=== PATIENT | male | born 1970 | race Caucasian/White ===

== ENCOUNTER 2022-02-16 13:35 | Outpatient (CLI) | payer OTHER, SELFPAY ==
[2022-02-16 13:51] LABS: Hemoglobin A1C* 9.5 % (0-5.6)
[2022-02-16 22:01] LABS: Vitamin D 25 Hydroxy* 30 ng/mL (30-80)
[2022-02-16 22:34] LABS: Vitamin B12* 808 pg/mL (243-894)
--- OUTSIDE RECORDS SUMMARY | 2022-03-16 09:21 | XMS_ITS | Encounter Summary ---
:1970 Author Organization [facility] Address [address] [place] [address] Care Team Providers Name Role Phone Unavailable Primary Care Provider Unavailable Reason for Visit Reason Comments Callouses Appointment Request (Routine) - Closed Specialty Diagnoses / Procedures Referred By Contact Refer red To Contact Podiatry Referral ID Status Reason Start Date Expiration Date Visits Requ ested Visits Authorized [id number] Closed 02/01/2020 01/31/2021 1 1 Encounter Details Date Type Department Care Team Description 02/04/2020 Comprehensive Visit Department of Cory Hewitt etwilliams Mellitus Type 2 Peripheral Neuropathy (HCC) (Primary Dx); Orthopedic Surgery Meron guaman, Diabetes Mellitus Type 2 Ulcer (HCC); in [place] KayPDick Granuloma Pyogenic; [address] Foreign Body Foot Superficial Initial Le ft [address] [place] [id number] [phone] Social History Tobacco Use Types Packs/Day Years Used Date Smoking Tobacco: Never Smokeless Tobacco: Never Sex Assigned at Date Recorded Not on file documented as of this encounter Last Filed Vital Signs Vital Sign Reading Time Taken Comments Blood Pressure 119/58 02/04/2020 2:44 PM CDT Pulse 93 02/04/2020 2:44 PM CDT Temperature 36.7 ??C (98.1 ??F) 02/04/2020 2:44 PM CDT Respiratory Rate - - Oxygen Saturation - - Inhaled Oxygen Concentration - - Weight - - Height - - Body Mass Index - - documented in this encounter Progress Notes Meron Reddy D.P.M. - 02/04/2020 2:30 PM CDT SUBJECTIVE CHIEF COMPLAINT/REASON FOR VISIT Chief Complaint Patient presents with ??? Left Foot - Callouses HISTORY OF PRESENT ILLNESS Herb presents today for : Evaluation of ulceration left hallux. REVIEW OF SYSTEMS The following portions of the patient's history were reviewed and updated as appropriate: allergies,current medications, family history, medical history, social history, surgical history and problem list. OBJECTIVE VITAL SIGNS BP 119/58 Pulse 93 Temp 36.7 ??C (Temporal) PHYSICAL EXAMINATION General Appearance: Herb is well nourished, well groomed, cooperative, alert and is in no acute distress. Lower Extremity Physical Exam: Musculoskeletal: Motor strength normal and symmetric. No gross deformities or dislocations. Rectus foot structure. Gait: normal gait for age. Neurological: Loss of light touch and sharp sensation to the right and left foot. Coordination within normal limits. Patient is able to follow tasks as directed. Dermatological: Lower extremity: Skin evaluation: There is a spot bleeding to the plantar aspect of the 1st web space left foot, ulceration with central hyper granular growth to the plantar aspect of the interphalangeal joint left hallux. Ulceration to the left hallux is partial thickness. There is surrounding callusing. There is no tunneling, undermining is present 4 to 7 o'clock position. Toenails:Dystrophic growth. Vascular: intact, pitting edema with visible varicosities bilateral extremity. ASSESSMENT / PLAN 1. Diabetes Mellitus Type 2 Peripheral Neuropathy (HCC) 2. Diabetes Mellitus Type 2 Ulcer (HCC) 3. Granuloma Pyogenic PLAN: Discussed with the patient clinical neuropathic ulceration to his left hallux. When paring thepoint where there was noted to be a blood spot to the plantar aspect of the left 1st interspace there is noted to be a small fragment of glass approximately 1 mm. This was superficial. Patient's ulceration to the left hallux appears to be related to friction. There is some callus and some undermining.Debridement is performed with cautery and a sterile surgical # 15 blade <20sqcm. The site is thendressed with a topical antibiotic gauze and Coban. Patient will continue daily wound care. Recommended nonweightbearing. He is unsteady using crutches and he will obtain a knee scooter to stay off of his right foot. He states he is on work restrictions per his primary care. He also had questions abouthis toenails and recommend he discuss with his prostate primary care the option of terbinafine 90 day. Assessment for Herb will be ongoing with changes in treatment as indicated. Herb will followwith Podiatry if there are any questions or complications. All questions answered. documented in this encounter Plan of Treatment Not on filedocumented as of this encounter Visit Diagnoses Diagnosis Diabetes Mellitus Type 2 Peripheral Neur opathy (HCC) - Primary Diabetes Mellitus Type 2 Ulcer (HCC) Granuloma Pyogenic Foreign Body Foot Superficial Initial Le ft documented in this encounter
--- OUTSIDE RECORDS SUMMARY | 2022-03-16 09:21 | XMS_ITS | Encounter Summary ---
:1970 Author Organization [facility] Address [address] [place] [address] Care Team Providers Name Role Phone Unavailable Primary Care Provider Unavailable Reason for Visit Reason Comments Med Refill Encounter Details Date Type Department Care Team Description 09/25/2020 Refill Department of Urology in [facility] Caity troy P.A.-C. Med Refill [place], [place] [address] [place] [address] [place] [address] [phone] Social History Tobacco Use Types Packs/Day Years Used Date Smoking Tobacco: Never Smokeless Tobacco: Never Sex Assigned at Date Recorded Not on file documented as of this encounter Plan of Treatment Not on filedocumented as of this encounter Visit Diagnoses Not on filedocumented in this encounter
--- OUTSIDE RECORDS SUMMARY | 2022-03-16 09:21 | XMS_ITS | Encounter Summary ---
:1970 Author Organization [facility] Address [address] [place] [address] Care Team Providers Name Role Phone Unavailable Primary Care Provider Unavailable Reason for Visit Reason Comments Nail Problem Nail Problem Appointment Request (Routine) - Closed Specialty Diagnoses / Procedures Referred By Contact Refer red To Contact Orthopedic Surgery Referral ID Status Reason Start Date Expiration Date Visits Requ ested Visits Authorized [id number] Closed 05/21/2020 05/21/2021 1 1 Encounter Details Date Type Department Care Team Description 06/16/2020 Office Visit Department of Maureen Diabetes Mellitus Type 2 (HCC) (Primary Dx); Orthopedic Surgery in [place] Callus Corn; [place], [place] D.P.MKwesi Diabetes Mellitus Type 2 Peripheral Neur opathy (HCC) [address] [phone] [phone] Social History Tobacco Use Types Packs/Day Years Used Date Smoking Tobacco: Never Smokeless Tobacco: Never Sex Assigned at Date Recorded Not on file documented as of this encounter Progress Notes Meron Reddy D.P.MKwesi - 06/16/2020 2:30 PM CST SUBJECTIVE CHIEF COMPLAINT/REASON FOR VISIT Chief Complaint Patient presents with ??? Right Foot - Nail Problem ??? Left Foot - Nail Problem HISTORY OF PRESENT ILLNESS Herb presents today for : Return of callus left big toe. OBJECTIVE VITAL SIGNS There were no vitals taken for this visit. PHYSICAL EXAMINATION General Appearance: Herb is well nourished, well groomed, cooperative, alert and is in no acute distress. Lower Extremity Physical Exam: Musculoskeletal: Hallux valgus. Motor strength normal and symmetric. No gross deformities or dislocations. Rectus foot structure. Gait: normal gait for age. Neurological: Loss of light touch and sharp sensation to the right and left foot. Coordination within normal limits. Patient is able to follow tasks as directed. Dermatological: Lower extremity: Skin evaluation: Hyperkeratosis with dried hemorrhaging within the callusing. Toenails: Dystrophic growth. Vascular: intact, pitting edema with visible varicosities bilateral extremity. ASSESSMENT / PLAN 1. Diabetes Mellitus Type 2 (HCC) 2. Callus Lewis 3. Diabetes Mellitus Type 2 Peripheral Neuropathy (HCC) PLAN: Discussed with the patient clinical neuropathic callus to his left hallux. Callus is pared. This area is high risk for ulceration and reviewed offloading and shoe gear. Assessment for Herb will be ongoing with changes in treatment as indicated. Herb will follow with Podiatry if there are any questions or complications. All questions answered. EOLOGIST documented in this encounter Plan of Treatment Not on filedocumented as of this encounter Visit Diagnoses Diagnosis Diabetes Mellitus Type 2 (HCC) - Primary Callus Lewis Diabetes Mellitus Type 2 Peripheral Neur opathy (HCC) documented in this encounter
--- OUTSIDE RECORDS SUMMARY | 2022-03-16 09:21 | XMS_ITS | Encounter Summary ---
:1970 Author Organization [facility] Address [address] [place] [address] Care Team Providers Name Role Phone Unavailable Primary Care Provider Unavailable Encounter Details Date Type Department Care Team Description 07/28/2020 Clinical Communication Department of Urology Caity Swain in [facility] Melia jonh [place] [address] [facility] [address] [place], [place] [phone] Social History Tobacco Use Types Packs/Day Years Used Date Smoking Tobacco: Never Smokeless Tobacco: Never Sex Assigned at Date Recorded Not on file documented as of this encounter Miscellaneous Notes Telephone Encounter - Tara Sands, L.P.N. - 07/29/2020 9:32 AM LOGGING SUPERINTENDENT Prescription called to [place] [facility], attempted to reach patient to update no answer and mail box is full. ING SUPERINTENDENT Telephone Encounter - Annie Louie - 07/28/2020 2:40 PM CST Patient called asking if he could get his prescription sent to [facility] in [place] instead of [facility]. Please give him a call back at [phone]. Thank you. ING SUPERINTENDENT documented in this encounter Plan of Treatment Not on filedocumented as of this encounter Visit Diagnoses Not on filedocumented in this encounter
--- OUTSIDE RECORDS SUMMARY | 2022-03-16 09:21 | XMS_ITS | Clinical Summary ---
:1970 Author Organization [facility] Address [address] [place] [address] Care Team Providers Name Role Phone Unavailable Primary Care Provider Unavailable Source Comments Patient records contain information from all sites at [facility]. For routine questions regarding patient records, call [phone] during business hours, M-F 8:00 AM - 5:00 PM Central Time. Record requests for emergency care only can be directed to [phone] at any time.[facility] Allergies No known active allergies Medications Medication Sig Dispensed Refills Start Date End Date Status aspirin [address] tablet Take 81 mg by 0 03/02/2012 Active mouth. atorvastatin (Lipitor) Lipitor 10 mg 0 11/03/2013 Active 10 mg tablet oral tablet See Instructions, 1 TABLET DAILY Invokana 100 mg tablet 0 10/29/2019 Active insulin asp prt-insulin Inject under the 0 7 Active aspart (NovoLOG Mix skin. 70-30 U-100 Insuln) 100 unit/mL (70-30) injection latanoprost (XALATAN) INT 1 GTT IN OU 0 01/15/2020 Active 0.005 % ophthalmic QHS solution levothyroxine Two tablets daily 0 08/20/2014 Active (SYNTHROID, LEVOTHROID) 100 mcg tablet liraglutide (Victoza Inject under the 0 07/28/2017 Active 3-Lionel) 0.6 mg/0.1 mL skin. (18 mg/3 mL) injection lisinopriL One and a half 0 08/20/2014 Act ramses (PRINIVIL,ZESTRIL) 20 tabs daily mg tablet LORazepam (ATIVAN) 0.5 TK 1 TO 2 TS PO Q 0 0 Active mg tablet 8 H FOR 5 DAYS PRF VERTIGO meclizine (ANTIVERT) 25 TK 1 T PO TID PRF 0 01/10/20 20 Active mg tablet VERTIGO metFORMIN (GLUCOPHAGE) Take by mouth. 0 05/23/2013 Active 1,000 mg tablet rOPINIRole (REQUIP) 4 0 01/28/2020 Active mg tablet sertraline (ZOLOFT) 100 Take 100 mg by 0 06/21/2016 Active mg tablet mouth. simvastatin (ZOCOR) 40 Take 40 mg by 0 04/09/2014 Active mg tablet mouth. BD Insulin Syringe 0 05/09/2020 Active Ultra-Fine 1 mL 31 gauge x 12/21 syringe FreeStyle Jaye 14 Day APPLY UTD Q 14 0 06/30/2020 Active Sensor kit DAYS oxybutynin TAKE 1 TABLET BY 90 tablet 3 09/26/2020 A ctive (DITROPAN-XL) 10 mg 24 MOUTH DAILY hr tablet Active Problems Problem Noted Date Obesity Unspecified 03/05/2010 Diabetes Mellitus Type 2 02/20/2010 Overview: Overview: a system change updated this record. Thi s will not affect patient care or billing. This comment can be deleted. Hyperlipidemia 02/20/2010 Hypertension 02/20/2010 Hypothyroidism 02/20/2010 Social History Tobacco Use Types Packs/Day Years Used Date Smoking Tobacco: Never Smokeless Tobacco: Never Sex Assigned at Date Recorded Not on file Last Filed Vital Signs Vital Sign Reading Time Taken Comments Blood Pressure 126/67 07/28/2020 1:03 PM SHIPPING AND RECEIVING WEIGHER Pulse 111 07/28/2020 1:03 PM SHIPPING AND RECEIVING WEIGHER Temperature 35.9 ??C (96.6 ??F) 07/28/2020 1:03 PM SHIPPING AND RECEIVING WEIGHER Respiratory Rate 18 10/07/2014 10:39 PM SHIPPING AND RECEIVING WEIGHER Oxygen Saturation - - Inhaled Oxygen Concentration - - Weight - - Height 170 cm (5' 6.93) 05/06/2016 8:53 AM CDT Body Mass Index - - Plan of Treatment Health Maintenance Due Date Last Done Comments CT Colonography 1968 Cologuard 1968 Colonoscopy 1968 Colorectal Cancer Screening 1968 Diabetic Office Visit with Foot 1968 Exam Dilated Eye Exam 1968 FIT 1968 Fasting Lipid Panel 1968 HIV Screening 1968 Hemoglobin A1C 1968 Hepatitis B Vaccines (1 of 3 - 1970 3-dose series) Hepatitis C Screening 1968 Urine Microalbumin 1968 COVID-19 Vaccine (#1) 01/07/1969 Pneumococcal vaccine (0-64 years) 05/20/2007 05/20/2006 (2 - PCV) Creatinine Level 10/08/2015 10/07/2014 Potassium Level 10/08/2015 10/07/2014 Sodium Level 10/08/2015 10/07/2014 Thyroid Stimulating Hormone (TSH) 10/08/2015 10/07/2014 test for thyroid function Zoster Vaccines (1 of 2) 2018 Office Visit for Blood Pressure 07/28/2021 07/28/2020 Check / Re-check Depression Screening (Annual 08/08/2021 PHQ-2) Influenza Vaccine (#1) 2022 05/14/2019, 05/18/2012, 05/17/2011, Additional history exists DTaP,Tdap,and Td Vaccines (2 - Td 05/14/2029 05/14/2019 or Tdap)
--- OUTSIDE RECORDS SUMMARY | 2022-03-16 09:21 | XMS_ITS | Encounter Summary ---
:1970 Author Organization [facility] Address [address] [place] [address] Care Team Providers Name Role Phone Unavailable Primary Care Provider Unavailable Encounter Details Date Type Department Care Team Description 06/16/2020 Ancillary Procedure Department of Orthopedic Surgery Social History Tobacco Use Types Packs/Day Years Used Date Smoking Tobacco: Never Smokeless Tobacco: Never Sex Assigned at Date Recorded Not on file documented as of this encounter Plan of Treatment Not on filedocumented as of this encounter Procedures Procedure Name Priority Date/Time Associated Comments Diagnosis ORTHOPEDIC SURGERY Routine 06/16/2020 2:50 PM Res ults for this IMAGE EXAM DESIGN CONSULTANT procedure are i n the results section. documented in this encounter Results Foot-Orthopedic Surgery Image Exam (06/16/2020 2:50 PM DESIGN CONSULTANT) Specimen (Source) Anatomical Collection Method Collection Time Re ceived Time Location / / Volume Laterality 06/16/2020 2:50 PM DESIGN CONSULTANT Narrative [facility] - 06/16/2020 2:53 PM DESIGN CONSULTANT This order has been created and auto-finalized to support the import of images acquired without order. The clini ree documentation to support these images can be found on the encounter miguel angel t produced images. Provider Not In System IMG NON RAD IMAGING PROCEDUR ES Performing Organization Address City/State/ZIP Code Phon e Number [facility] NA documented in this encounter Visit Diagnoses Not on filedocumented in this encounter
--- OUTSIDE RECORDS SUMMARY | 2022-03-16 09:21 | XMS_ITS | Encounter Summary ---
:1970 Author Organization [facility] Address [address] [place] [address] Care Team Providers Name Role Phone Unavailable Primary Care Provider Unavailable Reason for Referral Outpatient (Routine) - Closed Specialty Diagnoses / Procedures Referred By Contact Refer red To Contact Diagnoses Urgency Urinary Anjel Lopez M.D. [facility] Procedures US Kidneys Bilateral with Bladder [address] [place] [address] Referral ID Status Reason Start Date Expiration Date Visits Requ ested Visits Authorized [id number] Closed 05/27/2020 05/27/2021 1 1 Reason for Visit Outpatient (Routine) - Closed Specialty Diagnoses / Procedures Referred By Contact Refer red To Contact Diagnoses Urgency Urinary Anjel Lopez M.D. [facility] Procedures US Kidneys Bilateral with Bladder [address] [place] [address] Referral ID Status Reason Start Date Expiration Date Visits Requ ested Visits Authorized [id number] Closed 05/27/2020 05/27/2021 1 1 Encounter Details Date Type Department Care Team Description 06/02/2020 Hospital Encounter Department of Anjel Lopez Urg ency Urinary Radiology in [facility] [address] [place] [address] [place] [phone] (Work) [phone] Social History Tobacco Use Types Packs/Day Years Used Date Smoking Tobacco: Never Smokeless Tobacco: Never Sex Assigned at Date Recorded Not on file documented as of this encounter Medications at Time of Discharge Medication Sig Dispensed Refills Start Date End Date aspirin [address] tablet Take 81 mg by mouth. 0 atorvastatin (Lipitor) 10 Lipitor 10 mg oral 0 mg tablet tablet See Instructions, 1 TABLET DAILY BD Insulin Syringe 0 05/09/2020 Ultra-Fine 1 mL 31 gauge x 5/16 syringe insulin asp prt-insulin Inject under the 0 2016 aspart (NovoLOG Mix 70-30 skin. U-100 Insuln) 100 unit/mL (70-30) injection Invokana 100 mg tablet 0 10/29/2019 latanoprost (XALATAN) 0.005 INT 1 GTT IN OU QHS 0 01/15/2020 % ophthalmic solution levothyroxine (SYNTHROID, Two tablets daily 0 LEVOTHROID) 100 mcg tablet liraglutide (Victoza 3-Lionel) Inject under the 0 0.6 mg/0.1 mL (18 mg/3 mL) skin. injection lisinopriL One and a half tabs 0 08/20/2014 (PRINIVIL,ZESTRIL) 20 mg daily tablet LORazepam (ATIVAN) 0.5 mg TK 1 TO 2 TS PO Q 8 0 0 01/17/2020 tablet H FOR 5 DAYS PRF VERTIGO meclizine (ANTIVERT) 25 mg TK 1 T PO TID PRF 0 tablet VERTIGO metFORMIN (GLUCOPHAGE) Take by mouth. 0 3 1,000 mg tablet rOPINIRole (REQUIP) 4 mg 0 01/28/2020 tablet sertraline (ZOLOFT) 100 mg Take 100 mg by 0 06/21 tablet mouth. simvastatin (ZOCOR) 40 mg Take 40 mg by mouth. 0 04/09/2014 tablet documented as of this encounter Plan of Treatment Not on filedocumented as of this encounter Procedures Procedure Name Priority Date/Time Associated Comments Diagnosis US KIDNEYS RAD - Routine 06/02/2020 11:25 Urgency Urinary Results for this BILATERAL WITH (most inpatients AM CDT procedure are in BLADDER and all the results outpatients) section. documented in this encounter Results US Kidneys Bilateral with Bladder (06/02/2020 11:25 AM CDT) Anatomical Region Laterality Modality Abdomen, Renal, Ultrasound RST LOS, Ultrasound ARZ LOS, Bila teral Ultrasound Ultrasound FLA LOS Specimen (Source) Anatomical Collection Method Collection Time Re ceived Time Location / / Volume Laterality 06/02/2020 11:26 AM CDT Impressions 06/02/2020 11:28 AM CDT Unremarkable plain film evaluation of the right and left kidneys and urinary bladder. Narrative 06/02/2020 11:28 AM CDT EXAM: US KIDNEYS BILATERAL WITH BLADDER COMPARISON: None. FINDINGS: Right kidney: 14.4 cm Cortical thickness: Normal. ?? Parenchymal echogenicity: Normal. Collecting system: No hydronephrosis. Masses: None detected. Left kidney: 14.9 cm Cortical thickness: Normal. ?? Parenchymal echogenicity: Normal. Collecting system: No hydronephrosis. Masses: None detected. Bladder: Normal in appearance. Prevoid v olume 190 and L. Post void volume 37 mL. Incidentally noted when evaluating the u pper abdomen was that the echogenicity and echotexture of the liver suggests a degree of hepatic steatosis. Procedure Note Lakshmi Santamaria M.D. - 06/02/2020Forma tting of this note might be different from the original. EXAM: US KIDNEYS BILATERAL WITH BLADDER COMPARISON: None. FINDINGS: Right kidney: 14.4 cm Cortical thickness: Normal. Parenchymal echogenicity: Normal. Collecting system: No hydronephrosis. Masses: None detected. Left kidney: 14.9 cm Cortical thickness: Normal. Parenchymal echogenicity: Normal. Collecting system: No hydronephrosis. Masses: None detected. Bladder: Normal in appearance. Prevoid v olume 190 and L. Post void volume 37 mL. Incidentally noted when evaluating the u pper abdomen was that the echogenicity and echotexture of the liver suggests a degree of hepatic steatosis. IMPRESSION: Unremarkable plain film evaluation of th e right and left kidneys and urinary bladder. Anjel MARIEEG US PROCEDURES documented in this encounter Visit Diagnoses Diagnosis Urgency Urinary documented in this encounter
--- OUTSIDE RECORDS SUMMARY | 2022-03-16 09:21 | XMS_ITS | Encounter Summary ---
:1970 Author Organization [facility] Address [address] [place] [address] Care Team Providers Name Role Phone Unavailable Primary Care Provider Unavailable Reason for Visit Reason Comments cytology question Encounter Details Date Type Department Care Team Description 07/29/2020 Clinical Communication Department of Caity Swain [facility] [place] [address] [place] [phone] Social History Tobacco Use Types Packs/Day Years Used Date Smoking Tobacco: Never Smokeless Tobacco: Never Sex Assigned at Date Recorded Not on file documented as of this encounter Miscellaneous Notes Telephone Encounter - Maribell Hartman L.P.NKwesi - 07/29/2020 12:46 PM SURVEY RODMAN Patient called and wanted to know more about the urine cytology test that Caity ordered. Let him know it is a test that looks for high grade cancer cells. He states verbal understanding. Also let him know when he goes to the lab, to go with a full bladder as we need a half a cup to run the test he states verbal understanding. EY RODMAN documented in this encounter Plan of Treatment Not on filedocumented as of this encounter Visit Diagnoses Not on filedocumented in this encounter
--- OUTSIDE RECORDS SUMMARY | 2022-03-16 09:21 | XMS_ITS | Encounter Summary ---
:1970 Author Organization [facility] Address [address] [place] [address] Care Team Providers Name Role Phone Unavailable Primary Care Provider Unavailable Encounter Details Date Type Department Care Team Description 10/31/2020 Orders Only [facility] Sa nahomi Segal M.D. [address] [place], [place] [phone] (Wo rk) Social History Tobacco Use Types Packs/Day Years Used Date Smoking Tobacco: Never Smokeless Tobacco: Never Sex Assigned at Date Recorded Not on file documented as of this encounter Plan of Treatment Not on filedocumented as of this encounter Visit Diagnoses Not on filedocumented in this encounter
--- OUTSIDE RECORDS SUMMARY | 2022-03-16 09:21 | XMS_ITS | Encounter Summary ---
:1970 Author Organization [facility] Address [address] [place] [address] Care Team Providers Name Role Phone Unavailable Primary Care Provider Unavailable Reason for Referral Outpatient (Routine) - Closed Specialty Diagnoses / Procedures Referred By Contact Refer red To Contact Diagnoses Dyspnea On Exertion Anjel Lopez M.D. [facility] Procedures Echo Stress [place] ECHO TTE STRESS W CONT ECG [address] [place] [id number] Referral ID Status Reason Start Date Expiration Date Visits Requ ested Visits Authorized [id number] Closed 02/25/2020 02/24/2021 1 1 Reason for Visit Outpatient (Routine) - Closed Specialty Diagnoses / Procedures Referred By Contact Refer red To Contact Diagnoses Dyspnea On Exertion Anjel Lopez M.D. [facility] Procedures Echo Stress WI ECHO TTE STRESS W CONT ECG [address] [place] [id number] Referral ID Status Reason Start Date Expiration Date Visits Requ ested Visits Authorized [id number] Closed 02/25/2020 02/24/2021 1 1 Encounter Details Date Type Department Care Team Description 03/17/2020 Hospital Encounter Department of Anjel Lopez a On Exertion Joyce Christianson M.D. Diseases in [address] [place] [address] [place], [place] [phone] (Work) [phone] Social History Tobacco Use Types Packs/Day Years [...] tablet tablet See Instructions, 1 TABLET DAILY insulin asp prt-insulin Inject under the 0 [...] encounter Procedures Procedure Name Priority Date/Time Associated Diagnosis Comme nts ECHO STRESS 2D WITH Routine 03/17/2020 3:55 PM Dyspnea On Exer tion Results for this COLOR, LIMITED CDT procedure are in DOPPLER AND the results CONTRAST section. documented in this encounter Results ECHO STRESS 2D WITH COLOR, LIMITED DOPPLER AND CONTRAST (03/17/2020 3:55 PM CDT) [facility] gist Method Time Signature Ejection Fraction 60 MC CV EIMS Sinus of Valsalva 36 MC CV EIMS Mid-Ascending Aorta 33 MC CV EIMS Wall Motion Score 1.00 MC CV EIMS Index LV Mass Index 98 MC CV EIMS LV End-Diastolic 47 MC CV EIMS Diameter LV End-Systolic 28 MC CV EIMS Diameter MV E Velocity 1.1 MC CV EIMS MV A Velocity 0.7 MC CV EIMS MV E/A 1.57 MC CV EIMS MV e' Velocity 0.09 MC CV EIMS Medial MV E/e' Medial 12.2 MC CV EIMS LV Interventricular 13 MC CV EIMS Septal Wall Thickness LV Posterior Wall 12 MC CV EIMS Thickness LV Relative Wall 51 MC CV EIMS Thickness LA Volume Index 21 MC CV EIMS WMSI At Rest 1.00 MC CV EIMS WMSI At Peak Stress 1.00 MC CV EIMS Anatomical Region Laterality Modality Echocardiography Specimen (Source) Anatomical Collection Method Collection Time Re ceived Time Location / / Volume Laterality 03/17/2020 12:52 PM CDT Impressions 03/18/2020 2:57 PM CDT Stress outreach echo interpretation. ??STRESS TEST: ??Dobutamine was infused from 5 mcg/kg/min to 40.0 mcg/kg/min. ??A dose of 1.00 mg of atropine was administered. ??A peak heart rate of 134 BPM was achieved (79 % age-predicted maximal HR). ??The patient developed headache. ??With stress, there were no S-T changes. ??The stress ECG was negative for ischemia. ??Test was terminated due to IV infiltration. ??Please see Nursing Notes for additional information. ??REST IMAGES: Intravenous Definity ultrasound enhancem ent agent(s) administered to enhance endocardial border definition. ??Contrast administered per local protocol by Viktoriya Madden RN, see on-site medical record for further documentation . ??LEFT VENTRICLE: ??Normal left ventricular chamber size. ??Normal left ventricular wall thi ckness. ??No regional wall motion abnormalities. Indeterminate left ventricular diastolic function grade. ??RIGHT VENTRICLE: ??Normal right ventricular chamber size (limited views) . ??Normal right ventricular systolic function (limited views). ??Unable to detect peak tricuspi d regurgitation velocity for pulmonary artery systolic pressure calculation. ??ATRIA: ??Normal left atrial size. ??Normal right atrial size. ??CARDIAC VALVES: ??Trileaflet aortic valve. ??Nor mal aortic valve. ??No aortic valve regurgitation. ??Normal mitral valve. ??No mitral valve regurgit ation. ??Normal pulmonary valve. ??Trivial pulmonary valve regurgitation. ??Normal tricuspid valve. ??No tricuspid valve regurgitation. ??OTHER ECHO FINDINGS: ??Inferior vena cava not well visualized. ??Normal ascending aorta diameter. ??No intracardiac mass or thrombus, but the l eft atrial appendage cannot be visualized adequately with transthoracic echo to exclude throm bus in this location. ??Prominent anterior and apical epicardial fat layer. ??No pericardial e ffusion. ??Dobutamine stress echocardiogram negative for myocardial ischemia. ??Ejection fraction response from 60 % at rest to 75 % at peak stress. Left ventricular end-systolic volume dec reased with stress. ??No regional wall motion abnormalities with stress. For the complete report, see the [facility] Documents. Narrative 03/18/2020 2:57 PM CDT For the complete report, see the [facility] Documents. Final Impressions 1. Dobutamine stress echocardiogram nega tive for myocardial ischemia. 2. Ejection fraction response from 60 % at rest to 75 % at peak stress. 3. Left ventricular end-systolic volume decreased with stress. 4. No regional wall motion abnormalities with stress. 5. The stress ECG was negative for ische josias. Procedure Note Damien Huang M.D. - 03/18/2020Form atting of this note might be different from the original. For the complete report, see the [facility] Documents. Final Impressions 1. Dobutamine stress echocardiogram nega tive for myocardial ischemia. 2. Ejection fraction response from 60 % at rest to 75 % at peak stress. 3. Left ventricular end-systolic volume decreased with stress. 4. No regional wall motion abnormalities with stress. 5. The stress ECG was negative for ische josias. Findings Stress outreach echo interpretation. STR ESS TEST: Dobutamine was infused from 5 mcg/kg/min to 40.0 mcg/kg/min. A dose of 1.00 mg of at ropine was administered. A peak heart rate of 134 BPM was achieved (79 % age-predicted maximal HR). The patient developed headache. With stress, there were no S-T changes. The stress EC G was negative for ischemia. Test was terminated due to IV infiltration. Please see Nursing N otes for additional information. REST IMAGES: Intravenous Definity ultrasound enhancem ent agent(s) administered to enhance endocardial border definition. Contrast administered per [facility] protocol by Viktoriya Madden RN, see on-site medical record for further documentation . LEFT VENTRICLE: Normal left ventricular chamber size. Normal left ventricular wall thick ness. No regional wall motion abnormalities. Indeterminate left ventricular diastolic function grade. RIGHT VENTRICLE: Normal right ventricular chamber size (limited views) . Normal right ventricular systolic function (limited views). Unable to detect peak tricuspid regurgitation velocity for pulmonary artery systolic pressure calculation. ATRIA: Normal left atrial size. Normal right atrial size. CARDIAC VALVES: Trileaflet aortic valve. Normal aortic valve. No aortic valve regurgitation. Normal mitral valve. No mitral valve regurgitat ion. Normal pulmonary valve. Trivial pulmonary valve regurgitation. Normal tricuspid valve. N o tricuspid valve regurgitation. OTHER ECHO FINDINGS: Inferior vena cava not well vi sualized. Normal ascending aorta diameter. No intracardiac mass or thrombus, but the l eft atrial appendage cannot be visualized adequately with transthoracic echo to exclude throm bus in this location. Prominent anterior and apical epicardial fat layer. No pericardial eff usion. Dobutamine stress echocardiogram negative for myocardial ischemia. Ejection fraction r esponse from 60 % at rest to 75 % at peak stress. Left ventricular end-systolic volume dec reased with stress. No regional wall motion abnormalities with stress. For the complete report, see the [facility] Documents. Anjel Lopez M.D. CV ECHO PROCEDURES documented in this encounter Visit Diagnoses Diagnosis Dyspnea On Exertion documented in this encounter Administered Medications Inactive Administered Medications - up to 3 most recent administrations Medication Order MAR Action Action Date Dose Rate Site atropine injection 0.25 mg Given 03/17/2020 1:59 PM CDT 1 mg 0.25 mg, intravenous, As needed, per Dobutamine stress echo protocol, Starting on Tue03/17/20 at 1335, Give per Dobuatmine stress echo protocol. DOBUTamine 1,000 mcg/mL in D5W 250 mL New Bag 03/17/2020 1:43 PM C DT 58.5 mg infusion 1-100 mg (DOBUTREX) 1-100 mg, intravenous, Once, On Tue03/17/20 at 1430, For 1 dose, Infusion rate: 5-40 mcg/kg/min - see protocol. Premix ba mg in 250 mL perflutren lipid microspheres injection Given 03/17/2020 1:33 PM CDT 4.5 mL (DEFINITY) intravenous, Once in imaging, contrast, Starting on 03/17/20 at 1303, For 1 dose, Standard concentration - perflutren lipid microsphere (DEFINITY) injection: To be administered for inclusion criteria that does not include an indication of myocardial perfusion. 1. Activate perflutren lipid microsphere by shaking the vial for 45 seconds using a Vialmix. 2. Draw up contents of vial into 10 mL syringe with 8.5 mL of 0.9% sodium chloride for a total of 10 mL. 3. Administer 0.5 mL IV push of the diluted solution. 4. Immediately flush with 0.9% sodium chloride over 10 seconds. 5. May repeat steps 3 and 4 until images are optimal or for a total of 10 mL of diluted solution being administered. See protocol. sodium chloride 0.9 % injection 10 mL Given 03/17/2020 1:35 PM CDT 40 mL 10 mL, intravenous, As needed, line care, Starting on Tue03/17/20 at 1423, Prior to and following infusion and between multiple consecutive infusions: sodium chloride 0.9 % injection documented in this encounter
--- OUTSIDE RECORDS SUMMARY | 2022-03-16 09:22 | XMS_ITS | Encounter Summary ---
:1970 Author Organization [facility] Address [address] [place] [address] Care Team Providers Name Role Phone Unavailable Primary Care Provider Unavailable Encounter Details Date Type Department Care Team Description 05/03/2016 Hospital Encounter HX [facility] NEUROLOGY Madiha Walker D.O. [address] [place] [address] (Wo rk) Social History Tobacco Use Types Packs/Day Years Used Date Smoking Tobacco: Never Assessed Sex Assigned at Date Recorded Not on file documented as of this encounter Last Filed Vital Signs Vital Sign Reading Time Taken Comments Blood Pressure - - Pulse - - Temperature - - Respiratory Rate - - Oxygen Saturation - - Inhaled Oxygen Concentration - - Weight - - Height 170 cm (5' 6.93) 05/03/2016 11:51 AM CDT Body Mass Index - - documented in this encounter Medications at Time of Discharge Medication Sig Dispensed Refills Start Date End Date aspirin [address] tablet Take 81 mg by mouth. 0 atorvastatin (Lipitor) 10 Lipitor 10 mg oral 0 mg tablet tablet See Instructions, 1 TABLET DAILY levothyroxine (SYNTHROID, Two tablets daily 0 LEVOTHROID) 100 mcg tablet lisinopriL One and a half tabs 0 08/20/2014 (PRINIVIL,ZESTRIL) 20 mg daily tablet metFORMIN (GLUCOPHAGE) Take by mouth. 0 3 1,000 mg tablet simvastatin (ZOCOR) 40 mg Take 40 mg by mouth. 0 04/09/2014 tablet documented as of this encounter Plan of Treatment Not on filedocumented as of this encounter Visit Diagnoses Not on filedocumented in this encounter
--- OUTSIDE RECORDS SUMMARY | 2022-03-16 09:22 | XMS_ITS | Encounter Summary ---
:1970 Author Organization [facility] Address [address] [place] [address] Care Team Providers Name Role Phone Unavailable Primary Care Provider Unavailable Encounter Details Date Type Department Care Team Description 04/28/2009 Hospital Encounter [facility]X [facility] INPT/OBSRV Angella Ambriz M.D. [address] [place], [place] [address] (Wo rk) Social History Tobacco Use Types Packs/Day Years Used Date Smoking Tobacco: Never Assessed Sex Assigned at Date Recorded Not on file documented as of this encounter Plan of Treatment Not on filedocumented as of this encounter Visit Diagnoses Not on filedocumented in this encounter
--- OUTSIDE RECORDS SUMMARY | 2022-03-16 09:22 | XMS_ITS | Encounter Summary ---
:1970 Author Organization [facility] Address [address] [place] [address] Care Team Providers Name Role Phone Unavailable Primary Care Provider Unavailable Encounter Details Date Type Department Care Team Description 10/02/[address] [facility] INPT/OBSRV Angella Ambriz M.D. [address] [place], [place] [address] (Wo rk) Social History Tobacco Use Types Packs/Day Years Used Date Smoking Tobacco: Never Assessed Sex Assigned at Date Recorded Not on file documented as of this encounter Plan of Treatment Not on filedocumented as of this encounter Visit Diagnoses Not on filedocumented in this encounter
--- OUTSIDE RECORDS SUMMARY | 2022-03-16 09:22 | XMS_ITS | Encounter Summary ---
:1970 Author Organization [facility] Address [address] [place] [address] Care Team Providers Name Role Phone Unavailable Primary Care Provider Unavailable Encounter Details Date Type Department Care Team Description 10/16/2009 Hospital Encounter H[facility] INPT/OBSRV Angella Ambriz M.D. [address] [place], [place] [address] (Wo rk) Social History Tobacco Use Types Packs/Day Years Used Date Smoking Tobacco: Never Assessed Sex Assigned at Date Recorded Not on file documented as of this encounter Plan of Treatment Not on filedocumented as of this encounter Visit Diagnoses Not on filedocumented in this encounter
--- OUTSIDE RECORDS SUMMARY | 2022-03-16 09:22 | XMS_ITS | Encounter Summary ---
:1970 Author Organization [facility] Address [address] [place] [address] Care Team Providers Name Role Phone Unavailable Primary Care Provider Unavailable Encounter Details Date Type Department Care Team Description 12/17/2019 Hospital Encounter Department of Anjel Lopez re Injury Radiology in Enrique Christianson M.D. (Ulcer) Of [address] Site Unspecified [address] [place] [address] [address] [place], [place] [phone] (Work) [phone] Social History Tobacco Use Types Packs/Day Years Used Date Smoking Tobacco: Never Sex Assigned at Date Recorded [...] injection Invokana 100 mg tablet 0 10/29/2019 levothyroxine (SYNTHROID, Two tablets daily 0 LEVOTHROID) 100 mcg tablet liraglutide (Victoza 3-Lionel) Inject under the 0 0.6 mg/0.1 mL (18 mg/3 mL) skin. injection lisinopriL One and a half tabs 0 08/20/2014 (PRINIVIL,ZESTRIL) 20 mg daily tablet metFORMIN (GLUCOPHAGE) Take by mouth. 0 3 1,000 mg tablet sertraline (ZOLOFT) 100 mg Take 100 mg by 0 06/21 tablet mouth. simvastatin (ZOCOR) 40 mg Take 40 mg by mouth. 0 04/09/2014 tablet documented as of this encounter Plan of Treatment Not on filedocumented as of this encounter Procedures Procedure Name Priority Date/Time Associated Comments Diagnosis DX TOES LEFT 3 RAD - Routine 12/17/2019 3:50 Pressure Injury Result s for this VIEWS (most inpatients PM CDT (Ulcer) Of Other procedu re are in and all Site Unspecified the results outpatients) Stage section. documented in this encounter Results DX Toes Left 3 Views (12/17/2019 3:50 PM CDT) Anatomical Region Laterality Modality Lower Extremity, Toes, Musculoskeletal RST LOS, Left X-Ray Angiography Musculoskeletal ARZ LOS, Muskuloskeletal FLA LOS Specimen (Source) Anatomical Collection Method Collection Time Re ceived Time Location / / Volume Laterality 12/17/2019 3:55 PM CDT Impressions 12/17/2019 4:02 PM CDT Impression: Soft tissue swelling/ulceration located along the medial portion of the left great toe adjacent to the left IP joint space. No radiographic findings for osteomyelitis. No radiopaque foreign bodies. No evidence of acute osseous injury of the left great toe. Mild/moderately prominent scattered dege nerative changes of the left great toe. Scattered vascular calcifications. Narrative 12/17/2019 4:02 PM CDT EXAM: DX TOES LEFT 3 VIEWS COMPARISON: None Procedure Note Andrew Pearson M.D. - 12/17/2019Forma tting of this note might be different from the original. EXAM: DX TOES LEFT 3 VIEWS COMPARISON: None IMPRESSION: Impression: Soft tissue swelling/ulcerat ion located along the medial portion of the left great toe adjacent to the left IP joint space. No radiographic findings for osteomyelitis. No radiopaque foreign bodies. No evidence of acute osseous injury of the left great toe. Mild/moderately prominent scattered dege nerative changes of the left great toe. Scattered vascular calcifications. Anjel VU DIAGNOSTIC IMAGING PROCE ALYCIA documented in this encounter Visit Diagnoses Diagnosis Pressure Injury (Ulcer) Of Other Site Un specified Stage documented in this encounter
--- OUTSIDE RECORDS SUMMARY | 2022-03-16 09:22 | XMS_ITS | Encounter Summary ---
:1970 Author Organization [facility] Address [address] [place] [address] Care Team Providers Name Role Phone Unavailable Primary Care Provider Unavailable Encounter Details Date Type Department Care Team Description 10/07/2014 - Hospital Encounter HX [facility] ED Frank Quiroga, 10/08/[address] [facility] [address] [place] [phone] (Wo rk) Social History Tobacco Use Types Packs/Day Years Used Date Smoking Tobacco: Never Assessed Sex Assigned at Date Recorded Not on file documented as of this encounter Last Filed Vital Signs Vital Sign Reading Time Taken Comments Blood Pressure 137/74 10/07/2014 10:39 PM TANK PUMPER Pulse 100 10/07/2014 10:39 PM TANK PUMPER Temperature - - Respiratory Rate 18 10/07/2014 10:39 PM TANK PUMPER Oxygen Saturation - - Inhaled Oxygen Concentration - - Weight - - Height 170 cm (5' 6.93) 10/07/2014 10:39 PM TANK PUMPER Body Mass Index - - documented in this encounter Discharge Summaries Sagar Archibald, RKwesiN. - 10/08/2014 12:50 AM CST ED Discharge Instructions [address] [address] Name: ALEXANDRIA BOWENS Date of : 1970 12:00 AM Visit Date: 10/07/2014 10:38 PM [facility] Number: [id number] Address: [address] [place] [phone] Primary Care Provider: PCP, ELSEWHERE IMPORTANT: [facility] in [place] would like to thank you for allowing us to assist you with your healthcare needs. The following includes patient education materials and informationregarding your injury/illness. Diagnosis: Syncope/Near syncope Follow-Up Instructions: With: Address: When: Follow up with Pc provider in 2-3 days , disucss the insulin use with PC provider and adjust the dose and meal times. Advised not to miss any meals and keep the strict meal schedule. Check blood sugarsfour times per day and as needed. . In 2 days 10/10/2014 Comments: Your Upcoming Appointments: Date Time Location Provider No Appointments found Patient Education Materials: [id number] Causes of Syncope Syncope (fainting) has many causes. Sometimes it is not serious. In other cases, syncope is a sign of a heart problem. But treatment can help. When Syncope Is Not Serious Your doctor may call your problem vasovagal syncope or orthostatic hypotension. These two types of syncope are not serious. They can be caused by: ?? Strong feelings, such as anxiety or fear. A nerve signal may briefly change your heart rate and lower your blood pressure too much. ?? Standing for too long. Standing may cause blood to pool in your legs. When this happens, your brain may not receive all the blood it needs. ?? Standing up too quickly. Your blood pressure may not adjust fast enough to changes in posture andmay drop too low. Certain medications can also cause this problem. When Heart Trouble Causes Syncope A heart problem can decrease the amount of oxygen-rich blood that reaches the brain. Heart trouble can be serious and may even be fatal if left untreated. ?? A Slow Heart Rate: Electrical signals tell the chambers of the heart when to pump. But the signals may be slowed or blocked (heart block) as they travel on the hearts pathways. This can be caused byaging, scarred heart tissue, or damage from heart disease. When the heart rate slows, not enough blood is pumped. ?? A Fast Heart Rate: Certain problems can make the heart race. For instance, after a heart attack, also known as acute myocardial infarction, or AMI, abnormal electrical signals may be created. These signals can make the heart suddenly beat very fast. The heart pumps before the chambers can fill withblood. So less blood reaches the brain and other parts of the body. Illegal drugs, certain medications, heart disease, or an inherited condition can also cause this. A Heart Valve Problem: Blood travels through the chambers of the heart as it is pumped. Heart valvesopen and close to help move blood in the right direction. But a valve may not open or close fully, if its hardened or scarred. As a result, less blood is pumped through the heart to the brain and body. ?? [id number] [facility], [address] [place] [address], [place] [address]. All rights reserved. This information is not intended as a substitute for professional medical care. Always follow your healthcare professional's instructions. ED Tests and Procedures: Order Status XR Chest 1 view portable Completed Troponin T Completed CBC (includes Auto Differential) Completed Comprehensive Metabolic Panel Completed C-Reactive Protein Completed Thyroid Stimulating Hormone Completed Automated Diff-5 Part Completed Glucose POC. Completed Discharge Prescriptions & Home Medications: Medication/Strength Dose Route Frequency Indications/Special Instructions/Comments/Notes insulin aspart protamine-insulin aspart (NovoLOG Mix 70/30) See Instructions Subcut. 180units twice a day rotate injection sites naproxen (Naprosyn 375 mg oral tablet) 375 mg Oral two times a day as needed for pain levothyroxine (Levothroid 100 mcg (0.1 mg) oral tablet) 100 mcg Oral once a day lisinopril (lisinopril 20 mg oral tablet) 30 mg Oral once a day aspirin (Aspir 81 oral delayed release tablet) 81 mg Oral once a day metFORMIN (metFORMIN 1000 mg oral tablet) 1,000 mg Oral two times a day with meals latanoprost ophthalmic (latanoprost ophthalmic) 1 drop(s) Eyes(Both) once a day (at bedtime) [id number] (simvastatin 40 mg oral tablet) 40 mg Oral once a day (at bedtime) Comment: Attention: If you have any medications at home not on this list, DO NOT take them until you contact your provider for clarification. Give a copy of your medication list to your primary care provider. Update your medication list any time medications or doses are changed and carry your medication list at all times in case of emergency. Medication Reconciliation: Reconciliation is a process of identifying the most accurate list of all medications a patient is taking - including name, dosage, frequency, and route - and using this list to provide to the patient information about how to take those medications. ALEXANDRIA BOWENS or asher has reviewed the home medications you have listed with us. Review the following instructions: You have NOT received any prescriptions and you have told us you are not currently taking any home medications You have NOT received any prescriptions. You have been provided a discharge medications list and you may CONTINUE taking your medications as previously prescribed by your regular providers. You have received the listed prescriptions and BEGIN all listed prescriptions as directed. Since you have listed no home medications, please check with your family doctor if you are taking any other medications. You have received the listed prescriptions and BEGIN all listed prescriptions as directed. Youhave been provided a discharge medications list and you may CONTINUE all home medications as previously prescribed by your regular providers. You have received the listed prescriptions and BEGIN all listed prescriptions as directed. Youhave been provided a discharge medications list. The following CHANGES have been made to your medication list; Otherwise, CONTINUE all home medications as previously prescribed by your regular provider. IMPORTANT: We examined and treated you today on an emergency basis only. This was not a substitute for, or an effort to provide, complete medical care. In most cases, you must let your doctor check youagain. Tell your doctor about any new or lasting problems. We cannot recognize and treat all injuries or illnesses in one Emergency Department visit. If you had special tests, such as EKG's or X- rays, we will review them again within 24 hours. We will call you if there are any new suggestions. Please follow the instructions above carefully. If you are being transferred to another facility your followup plan of care will be determined by the receiving facility. If you are a patient that is being discharged from the Emergency Department after receiving narcotics or other medications that may impair your judgment you may be a risk to yourself or others if you operate a motor vehicle. We recommend that you arrange a ride home with a responsible democrat. IKWAN PHILLIP , or responsible democrat have received this information and my questions have been answered. I have discussed any challenges I see with this plan with the nurse or physician. Patient Signature or Responsible Alliance Party/Relationship Date Time Provider Signature Date Time Medication Reconciliation: Reconciliation is a process of identifying the most accurate list of all medications a patient is taking - including name, dosage, frequency, and route - and using this list to provide to the patient information about how to take those medications. ALEXANDRIA BOWENS or asher has reviewed the home medications you have listed with us. Review the following instructions: You have NOT received any prescriptions and you have told us you are not currently taking any home medications You have NOT received any prescriptions. You have been provided a discharge medications list and you may CONTINUE taking your medications as previously prescribed by your regular providers. You have received the listed prescriptions and BEGIN all listed prescriptions as directed. Since you have listed no home medications, please check with your family doctor if you are taking any other medications. You have received the listed prescriptions and BEGIN all listed prescriptions as directed. Youhave been provided a discharge medications list and you may CONTINUE all home medications as previously prescribed by your regular providers. You have received the listed prescriptions and BEGIN all listed prescriptions as directed. Youhave been provided a discharge medications list. The following CHANGES have been made to your medication list; Otherwise, CONTINUE all home medications as previously prescribed by your regular provider. IMPORTANT: We examined and treated you today on an emergency basis only. This was not a substitute for, or an effort to provide, complete medical care. In most cases, you must let your doctor check youagain. Tell your doctor about any new or lasting problems. We cannot recognize and treat all injuries or illnesses in one Emergency Department visit. If you had special tests, such as EKG's or X- rays, we will review them again within 24 hours. We will call you if there are any new suggestions. Please follow the instructions above carefully. If you are being transferred to another facility your followup plan of care will be determined by the receiving facility. If you are a patient that is being discharged from the Emergency Department after receiving narcotics or other medications that may impair your judgment you may be a risk to yourself or others if you operate a motor vehicle. We recommend that you arrange a ride home with a responsible democrat. I, ALEXANDRIA BOWENS , or responsible democrat have received this information and my questions have been answered. I have discussed any challenges I see with this plan with the nurse or physician. Patient Signature or Responsible Alliance Party/Relationship Date Time Provider Signature Date Time This document has images extracted. Please consider using [employer] for all your patient education needs. Source: [facility] POWERCHART Document Id: [id number] PUMPER Sagar Archibald R.N. - 10/08/2014 12:50 AM CST ED Depart Summary [facility] Emergency Department Clinical Discharge Summary PERSON INFORMATION Name ALEXANDRIA BOWENS Age 44 Years 1970 12:00 AM Sex Male Language Wallisian PCP PCP, ELSEWHERE Marital Status Single N [id number] Visit Id Visit Reason Syncope/Near syncope; Syncopal Episode Specialty Enc Type Emergency Med Service Emergency Medicine Referred by Track Group [facility] ED Discharge 10/08/2014 12:50 AM Tracking Id [id number] Checkout 10/08/2014 12:50 AM Checkin 10/07/2014 10:38 PM Acuity 4 -Less Urgent Dispo Type * Discharged to Home or Self Care Arrival 10/07/2014 10:38 PM Reg Status Complete LOS 000 02:12 Address: [address] [place] [phone] Comment: PROVIDER INFORMATION Provider Role Provider Contact Time SAGAR ARCHIBALD ED Nurse 10/07/14 22:39 RAJWINDER ZAMORANO ED Wood Casket Maker 10/07/14 23:38 FRANK QUIROGA MD ED Provider 10/08/14 00:01 DIAGNOSIS Syncope/Near syncope Comment: PATIENT EDUCATION INFORMATION Instructions: Causes of Syncope Follow up: With: Address: When: Follow up with Pc provider in 2-3 days , disucss the insulin use with PC provider and adjust the dose and meal times. Advised not to miss any meals and keep the strict meal schedule. Check blood sugarsfour times per day and as needed. . In 2 days 10/10/2014 Comments: Source: [facility] TicketBase Document Id: [id number] PUMPER documented in this encounter Medications at Time [...] 04/09/2014 tablet documented as of this encounter ED Notes Sagar Archibald RLuis - 10/08/2014 12:18 AM CST ED Pain Assessment ED Pain Assessment Entered On: 10/08/2014 0:18 TANK PUMPER Performed On: 10/08/2014 0:18 TANK PUMPER by SAGAR ARCHIBALD Pain Assessment Pain Symptoms : No SAGAR ARCHIBALD - 10/08/2014 0:18 TANK PUMPER Source: [facility] [employer]Base Document Id: [id number] TANK PUMPER!3 PUMPER Sagar Archibald R.N. - 10/08/2014 12:18 AM CST ED Disposition Summary ED Disposition Summary Entered On: 10/08/2014 0:18 TANK PUMPER Performed On: 10/08/2014 0:18 TANK PUMPER by SAGAR ARCHIBALD ED Disposition Summary Accompanied By : Alone Mode of Discharge : Ambulatory Transportation : Private vehicle Printed Discharge Instructions Given to Patient : Yes Patient Status at Discharge from ED : Improved ASGAR ARCHIBALD - 10/08/2014 0:18 TANK PUMPER Source: [facility] POWERCHART Document Id: [id number] TANK PUMPER!7 PUMPER Frank Quiroga M.D. - 10/07/2014 11:32 PM CST Syncope/Near syncope Patient: ALEXANDRIA BOWENS Age: 44 years Sex: Male : 1970 Author: FRANK QUIROGA MD Attachments: None Associated Diagnosis: Syncope NOS; Hypoglycemia NOS Basic Information Time seen: Immediately upon arrival. History source: Patient. Arrival mode: Ambulance. History limitation: None. Additional information: Chief Complaint from Nursing Triage Note : Chief Complaint Description 10/07/2014 22:50 TANK PUMPER Chief Complaint Description see triage assessment 10/07/2014 22:39 TANK PUMPER Chief Complaint Description Patient comes to the ED via ambulance. Patient walked in due to be the second patient in the ambulance. Patient had a syncopal episode at home. . History of Present Illness The patient presents with syncope. The onset was 1 hours ago and Episode happened half hour after taking the insulin.. The course/duration of symptoms is improving. The location where the incident occurred was at home. The exacerbating factor is none. The relieving factor is none. Risk factors consist of diabetes mellitus. Prior episodes: vasovagal and Patient states few year back he had the similar episode and there was no significant cause of the syncope found at that time.. Therapy today: none. Preceding symptoms: lightheaded nausea, no palpitations, no headache no vision change. Associated symptoms: indigestion,, denies chest pain, denies abdominal pain and denies nausea. When the ambulance crew arrived his blood sugar was 107 and also Blood pressure was low.. Patient was sitting on the chairwhen he passed out and family called ambulance.. Review of Systems Constitutional symptoms: No fever or no chills. Eye symptoms: Vision unchanged. ENMT symptoms: No ear pain, no sore throat or no nasal congestion. Respiratory symptoms: No shortness of breath or no orthopnea. Cardiovascular symptoms: No chest pain, no palpitations or no tachycardia. Gastrointestinal symptoms: Nausea, but no abdominal pain, no vomiting, no diarrhea, no constipation or no rectal bleeding. Genitourinary symptoms: No dysuria or no hematuria. Musculoskeletal symptoms: No back pain. Neurologic symptoms: No headache, no dizziness or no altered level of consciousness. Psychiatric symptoms: No anxiety or no depression. Endocrine symptoms: No polyuria, no polydipsia or no polyphagia. Additional review of systems information: All other systems reviewed and otherwise negative. Health Status Allergies: Allergic Reactions (Selected) NKA. Past Medical/ Family/ Social History Medical history: Resolved Diabetes Mellitus Type 2 (250.00): Resolved. Hypothyroidism NOS (244.9): Resolved.. Surgical history: No active procedure history items have been selected or recorded.. Family history: No family history items have been selected or recorded.. Physical Examination Vital Signs: Vital Signs 10/07/2014 22:39 TANK PUMPER Temperature Core 36.2 DegC LOW Peripheral Pulse Rate 100 /min Respiratory Rate 18 /min SpO2 95 % Systolic Blood Pressure 137 mmHg Diastolic Blood Pressure 74 mmHg Mean Arterial Pressure 95 mmHg BP Location Left upper , Measurements 10/07/2014 22:39 TANK PUMPER Height 170 cm Height Source Stated Dosing Weight 114.00 kg NA Estimated Weight 114 kg , SpO2 10/07/2014 22:39 TANK PUMPER SpO2 95 % . Nadine coma scale: Eye response: 4 /4, verbal response: 5 /5 and motor response: 6 /6. Neurological: Alert and oriented to person, place, time, and situation, No focal neurological deficit observed, CN II-XII intact, normal sensory observed, normal motor observed and normal speech observed. Skin: Warm and moist. Head: Normocephalic and atraumatic. Neck: Supple, trachea midline, no tenderness, no JVD and no carotid bruit. Eye: Pupils are equal, round and reactive to light, extraocular movements are intact, normal conjunctiva and vision grossly normal. Ears, nose, mouth and throat: Tympanic membranes clear and oral mucosa moist. Cardiovascular: Regular rate and rhythm, No murmur, Normal peripheral perfusion and No edema. Respiratory: Lungs are clear to auscultation, respirations are non-labored and breath sounds are equal. Chest wall: No tenderness. Back: Nontender and Normal range of motion. Musculoskeletal: Normal ROM. normal strength. no tenderness. Gastrointestinal: Soft and Nontender. Genitourinary: No tenderness. Lymphatics: No lymphadenopathy. Psychiatric: Cooperative. Medical Decision Making OrdersLaunch Orders Laboratory: Thyroid Stimulating Hormone (Order Processing): Stat, 10/07/2014 23:33 TANK PUMPER, Once C-Reactive Protein (Order Processing): Stat, 10/07/2014 23:33 TANK PUMPER, Once Comprehensive Metabolic Panel (Order Processing): Stat, 10/07/2014 23:33 TANK PUMPER, Once CBC (includes Auto Differential) (Order Processing): Stat, 10/07/2014 23:33 TANK PUMPER, Once Troponin T (Order Processing): Stat, 10/07/2014 23:33 TANK PUMPER, Once Radiology: CXR 1 view portable (Order Processing): 10/07/2014 23:33 TANK PUMPER, syncope, Stat, Patient Bed, Once, 10/07/2014 23:33 TANK PUMPER, [facility] ED Diagnostic Tests: EKG - Nurse/Rad (Order Processing): 10/07/2014 23:33 TANK PUMPER, Once, Current Location. surveillance system monitor:Normal sinus rhythm. Electrocardiogram:No ST-T changes, no ectopy, normal ID & QRS intervals. Results review:Lab results : Lab View 10/07/2014 23:41 TANK PUMPER Hgb 14.4 g/dL Hct 42.5 % WBC 8.4 x10(9)/L RBC 5.21 x10(12)/L MCV 81.6 fL RDW 13.5 % Platelet 156 x10(9)/L Neutro Absolute 5.79 10(9)/L Lymph Absolute 1.45 x10(9)/L Cecil Absolute 0.78 x10(9)/L Eos Absolute 0.33 x10(9)/L Baso Absolute 0.02 x10(9)/L Differential? Auto Sodium Lvl 138.4 mmol/L Potassium Lvl 4.0 mmol/L Chloride 104 mmol/L CO2 22.6 mmol/L LOW AGAP 16 mmol/L Alkaline Phosphatase 70 U/L Glucose Lvl 191 mg/dL HI Creatinine 0.80 mg/dL EGFR (MDRD) >60 mL/min/1.73m2 EGFR (MDRD) >60 mL/min/1.73m2 BUN 19 mg/dL HI Calcium Lvl 9.3 mg/dL Protein Total 7.1 g/dL Albumin Lvl 3.7 g/dL AST 47 unit/L ALT 44 unit/L Bili Total 0.3 mg/dL CRP 0.4 mg/dL Troponin-T <0.01 ng/mL TSH 1.79 mIU/L 10/07/2014 23:33 TANK PUMPER Glucose POC 168 mg/dL HI . Chest X-Ray:No acute disease process. Reexamination/ Reevaluation Vital signs results included from flowsheet : Vital Signs 10/07/2014 22:39 TANK PUMPER Temperature Core 36.2 DegC LOW Peripheral Pulse Rate 100 /min Respiratory Rate 18 /min SpO2 95 % Systolic Blood Pressure 137 mmHg Diastolic Blood Pressure 74 mmHg Mean Arterial Pressure 95 mmHg BP Location Left upper Course: improving. Pain status: resolved. Assessment: exam improved. Impression and Plan Diagnosis Syncope NOS (Discharge, Emergency medicine, Medical) Hypoglycemia NOS (Discharge, Emergency medicine, Medical) Plan Condition: Improved, Stable. Disposition: Discharged: to home. Patient was given the following educational materials: Causes of Syncope. Counseled: Patient, Regarding diagnosis, Regarding diagnostic results, Regarding treatment plan, Regarding prescription, Patient indicated understanding of instructions. Notes: I decreased the dose of insulin for possible episode of hypoglycemia., Patient does not checkhis blood sugars at this time, recommended accuchecks four time per day and as needed . Electronically Signed By: FRANK QUIROGA MD On: 10/08/2014 02:13 AM Modified by and Electronically Signed by: FRANK QUIROGA MD On: 10/08/2014 12:26 AM Source: [facility] POWERCHART Document Id: [id number]} PUMPER Sagar Archibald R.N. - 10/07/2014 10:50 PM CST ED Primary Assessment Document Has Been Updated ED Primary Assessment Entered On: 10/07/2014 22:52 TANK PUMPER Performed On: 10/07/2014 22:50 TANK PUMPER by SAGAR ARCHIBALD Reason For Visit (As Of: 10/07/2014 22:52:18 TANK PUMPER) Diagnoses(Active) Syncope/Near syncope Date: 10/07/2014 ; Diagnosis Type: Reason For Visit ; Confirmation: Complaint of ; Clinical Dx: Syncope/Near syncope ; Classification: Medical ; Clinical Service: Non-Specified ; Code: PNED ; Probability: 0 ; Diagnosis Code: [id number] Triage Chief Complaint Description : see triage assessment Mode of Arrival ED : Ambulance, Ambulatory Track : Medical Languages : Wallisian Treatments Prior to Arrival : None Is Patient Female and 13-50 no hysterectomy : No SAGAR ARCHIBALD 10/07/2014 22:50 TANK PUMPER Pain Assessment Pain Symptoms : No SAGAR ARCHIBALD 10/07/2014 22:50 TANK PUMPER ID Screen Drug Resistant Organism : No Travel Within Last 21 Days : No Contact with someone with Ebola : No SAGAR ARCHIBALD 10/07/2014 22:50 TANK PUMPER Respiratory Airway : Patent Respirations : Unlabored Respiratory Pattern : Regular SAGAR ARCHIBALD 10/07/2014 22:50 TANK PUMPER Cardiovascular Heart Rhythm : Regular Skin Color : Normal for ethnicity Skin Description : Dry Skin Temperature : Warm SAGAR ARCHIBALD 10/07/2014 22:50 TANK PUMPER Neurological Last Well Time Known : Not applicable Level of Consciousness : Alert Orientation : Oriented x 3 Characteristics of Speech : Appropriate for age Neuro Patient Stated Symptoms : None SAGAR ARCHIBALD 10/07/2014 22:50 TANK PUMPER ED Psychosocial Affect/Behavior : Calm, Cooperative Domestic Abuse Concerns : None SAGAR ARCHIBALD 10/07/2014 22:50 TANK PUMPER Gastrointestinal Nutrition ED : Adequate SAGAR ARCHIBALD 10/07/2014 22:50 TANK PUMPER Musculoskeletal Fall Prevention Education Provided : SAGAR MACDONALD 10/07/2014 22:50 TANK PUMPER Social Habits Tobacco Use/Currently Using : No Exposure to Tobacco Smoke : Exposed at work Smoking Status : Never smoker SAGAR ARCHIBALD 10/07/2014 22:50 TANK PUMPER Alcohol Use Grid Alcohol Use : Yes Frequency : Occasionally SAGAR ARCHIBALD 10/07/2014 22:50 TANK PUMPER Recreational Drug Use Grid Drug Use : None SAGAR ARCHIBALD 10/07/2014 22:50 TANK PUMPER Source: [facility] POWERCHART Document Id: [id number] TANK PUMPER!47 PUMPER Sagar Archibald R.N. - 10/07/2014 10:39 PM CST ED Triage Assessment Document Has Been Updated ED Triage Assessment Entered On: 10/07/2014 22:46 TANK PUMPER Performed On: 10/07/2014 22:39 TANK PUMPER by SAGAR ARCHIBALD Reason For Visit (As Of: 10/07/2014 22:46:11 TANK PUMPER) Diagnoses(Active) Syncope/Near syncope Date: 10/07/2014 ; Diagnosis Type: Reason For Visit ; Confirmation: Complaint of ; Clinical Dx: Syncope/Near syncope ; Classification: Medical ; Clinical Service: Non-Specified ; Code: PNED ; Probability: 0 ; Diagnosis Code: [id number] Triage Chief Complaint Description : Patient comes to the ED via ambulance. Patient walked in due to be thesecond patient in the ambulance. Patient had a syncopal episode at home. Information Given By : Patient, EMS Accompanied By : EMS Mode of Arrival ED : Ambulance, Ambulatory Track : Medical Languages : Wallisian Vital Signs Assessed : Yes Treatments Prior to Arrival : None Is Patient Female and 13-50 no hysterectomy : No SAGAR ARCHIBALD - 10/07/2014 22:39 TANK PUMPER Vital Signs Temperature Core : 36.2 DegC(Converted to: 97.2 DegF) (LOW) Peripheral Pulse Rate : 100 /min Respiratory Rate : 18 /min Systolic Blood Pressure : 137 mmHg Diastolic Blood Pressure : 74 mmHg NIBP Mean : 95 mmHg BP Location : Left upper extremity SpO2 : 95 % Oxygen Therapy : Room air Height : 170 cm(Converted to: 5 ft 7 inch(es)) Height Source : Stated Estimated Weight : 114 kg Estimated Weight Conversion to Pounds : 250.8 lb SAGAR ARCHIBALD - 10/07/2014 22:39 TANK PUMPER Pain Assessment Pain Symptoms : No SAGAR ARCHIBALD - 10/07/2014 22:39 TANK PUMPER ED Physician Notification Time ED Physician Notification Time : 10/07/2014 22:45 TANK PUMPER SAGAR ARCHIBALD 10/07/2014 22:39 TANK PUMPER KARIS DCP GENERIC CODE Tracking Acuity : 4 -Less Urgent Tracking Group : [facility] ED SAGAR ARCHIBALD - 10/07/2014 22:39 TANK PUMPER Allergy (As Of: 10/07/2014 22:46:11 TANK PUMPER) Allergies (Active) NKA Estimated Onset Date: Unspecified ; Created By: MARYANA GONZALES RN; Reaction Status: Active ; Category: Drug ; Substance: NKA ; Type: Allergy ; Updated By: MARYANA GONZALES RN; Reviewed Date: 08/20/2014 17:36 TANK PUMPER ID Screen Drug Resistant Organism : No Travel Within Last 21 Days : No Contact with someone with Ebola : No SAGAR ARCHIBALD - 10/07/2014 22:39 TANK PUMPER Immunizations Immunizations Current : Yes Last Tetanus : Unknown Pneumovac : Last 5 years Influenza : This year SAGAR ARCHIBALD - 10/07/2014 22:39 TANK PUMPER Source: [employer] Document Id: [id number] TANK PUMPER!42 PUMPER documented in this encounter Miscellaneous Notes Miscellaneous - Conversion, Historical Provider Ser - 10/08/2014 12:50 AM TANK PUMPER Coding Summary-Paper Based CODING DATE: 10/12/2014 FINAL [facility] STATUS: * Discharged to Home or Self Care PAYOR: [employer] ADMIT DX: 780.2 Syncope and Collapse REASON FOR VISIT DX: 780.2 Syncope and Collapse FINAL DX: PRINCIPAL: 780.2 Syncope and Collapse SECONDARY: 250.80 Diabetes Mellitus with Other Specified Manifestations, Type II or Unspecified Type, Not Stated as Uncontrolled V58.67 Long-Term (Current) Use of Insulin PROCEDURES DOCTOR NAME DATE NOTE: The code number assigned matches the documented diagnosis and / or procedure in the patient's chart. However, the narrative phrase printed from the coding software may appear abbreviated, or result in slightly different terminology. Coded By: SHIRLEY RACHEL Date Saved: 10/12/2014 01:19 pm Source: [employer] Document Id: [id number] Miscellaneous - Sagar Archibald R.NKwesi - 10/08/2014 12:45 AM CST Facility Charge Ticket 2.0 11.0 DX Facility Charge Ticket 2.0 11.0 DX Entered On: 10/08/2014 0:45 TANK PUMPER Performed On: 10/08/2014 0:45 TANK PUMPER by SAGAR ARCHIBALD Facility Charge Ticket 2.0 11.0 DX ED Other Charges : Standard ED Encounter TVL Level Translated RTF : Syncope/Near syncope TVL:4 TVL Level for Facility Charge Ticket : Level 4 Arrival Mode Calc : 1 Mode of Arrival ED : Ambulance, Ambulatory [facility] Mode of Arrival Interpreted : BLS/Police [facility] Process Management : None Order Management RTF : Laboratory Troponin T,10/07/14 23:33,FRANK QUIROGA MD Completed CBC (includes Auto Differential),10/07/14 23:33,FRANK QUIROGA MD Completed Comprehensive Metabolic Panel,10/07/14 23:33,FRANK QUIROGA MD Completed C-Reactive Protein,10/07/14 23:33,FRANK QUIROGA MD Completed Thyroid Stimulating Hormone,10/07/14 23:33,FRANK QUIROGA MD Completed Glucose POC.,10/07/14 23:39,FRANK QUIROGA MD Completed Automated Diff-5 Part,10/07/14 23:41,FRANK QUIROGA MD Completed Xray CXR 1 view portable,10/07/14 23:33,FRANK QUIROGA MD Completed [facility] Order Management : Lab tests, Xray - plain films 30 Minutes Critical Care : No Nursing Notes RTF : Triage Forms ED Triage Assessment,10/07/14 22:39,SAGAR ARCHIBALD Nursing Notes ED Primary Assessment,10/07/14 22:50,SAGAR ARCHIBALD ED Pain Assessment,10/08/14 00:18,SAGAR ARCHIBALD Nursing Assessment : Triage and 1-2 nursing assessments [facility] Disposition : Discharge Disposition RTF : discharge [facility] Total Points with Diagnosis Control : 10 [facility] Visit Level : 51964 Level 4 Treatments Prior to Arrival : None SAGAR ARCHIBALD - 10/08/2014 0:45 TANK PUMPER Source: [employer] Document Id: [id number] TANK PUMPER!19 PUMPER Miscellaneous - Sagar Archibald R.N. - 10/08/2014 12:18 AM CST Valuables/Belongings Valuables/Belongings Entered On: 10/08/2014 0:18 TANK PUMPER Performed On: 10/08/2014 0:18 TANK PUMPER by SAGAR ARCHIBALD Valuables/Belongingsilvino Home Medication Disposition : None brought in with patient SAGAR ARCHIBALD - 10/08/2014 0:18 TANK PUMPER Source: [employer] Document Id: [id number] TANK PUMPER!3 PUMPER documented in this encounter Plan of Treatment Not on filedocumented as of this encounter Procedures Procedure Name Priority Date/Time Associated Comments Diagnosis AUTOMATED Routine 10/07/2014 11:41 Results for this DIFFERENTIAL, B PM TANK PUMPER procedure ar e in the results section. CBC WITH DIFFERENTIAL, Routine 10/07/2014 11:41 R esults for this B PM TANK PUMPER procedure are i n the results section. C-REACTIVE PROTEIN Routine 10/07/2014 11:41 Resul ts for this (CRP), S/P PM TANK PUMPER procedure are i n the results section. TROPONIN T, 5TH GEN, P Routine 10/07/2014 11:41 R esults for this PM TANK PUMPER procedure are i n the results section. THYROID-STIMULATING Routine 10/07/2014 11:41 Resu lts for this HORMONE-SENSITIVE PM TANK PUMPER procedure are in (S-TSH) the results section. COMPREHENSIVE Routine 10/07/2014 11:41 Results fo r this METABOLIC PANEL, S/P PM TANK PUMPER procedu re are in the results section. GLUCOSE POCT, B Routine 10/07/2014 11:33 Results for this PM TANK PUMPER procedure are i n the results section. documented in this encounter Results Automated Differential (10/07/2014 11:41 PM TANK PUMPER) P athologist Signature Absolute 5.79 1.70 - POWERCHART Neutrophils 7.00 109L Lymphocytes 1.45 0.90 - POWERCHART 2.90 X109L Monocytes 0.78 0.30 - POWERCHART 0.90 X109L Eosinophils 0.33 0.05 - POWERCHART 0.50 X109L Absolute 0.02 0.00 - POWERCHART Basophil 0.30 X109L Specimen Anatomical Collection Method Collection Time Receive d Time (Source) Location / / Volume Laterality Blood 10/07/2014 11:41 10/07/2014 PM TANK PUMPER 11:41 PM TANK PUMPER Frank Quiroga M.D. LAB BLOOD ADD-ON Performing Organization Address City/State/ZIP Code Phon e Number POWERCHART CBC with Differential (10/07/2014 11:41 PM TANK PUMPER) athologist Signature Leukocytes 8.4 3.5 - 10.5 POWERCHART X109L Erythrocytes 5.21 4.32 - POWERCHART 5.72 [id number] Hemoglobin 14.4 13.5 - POWERCHART 17.5 GDL Hematocrit 42.5 38.8 - POWERCHART 50.0 MCV 81.6 81.0 - POWERCHART 95.0 FL HX RDW 13.5 11.8 - POWERCHART 15.6 Platelet Count 156 150 - 450 POWERCHART X109L HXDifferential? Auto POWERCHART Specimen (Source) Anatomical Collection Method Collection Time Re ceived Time Location / / Volume Laterality Blood 10/07/2014 11:41 PM TANK PUMPER Frank Quiroga M.D. LAB BLOOD ADD-ON Performing Organization Address City/State/ZIP Code Phon e Number POWERCHART Thyroid-Stimulating Hormone-Sensitive (s-TSH) (10/07/2014 11:41 PM TANK PUMPER) athologist Signature TSH 1.79 0.27 - 4.20 POWERCHART (Thyrotropin) MIUL Specimen (Source) Anatomical Collection Method Collection Time Re ceived Time Location / / Volume Laterality Blood 10/07/2014 11:41 PM TANK PUMPER Frank Quiroga M.D. LAB BLOOD ADD-ON Performing Organization Address City/State/ZIP Code Phon e Number POWERCHART CRP (C-Reactive Protein) (10/07/2014 11:41 PM TANK PUMPER) athologist Signature C-Reactive 0.4 0.0 - 0.8 POWERCHART Protein (CRP), MGDL S Specimen (Source) Anatomical Collection Method Collection Time Re ceived Time Location / / Volume Laterality Blood 10/07/2014 11:41 PM TANK PUMPER Frank Quiroga M.D. LAB BLOOD ADD-ON Performing Organization Address City/State/ZIP Code Phon e Number POWERCHART (ABNORMAL) CMP (Comprehensive Metabolic Panel) (10/07/2014 11:41 PM TANK PUMPER) [facility] gist Method Time Signature Anion Gap 16 10 - 20 POWERCHART MMOLL Alkaline 70 45 - 115 POWERCHART Phosphatase, S UL Alanine 44 7 - 55 POWERCHART Amniotransferase, LD UNITL Aspartate 47 8 - 48 POWERCHART Aminotransferase UNITL (AST), S Bilirubin, Total, S 0.3 0.1 - 1.0 POWERCHART MGDL BUN (Blood Urea 19 (H) 7 - 18 POWERCHART Nitrogen), S MGDL Chloride, S 104 98 - 107 POWERCHART MMOLL CO2 Total 22.6 (L) 23.0 - POWERCHART 29.0 MMOLL Creatinine, S 0.80 0.60 - POWERCHART 1.30 MGDL Total Protein, S 7.1 6.3 - 7.9 POWERCHART GDL Glucose 191 (H) 70 - 139 POWERCHART MGDL Calcium, Total, S 9.3 8.6 - POWERCHART 10.0 MGDL Sodium, S 138.4 135.0 - POWERCHART 145.0 MMOLL Potassium, S 4.0 3.6 - 4.8 POWERCHART MMOLL Albumin, S 3.7 3.5 - 5.0 POWERCHART GDL HXeGFR (MDRD) >60 >=60 POWERCHART [id number] 2 eGFR Black/ >60 >=60 POWERCHART Uzbek [id number] Specimen (Source) Anatomical Collection Method Collection Time Re ceived Time Location / / Volume Laterality Blood 10/07/2014 11:41 PM TANK PUMPER Frank Quiroga M.D. LAB BLOOD ADD-ON Performing Organization Address City/State/ZIP Code Phon e Number POWERCHART Troponin T (10/07/2014 11:41 PM TANK PUMPER) athologist Signature Troponin T, S <0.01 <=0.01 NGML POWERCHART Comment: 0.03 - 0.1 ng/mL Intermediate Z one Specimen (Source) Anatomical Collection Method Collection Time Re ceived Time Location / / Volume Laterality Blood 10/07/2014 11:41 PM TANK PUMPER Frank Quiroga M.D. LAB BLOOD ADD-ON Performing Organization Address City/State/ZIP Code Phon e Number POWERCHART (ABNORMAL) Glucose, POCT (10/07/2014 11:33 PM TANK PUMPER) athologist Signature Glucose, POCT, 168 (H) 70 - 139 POWERCHART B MGDL Comment: AnalyzedBy [id number] Matheus Cueto Performed at [facility] [address] [place] [address] [place], [place] [address] Specimen Anatomical Collection Method Collection Time Receive d Time (Source) Location / / Volume Laterality Blood 10/07/2014 11:33 10/07/2014 PM TANK PUMPER 11:33 PM TANK PUMPER Frank Quiroga M.D. LAB POCT ORDERABLES-MANUAL Performing Organization Address City/State/ZIP Code Phon e Number POWERCHART documented in this encounter Visit Diagnoses Not on filedocumented in this encounter
--- OUTSIDE RECORDS SUMMARY | 2022-03-16 09:22 | XMS_ITS | Encounter Summary ---
:1970 Author Organization [facility] Address [address] [place] [address] Care Team Providers Name Role Phone Unavailable Primary Care Provider Unavailable Encounter Details Date Type Department Care Team Description 08/20/2014 Hospital Encounter HX [facility] ED Hillary Quiroga M.D. [address] [place] [phone] (Wo rk) Social History Tobacco Use Types Packs/Day Years Used Date Smoking Tobacco: Never Assessed Sex Assigned at Date Recorded Not on file documented as of this encounter Last Filed Vital Signs Vital Sign Reading Time Taken Comments Blood Pressure 143/81 08/20/2014 5:07 PM GLOST KILN OPERATOR Pulse 91 08/20/2014 5:07 PM GLOST KILN OPERATOR Temperature - - Respiratory Rate - - Oxygen Saturation - - Inhaled Oxygen Concentration - - Weight - - Height - - Body Mass Index - - documented in this encounter Discharge Summaries Maryana Gonzales S, R.N. - 08/20/2014 6:09 PM CST ED Discharge Instructions [address] [address] Name: HERB LONG Date of : 1970 12:00 AM Visit Date: 08/20/2014 4:59 PM [facility] Number: [id number] Address: [address] [place] [address] Primary Care Provider: PCP, ELSEWHERE IMPORTANT: [facility] in [place] would like to thank you for allowing us to assist you with your healthcare needs. The following includes patient education materials and informationregarding your injury/illness. Diagnosis: Pain Back NOS Follow-Up Instructions: With: Address: When: Follow up with Pc in 5 days , do not drive under the effect of vicodin or norflex Within As Needed Comments: Your Upcoming Appointments: Date Time Location Provider No Appointments found Patient Education Materials: [id number] BACK PAIN [acute or chronic] Back pain is usually caused by an injury to the muscles or ligaments of the spine. Sometimes the disks that separate each bone in the spine may bulge and cause pain by pressing on a nearby nerve. Back pain may also appear after a sudden twisting/bending force (such as in a car accident), after a simple awkward movement, or lifting something heavy with poor body positioning. In either case, muscle spasm is often present and adds to the pain. Acute back pain usually gets better in one to two weeks. Back pain related to disk disease, arthritis in the spinal joints or spinal stenosis (narrowing of the spinal canal) can become chronic and lastfor months or years. Unless you had a physical injury (for example, a car accident or fall) X-rays are usually not ordered for the initial evaluation of back pain. If pain continues and does not respond to medical treatment, x-rays and other tests may be performed at a later time. HOME CARE: 1. You may need to stay in bed the first few days. But, as soon as possible, begin sitting or walking to avoid problems with prolonged bed rest (muscle weakness, worsening back stiffness and pain, blood clots in the legs). 2. When in bed, try to find a position of comfort. A firm mattress is best. Try lying flat on your back with pillows under your knees. You can also try lying on your side with your knees bent up towards your chest and a pillow between your knees. 3. Avoid prolonged sitting. This puts more stress on the lower back than standing or walking. 4. During the first two days after injury, apply an ICE PACK to the painful area for 20 minutes every 2-4 hours. This will reduce swelling and pain. HEAT (hot shower, hot bath or heating pad) works well for muscle spasm. You can start with ice, then switch to heat after two days. Some patients feel best alternating ice and heat treatments. Use the one method that feels the best to you. 5. You may use acetaminophen (Tylenol) or ibuprofen (Motrin, Advil) to control pain, unless another pain medicine was prescribed. [NOTE: If you have chronic liver or kidney disease or ever had a stomach ulcer or GI bleeding, talk with your doctor before using these medicines.] 6. Be aware of safe lifting methods and do not lift anything over 15 pounds until all the pain is gone. FOLLOW UP with your doctor or this facility if your symptoms do not start to improve after one week.Physical therapy may be needed. [NOTE: If X-rays were taken, they will be reviewed by a radiologist. You will be notified of any newfindings that may affect your care.] GET PROMPT MEDICAL ATTENTION if any of the following occur: ?? Pain becomes worse or spreads to your legs ?? Weakness or numbness in one or both legs ?? Loss of bowel or bladder control Numbness in the groin or genital area ?? [id number] [place] [address]. All rights reserved. This information is not intended as a substitute for professional medical care. Always follow your healthcare professional's instructions. ED Tests and Procedures: Order Status Discharge Prescriptions & Home Medications: Medication/Strength Dose Route Frequency Indications/Special Instructions/Comments/Notes HYDROcodone-acetaminophen (Vicodin 5 mg-300 mg oral tablet) 1 to 2 tablets Oral every 6 hours as needed for Pain No more than 4,000mg acetaminophen/24hrs naproxen (Naprosyn 375 mg oral tablet) 375 mg Oral two times a day as needed for pain orphenadrine (Norflex 100 mg oral tablet, extended release) 100 mg Oral two times a day for 7 Days levothyroxine (Levothroid 100 mcg (0.1 mg) oral [...] drop(s) Eyes(Both) once a day (at bedtime) simvastatin (simvastatin 40 mg oral tablet) 40 mg [...] information about how to take those medications. HERB LONG or asher has reviewed the home medications [...] arrange a ride home with a responsible green party. I, HERB LONG , or responsible green party have received this information and my questions [...] information about how to take those medications. HERB LONG or asher has reviewed the home medications [...] arrange a ride home with a responsible green party. Romie, HERB LONG , or responsible green party have received this information and my questions have been answered. I have discussed any challenges I see with this plan with the nurse or physician. Patient Signature or Responsible Alliance Party/Relationship Date Time Provider Signature Date Time This document has images extracted. Please consider using [employer] for all your patient education needs. Source: [facility] POWERCHART Document Id: [id number] T KILN OPERATOR Maryana Gonzales, R.N. - 08/20/2014 6:09 PM CST ED Depart Summary [facility] Emergency Department Clinical Discharge Summary PERSON INFORMATION Name HERB LONG Age 44 Years 1970 12:00 AM Sex Male Language Russian PCP PCP, ELSEWHERE Marital Status Single Visit Id Visit Reason Back pain; Back Spasms - Lower Left Specialty Enc Type Emergency Med Service Emergency Medicine Referred by Track Group [facility] ED Discharge 08/20/2014 6:08 PM Tracking Id [id number] Checkout 08/20/2014 6:08 PM Checkin 08/20/2014 4:59 PM Acuity Dispo Type * Discharged to Home or Self Care Arrival 08/20/2014 4:59 PM Reg Status Complete LOS 000 01:09 Address: [address] [place] [address] [place] [address] Comment: PROVIDER INFORMATION Provider Role Provider Contact Time MARYANA GONZALES MASH FILTER PRESS OPERATOR Nurse 08/20/14 17:20 FRANK QUIROGA MD ED Provider 08/20/14 17:32 DIAGNOSIS Pain Back NOS Comment: PATIENT EDUCATION INFORMATION Instructions: BACK PAIN (Acute or Chronic) Follow up: With: Address: When: Follow up with Pc in 5 days , do not drive under the effect of vicodin or norflex Within As Needed Comments: Source: [facility] BlinkCHART Document Id: [id number] T KILN OPERATOR documented in this encounter Medications at Time [...] documented as of this encounter ED Notes Maryana Gonzales, R.N. - 08/20/2014 6:05 PM CST ED Pain Assessment ED Pain Assessment Entered On: 08/20/2014 18:05 GLOST KILN OPERATOR Performed On: 08/20/2014 18:05 GLOST KILN OPERATOR by MARYANA GONZALES RN Pain Assessment Pain Symptoms : Yes Pain Medication Requested : No MARYANA GONZALES RN - 08/20/2014 18:05 GLOST KILN OPERATOR Source: [facility] BlinkCHART Document Id: [id number] GLOST KILN OPERATOR!4 T KILN OPERATOR Maryana Gonzales R.N. - 08/20/2014 6:04 PM CST ED Disposition Summary ED Disposition Summary Entered On: 08/20/2014 18:05 GLOST KILN OPERATOR Performed On: 08/20/2014 18:04 GLOST KILN OPERATOR by MARYANA GONZALES RN ED Disposition Summary Accompanied By : Friend Mode of Discharge : Ambulatory Transportation : Private vehicle Printed Discharge Instructions Given to Patient : Yes Patient Status at Discharge from ED : Improved MARYANA GONZALES RN - 08/20/2014 18:04 GLOST KILN OPERATOR Source: [facility] Acsendo Document Id: [id number] GLOST KILN OPERATOR!7 T KILN OPERATOR Frank Quiroga M.D. - 08/20/2014 5:36 PM CST Back pain Patient: HERB LONG Age: 44 years Sex: Male : 1970 Author: FRANK QUIROGA MD Attachments: None Associated Diagnosis: Pain Back NOS; Pain Back Lumbar Basic Information Time seen: Immediately upon arrival, Was getting into the car one week ago.. History source: Patient. Additional information: Chief Complaint from Nursing Triage Note : Chief Complaint Description 08/20/2014 17:11 GLOST KILN OPERATOR Chief Complaint Description See triage note 08/20/2014 17:08 GLOST KILN OPERATOR Chief Complaint Description 44 year old male with lower left back pain. Patient's back started hurting on Tuesday when he was getting into his car. . History of Present Illness The patient presents with back pain, thoracic pain and lumbar pain. The onset was 8 days ago and Wasgetting in her Car About a week ago when he twisted his back and is having worsening back pain sincethen.. The course/duration of symptoms is constant. Type of injury: turning and bending. Radiating pain: none. The character of symptoms is dull. The degree at onset was moderate. There are exacerbating factors including movement, bending over and walking. Risk factors consist of coronary artery disease, hypertension and diabetes mellitus. Prior episodes: none. Associated symptoms: denies bowel dysfunction and denies bladder dysfunction. Review of Systems Constitutional symptoms: Chills, but no fever. Respiratory symptoms: No shortness of breath. Cardiovascular symptoms: No chest pain. Genitourinary symptoms: No hematuria. Additional review of systems information: All other [...] recorded.. Physical Examination Vital Signs: Vital Signs 08/20/2014 17:07 GLOST KILN OPERATOR Temperature Core 36.7 DegC Peripheral Pulse Rate 91 /min Respiratory Rate 20 /min SpO2 95 % Systolic Blood Pressure 143 mmHg HI Diastolic Blood Pressure 81 mmHg BP Location Left upper , Measurements 08/20/2014 17:07 GLOST KILN OPERATOR Dosing Weight 113.00 kg NA Estimated Weight 113 kg , SpO2 08/20/2014 17:07 GLOST KILN OPERATOR SpO2 95 % . General: Alert and moderate distress. Skin: Warm and moist. Head: Normocephalic and atraumatic. Neck: Supple, trachea midline, no tenderness and no JVD. Eye: Pupils are equal, round and reactive to light, extraocular movements are intact, normal conjunctiva and vision unchanged. Ears, nose, mouth and throat: Tympanic membranes clear, oral mucosa moist and no pharyngeal erythemaor exudate. Cardiovascular: Regular rate and rhythm and No murmur. Respiratory: Lungs are clear to auscultation and respirations are non-labored. Chest wall: No tenderness and No deformity. Back: Thoracic: Diffuse, moderate, Tenderness. and Lumbar: Diffuse, moderate, tenderness, Paraspinalmuscle spasm. Musculoskeletal: Pain on ROM of Lumbar and thoracic spine. Gastrointestinal: Soft, Nontender and Non distended. Genitourinary: No tenderness and no discharge. Neurological: Alert and oriented to person, place, time, and situation, No focal neurological deficit observed, CN II-XII intact, normal sensory observed, normal motor observed, normal speech observed and normal coordination observed. Lymphatics: No lymphadenopathy. Psychiatric: Cooperative. Medical Decision Making OrdersLaunch Orders Pharmacy: Toradol (Order Processing): 30 mg, IM, Once. Reexamination/ Reevaluation Course: improving. Pain status: decreased. Assessment: exam unchanged. Impression and Plan Diagnosis Pain Back NOS (Discharge, Emergency medicine, Medical) Pain Back Lumbar (Discharge, Emergency medicine, Medical) Plan Condition: Stable. Disposition: Discharged: to home. Patient was given the following educational materials: BACK PAIN (Acute or Chronic). Follow up with: Follow up with Pc in 5 days , do not drive under the effect of vicodin or norflex Within As Needed. Counseled: Patient, Regarding diagnosis, Regarding diagnostic results, Regarding treatment plan, Regarding prescription, Patient indicated understanding of instructions. Notes: Patient felt much better after the Toradol shot and was discharged with his . Electronically Signed By: FRANK QUIROGA MD On: 08/20/2014 06:36 PM Modified by and Electronically Signed by: FRANK QUIROGA MD On: 08/20/2014 05:41 PM [facility] Document Id: [id number]} T KILN OPERATOR Maryana Gonzales S, R.N. - 08/20/2014 5:11 PM CST ED Primary Assessment Document Has Been Updated ED Primary Assessment Entered On: 08/20/2014 17:12 GLOST KILN OPERATOR Performed On: 08/20/2014 17:11 GLOST KILN OPERATOR by MARYANA GONZALES RN Reason For Visit (As Of: 08/20/2014 17:12:44 GLOST KILN OPERATOR) Diagnoses(Active) Back pain Date: 08/20/2014 ; Diagnosis Type: Reason For Visit ; Confirmation: Complaint of ; Clinical Dx: Back pain ; Classification: Medical ; Clinical Service: Emergency medicine ; Code: PNED ; Probability: 0 ; Diagnosis Code: [id number] Triage Chief Complaint Description : See triage note Mode of Arrival ED : Private vehicle Track : Trauma Other Languages : Russian Treatments Prior to Arrival : None Is Patient Female and 13-50 no hysterectomy : No MARYANA GONZALES RN - 08/20/2014 17:11 GLOST KILN OPERATOR Pain Assessment Pain Symptoms : Yes MARYANA GONZALES RN - 08/20/2014 17:11 GLOST KILN OPERATOR ID Screen Drug Resistant Organism : No Travel Within Last 21 Days : No MARYANA GONZALES RN - 08/20/2014 17:11 GLOST KILN OPERATOR Respiratory Airway : Patent Respirations : Unlabored Respiratory Pattern : Regular MARYANA GONZALES RN - 08/20/2014 17:11 GLOST KILN OPERATOR Cardiovascular Heart Rhythm : Regular Skin Color : Normal for ethnicity Skin Description : Dry Skin Temperature : Warm MARYANA GONZALES RN - 08/20/2014 17:11 GLOST KILN OPERATOR Neurological Last Well Time Known : Yes Last Known Well Time : 08/18/2014 8:00 GLOST KILN OPERATOR Level of Consciousness : Alert Orientation : Oriented x 3 Characteristics of Speech : Appropriate for age MARYANA GONZALES RN - 08/20/2014 17:11 GLOST KILN OPERATOR ED Psychosocial Affect/Behavior : Calm, Cooperative, Appropriate Domestic Abuse Concerns : None MARYANA GONZALES RN - 08/20/2014 17:11 GLOST KILN OPERATOR Gastrointestinal Nutrition ED : Adequate MARYANA GONZALES RN - 08/20/2014 17:11 GLOST KILN OPERATOR Musculoskeletal Fall Prevention Education Provided : Yes MARYANA GONZALES RN - 08/20/2014 17:11 GLOST KILN OPERATOR Social Habits Tobacco Use/Currently Using : No Exposure to Tobacco Smoke : Exposed at work Smoking Status : Never smoker MARYANA GONZALES RN - 08/20/2014 17:11 GLOST KILN OPERATOR Source: [facility] POWERCHART Document Id: [id number] GLOST KILN OPERATOR!39 T KILN OPERATOR Maryana Gonzales R.N. - 08/20/2014 5:08 PM CST ED Triage Assessment Document Has Been Updated ED Triage Assessment Entered On: 08/20/2014 17:11 GLOST KILN OPERATOR Performed On: 08/20/2014 17:08 GLOST KILN OPERATOR by MARYANA GONZALES RN Reason For Visit (As Of: 08/20/2014 17:11:31 GLOST KILN OPERATOR) Diagnoses(Active) Back pain Date: 08/20/2014 ; Diagnosis Type: Reason For Visit ; Confirmation: Complaint of ; Clinical Dx: Back pain ; Classification: Medical ; Clinical Service: Emergency medicine ; Code: PNED ; Probability: 0 ; Diagnosis Code: [id number] Triage Chief Complaint Description : 44 year old male with lower left back pain. Patient's back started hurting on Tuesday when he was getting into his car. Information Given By : Patient, Friend Accompanied By : Friend Mode of Arrival ED : Private vehicle Track : Trauma Other Languages : Russian Treatments Prior to Arrival : None Is Patient Female and 13-50 no hysterectomy : No MARYANA GONZALES RN - 08/20/2014 17:08 GLOST KILN OPERATOR Pain Assessment Pain Symptoms : Yes MARYANA GONZALES RN - 08/20/2014 17:08 GLOST KILN OPERATOR Pain Scale Pain Scale Verbal 0-10 : Open MARYANA GONZALES RN - 08/20/2014 17:08 GLOST KILN OPERATOR Pain Pain Assessment Grid Pain 1 Location : Lower back Laterality : Left Intensity : 7 Time Pattern : Acute Onset : Sudden Quality : Aching Pain Radiation : No Aggravating Factors : Movement Alleviating Factors : None Associated Symptoms : None Interventions : MD notified MARYANA GONZALES RN - 08/20/2014 17:08 GLOST KILN OPERATOR ED Physician Notification Time ED Physician Notification Time : 08/20/2014 17:11 GLOST KILN OPERATOR MARYANA GONZALES RN - 08/20/2014 17:08 GLOST KILN OPERATOR Allergy (As Of: 08/20/2014 17:11:31 GLOST KILN OPERATOR) Allergies (Active) NKA Estimated Onset Date: Unspecified ; Created By: MARYANA GONZALES RN; Reaction Status: Active ; Category: Drug ; Substance: NKA ; Type: Allergy ; Updated By: MARYANA GONZALES RN; Reviewed Date: 08/20/2014 17:11 GLOST KILN OPERATOR ID Screen Drug Resistant Organism : No Travel Within Last 21 Days : No MARYANA GONZALES RN - 08/20/2014 17:08 GLOST KILN OPERATOR Source: [facility] Acsendo Document Id: [id number] GLOST KILN OPERATOR!33 T KILN OPERATOR documented in this encounter Miscellaneous Notes Miscellaneous - Maryana Gonzales RKwesiN. - 08/20/2014 6:06 PM CST Facility Charge Ticket 2.0 11.0 DX Facility Charge Ticket 2.0 11.0 DX Entered On: 08/20/2014 18:06 GLOST KILN OPERATOR Performed On: 08/20/2014 18:06 GLOST KILN OPERATOR by MARYANA GONZALES RN Facility Charge Ticket 2.0 11.0 DX ED Other Charges : Standard ED Encounter TVL Level Translated RTF : Back pain TVL:3 TVL Level for Facility Charge Ticket : Level 3 Arrival Mode Calc : 1 Mode of Arrival ED : Private vehicle [facility] Mode of Arrival Interpreted : Standard [facility] Process Management : None [facility] Order Management : None 30 Minutes Critical Care : No Nursing Notes RTF : Triage Forms ED Triage Assessment,08/20/14 17:08,MARYANA GONZALES RN Nursing Notes ED Primary Assessment,08/20/14 17:11,MARYANA GONZALES RN ED Pain Assessment,08/20/14 18:05,MARYANA GONZALES RN [facility] Nursing Assessment : Triage and 1-2 nursing assessments [facility] Disposition : Discharge [facility] Total Points with Diagnosis Control : 5 [facility] Visit Level : 01027 Level 3 Treatments Prior to Arrival : None MARYANA GONZALES RN - 08/20/2014 18:05 GLOST KILN OPERATOR Source: [facility] Document Id: [id number] GLOST KILN OPERATOR!17 T KILN OPERATOR Miscellaneous - Maryana Gonzales RKwesiN. - 08/20/2014 6:05 PM CST Valuables/Belongings Valuables/Belongings Entered On: 08/20/2014 18:05 GLOST KILN OPERATOR Performed On: 08/20/2014 18:05 GLOST KILN OPERATOR by MARYANA GONZALES RN Valuables/Belongingsilvino Home Medication Disposition : None brought in with patient MARYANA GONZALES RN - 08/20/2014 18:05 GLOST KILN OPERATOR Source: [facility] Document Id: [id number] GLOST KILN OPERATOR!3 T KILN OPERATOR documented in this encounter Plan of Treatment Not on filedocumented as of this encounter Visit Diagnoses Not on filedocumented in this encounter
--- OUTSIDE RECORDS SUMMARY | 2022-03-16 09:22 | XMS_ITS | Encounter Summary ---
:1970 Author Organization [facility] Address [address] [place] [address] Care Team Providers Name Role Phone Unavailable Primary Care Provider Unavailable Encounter Details Date Type Department Care Team Description 07/04/2009 Hospital Encounter HX [facility] INPT/OBSRV Gisel Lucero M.D. [address] [place] [address] (Wo rk) Social History Tobacco Use Types Packs/Day Years Used Date Smoking Tobacco: Never Assessed Sex Assigned at Date Recorded Not on file documented as of this encounter Plan of Treatment Not on filedocumented as of this encounter Visit Diagnoses Not on filedocumented in this encounter
--- OUTSIDE RECORDS SUMMARY | 2022-03-16 09:22 | XMS_ITS | Encounter Summary ---
:1970 Author Organization [facility] Address [address] [place] [address] Care Team Providers Name Role Phone Unavailable Primary Care Provider Unavailable Encounter Details Date Type Department Care Team Description 06/27/2009 Hospital Encounter HX [facility] INPT/OBSRV Angella Ambriz M.D. [address] [place], [place] [address] (Wo rk) Social History Tobacco Use Types Packs/Day Years Used Date Smoking Tobacco: Never Assessed Sex Assigned at Date Recorded Not on file documented as of this encounter Plan of Treatment Not on filedocumented as of this encounter Visit Diagnoses Not on filedocumented in this encounter
--- OUTSIDE RECORDS SUMMARY | 2022-03-16 09:22 | XMS_ITS | Encounter Summary ---
:1970 Author Organization [facility] Address [address] [place] [address] Care Team Providers Name Role Phone Unavailable Primary Care Provider Unavailable Encounter Details Date Type Department Care Team Description 08/20/2014 Hospital Encounter HX [facility] Hillary Guillaume M.D. [address] [phone] (Wo rk) Social History Tobacco Use Types Packs/Day Years Used Date Smoking Tobacco: Never Assessed Sex Assigned at Date Recorded Not on file documented as of this encounter Last Filed Vital Signs Vital Sign Reading Time Taken Comments Blood Pressure - - Pulse - - Temperature - - Respiratory Rate 20 08/20/2014 5:07 PM SAP FICO ARCHITECT Oxygen Saturation - - Inhaled Oxygen Concentration [...]
--- OUTSIDE RECORDS SUMMARY | 2022-03-16 09:22 | XMS_ITS | Encounter Summary ---
:1970 Author Organization [facility] Address [address] [place] [address] Care Team Providers Name Role Phone Unavailable Primary Care Provider Unavailable Encounter Details Date Type Department Care Team Description 05/24/[address] [facility] INPT/OBSRV Olivia Luna M.D. Social History Tobacco Use Types Packs/Day Years Used Date Smoking Tobacco: Never Assessed Sex Assigned at Date Recorded Not on file documented as of this encounter Plan of Treatment Not on filedocumented as of this encounter Visit Diagnoses Not on filedocumented in this encounter
--- OUTSIDE RECORDS SUMMARY | 2022-03-16 09:22 | XMS_ITS | Encounter Summary ---
:1970 Author Organization [facility] Address [address] [place] [address] Care Team Providers Name Role Phone Unavailable Primary Care Provider Unavailable Encounter Details Date Type Department Care Team Description 10/18/2009 Hospital Encounter HX [facility] INPT/OBSRV Gisel Lucero M.D. [address] [place] [address] (Wo rk) Social History Tobacco Use Types Packs/Day Years Used Date Smoking Tobacco: Never Assessed Sex Assigned at Date Recorded Not on file documented as of this encounter Plan of Treatment Not on filedocumented as of this encounter Visit Diagnoses Not on filedocumented in this encounter
--- OUTSIDE RECORDS SUMMARY | 2022-03-16 09:22 | XMS_ITS | Encounter Summary ---
:1970 Author Organization [facility] Address [address] [place] [address] Care Team Providers Name Role Phone Unavailable Primary Care Provider Unavailable Encounter Details Date Type Department Care Team Description 04/26/2009 Hospital Encounter [facility] INPT/OBSRV Giovani Sánchez Jr., M.D. [address] [place], [place] [address] (Wo rk) Social History Tobacco Use Types Packs/Day Years Used Date Smoking Tobacco: Never Assessed Sex Assigned at Date Recorded Not on file documented as of this encounter Plan of Treatment Not on filedocumented as of this encounter Visit Diagnoses Not on filedocumented in this encounter
--- OUTSIDE RECORDS SUMMARY | 2022-03-16 09:22 | XMS_ITS | Encounter Summary ---
:1970 Author Organization [facility] Address [address] [place] [address] Care Team Providers Name Role Phone Unavailable Primary Care Provider Unavailable Encounter Details Date Type Department Care Team Description 05/03/2016 Hospital Encounter HX [facility] Madiha Pollard D.O. [address] [place] [address] (Wo rk) Social History Tobacco [...] - Height 170 cm (5' 6.93) 05/03/2016 1:43 PM CDT Body Mass Index - - documented [...] 04/09/2014 tablet documented as of this encounter Miscellaneous Notes Miscellaneous - Lilibeth Bianchi, R.N. - 05/03/2016 1:46 PM CDT *General Message Document Contains Addenda Addendum by CARLYN FRY I on May 05, 2016 16:14:03 CDT From: CARLYN FRY I ( Internal Medicine Nerve Specialist) To: LEXII NGUYEN DO; Sent: 05/05/2016 16:14:03 CDT Subject: RE: error with check in/Denise try again dr nguyen. i spoke with kenan and think we have it figured out now. Addendum by LEXII NGUYEN DO on May 04, 2016 17:08:09 CDT From: LEXII NGUYEN DO To: LILIBETH BIANCHI RN; Sent: 05/04/2016 17:08:09 CDT Subject: RE: error with check in/Denise Still not coming up in dictation cue. When I tried to do it manually by entering the patients MRN did not come up either. Addendum by LILIBETH BIANCHI RN on May 04, 2016 16:07:17 CDT From: LILIBETH BIANCHI RN To: LEXII NGUYEN DO; Sent: 05/04/2016 16:07:17 CDT Subject: FW: error with check in/Denise Addendum by LILIBETH BIANCHI RN on May 04, 2016 16:07:[address] Nguyen, is it OK now? Addendum by RUFINA REDDY on May 04, 2016 13:15:43 CDT I looked at this and it is all correct on the registration piece. Addendum by CARLYN FRY I on May 04, 2016 11:52:00 CDT From: CARLYN FRY I ( Internal Medicine Nerve Specialist) To: LILIBETH BIANCHI RN; Cc: KENAN DILLON; Sent: 05/04/2016 11:52:00 CDT Subject: RE: error with check in/Denise i dont know what else can be done- maybe check with kenan jordan Addendum by LILIBETH BIANCHI RN on May 04, 2016 08:17:57 CDT From: LILIBETH BIANCHI RN To: Internal Medicine Nerve Specialist; Sent: 05/04/2016 08:17:57 CDT ! Subject: error with check in/Denise Addendum by LILIBETH BIANCHI RN on May 04, 2016 08:17:40 CDT Carlyn looked into this yesterday and thought it was ok, but Dr. Nguyen is still not able to dictate based on how it was checked in, can it be looked at again please? Thank you! Addendum by LEXII NGUYEN DO on May 03, 2016 16:58:31 CDT From: LEXII NGUYEN DO To: LILIBETH BIANCHI RN; Sent: 05/03/2016 16:58:31 CDT Subject: RE: *General Message Thanks. I still don't see him in my dictation cue. Was scheduling going to fic that? From: LILIBETH BIANCHI RN To: LEXII NGUYEN DO; Sent: 05/03/2016 13:46:45 CDT Subject: *General Message Patient referred from [facility] for eeg today by Dr. Anjel Lopze. phone [phone], fax [phone] Source: [facility] POWERCHART Document Id: [id number] Electronically signed by Conversion, [facility] Batter Depositor [id number] at 01/02/2017 4:16 AM CDT documented in this encounter Plan of Treatment Not on filedocumented as of this encounter Visit Diagnoses Not on filedocumented in this encounter
--- OUTSIDE RECORDS SUMMARY | 2022-03-16 09:22 | XMS_ITS | Encounter Summary ---
:1970 Author Organization [facility] Address [address] [place] [address] Care Team Providers Name Role Phone Unavailable Primary Care Provider Unavailable Encounter Details Date Type Department Care Team Description 11/01/2008 Hospital Encounter [facility] Joann Tyler M.D. [address] [place], [place] [address] (Wo rk) Social History Tobacco Use Types Packs/Day Years Used Date Smoking Tobacco: Never Assessed Sex Assigned at Date Recorded Not on file documented as of this encounter Progress Notes Yoav Tyler M.D. - 11/01/2008 10:20 AM CDT [id number] CLINIC ENCOUNTER HISTORY: Herb is a 38-year-old man who is here in regards to his right foot. He noticed a lump to the dorsum of his right foot present for the past few months. It has not been painful but he is concerned about the etiology of this. He wonders if it could be arthritis and where this lump could have come from, whether or not there is intervention that should be done for it. PHYSICAL EXAM: EXAMINATION OF HIS FOOT: Range of motion of his ankle is excellent and quite normal, equal to the contralateral side. Foot range of motion of the MTP joints is quite good as well. He has a lump appreciated over the base of the first tarsometatarsal joint. In that region this lump is palpable. It appears to be relatively soft in nature. There is no bony portion to it underneath. RADIOGRAPHS: X-rays of the foot demonstrate no significant degenerative changes and no other pathology other than accessory navicular bone. ASSESSMENT & PLAN: Herb is a 38-year-old man who appears to have a ganglion cyst at the base of his first tarsometatarsal joint. At this point in time my suggestion if it is not painful that he could avoid any other treatment for this. If it becomes painful or if it is concerning to him, as to knowing definitively the etiology, it would require surgical intervention to remove it. He will take this into consideration and let us know how he would like to proceed in the future, but my expectation is that he would do nothing about it. Yoav Tyelr M.D. [facility]/ cc: Source: [facility] [id number] Document Id: [id number] Electronically signed by Conversion, [facility] Survey Instrument Operator [id number] at 01/09/2017 4:52 PM CDT documented in this encounter Plan of Treatment Not on filedocumented as of this encounter Visit Diagnoses Not on filedocumented in this encounter
--- OUTSIDE RECORDS SUMMARY | 2022-03-16 09:22 | XMS_ITS | Encounter Summary ---
:1970 Author Organization [facility] Address [address] [place] [address] Care Team Providers Name Role Phone Unavailable Primary Care Provider Unavailable Encounter Details Date Type Department Care Team Description 11/11/2009 Hospital Encounter HX [facility] INPT/OBSRV Gisel Lucero M.D. [address] [place] [address] (Wo rk) Social History Tobacco Use Types Packs/Day Years Used Date Smoking Tobacco: Never Assessed Sex Assigned at Date Recorded Not on file documented as of this encounter Plan of Treatment Not on filedocumented as of this encounter Visit Diagnoses Not on filedocumented in this encounter
--- OUTSIDE RECORDS SUMMARY | 2022-03-16 09:22 | XMS_ITS | Encounter Summary ---
:1970 Author Organization [facility] Address [address] [place] [address] Care Team Providers Name Role Phone Unavailable Primary Care Provider Unavailable Encounter Details Date Type Department Care Team Description 05/06/2008 Hospital Encounter [facility] INPT/OBSRV Olivia Luna M.D. Social History Tobacco Use Types Packs/Day Years Used Date Smoking Tobacco: Never Assessed Sex Assigned at Date Recorded Not on file documented as of this encounter Plan of Treatment Not on filedocumented as of this encounter Visit Diagnoses Not on filedocumented in this encounter
--- OUTSIDE RECORDS SUMMARY | 2022-03-16 09:22 | XMS_ITS | Encounter Summary ---
:1970 Author Organization [facility] Address [address] [place] [address] Care Team Providers Name Role Phone Unavailable Primary Care Provider Unavailable Encounter Details Date Type Department Care Team Description 05/09/2003 Hospital Encounter HX [facility] PODIATRY Provider, His torical Social History Tobacco Use Types Packs/Day Years Used Date Smoking Tobacco: Never Assessed Sex Assigned at Date Recorded Not on file documented as of this encounter Progress Notes Conversion, Historical Provider Ser - 05/09/2003 3:20 PM CDT [id number] Addended by: HUMBERTO MORALES on: 06/29/2003,5:20 PMModules accepted: Order Summary, Progress Notes, Zeke coombs LOSAddended by: HUMBERTO MORALES on: 05/21/2003,3:25 PMModules accepted: Order Summary, Progress Not es, Change LOSS:Herb Blue, a 32 year old y.o. diabetic male presents to clinic with a chi ef complaint of diabetic foot check, callus bilateral first mpj and painful, enlongated, thickened to enails with subungal debris. Patient's glucose was not taken. Patient is a Type 2 diabetic and his diabetes is controlled with medicine. Herb states the area is painful and is tender to touch. He states the pain is 6/10. He has pain with ambulation improving with rest. Herb has tried trimming without alleviation of the symptoms.ROSMusculoskeletal: negativeIntegumentary: as aboveNeurolog ical: numbness or tinglingEndocrine: diabetesCardiovascular: negativeHistories:Medical: There i s no previous medical history on file.Surgical: There is no previous surgical history on file.So cial: Social History Marital Status: Spouse Name: Years of Education: Number of children: Social History Main Topics Tobacco Use: Not Asked Alcohol Use: Not Asked Drug Use: Not Asked Sexually Active: Not Asked Other Topics Concern None on fileSocial History Narrative None on fileFamily: Patient's family historyNone on fileO:VASC: DP: palpable PT: palpableNEURO: Sensorium - Grossly intact +9/9 Babinski - negative Patellar Ref lexes - intact Achillies Reflexes - intactDERM: hypertrophic tissue under the fi rst mpj bilaterally Nails: painful, elongated, thickened, discolored toenails with subun gal debrisMUSC: +5/5 muscle strength in all quadsBIOMECH: STJ: ROM normal Ankle: ROM normalAssessment: cornonychomychosiscallouses 2diabetesPlan: A diabetic foot exa m was performed. Nails were debrided 1-5 bilaterally. The callouses were trimmed. Pt will rtc prn. Pt was cast for orthotics bilaterally. Source: [facility] [id number] Document Id: [id number] documented in this encounter Plan of Treatment Not on filedocumented as of this encounter Visit Diagnoses Not on filedocumented in this encounter
--- OUTSIDE RECORDS SUMMARY | 2022-03-16 09:22 | XMS_ITS | Encounter Summary ---
:1970 Author Organization [facility] Address [address] [place] [address] Care Team Providers Name Role Phone Unavailable Primary Care Provider Unavailable Encounter Details Date Type Department Care Team Description 10/10/2009 Hospital Encounter [facility] INPT/OBSRV Angella Ambriz M.D. [address] [place], [place] [address] (Wo rk) Social History Tobacco Use Types Packs/Day Years Used Date Smoking Tobacco: Never Assessed Sex Assigned at Date Recorded Not on file documented as of this encounter Plan of Treatment Not on filedocumented as of this encounter Visit Diagnoses Not on filedocumented in this encounter
== END 2022-02-16 13:36 | disposition home or self-care (01) ==
PROVIDERS: PCP Nurse Practitioner Family; Visit Provider Nurse Practitioner Family
DX: E11.9 Type 2 diabetes mellitus without complications (principal); E03.9 Hypothyroidism, unspecified; G62.2 Polyneuropathy due to other toxic agents; R53.83 Other fatigue; B35.1 Tinea unguium
CPT/HCPCS: 36415; 82306; 82607; 83036; 84439; 84443

== ENCOUNTER 2022-07-09 13:39 | Outpatient (CLI) | payer OTHER, SELFPAY ==
[2022-07-09 13:49] LABS: Hemoglobin A1C* 9.3 % (0-5.6)
--- OUTSIDE RECORDS SUMMARY | 2022-07-09 14:23 | XMS_ITS | Encounter Summary ---
:1970 Author Organization [facility] Address [address] [place] [address] Care Team Providers Name Role Phone None, Pcp Primary Care Provider Unavailable Encounter Details Date Type Department Care Team Description 05/03/2022 [facility] Drug screening, pre-employme nt [address] [facility] [address] [place], [place] [address] Social History Tobacco Use Types Packs/Day Years Used Date Smoking Tobacco: Never Assessed Sex Assigned at Date Recorded Not on file documented as of this encounter Progress Notes Swapna Clark - 05/03/2022 1:30 PM CDT Ancillary services were performed. documented in this encounter Plan of Treatment Not on filedocumented as of this encounter Visit Diagnoses Diagnosis Drug screening, pre-employment Health examination of defined subpopulat ion documented in this encounter Care Teams Dietary Aide Relationship Specialty Start Date End Date None, Pcp PCP - General Early Childhood Education Worker 04/30/22 [address] [place] [address] documented as of this encounter
--- OUTSIDE RECORDS SUMMARY | 2022-07-09 14:23 | XMS_ITS | Clinical Summary ---
:1970 Author Organization [facility] Address [place] [address] Care Team Providers Name Role Phone Gwen Jenkins NP Primary Care Provider Allergies No known active allergies Medications Medication Sig Dispensed Refills Start Date End Date Status omega-3 fatty Take 2 capsules by 0 02/20/2010 Active acids-vitamin E (FISH mouth 2 times OIL) 1,000 mg Cap daily. DIABETIC As directed. For 2 Each 0 01/20/2011 Ac tive SHOEIndications: personal use diabetes mellitus Indications: DIABETES MELLITUS ORDER - MEDICATION Take 2 capsules by 0 10/21/2011 Active ORDER COMPOSER mouth once daily. aspirin enteric coated Take 1 tablet by 0 03/02/2012 Active 81 mg tablet mouth once daily with a meal. latanoprost (XALATAN) Place 1 Drop into 2.5 mL 0 08/18/2012 Active 0.005 % ophthalmic both eyes once solution daily in the evening. FREESTYLE LITE STRIPS USE 3 TIMES DAILY 300 Each 1 11/23/2012 Active strip OR DIRECTED cyclobenzaprine Take 1 tablet by 30 tablet 1 01/08/2013 Active (FLEXERIL) 10 mg tablet mouth 3 times daily. methylPREDNISolone Take by mouth as 1 Package 0 01/08/2013 Active (MEDROL, VERONICA,) 4 mg instructed per tabletIndications: packaging. Lumbago oxyCODONE (ROXICODONE) One oral every 6 20 capsule 0 3 Active 5 mg hours as needed. capsuleIndications: Lumbago metFORMIN (GLUCOPHAGE) TAKE 1 TABLET BY 60 tablet 0 05/23/2013 Active 1,000 mg MOUTH TWICE A DAY tabletIndications: WITH MEALS Diabetes mellitus type II FREESTYLE LANCETS 28 TEST 3 TIMES PER 300 Each 0 10/15/2013 Active gauge misc DAY simvastatin (ZOCOR) 40 TAKE ONE TABLET BY 30 tablet 0 04/09/20 14 Active mg tablet MOUTH AT BEDTIME HYDROcodone-acetaminoph Take 1 tablet by 12 tablet 0 6 Active en, 5-325 mg, (NORCO) mouth every 4 per tabletIndications: hours if needed Periorbital contusion for Pain Max of left eye, initial acetaminophen encounter, Neck pain dose: 4000 mg in 24 hrs. sertraline (ZOLOFT) 100 Take 1 tablet by 0 6 Active mg tablet mouth once daily. levothyroxine Two tablets daily 0 06/21/2016 Active (SYNTHROID) 100 mcg tablet lisinopril (PRINIVIL; One and a half 90 tablet 0 06/21/2016 Active ZESTRIL) 20 mg tablet tabs daily rOPINIRole (REQUIP) 0.5 4 tablets 1-3 0 06/21/2016 Active mg tablet hours before bedtime sildenafil citrate Take 1 tablet by 10 tablet 06/21/2016 Active (VIAGRA) 100 mg mouth once daily tabletIndications: if needed for Other male erectile Erectile dysfunction Dysfunction. Take 30min to 4 hours before sexual activity. Max 100mg/24hr. 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 Thi s will not affect patient care or billing. This comment can be deleted. Unspecified hypothyroidism 02/20/2010 HTN (hypertension) 02/20/2010 Other and unspecified hyperlipidemia 02/20/2010 Encounters Date Type Specialty Care Team Description 06/23/2022 Telephone Clay Schmitz, AuD 06/21/2022 Telephone Clay Schmitz, AuD 06/09/2022 Telephone Clay Schmitz, AuD Appointm ent 06/07/2022 Orders Only Scanner <No scans attac hed> from Last 3 Months Immunizations Name Administration Dates Next Due Influenza Virus, Unspecified 05/17/2011 Influenza, IIV3 (Age >=3 years) 04/16/2010, 05/19/2009, 05/08, 06/08/2008, 06/08/2008, 05/24/2007, 05/24/2007 Pneumococcal Poly,23-Valent 05/20/2006, 05/20/2006 (Pneumovax) Td (Age >=7 Years) 05/20/2006, 05/20/2006 Family History Medical History Relation Name Comments Diabetes Father Diabetes Mother Cancer-colon Neg. Cancer-prostate Neg. Heart Disease Neg. Relation Name Status Comments Father Mother Neg. Social History Tobacco Use Types Packs/Day Years Used Date Never Smoker Smokeless Tobacco: Never Used Tobacco Cessation: Counseling Given: Yes Alcohol Use Standard Drinks/Week Comments Yes 0 (1 standard drink = 0.6 oz pure alcoho l) occasional Alcohol Habits Answer Date Recorded How often do you have a drink containing alcohol? Not asked How many drinks containing alcohol do you have on a typical Not asked day when you are drinking? How often do you have six or more drinks on one occasion? No t asked Comment: occasional 02/20/2010 Sex Assigned at Date Recorded Not on file Obstetrics History Last Filed Vital Signs Vital Sign Reading Time Taken Comments Blood Pressure 124/76 06/21/2016 3:04 PM PAPERBACK MACHINE OPERATOR Pulse 80 06/21/2016 3:04 PM PAPERBACK MACHINE OPERATOR Temperature 36.6 ??C (97.8 ??F) 03/28/2016 1:40 AM CDT Respiratory Rate 16 03/28/2016 1:40 AM CDT Oxygen Saturation 99% 03/27/2016 11:55 PM CDT Inhaled Oxygen Concentration - - Weight 120.2 kg (265 lb) 06/21/2016 3:04 PM PAPERBACK MACHINE OPERATOR Height - - Body Mass Index - - Plan of Treatment Health Maintenance Due Date Last Done Comments COVID-19 vaccine series (#1) 01/07/1969 Tdap 1979 Depression screening for age 12+ 1980 HIV for age 15-65 1983 BMI (ht and wt on same day) for 1986 age 18+ Hepatitis C screening for age 1207/09/1986 18-79 Colonoscopy through age 75 2013 Tetanus booster 05/20/2016 05/20/2006, 05/20/2006 Lipids for age 45-75 06/16/2017 06/16/2012, 06/16/2012, 06/16/2012, Additional history exists Zoster (shingles) series for age 1207/09/2018 50+ (1 of 2) Influenza for age 50-64 04/08/2022 05/17/2011, 04/16/2010, 05/19/2009, Additional history exists Procedures Procedure Name Priority Date/Time Associated Diagnosis Comme nts SCAN 06/07/2022 12:00 AM Results for this [facility] CDT procedur e are in the results section. from Last 3 Months Results SCAN [facility] (06/07/2022 12:00 AM CDT) Narrative This result has an attachment that is no t available. Scanner OTHER from Last 3 Months Insurance Payer Benefit Plan / Subscriber ID Effective Dates Phone Addre ss Type Group [facility] [id number] 2022-Present [address] [facility] [place] [address] [place] [id number] Care Teams Sr. Vendor Management Associate Relationship Specialty Start Date End Date Gwen Jenkins, BOAT BUILDER AND REPAIRER PCP - General Emergency Medicine 04/21/22 [address] [facility] [place] [id number]
--- OUTSIDE RECORDS SUMMARY | 2022-07-09 14:23 | XMS_ITS | Clinical Summary ---
:1970 Author Organization [facility] Address [address] [place] [address] Care Team Providers Name Role Phone None, Pcp Primary Care Provider Unavailable Encounters Date Type Specialty Care Team Description 05/03/2022 Lab Family Medicine Drug screeni delvin, pre-employment from Last 3 Months Social History Tobacco Use Types Packs/Day Years Used Date Smoking Tobacco: Never Assessed Sex Assigned at Date Recorded Not on file Plan of Treatment Health Maintenance Due Date Last Done Comments CT Colonography 1968 Colonoscopy 1970 Colorectal Cancer Screening 1970 FIT-DNA 1970 Sigmoidoscopy 1970 iFOBT 1970 COVID-19 Vaccine (#1) 01/07/1969 Zoster Vaccines (1 of 2) 2018 DTaP,Tdap,and Td Vaccines (2 - 05/14/2029 05/14/2019, Td or Tdap) 05/20/2006 HPV Vaccines Aged Out No longer eligib le based on patient's age to complete this to pic Pneumococcal Vaccine: Aged Out No longer eligible based Pediatrics (0 to 5 Years) and on patient's age to At-Risk Patients (6 to 64 comple te this topic Years) Care Teams Credit Department Manager Relationship Specialty Start Date End Date None, Pcp PCP - General Micro Computer Data Processor 04/30/[address] [place] [phone]
[2022-07-09 16:43] LABS: Free T4 Free Thyroxine* 0.89 ng/dL (0.70-1.85)
== END 2022-07-09 13:40 | disposition home or self-care (01) ==
LOC: KYNREF 13:40
PROVIDERS: PCP Nurse Practitioner Family; Visit Provider Nurse Practitioner Family
DX: E03.9 Hypothyroidism, unspecified (principal); E11.9 Type 2 diabetes mellitus without complications
CPT/HCPCS: 83036; 84439; 84443

== ENCOUNTER 2022-08-31 10:03 | Outpatient (CLI) | payer OTHER, SELFPAY ==
--- NOTE | 2022-08-31 10:15 | MR_ITS ---
[facility] [address] [facility] [address] Phone:?[phone] Fax:?[phone] Referring Physician Information: Penny Turcios [address] [facility] [address] Phone:?[phone] Fax:?[phone] Patient:Antony Long D.O.B:?1970 Sex:?Male Phone:?[phone] [facility] MRN:?[id number] Exam Date:?08/31/2022 ? EXAM: MRI of the LEFT KNEE, without contrast CLINICAL INFORMATION: Male, 52 years old, with left knee pain. INDICATION: Evaluate knee pain. PRIOR SURGERY: None reported. PLAIN FILMS: None available. COMPARISONS: No prior MRIs available. TECHNICAL INFORMATION: Using a 1.5T MR scanner and a localizing surface coil: sagittals: PD, PDFS coronals: PD, T2FS axials: PD, PDFS SEDATION: None CONTRAST: None FINDINGS: Knee joint: Effusion: Mild-moderate left knee effusion. Popliteal cyst: None. Loose bodies: None. Subcutaneous and extra-articular soft tissues: Unremarkable. Ligaments: ACL: Intact ACL anteromedial and posterolateral bundles, without sprain or tear. PCL: Intact PCL, without acute or chronic injury. MCL: Mild thickening involving the proximal one third of the superficial MCL LCL: Intact LCL, without injury. Posterolateral corner: Mild to moderate popliteus tendinopathy, without tear. Biceps femoris, iliotibial band, popliteofibular ligament and lateral gastrocnemius are intact. Posteromedial corner: No posteromedial corner soft tissue injury. Semimembranosus, pes anserine tendons and posterior oblique ligament are without injury, tendinopathy or bursitis. Extensor mechanism: Patellar tendon: Intact, without tendinopathy. Quadriceps tendon: Intact, without tendinopathy. Retinacula: Medial and lateral retinacula are intact. Fat pads: Marked edema is present within the superolateral aspect of Hoffa's fat pad (sagittal PDFS series 6 image 23). Unremarkable prefemoral and suprapatellar fat pads. Medial compartment: Medial meniscus: Abnormal intrasubstance signal and irregularity is present throughout the posterior meniscocapsular junction, without discrete tear (sagittal PDFS series 6 images 9-14). No articular surface or root tear. No extrusion or parameniscal cyst. Medial femoral condyle: No chondromalacia or osteochondral abnormality. Medial tibial plateau: No chondromalacia or osteochondral abnormality. Lateral compartment: Lateral meniscus: No articular surface, meniscosynovial junction or root tear. No displacement, extrusion or parameniscal cyst. Lateral femoral condyle: Broad-based mild grade II chondromalacia of the lateral femoral condyle with a superimposed subchondral cyst measuring 1.4 x 1.9 x 1.0 cm. Lateral tibial plateau: No chondromalacia or osteochondral abnormality. Patellofemoral joint: Patella: Generalized grade II/III chondromalacia of the patella, with mild marginal osteophytosis. Trochlea: Generalized grade III chondromalacia of the trochlea, with mild- moderate marginal osteophytosis and reactive osseous changes. Proximal tibiofibular joint: Unremarkable, without evidence of ligament sprain injury, joint effusion or adjacent marrow edema. Bones: No stress/occult fractures or other marrow edema/pathology. IMPRESSION: 1. Moderate osteoarthritis of the patellofemoral compartment. 2. Mild chondromalacia of the lateral femoral condyle with a large subchondral cyst measuring 1.4 x 1.9 x 1.0 cm. 3. Posterior meniscocapsular junction sprain of the medial meniscus. No discrete medial or lateral meniscal tearing. 4. Patellar tendon lateral femoral condyle friction syndrome. 5. Mild-moderate popliteus tendinopathy, without tear. 6. Mild-moderate knee joint effusion. No popliteal (Redman's) cyst. 7. Chronic sequela of a low-grade proximal MCL sprain, without tear. No ACL, PCL, or LCL sprain/tear. BC Electronically signed on 08/31/2022 1:10:00 PM by Dave Swain M.D.
== END 2022-08-31 10:04 | disposition home or self-care (01) ==
LOC: MRI 10:05
PROVIDERS: PCP Nurse Practitioner Family; Visit Provider Nurse Practitioner Family
DX: M25.562 Pain in left knee (principal); M94.262 Chondromalacia, left knee; M25.462 Effusion, left knee; S83.412A Sprain of medial collateral ligament of left knee, initial encounter
CPT/HCPCS: 73721

== ENCOUNTER 2022-11-12 08:46 | Outpatient (CLI) | payer OTHER, SELFPAY ==
[2022-11-12 15:52] LABS: Albumin* 3.8 g/dL (3.3-5.0); Chloride* 102 mmol/L (96-114)
[2022-11-12 15:53] LABS: Potassium* 4.5 mmol/L (3.6-5.1); Sodium* 134 mmol/L (135-149)
[2022-11-12 15:55] LABS: Cholesterol* 151 mg/dL (90-199); Creatinine* 0.7 mg/dL (0.5-1.5); Estimated Glomerular Filt Rate 110 ml/min
[2022-11-12 15:56] LABS: Alanine Aminotransferase* 41 U/L (4-50); Alkaline Phosphatase* 100 U/L (40-150); Aspartate Amino Transferase* 33 U/L (12-35); Bilirubin Total* 0.6 mg/dL (0.1-1.5); Blood Urea Nitrogen* 18 mg/dL (7-30); Calcium* 8.9 mg/dL (8.4-10.6); Carbon Dioxide* 25 mmol/L (20-32); Glucose* 270 mg/dL (60-115); HDL Cholesterol* 40 mg/dL (>=40); LDL Cholesterol Calculated 75 mg/dL (<100); Total Protein* 7.3 g/dL (6.0-8.3); Triglycerides* 180 mg/dL (40-149)
[2022-11-12 16:06] LABS: Creatinine Urine 107.5 mg/dL
[2022-11-12 16:11] LABS: Microalbumin Creatinine Ratio 130 mg/g (0-30); Microalbumin Urine 15 mg/dL
[2022-11-12 16:26] LABS: PSA Screen* 0.24 ng/mL (0.10-4.00)
[2022-11-17 16:35] LABS: Vitamin B12* 897 pg/mL (243-894)
== END 2022-11-12 08:47 | disposition home or self-care (01) ==
PROVIDERS: PCP Nurse Practitioner Family; Visit Provider Nurse Practitioner Family
DX: E03.9 Hypothyroidism, unspecified (principal); E11.9 Type 2 diabetes mellitus without complications; E78.5 Hyperlipidemia, unspecified; I10 Essential (primary) hypertension; E66.01 Morbid (severe) obesity due to excess calories; R53.81 Other malaise; Z12.5 Encounter for screening for malignant neoplasm of prostate; Z51.81 Encounter for therapeutic drug level monitoring
CPT/HCPCS: 80053; 80061; 82043; 82570; 82607; 84153; 84443

== ENCOUNTER 2023-04-05 12:40 | Outpatient (CLI) | payer OTHER, SELFPAY | END 2023-04-05 12:41 | disposition home or self-care (01) | LOC: KYNREF 12:40 | PROVIDERS: PCP Nurse Practitioner Family; Visit Provider Nurse Practitioner Family | DX: I10 Essential (primary) hypertension (principal); E11.9 Type 2 diabetes mellitus without complications | CPT/HCPCS: 80048 ==

== ENCOUNTER 2023-06-07 13:14 | Outpatient (CLI) | payer OTHER, SELFPAY | END 2023-06-07 13:15 | disposition home or self-care (01) | LOC: KYNREF 13:15 | PROVIDERS: PCP Nurse Practitioner Family; Visit Provider Nurse Practitioner Family | DX: I10 Essential (primary) hypertension (principal); E11.9 Type 2 diabetes mellitus without complications | CPT/HCPCS: 80048 ==

== ENCOUNTER 2023-08-12 09:58 | Outpatient (CLI) | payer OTHER, SELFPAY | END 2023-08-12 09:59 | disposition home or self-care (01) | PROVIDERS: PCP Nurse Practitioner Family; Visit Provider Nurse Practitioner Family | DX: E11.9 Type 2 diabetes mellitus without complications (principal); Z79.4 Long term (current) use of insulin; E78.2 Mixed hyperlipidemia; E03.9 Hypothyroidism, unspecified | CPT/HCPCS: 80053; 80061; 82043; 82570; 84443; 84484 ==

== ENCOUNTER 2023-08-25 08:48 | Outpatient (CLI) | payer OTHER, SELFPAY ==
--- OUTSIDE RECORDS SUMMARY | 2023-08-25 08:57 | XMS_ITS | Clinical Summary ---
Author Name Unknown Organization [employer] Address [place], [place] [address] Care Team Providers Care Client Development Manager Name Role Phone Gwen Jenkins FERRY PILOT Primary Care Provider [phone] Allergies Active Allergy Reactions Criticality Noted Date Comments Ari Inhibitors Angioedema High 04/10/2023 Medications Medication Sig Dispensed Refills Start Date End Date Status DIABETIC SHOEIndications:di abetes mellitus As directed. For personal use Indications: DIABETES MELLITUS 2 Each 0 01/20/2011 Active aspirin enteric coated 81 mg tablet Take 1 tablet by mouth once daily with a meal. 0 03/02/2012 Active latanoprost (XALATAN) 0.005 % ophthalmic solution Place 1 Drop into both eyes once daily in the evening. 2.5 mL 0 08/18/2012 Active FREESTYLE LITE STRIPS strip USE 3 TIMES DAILY OR DIRECTED 300 Each 1 11/23/2012 Active FREESTYLE LANCETS 28 gauge misc TEST 3 TIMES PER DAY 300 Each 0 10/15/2013 Active simvastatin (ZOCOR) 40 mg tablet TAKE ONE TABLET BY MOUTH AT BEDTIME 30 tablet 0 04/09/2014 Active sertraline (ZOLOFT) 100 mg tablet Take 1 tablet by mouth once daily. 0 06/21/2016 Active levothyroxine (SYNTHROID) 100 mcg tablet Take 300 mcg by mouth once daily. 0 06/21/2016 Active rOPINIRole (REQUIP) 4 mg tablet Take 4 mg by mouth once daily in the evening. Take 3 hours before bedtime 0 06/21/2016 Active BD INSULIN PEN NEEDLE UF MINI 31 gauge x 3/16Indications:T ype 2 diabetes mellitus without complication, without long-term current use of insulin (HC) USE DIRECTED WITH VICXENIAZA DAILY 100 Each 05/09/2019 Active oxybutynin (DITROPAN XL) 15 mg CR tablet Take 15 mg by mouth at bedtime. 0 Active Insulin Syringe-Needle U-100 1 mL 30 gauge X 7/16 syrg two times daily. 0 11/05/2022 Active triamcinolone (ARISTOCORT; KENALOG) 0.1 % cream APPLY A THIN LAYER TO AFFECTED AREA ON CHEST, BACK, LEGS, AND ARMS 1-2X DAILY FOR UP TO 2 WEEKS AT A TIME. 0 03/25/2023 Active escitalopram oxalate (LEXAPRO) 5 mg tablet Take 5 mg by mouth every morning. 0 Active insulin aspart, U-100, (NovoLOG FlexPen U-100 Insulin) 100 unit/mL (3 mL) pen Inject 35 units subcutaneous three times daily with meals. Plus sliding scale of 2 to 10 units per meal. 0 Active Lantus Solostar U-100 Insulin 100 unit/mL (3 mL) pen Inject 55 units subcutaneous 2 times daily 12 hours apart. Product desired: LANTUS SOLOSTAR 0 Active hydroCHLOROthiazid e (HCTZ) 25 mg tabletIndications: HTN (hypertension) Take 1 Tablet (25 mg) by mouth once daily. 30 Tablet 0 04/11/2023 Active albuterol HFA (PRO-AIR; VENTOLIN; PROVENTIL) 90 mcg/actuation inhalerIndications :Angioedema, initial encounter Inhale 2 Puffs by mouth 4 times daily if needed for Shortness Of Breath. 1 Each 0 04/11/2023 Active EPINEPHrine Base (Symjepi) 0.3 mg/0.3 mL syrgIndications:An gioedema, initial encounter Inject 0.3 mg As Directed each time if needed (Angioedema). 2 Each 0 04/11/2023 Active famotidine (PEPCID) 40 mg tabletIndications: Angioedema, initial encounter Take 1 Tablet (40 mg) by mouth once daily. 14 Tablet 0 04/11/2023 Active predniSONE (DELTASONE) 20 mg tabletIndications: Angioedema, initial encounter Take 2 Tablets (40 mg) by mouth once daily with a meal. 28 Tablet 0 04/12/2023 Active loratadine (CLARITIN) 10 mg tabletIndications: Angioedema, initial encounter Take 1 Tablet (10 mg) by mouth once daily. 30 Tablet 0 04/12/2023 Active Active Problems Problem Noted Date Diagnosed Date Angioedema 04/10/2023 Obesity, unspecified 03/05/2010 Diabetes mellitus type II 02/20/2010 Overview: a system change updated this record. This will not affect patient care or billing. This comment can be deleted. Unspecified hypothyroidism 02/20/2010 HTN (hypertension) 02/20/2010 Other and unspecified hyperlipidemia 02/20/2010 Encounters Date Type Department Care Team Description 05/31/2023 Telephone [facility] [address] [place] [address] Johan Coronado MD Results 05/26/2023 Telephone [facility] [address] [place] [address] Gwen Jenkins, FERRY PILOT Error-please disregard from Last 3 Months Immunizations Name Administration Dates Next Due Influenza Virus, Unspecified 05/17/2011 Influenza, IIV3 (Age >=3 years) 04/16/20,05/19/2009,05/19/2009,2007,06/08/2008,05/24/2007,05/24/2007 Pneumococcal Poly,23-Valent (Pneumovax) 05/20/2006,05/20/2006 Td (Age >=7 Years) 05/20/2006,05/20/2006 Family History Medical History Relation Name Comments Diabetes Father Diabetes Mother Cancer-colon Neg. Cancer-prostate Neg. Heart Disease Neg. Relation Name Status Comments Father Mother Neg. Social History Tobacco Use Types Packs/Day Years Used Date Smoking Tobacco: Never Smokeless Tobacco: Never Tobacco Cessation:Counseling Given: Yes Alcohol Use Standard Drinks/Week Comments Yes 0 (1 standard drink = 0.6 oz pur e alcohol) occasional Social Connections Answer Date Recorded Frequency of Communication with Friends and Fami ly 0 04/10/2023 Financial Resource Strain Answer Date R ecorded Difficulty of Paying Living Expenses 3 04/10/2023 Difficulty of Paying Living Expenses Not on file 04/10/2023 Food Insecurity Answer Date Recorded Worried About Running Out of Food in the Last Ye ar 1 04/10/2023 Transportation Needs Answer Date Record ed Lack of Transportation (Medical) 1 04/10/2023 Housing Stability Answer Date Recorded Unable to Pay for Housing in the Last Year 1 04/10/2023 Sex and Gender Information Value Date Recorded Sex Assigned at Not on file Gender Identity Not on file Sexual Orientation Not on file Obstetrics History Last Filed Vital Signs Vital Sign Reading Time Taken Comments Blood Pressure 151/87 05/23/2023 9:58 AM CDT Pulse 76 05/23/2023 9:58 AM CDT Temperature 36.7 ??C (98 ??F) 05/23/2023 9:58 AM CDT Respiratory Rate 19 04/11/2023 7:38 AM CDT Oxygen Saturation 98% 05/23/2023 9:58 AM CDT Inhaled Oxygen Concentration - - Weight 119.7 kg (264 lb) 05/23/2023 9:58 AM CDT Height 170.8 cm (5' 7.25) 05/23/2023 9:58 AM CD T Body Mass Index 41.04 05/23/2023 9:58 AM CDT Plan of Treatment Health Maintenance Due Date Last Done Comments Hepatitis B series for Diabe dinorah (1 of 3 - 3-dose series) 1968 COVID-19 vaccine series (#1) 01/07/1969 Tdap 1979 Depression screening for age 12+ 1980 HIV for age 15-65 1983 Hepatitis C screening for ag e 18-79 1986 Pneumococcal series for age 6-64 (2 of 2 - PCV) 05/20/2007 05/20/2006, 05/20/2006 Colonoscopy through age 75 2013 Tetanus booster 05/20/2016 05/20/2006, 05/20/2006 Lipids for age 45-75 06/16/2017 06/16/2012, 06/16/2012, 06/16/2012, Additional history exists Zoster (shingles) series for age 50+ (1 of 2) 2018 Influenza for age 50-64 04/08/2023 05/17/20, 04/16/2010, 05/19/2009, Additional history exists BMI (ht and wt on same day) for age 18+ 05/23/2024 05/23/2023 Advance Directives Latest Code Status on File Code Status Date Activated Date Inactivated Comments Full Code 04/10/2023 3:42 PM 04/11/2023 3:34 PM Question Answer Comments Code Status Discussion: Reviewed Preferences Care Teams Client Development Manager Relationship Specialty Start Date End Date Gwen Jenkins FERRY PILOT [address] [facility] [place] [address] PCP - General Emergency Medicine 04/21/22
--- OUTSIDE RECORDS SUMMARY | 2023-08-25 08:57 | XMS_ITS | Clinical Summary ---
Author Name Unknown Organization [facility] Address [address] [place] [address] Care Team Providers Care Diesel Dinkey Engineer Name Role Phone None, Pcp Primary Care Provider Unavailabl e Social History Tobacco Use Types Packs/Day Years Used Date Smoking Tobacco: Never Assessed Sex and Gender Information Value Date Recorded Sex Assigned at Not on file Gender Identity Not on file Sexual Orientation Not on file Plan of Treatment Health Maintenance Due Date Last Done Comments CT Colonography 1968 Colonoscopy 1968 Colorectal Cancer Screening 1970 FIT-DNA 1970 Sigmoidoscopy 1970 iFOBT 1968 COVID-19 Vaccine (#1) 01/07/1969 Zoster Vaccines (1 of 2) 2018 Influenza Vaccine (#1) 2023 9, 05/18/2012, 05/17/2011, Additional history exists DTaP,Tdap,and Td Vaccines (2 - Td or Tdap) 05/14/2029 05/14/2019, 05/20/2006 HPV Vaccines Aged Out No longer eligi ble based on patient's age to complete this topic Pneumococcal Vaccine: Pediatrics (0 to 5 Years) and At-Risk Patients (6 to 64 Years) Aged Out No longer eligible based on patient's age to complete this topic Care Teams Diesel Dinkey Engineer Relationship Specialty Start Date End Date None, Pcp [address] [facility] [place] [address] PCP - General Vault Service Mechanic 04/30/22
--- OUTSIDE RECORDS SUMMARY | 2023-08-25 08:58 | XMS_ITS | Encounter Summary ---
Author Name Unknown Organization [facility] Address [address] [place] [address] Care Team Providers Care Spool Sorter Name Role Phone Elsewhere, Pcp Primary Care Provider Unavailabl e Reason for Referral * Specialty Diagnoses / Procedures Referred By Yasmeen dudley Referred To Contact Alexia Sanchez APRN, C.N.PKwesi, M.S. [address] [place] [phone] [facility] Referral ID Status Reason Start Date Expiration Date Visits Re quested Visits Authorized BATIC RIGGER Reason for Visit * Reason Onset Date Comments Pre-visit Testing Orders 06/08/2023 Encounter Details Date Type Department Care Team (Latest Contact Info) Description 06/08/2023 Clinical Communication Division of Endocrinology in [place], [place] [address] [place] [phone] Alexia Sanchez APRN, C.N.P., M.S. [address] [place] [phone] Pre-visit Testing Orders Social History Tobacco Use Types Packs/Day Years Used Date Smoking Tobacco: Never Smokeless Tobacco: Never C Utilities Answer Date Recorded In the past 12 months has th e electric, gas, oil, or water company threatened to shut off services in your home? No 08/23/2023 Exercise Vital Sign Answer Date Recorde d On average, how many days pe r week do you engage in moderate to strenuous exercise (like a brisk walk)? 0 days 08/23/2023 On average, how many minutes do you engage in exercise at this level? 0 min 08/23/2023 Hunger Vital Sign Answer Date Recorded Within the past 12 months, y ou worried that your food would run out before you got the money to buy more. Sometimes true Within the past 12 months, t he food you bought just didn't last and you didn't have money to get more. Sometimes true PRAPARE - Transportation Answer Date Re corded In the past 12 months, has l ack of transportation kept you from medical appointments or from getting medications? No 08/08 In the past 12 months, has l ack of transportation kept you from meetings, work, or from getting things needed for daily living? No 08/23/2023 Nutrition Answer Date Recorded Nutrition: EVOO Fat Source Unknown 08/23 On average, how many serving s of fruits and vegetables do you eat per day (serving size is equal to 1 cup or approximately the size of a tennis ball)? 0-2 08/23/2023 Dental Answer Date Recorded Dental: Regular Dentist Yes 08/23/19 Employment Answer Date Recorded Employment status Employed and actively working without restrictions 08/23/2023 Housing Stability Answer Date Recorded What is your living situation today? I have a [facility] place to live 08/23/2023 Sex and Gender Information Value Date Recorded Sex Assigned at Male 08/18/2023 9:22 AM ACROBATIC RIGGER Gender Identity Male 08/18/2023 9:22 AM ACROBATIC RIGGER Sexual Orientation Straight 08/18/2023 9: 22 AM ACROBATIC RIGGER documented as of this encounter Miscellaneous Notes * Addendum Note - Alexia Sanchez APRN, C.N.P., M.S. - 08/23/2023 9:09 AM CSTAddended by: ALEXIA SANCHEZ on: 08/23/2023 09:09 AM Modules accepted: Orders BATIC RIGGER documented in this encounter Plan of Treatment Upcoming Encounters Date Type Department Care Team (Latest Contact Info) Description 08/29/2023 10:00 AM ACROBATIC RIGGER Comprehensive Visit Division of Endocrinology in [place], [place] [address] [place] [address] Alexia Sanchez APRN, C.N.P., M.S. [address] [place] [address] Scheduled Referrals Name Type Priority Associated Diagnoses Orde r Schedule Nutrition - breastfeeding educator visit (clinic) Outpatient Referral Routine Diabetes Mellitus Type 2 (HCC) Expected: 08/29/2023, Expires: 05/29/2024 documented as of this encounter Visit Diagnoses Diagnosis Diabetes Mellitus Type 2 (HCC)- Primary documented in this encounter Care Teams Spool Sorter Relationship Specialty Start Date End Date Elsewhere, Pcp PCP - General Internal Medicine 04/23/23 documented as of this encounter
--- OUTSIDE RECORDS SUMMARY | 2023-08-25 08:58 | XMS_ITS | Encounter Summary ---
Author Name Unknown Organization [facility] Address [address] [place] [address] Care Team Providers Care Toolroom Checker Name Role Phone Elsewhere, Pcp Primary Care Provider Unavailabl e Reason for Visit * Reason Onset Date Comments Pre-visit Intake 08/24/2023 Encounter Details Date Type Department Care Team (Latest Contact Info) Description 08/24/2023 11:00 AM COIL INSPECTOR Clinical Communication Virtual Review in [place], [place] 200 [place], [place] [phone] Pre-visit Intake Social History Tobacco Use Types Packs/Day Years Used Date Smoking Tobacco: Never Smokeless Tobacco: Never Alcohol Use Standard Drinks/Week Comments Yes 2 (1 standard drink = 0.6 oz pur e alcohol) Sometimes 0 times a week [facility] Utilities Answer Date Recorded In the past [...] your living situation today? I have a [facility] place to live 08/23/2023 Sex and Gender Information Value Date Recorded Sex Assigned at Male 08/18/2023 9:22 AM COIL INSPECTOR Gender Identity Male 08/18/2023 9:22 AM COIL INSPECTOR Sexual Orientation Straight 08/18/2023 9: 22 AM COIL INSPECTOR documented as of this encounter Plan of Treatment Upcoming Encounters Date Type Department Care Team (Latest Contact Info) Description 08/29/2023 10:00 AM COIL INSPECTOR Comprehensive Visit Division of Endocrinology in [place], [place] [address] [place] [address] Alexia Sanchez APRN, C.N.P., M.S. [address] [place] [address] documented as of this encounter Visit Diagnoses Not on filedocumented in this encounter Care Teams Toolroom Checker Relationship Specialty Start Date End Date Elsewhere, Pcp PCP - General Internal Medicine 04/23/23 documented as of this encounter
--- OUTSIDE RECORDS SUMMARY | 2023-08-25 08:58 | XMS_ITS | Referral Summary ---
Author Name Unknown Organization [facility] Address [address] [place] [address] Care Team Providers Care Dip Unit Operator Name Role Phone Elsewhere, Pcp Primary Care Provider Unavailabl e Source Comments Patient records contain information from all sites at [facility]. For routine questions regarding patient records, call [phone] during business hours, M-F 8:00 AM - 5:00 PM Central Time. Record requests for emergency care only can be directed to [phone] at any time.[facility] Encounters Date Type Department Care Team Description 08/24/2023 11:00 AM POSTER Clinical Communication Virtual Review in [place], [place] 200 [place] [address] Pre-visit Intake 06/08/2023 Clinical Communication Division of Endocrinology in [place], [place] [address] [place] [phone] Alexia Sanchez APRN, C.N.P., M.S. Pre-visit Testing Orders 06/07/[address] [address] Gwen Jenkins, C.N.P. Diabetes Mellitus Type 2 (HCC) (Primary Dx) from Last 3 Months Allergies Active Allergy Reactions Criticality Noted Date Comments Ari Inhibitors Angioedema High 04/05/2023 Lisinopril Other (see comments) High 06/07/2023 likely angioedema, normal formal testing Pioglitazone Other (see comments) 06/07/2023 Medications Medication Sig Dispensed Refills Start Date End Date Status aspirin [address] tablet Take 81 mg by mouth. 0 03/02/2012 Acti ve atorvastatin (Lipitor) 10 mg tablet Lipitor 10 mg oral tablet See Instructions, 1 TABLET DAILY 0 11/03/2013 Active latanoprost (XALATAN) 0.005 % ophthalmic solution INT 1 GTT IN OU QHS 0 01/15/2020 Activ e levothyroxine (SYNTHROID, LEVOTHROID) 100 mcg tablet Two tablets daily 0 08/20/2014 Active rOPINIRole (REQUIP) 4 mg tablet 0 01/28/2020 Active sertraline (ZOLOFT) 100 mg tablet Take 100 mg by mouth. 0 06/21/2016 Act ramses simvastatin (ZOCOR) 40 mg tablet Take 40 mg by mouth. 0 04/09/2014 Acti ve BD Insulin Syringe Ultra-Fine 1 mL 31 gauge x 5/16 syringe 0 05/09/2020 Active FreeStyle Jaye 14 Day Sensor kit APPLY UTD Q 14 DAYS 0 06/30/2020 Active oxybutynin (DITROPAN-XL) 10 mg 24 hr tablet TAKE 1 TABLET BY MOUTH DAILY 90 tablet 3 09/26/2020 Active insulin aspart U-100 (NovoLOG FlexPen) 100 unit/mL (3 mL) injection Inject 35 Units under the skin 3 (three) times a day with meals. 0 Active loratadine-pseudo ephedrine (CLARITIN-D 12-hour) 5-120 mg per 12 hr tablet Take 1 tablet by mouth 2 (two) times a day. 0 Active hydroCHLOROthiazi de (HYDRODIURIL) 12.5 mg tablet Take 12.5 mg by mouth daily. 0 Active insulin glargine (LANTUS) 100 unit/mL injection Inject 60 Units under the skin every morning. 0 Active EPINEPHrine 0.3 mg/0.3 mL injection syringe Inject 0.3 mL (0.3 mg total) intramuscularly as needed for anaphylaxis for up to 10 days. Inject into the thigh. 1 each 0 04/23/2023 Active escitalopram (LEXAPRO) 10 mg tablet Take 1 tablet by mouth daily. 0 07/01/2023 Active oxyBUTYnin (DITROPAN XL) 15 mg 24 hr tablet Take 15 mg by mouth daily. 0 Active Active Problems Problem Noted Date Diagnosed Date Angioneurotic (Angioedema Acquired) Edema Initia l 04/10/2023 Obesity Unspecified 03/05/2010 Diabetes Mellitus Type 2 02/20/2010 Overview: Overview: a system change updated this record. This will not affect patient care or billing. This comment can be deleted. Hyperlipidemia 02/20/2010 Hypertension 02/20/2010 Hypothyroidism 02/20/2010 Immunizations Name Administration Dates Next Due H1N1 Inj 07/04/2009 Influenza (IM) Preservative Free 04/16/2010,05/08 Influenza TIV (IM) 04/16/2010, 9,06/08/2008,2006 Influenza, Seasonal, Injectable 05/18/2012,05/17 Influenza, Unspecified 05/17/2011 PPSV23 05/20/2006 Td, (Adult) Unspecified 05/20/2006 Tdap 05/14/2019 influenza vaccine quad (FLUZONE/FLUARIX) (6 months and older)(PF) 05/14/2019,05/18/2012,05/17/2011,2009,07/04/2009,05/19/2009 Social History Tobacco Use Types Packs/Day Years Used Date Smoking Tobacco: Never Smokeless Tobacco: Never Alcohol Use Standard Drinks/Week Comments Yes 2 (1 standard drink = 0.6 oz pur e alcohol) Sometimes 0 times a week [facility] Utilities Answer Date Recorded In the past 12 months has th e [employer], gas, oil, or water [employer] threatened to shut off services in your [...] your living situation today? I have a [facility] place to live 08/23/2023 Sex and Gender Information Value Date Recorded Sex Assigned at Male 08/18/2023 9:22 AM POSTER Gender Identity Male 08/18/2023 9:22 AM POSTER Sexual Orientation Straight 08/18/2023 9: 22 AM POSTER Last Filed Vital Signs Vital Sign Reading Time Taken Comments Blood Pressure 146/78 04/23/2023 11:45 AM CDT Pulse 62 04/23/2023 11:45 AM CDT Temperature 36.3 ??C (97.3 ??F) 04/23/2023 7:00 AM CD T Respiratory Rate 24 04/23/2023 7:00 AM CDT Oxygen Saturation 97% 04/23/2023 11:45 AM CDT Inhaled Oxygen Concentration - - Weight 117 kg (258 lb 9.6 oz) 04/23/2023 7:01 AM CDT Height 170 cm (5' 6.93) 05/06/2016 8:53 AM CDT Body Mass Index 40.59 05/06/2016 8:53 AM CDT Plan of Treatment Upcoming Encounters Date Type Department Care Team (Latest Contact Info) Description 08/29/2023 10:00 AM POSTER Comprehensive Visit Division of Endocrinology in [place], [place] [address] [place] [address] Alexia Sanchez APRN, C.N.P., M.S. [address] [place] [address] Care Teams Dip Unit Operator Relationship Specialty Start Date End Date Elsewhere, Pcp PCP - General Internal Medicine 04/23/23
--- OUTSIDE RECORDS SUMMARY | 2023-08-25 08:58 | XMS_ITS | Encounter Summary ---
Author Name Unknown Organization [facility] Address [address] [place] [address] Care Team Providers Care Radiotelephone Technical Operator Name Role Phone Elsewhere, Pcp Primary Care Provider Unavailabl e Reason for Referral * Outpatient (Routine) - Authorized Specialty Diagnoses / Procedures Referred By Contac t Referred To Contact Endocrinology Diagnoses Diabetes Mellitus Type 2 (HCC) Gwen Jenkins, C.N.P. [address] [place] [address] [facility] Referral ID Status Reason Start Date Expiration Date V isits Requested Visits Authorized [id number] Authorized 06/07/2023 06/06/2024 1 1 Encounter Details Date Type Department Care Team (Late st Contact Info) Description 06/07/2023 [facility] [address] [place] [address] Gwen Jenkins, C.N.P. [address] [place] [phone] Diabetes Mellitus Type 2 (HCC) (Primary Dx) Social History Tobacco Use Types Packs/Day Years Used Date Smoking Tobacco: Never Smokeless Tobacco: Never Nutrition Answer Date Recorded Nutrition: EVOO Fat Source Unknown 09/26 Nutrition: Servings of Fruits/Vegetables per Day Not on file 09/26/2020 Dental Answer Date Recorded Dental: Regular Dentist Unknown 09/26/19 21 Sex and Gender Information Value Date Recorded Sex Assigned at Male 08/18/2023 9:22 AM CAN CLEANER Gender Identity Male 08/18/2023 9:22 AM CAN CLEANER Sexual Orientation Straight 08/18/2023 9: 22 AM CAN CLEANER documented as of this encounter Plan of Treatment Upcoming Encounters Date Type Department Care Team (Latest Contact Info) Description 08/29/2023 10:00 AM CAN CLEANER Comprehensive Visit Division of Endocrinology in [place], [place] [address] [place] [address] Alexia Sanchez APRN, C.N.P., M.S. [address] [place] [address] Scheduled Referrals Name Type Priority Associated Diagnoses Order Schedule Endocrinology Referral Outpatient Referral Routine Diabetes Mellitus Type 2 (HCC) Expected: 06/07/2023 (Approximate), Expires: 09/07/2024 documented as of this encounter Visit Diagnoses Diagnosis Diabetes Mellitus Type 2 (HCC)- Primary documented in this encounter Care Teams Radiotelephone Technical Operator Relationship Specialty Start Date End Date Elsewhere, Pcp PCP - General Internal Medicine 04/23/23 documented as of this encounter
--- OUTSIDE RECORDS SUMMARY | 2023-08-25 08:58 | XMS_ITS ---
Author Name Unknown Organization [facility] Address [address] [place] [address] Care Team Providers Care Propulsion Machinery Service Engineer Name Role Phone Unavailable Unavailable Unavailable Surgery Details Not on file Complications Check Surgery Details section. Procedure Estimated Blood Loss Check Surgery Details section. Procedure Findings Check Surgery Details section. Procedure Specimens Taken Check Surgery Details section.
--- OUTSIDE RECORDS SUMMARY | 2023-08-25 08:58 | XMS_ITS | Encounter Summary ---
Author Name Unknown Organization [facility] Address [address] [place] [address] Care Team Providers Care Speaking Unit Assembler Name Role Phone Elsewhere, Pcp Primary Care Provider Unavailabl e Reason for Visit * Reason Comments Allergic Reaction Tongue swelling star mike this morning after eating a peanut butter sandwich. Patient self administered epi pen prior to arrival. Encounter Details Date Type Department Care Team (Late st Contact Info) Description 04/23/2023 6:58 AM CDT - 04/23/2023 12:12 PM CDT Emergency [facility] [address] [place] [phone] Rashad Soto, P.A.-C., P.A. [address] [place] [phone] Angioedema Personal History (Primary Dx) Discharge Disposition: Home or Self Care Social History Tobacco Use Types Packs/Day Years Used Date Smoking Tobacco: Never Smokeless Tobacco: Never Tobacco Cessation:Counseling Given: Not Answered Nutrition Answer Date Recorded Nutrition: EVOO Fat Source Unknown 09/26 Nutrition: Servings of Fruits/Vegetables per Day Not on file 09/26/2020 Dental Answer Date Recorded Dental: Regular Dentist Unknown 09/26/19 21 Sex and Gender Information Value Date Recorded Sex Assigned at Male 08/18/2023 9:22 AM STEAM CLEANING MACHINE OPERATOR Gender Identity Male 08/18/2023 9:22 AM STEAM CLEANING MACHINE OPERATOR Sexual Orientation Straight 08/18/2023 9: 22 AM STEAM CLEANING MACHINE OPERATOR documented as of this encounter Last Filed [...] 9.6 oz) 04/23/2023 7:01 AM CDT Height - - Body Mass Index 40.59 05/06/2016 8:53 AM CDT documented in this encounter Discharge Instructions * Discharge Instructions* Janie Young APRN, Alonzo.N.P., Alberto.N.P., M.S.N. - 04/23/2023 11:51 AM CDT Please take your prednisone as previously ordered. Avoid peanut butter and related products. Follow-up with your frog shaker as recommended. You may take cetirizine 10 mg daily. Continue with Benadryl 25 mg every 6-8 hours as needed. Benadryl can cause drowsiness, please do not drive or operate machinery while taking it. Increase oral fluid intake. Continue to check your glucose and take your insulin as directed. Follow-up with your primary care provider within a week. Prescription for EpiPen sent to the drugstore to be used as needed for any signs of allergic reactions. Return to ED if you have recurrent or worsening symptoms. documented in this encounter Medications at Time of Discharge Medication Sig Dispensed Refills Start Date End Date aspirin [address] tablet Take 81 mg by mouth. 0 03/02/2012 hydroCHLOROthiazide (HYDRODIURIL) 12.5 mg tablet Take 12.5 mg by mouth daily. 0 insulin aspart U-100 (NovoLOG FlexPen) 100 unit/mL (3 mL) injection Inject 35 Units under the skin 3 (three) times a day with meals. 0 insulin glargine (LANTUS) 100 unit/mL injection Inject 60 Units under the skin every morning. 0 latanoprost (XALATAN) 0.005 % ophthalmic solution INT 1 GTT IN OU QHS 0 01/15/2020 levothyroxine (SYNTHROID, LEVOTHROID) 100 mcg tablet Two tablets daily 0 08/20/2014 loratadine-pseudoeph edrine (CLARITIN-D 12-hour) 5-120 mg per 12 hr tablet Take 1 tablet by mouth 2 (two) times a day. 0 oxybutynin (DITROPAN-XL) 10 mg 24 hr tablet TAKE 1 TABLET BY MOUTH DAILY 90 tablet 3 09/26/2020 rOPINIRole (REQUIP) 4 mg tablet 0 01/28/2020 sertraline (ZOLOFT) 100 mg tablet Take 100 mg by mouth. 0 06/21/2016 simvastatin (ZOCOR) 40 mg tablet Take 40 mg by mouth. 0 04/09/2014 atorvastatin (Lipitor) 10 mg tablet Lipitor 10 mg oral tablet See Instructions, 1 TABLET DAILY 0 11/03/2013 BD Insulin Syringe Ultra-Fine 1 mL 31 gauge x 5/16 syringe 0 05/09/2020 EPINEPHrine 0.3 mg/0.3 mL injection syringe Inject 0.3 mL (0.3 mg total) intramuscularly as needed for anaphylaxis for up to 10 days. Inject into the thigh. 1 each 0 04/23/2023 FreeStyle Jaye 14 Day Sensor kit APPLY UTD Q 14 DAYS 0 06/30/2020 documented as of this encounter ED Notes * Rashad Soto P.A.Christiano., P.A. - 04/23/2023 7:47 AM CDT I have personally seen and examined this patient. I have fully participated in the care of this patient. I personally performed a substantive portion of the visit including all aspects of medical decision making. I agree with the note of the HUMAN GEOGRAPHY INSTRUCTOR/PA. I have reviewed and agree with the resident's note addendum. Assessment and Plan Herb Long is a 52-year-old male who presents with an allergic reaction. He noticed some tongue swelling this morning after eating peanuts. He had been recently hospitalized for similar complaint. He had been taken off of lisinopril for possible CARLOTA inhibitor reaction. He believes this ismore related to peanuts. He denies any shortness of breath or throat swelling. He took an EpiPen athome about 2 hours ago. On our exam he has some mild tongue swelling but otherwise appears well. Vital signs are all fairly normal. Lungs are clear and full. He was given a dose of epinephrine, Benadryl, famotidine and Decadron. Blood sugar was elevated. He has been out of insulin recently. He is not showing any signs of diabetic ketoacidosis. He did not have any worsening of his symptoms while in his 4 hour observation. We tracked his blood sugar and gave him some insulin and now his blood sugars less than 300. We renewed his insulin prescription so he can start that again today.. DIFFERENTIAL DIAGNOSES Allergic reaction, anaphylaxis, angioedema, diabetic ketoacidosis, hyperglycemia, electrolyte abnormality, dehydration. PROBLEMS ADDRESSED THIS VISIT Allergic reaction and hyperglycemia. I reviewed the following external records: inpatient records and outside ED records. Final Diagnoses: as of 04/23/231401 Angioedema Personal History The following tests were considered but ultimately not performed: None. Escalation of care, including admission/observation, considered: None. Rashad Soto P.A.-C., P.A. 04/23/231401 * Janie Young APRN, C.N.P., D.N.P., M.S.N. - 04/23/2023 7:27 AM CDT SUBJECTIVE CHIEF COMPLAINT/REASON FOR VISIT Allergic Reaction (Tongue swelling started this morning after eating a peanut butter sandwich. Patient self administered epi pen prior to arrival. ) HISTORY OF PRESENT ILLNESS Herb is a 52-year-old male with past medical history of insulin-dependent type 2 diabetes, hyperlipidemia, hypertension, hypothyroidism, obesity, and recent episodes of angioedema. He presented toED ambulatory accompanied by his for evaluation of tongue swelling. Patient verbalized he 1st experienced lip swelling on March 28 2023. At this time he did not know any known allergens but had peanut butter. He presented to an urgent care on 03/31 and was treated with Decadron and IM Benadryl. He was advised to stop his lisinopril which he did. His symptoms then resolved. On 04/10 again,he had peanut butter sandwich. He started noticing swelling of the lips again. Presented to [facility]. He was treated with epinephrine, steroids, and Pepcid. He was then admitted and observed overnight with no events. He was discharged home with Pepcid, epinephrine, and 14 day course of prednisone on 04/11. Patient verbalized he took the prednisone for about a week and stopped due to elevated glucose in the 400s. He had no symptoms or events since then. Patient verbalized he ran out of his insulin the last 3 days and has not been taking any. This morning around 3:00 a.m., he had peanut butter sandwich again. He then went to sleep and woke up at 5:30 a.m. with tongue swelling. He never had any prior episodes of tongue swelling except this time. No difficulty breathing or feeling like swelling of the mouth. No wheezing or chest pain. No hives or rash. No fever or chills. Denies any other associated symptoms. He then self administered IM epinephrine at 5:30 a.m. He feels like his allergic reaction may be secondary to peanut as that is the only thing that seems to be associated with his lip and tongue swelling. No prior known history of peanut butter allergies.During his recent admission at [facility], he underwent numerous testing including a C4 esterasecomplement which is normal at 26.72, tryptase 11.6 and an elevated immunoglobulin E of 1122. He is scheduled to follow-up with an frog shaker the next few weeks for further evaluation. Has not taken any of his medications this morning including antihistamines and insulin. No other issues or concerns. REVIEW OF SYSTEMS All negative except as indicated in HPI OBJECTIVE Initial Vitals Temperature 04/23/23 0700 36.3 ??C Pulse Rate 04/23/23 0700 67 Heart Rate -- Resp Rate 04/23/23 0700 24 Blood Pressure 04/23/23 0700 152/80 SpO2 04/23/23 0700 95 % Pain Score 04/23/23 0701 0 - No pain PHYSICAL EXAMINATION Constitutional: Nursing note and vitals reviewed. No distress. HENT: Head: Atraumatic. Mouth/Throat: Uvula is midline and oropharynx is clear and moist. Mucous membranes are moist. No uvula shift. No uvula swelling. No oropharyngeal exudate or posterior oropharyngeal edema. Tonsils are1+ on the right. Tonsils are 1+ on the left. No tonsillar exudate. Dental: Good dentition. Mouth swelling of the left side of the tongue. Mallampati score III. He is phonating well and clearing his secretions well. No oropharyngeal lesions or edema noted. Clearing his oral secretions well Large neck circumference noted but normal range of motion of the neck. Eyes: Conjunctivae are normal. Neck: Neck supple. Cardiovascular: Regular rhythm and normal heart sounds. Pulses are strong and palpable. Capillary refill: takes less than 3 seconds Pulmonary/Chest: Effort normal and breath sounds normal. There is normal air entry. No tachypnea. No respiratory distress. He has no wheezes. He has no rales. Abdominal: exhibits no distension. There is no abdominal tenderness. There is no guarding. Musculoskeletal: General: No tenderness. Cervical back: Neck supple. Neurological: Alert and oriented to person, place, and time. Skin: Skin is warm and intact. Rash (Dry macular papular lesion noted around the chest that he indicates has been there for a long time. No new hives noted) noted. Psychiatric: He has a normal mood and affect. ASSESSMENT/PLAN Differential diagnosis include but not limited to anaphylaxis, angioedema, allergic reaction likelypeanut butter, oropharyngeal ulcer, infection, hyperglycemia, DKA This is a 52-year-old gentleman with recent history of angioedema who presented to ED today for evaluation of tongue swelling. He is alert and in no acute distress. Denies any dyspnea. His vital signs are unremarkable. Speech is clear and phonating well. No obvious hives noted. He had taken peanut butter around 3:00 a.m. prior to going to bed. He feels like he may be allergic to peanut butter as that is the only thing he had during recent episodes of angioedema. He was on prednisone but only took week course of it on stopping due to hyperglycemia. Has not taken any for almost a week. He gave himself 1 times IM epinephrine around 5:30 a.m. prior to coming in. He is noticed some improvement in his lip swelling. On my exams, he has mild swelling of the left side of the tongue. No other lesions or swelling noted. My index of suspicion is low for anaphylaxis reaction or DKA based on symptomsand physical exams. Will defer any other further workup for DKA. He has no fever, or any symptoms that may be suggestive of infectious process. With patient's recent history of angioedema and Mallampati score of III, he was given another dose of IM epi, IV Decadron, Benadryl, and Pepcid in the ED. On re-evaluation, he continues to remained stable. Subsequently has complete resolution of his tongue swelling. His glucose was elevated. He was started on his home insulin regimen. Blood sugar finally dropped below 300. Arrangement was made for patient to refill his insulin from his drugstore. He was discharged home with an EpiPen after watching him in the ED for 5 hours. He will continue with his home prednisone, antihistamines, and regular glucose check. Follow-up with primary care provider for further management his diabetes. He is recommended to avoid peanut butter and related products. He is to follow-up with an frog shaker next week as scheduled for further evaluation. Return precautions provided to come to the ED if he has any recurrent or worsening symptoms. He verbalized understanding and left stable. ED Course as of 04/23/23 1441 Sat Apr 23, 2023 0740 Initial glucose is 367. Will give him his home dose of lantus and Aspart. Glucose checks regularly 1025 Reports significant improvement in tongue swelling. Continues to deny any dyspnea or throat tightness. Final Diagnoses: as of 04/23/23 1441 Angioedema Personal History Janie Young APRN, Alonzo.N.P., Alberto.N.P., M.S.N. 04/23/23 1446 documented in this encounter Plan of Treatment Upcoming Encounters Date Type Department Care Team (Latest Contact Info) Description 08/29/2023 10:00 AM STEAM CLEANING MACHINE OPERATOR Comprehensive Visit Division of Endocrinology in [place], [place] [address] [place] [phone] Alexia Sanchez APRN, C.N.P., M.S. [address] [place] [address] documented as of this encounter Procedures Procedure Name Priority Date/Time Associated Diagnosis Comments GLUCOSE POCT, B Routine 04/23/2023 11:08 AM CDT GLUCOSE POCT, B Routine 04/23/2023 9:44 AM CDT GLUCOSE POCT, B Routine 04/23/2023 8:49 AM CDT GLUCOSE POCT, B Routine 04/23/2023 7:32 AM CDT documented in this encounter Results * (ABNORMAL) Glucose, POCT (04/23/2023 11:08 AM CDT) Glucose, POCT, B 292(H) 70 - 140 mg/dL 04/23/2023 11:08 AM CDT CNFL Blood 04/23/2023 11:0 8 AM CDT 04/23/2023 11:15 AM CDT Generic [facility] POCT [place] [address], [address] [address] * (ABNORMAL) Glucose, POCT (04/23/2023 9:44 AM CDT) Glucose, POCT, B 343(H) 70 - 140 mg/dL 04/23/2023 9:44 AM CDT FL Blood 04/23/2023 9:44 AM CDT 04/23/2023 9:50 AM CDT Generic [facility] [place] [address], [facility] in [address] [address] * (ABNORMAL) Glucose, POCT (04/23/2023 8:49 AM CDT) Glucose, POCT, B 381(H) 70 - 140 mg/dL 04/23/2023 8:49 AM CDT CNFL Blood 04/23/2023 8:49 AM CDT 04/23/2023 8:56 AM CDT Generic [facility] POCT ORDERABLES- MANUAL [address] [address], [facility] in [address] [address] * (ABNORMAL) Glucose, POCT (04/23/2023 7:32 AM CDT) Glucose, POCT, B 367(H) 70 - 140 mg/dL 04/23/2023 7:32 AM CDT CNFL Blood 04/23/2023 7:32 AM CDT 04/23/2023 7:[address] [facility] POCT ORDERABLES- MANUAL Performing Organization Address City/[facility] [address]/[facility] Co de Phone Number [address] [address], [facility] in [address] [address] documented in this encounter Visit Diagnoses Diagnosis Angioedema Personal History- Primary documented in this encounter Administered Medications Inactive Administered Medications - up to 3 most recent administrations Medication Order MAR Action Action Date Dose Rate Site dexAMETHasone injection 10 mg (DECADRON) 10 mg, intravenous, Once, On 04/23/23 at 0727, For 1 dose Given 04/23/2023 7:45 AM CDT 10 mg diphenhydrAMINE injection 25 mg (BENADRYL) 25 mg, intravenous, Once, On 04/23/23 at 0727, For 1 dose Given 04/23/2023 7:39 AM CDT 25 mg EPINEPHrine 0.3 mg/0.3 mL injection 0.3 mg 0.3 mg, intramuscular, Every 5 min PRN, anaphylaxis, Starting on 04/23/23 at 0726 Given 04/23/2023 7:33 AM CDT 0.3 mg Left Vastus Lateralis famotidine injection 20 mg (PEPCID) 20 mg, intravenous, Once, On 04/23/23 at 0727, For 1 dose, Adult IV Push rate: 10 mg/min, Drug Monitoring Program: Pharmacist to adjust medication dosing based on indication and drug clearance factors. Given 04/23/2023 7:42 AM CDT 20 mg insulin aspart U-100 injection 35 Units (NovoLOG FlexPen) 35 Units, subcutaneous, Once, On 04/23/23 at 0753, For 1 dose Given 04/23/2023 8:17 AM CDT 35 Units Left Lower Abdomen insulin aspart U-100 injection 9 Units (NovoLOG FlexPen) 9 Units, subcutaneous, Once, On 04/23/23 at 0951, For 1 dose Given 04/23/2023 10:10 AM CDT 9 Units Right Lower Abdomen insulin glargine injection 60 Units 60 Units, subcutaneous, Once, On 04/23/23 at 0753, For 1 dose Given 04/23/2023 8:18 AM CDT 60 Units Right Lower Abdomen NaCl 0.9 % bolus 1,000 mL 1,000 mL, intravenous, at 1,000 mL/hr, Administer over 1 Hours, Once, On 04/23/23 at 0753, For 1 dose New Bag 04/23/2023 8:22 AM CDT 1,000 mL 1000 mL/hr sodium chloride 0.9 % injection 10 mL 10 mL, intravenous, As needed, line care, Starting on 04/23/23 at 0735, Peripheral Intravenous Catheter and Rapid Infusion Catheter, prior to blood sampling, post blood transfusion or post blood sampling sodium chloride 0.9 % injection 3 mL 3 mL, intravenous, As needed, line care, Starting on 04/23/23 at 0735, Prior to and following infusion and between multiple consecutive infusions: sodium chloride 0.9 % injection sodium chloride 0.9 % injection 3 mL 3 mL, intravenous, Every 12 hours scheduled, First dose on 04/23/23 at 0900, Peripheral Intravenous Catheter and Rapid Infusion Catheter, when no infusion to maintain patency documented in this encounter Active and Recently Administered Medications Times are shown in CDT. Scheduled Medication Order 04/21/2023 04/22/2023 04/23/2023 dexAMETHasone injection 10 mg (DECADRON) (COMPLETED) 10 mg, intravenous, Once, On 04/23/23 at 0727, For 1 dose 0745 (Given - Provid er: Lashay Leong, R.N.) diphenhydrAMINE injection 25 mg (BENADRYL) (COMPLETED) 25 mg, intravenous, Once, On 04/23/23 at 0727, For 1 dose 0739 (Given - Provid er: Lashay Leong, R.N.) famotidine injection 20 mg (PEPCID) (COMPLETED) 20 mg, intravenous, Once, On 04/23/23 at 0727, For 1 dose, Adult IV Push rate: 10 mg/min, Drug Monitoring Program: Pharmacist to adjust medication dosing based on indication and drug clearance factors. 0742 (Given - Provid er: Lashay Leong, R.N.) insulin aspart U-100 injection 35 Units (NovoLOG FlexPen) (COMPLETED) 35 Units, subcutaneous, Once, On 04/23/23 at 0753, For 1 dose 0817 (Given - Provid er: Bethanie Sheriff R.N. - Comment: [id number]) insulin aspart U-100 injection 9 Units (NovoLOG FlexPen) (COMPLETED) 9 Units, subcutaneous, Once, On 04/23/23 at 0951, For 1 dose 1010 (Given - Provid er: Lashay Leong, R.N. - Comment: [id number]) insulin glargine injection 60 Units (COMPLETED) 60 Units, subcutaneous, Once, On 04/23/23 at 0753, For 1 dose 0818 (Given - Provid er: Bethanie Sheriff, R.N. - Comment: [id number]) NaCl 0.9 % bolus 1,000 mL (COMPLETED) 1,000 mL, intravenous, at 1,000 mL/hr, Administer over 1 Hours, Once, On 04/23/23 at 0753, For 1 dose 0822 (New Bag - Prov ider: Lashay Leong, R.N.)1031 (Stopped - Provider: Lashay Leong R.N.) sodium chloride 0.9 % injection 3 mL 3 mL, intravenous, Every 12 hours scheduled, First dose on 04/23/23 at 0900, Peripheral Intravenous Catheter and Rapid Infusion Catheter, when no infusion to maintain patency 0900 (Due - Provider : Lashay Leong R.N.) PRN Medication Order 04/21/2023 04/22/2023 04/23/2023 EPINEPHrine 0.3 mg/0.3 mL injection 0.3 mg 0.3 mg, intramuscular, Every 5 min PRN, anaphylaxis, Starting on 04/23/23 at 0726 0733 (Given - Provid er: Lashay Leong R.N.) sodium chloride 0.9 % injection 10 mL 10 mL, intravenous, As needed, line care, Starting on 04/23/23 at 0735, Peripheral Intravenous Catheter and Rapid Infusion Catheter, prior to blood sampling, post blood transfusion or post blood sampling sodium chloride 0.9 % injection 3 mL 3 mL, intravenous, As needed, line care, Starting on 04/23/23 at 0735, Prior to and following infusion and between multiple consecutive infusions: sodium chloride 0.9 % injection documented in this encounter Care Teams Speaking Unit Assembler Relationship Specialty Start Date End Date Elsewhere, Pcp PCP - General Internal Medicine 04/23/23 documented as of this encounter
--- OUTSIDE RECORDS SUMMARY | 2023-08-25 08:58 | XMS_ITS | Clinical Summary ---
Author Name Unknown Organization [facility] Address [address] [place] [address] Care Team Providers Care Winding Rack Operator Name Role Phone Elsewhere, Pcp Primary Care Provider Unavailabl e Source Comments Patient records contain information from all sites at [facility]. For routine questions regarding patient records, call [phone] during business hours, M-F 8:00 AM - 5:00 PM Central Time. Record requests for emergency care only can be directed to [phone] at any time.[facility] Allergies Active Allergy Reactions Criticality Noted Date [...] deleted. Hyperlipidemia 02/20/2010 Hypertension 02/20/2010 Hypothyroidism 02/20/2010 Encounters Date Type Department Care Team Description 08/24/2023 11:00 AM ACTUARIAL ASSOCIATE Clinical Communication Virtual Review in [place], [place] [address] [place] [address] Pre-visit Intake 06/08/2023 Clinical Communication Division of Endocrinology in [place], [place] [address] [place] [address] Alexia Sanchez APRN, C.N.P., M.S. Pre-visit Testing Orders 06/07/2023 [facility] [address] [place] [address] Gwen Jenkins C.NKwesiP. Diabetes Mellitus Type 2 (HCC) (Primary Dx) from Last 3 Months Immunizations Name Administration Dates Next Due H1N1 Inj 07/04/2009 Influenza (IM) Preservative Free 04/16/2010,05/08 Influenza TIV (IM) 04/16/2010, 9,06/08/2008,2006 Influenza, Seasonal, Injectable 05/18/2012,05/17 Influenza, Unspecified 05/17/2011 PPSV23 05/20/2006 Td, (Adult) Unspecified 05/20/2006 Tdap 05/14/2019 influenza vaccine quad (FLUZONE/FLUARIX) (6 months and older)(PF) 05/14/2019,05/18/2012,05/17/2011,2009,07/04/2009,05/19/2009 Family History Medical History Relation Name Comments Coronary artery disease Father Lee Long Diabetes Father Lee Long Kidney disease Father Lee Long Alcohol abuse Mother Paige Long Drug abuse Mother Paige Long Seizures Mother Paige Long Relation Name Status Comments Father Lee Long Mother Paige Long Social History Tobacco Use Types Packs/Day Years Used Date Smoking Tobacco: Never Smokeless Tobacco: Never Alcohol Use Standard Drinks/Week Comments Yes 2 (1 standard drink = 0.6 oz pur e alcohol) Sometimes 0 times a week [facility] Utilities Answer Date Recorded In the past 12 months has e [employer], [employer], oil, or water [employer] threatened to shut off services in your [...] your living situation today? [facility] a [facility] place to live 08/23/2023 Sex and Gender Information Value Date Recorded Sex Assigned at Male 08/18/2023 9:22 AM ACTUARIAL ASSOCIATE Gender Identity Male 08/18/2023 9:22 AM ACTUARIAL ASSOCIATE Sexual Orientation Straight 08/18/2023 9: 22 AM ACTUARIAL ASSOCIATE Last Filed Vital Signs Vital Sign Reading [...] (Latest Contact Info) Description 08/29/2023 10:00 AM ACTUARIAL ASSOCIATE Comprehensive Visit Division of Endocrinology in [place], [place] [address] [place] [address] Alexia Sanchez APRN, C.N.P., M.S. [address] [place] [address] Health Maintenance Due Date Last Done Comments CT Colonography 1968 Colonoscopy 1968 Diabetic Office Visit with F oot Exam 1968 Dilated Eye Exam 1968 FIT 1968 Hemoglobin A1C 1968 Hepatitis B Vaccines (1 of 3 - 3-dose series) 1968 Hepatitis C Screening 1968 Lipid (Cholesterol) Screening 1968 Office Visit for Blood Press ure Check / Re-check 1968 Urine Albumin 1968 COVID-19 Vaccine (#1) 01/07/1969 Pneumococcal vaccine (0-64 y ears) (2 of 2 - PCV) 05/20/2007 05/20/2006 Zoster Vaccines (1 of 2) 2018 Influenza Vaccine (#1) 2023 9, 05/18/2012, 05/18/2012, Additional history exists Depression Screening (Annual PHQ-2) 08/08/2023 Creatinine Level (Kidney Fun ction Test) 04/11/2024 04/11/2023, 04/10/2023, 10/07/2014 Potassium Level 04/11/2024 04/11/2023, 09/0 10/2022, 10/07/2014 Sodium Level 04/11/2024 04/11/2023, 09/0 10/2022, 10/07/2014 Thyroid Stimulating Hormone (TSH) test for thyroid function 05/23/2024 05/23/2023, 04/10/2023, 10/07/2014 Cologuard 10/15/2024 10/15/2021 Colorectal Cancer Screening 10/15/2024 DTaP,Tdap,and Td Vaccines (2 - Td or Tdap) 05/14/2029 05/14/2019, 05/20/2006 Care Teams Winding Rack Operator Relationship Specialty Start Date End Date Elsewhere, Pcp PCP - General Internal Medicine 04/23/23
--- NOTE | 2023-08-25 09:15 | CRLHL7_ITS ---
For Patients: As a result of the Century Cures Act, medical imaging exams and procedure reports are released immediately into your electronic medical record. You may view this report before your referring provider. If you have questions, please contact your health care provider. INDICATION: Syncope and collapse. TECHNIQUE: Multiplanar multisequence noncontrast MR images of the brain. COMPARISON: None. FINDINGS: Prominence of the ventricles and sulci compatible with mild diffuse cerebral volume loss. No mass effect or midline shift. Scattered FLAIR hyperintensities in the supratentorial white matter, nonspecific though most typical for mild chronic microvascular ischemic changes. No diffusion restriction to suggest acute infarction. No intracranial hemorrhage or pathologic extra-axial fluid collection. The major arterial flow voids of the skullbase are preserved. The globes are symmetric. Mild paranasal sinus mucosal thickening. The mastoid air cells are clear. IMPRESSION: 1. No acute infarction, mass effect, or intracranial hemorrhage. 2. Mild chronic microvascular ischemic changes and diffuse cerebral volume loss. Dictated by Vahid Ambrocio MD @ 08/25/2023 11:23:54 AM (Electronically Signed)
== END 2023-08-25 08:49 | disposition home or self-care (01) ==
LOC: MRI 08:49
PROVIDERS: PCP Nurse Practitioner Family; Visit Provider Nurse Practitioner Family
DX: R55 Syncope and collapse (principal); I67.82 Cerebral ischemia
CPT/HCPCS: 70551

== ENCOUNTER 2023-09-05 09:56 | Outpatient (CLI) | payer OTHER, SELFPAY ==
--- OUTSIDE RECORDS SUMMARY | 2023-09-05 10:08 | XMS_ITS | Clinical Summary ---
Author Name Unknown Organization [facility] Address [place], [place] [address] Care Team Providers Care Paint Spray Inspector Name Role Phone Gwen Jenkins SENIOR WEALTH ADVISOR Primary Care Provider [phone] Allergies Active Allergy Reactions Criticality Noted Date [...] (hypertension) 02/20/2010 Other and unspecified hyperlipidemia 02/20/2010 Immunizations Name Administration Dates Next Due Influenza Virus, Unspecified 05/17/2011 Influenza, IIV3 (Age >=3 years) 04/16/20 10,05/19/2009,05/19/2009,2007,06/08/2008,05/24/2007,05/24/2007 Pneumococcal Poly,23-Valent (Pneumovax) 05/20/2006,05/20/2006 Td (Age >=7 [...] 2) 2018 Influenza for age 50-64 04/08/2023 05/17/20 11, 04/16/2010, 05/19/2009, Additional history exists BMI (ht and wt on same day) for age 18+ 05/23/2024 05/23/2023 Advance Directives Latest Code Status on File Code Status Date Activated Date Inactivated Comments Full Code 04/10/2023 3:42 PM 04/11/2023 3:34 PM Question Answer Comments Code Status Discussion: Reviewed Preferences Care Teams Paint Spray Inspector Relationship Specialty Start Date End Date Gwen Jenkins NP [address] [place] [id number] PCP - General Emergency Medicine 04/21/22
--- OUTSIDE RECORDS SUMMARY | 2023-09-05 10:08 | XMS_ITS | Encounter Summary ---
Author Name Unknown Organization [facility] Address [address] [place] [address] Care Team Providers Care Mortar Mixer Operator Name Role Phone Elsewhere, Pcp Primary Care Provider Unavailabl e Reason for Referral * Outpatient (Routine) - Closed Specialty Diagnoses / Procedures Referred By Contac t Referred To Contact Endocrinology Diagnoses Diabetes Mellitus Type 2 (HCC) Gwen Jenkins, C.N.P. [address] [place] [address] [facility] Referral ID Status Reason Start Date Expiration Date Visits Re quested Visits Authorized [id number] Closed 06/07/2023 06/06/2024 1 1 Encounter Details Date Type Department Care Team (Late st Contact Info) Description 06/07/2023 [facility] [address] [place] [address] Gwen Jenkins, C.N.P. [address] [place] [phone] Diabetes Mellitus Type 2 (HCC) (Primary Dx) [...] Sex Assigned at Male 08/18/2023 9:22 AM COMPUTER SYSTEMS AUDITOR Gender Identity Male 08/18/2023 9:22 AM COMPUTER SYSTEMS AUDITOR Sexual Orientation Straight 08/18/2023 9: 22 AM COMPUTER SYSTEMS AUDITOR documented as of this encounter Plan of Treatment Scheduled Referrals Name Type Priority Associated Diagnoses Order Schedule Endocrinology Referral Outpatient Referral Routine Diabetes Mellitus Type 2 (HCC) Expected: 06/07/2023 (Approximate), Expires: 09/07/2024 documented as of this encounter Visit Diagnoses Diagnosis Diabetes Mellitus Type 2 (HCC)- Primary documented in this encounter Care Teams Mortar Mixer Operator Relationship Specialty Start Date End Date Elsewhere, Pcp PCP - General Internal Medicine 04/23/23 documented as of this encounter
--- OUTSIDE RECORDS SUMMARY | 2023-09-05 10:08 | XMS_ITS | Encounter Summary ---
Author Name Unknown Organization [facility] Address [address] [place] [address] Care Team Providers Care Painter Spring Name Role Phone Elsewhere, Pcp Primary Care Provider Unavailabl e Encounter Details Date Type Department Care Team ([facility] st Contact Info) Description 08/30/2023 Orders Only Division of Endocrinology in [place], [place] [address] [place] [address] Alexia Sanchez, ELAN, C.N.P., M.S. [address] [place] [address] Social History Tobacco Use Types Packs/Day Years Used Date Smoking Tobacco: Never Smokeless Tobacco: Never Alcohol Use Standard Drinks/Week Comments Yes 2 (1 standard drink = 0.6 oz pur e alcohol) Sometimes 0 times a week [facility] Utilities Answer Date Recorded In the past 12 months has [employer], gas, oil, or water [employer] threatened to shut off services in your [...] your living situation today? I have a [facility] place to live 08/23/2023 Sex and Gender Information Value Date Recorded Sex Assigned at Male 08/18/2023 9:22 AM SCHOOL TRANSPORTATION SUPERVISOR Gender Identity Male 08/18/2023 9:22 AM SCHOOL TRANSPORTATION SUPERVISOR Sexual Orientation Straight 08/18/2023 9: 22 AM SCHOOL TRANSPORTATION SUPERVISOR documented as of this encounter Plan of Treatment Not on file documented as of this encounter Visit Diagnoses Not on filedocumented in this encounter Care Teams Painter Spring Relationship Specialty Start Date End Date Elsewhere, Pcp PCP - General Internal Medicine 04/23/23 documented as of this encounter
--- OUTSIDE RECORDS SUMMARY | 2023-09-05 10:08 | XMS_ITS | Encounter Summary ---
Author Name Unknown Organization [facility] Address [address] [place] [address] Care Team Providers Care Wafer Batter Mixer Name Role Phone Elsewhere, Pcp Primary Care Provider Unavailabl e Reason for Referral * Medication Prior Authorization - Closed Specialty Diagnoses / Procedures Referred By Yasmeen dudley Referred To Contact Alexia Sanchez APRN, C.N.P., M.S. [address] [place] [phone] Referral ID Status Reason Start Date Expiration Date Visits Re quested Visits Authorized [id number] Closed 1 1 REPAIR PERSON Reason for Visit * Reason Comments Diabetes Mellitus * Outpatient (Routine) - Closed Specialty Diagnoses / Procedures Referred By Yasmeen dudley Referred To Contact Endocrinology Diagnoses Diabetes Mellitus Type 2 (HCC) Gwen Jenkins, C.N.P. [address] [place] [address] [facility] Referral ID Status Reason Start Date Expiration Date Visits Re quested Visits Authorized [id number] Closed 06/07/2023 06/06/2024 1 1 Encounter Details Date Type Department Care Team (Latest Contact Info) Description 08/29/2023 10:00 AM SAIL REPAIR PERSON Comprehensive Visit Division of Endocrinology in [place], [place] [address] [place] [phone] Alexia Sanchez APRN C.N.P., M.S. [address] [place] [address] [place] [phone] Diabetes Mellitus Type 2 (HCC) (Primary Dx); Obesity Unspecified Social History Tobacco Use Types Packs/Day Years Used Date Smoking Tobacco: Never Smokeless Tobacco: Never Alcohol Use Standard Drinks/Week Comments Yes 2 (1 standard drink = 0.6 oz pur e alcohol) Sometimes 0 times a week [facility] Utilities Answer Date Recorded In the past 12 months has e [employer], [employer], oil, or water [employer] threatened to shut off services in your [...] Date Recorded Dental: Regular Dentist Yes 08/23/19 24 Employment Answer Date Recorded Employment status Employed and actively working without restrictions 08/23/2023 Housing Stability Answer Date Recorded What is your living situation today? I have a [facility] place to live 08/23/2023 Sex and Gender Information Value Date Recorded Sex Assigned at Male 08/18/2023 9:22 AM SAIL REPAIR PERSON Gender Identity Male 08/18/2023 9:22 AM SAIL REPAIR PERSON Sexual Orientation Straight 08/18/2023 9: 22 AM SAIL REPAIR PERSON documented as of this encounter Last Filed Vital Signs Vital Sign Reading Time Taken Comments Blood Pressure 144/78 08/29/2023 9:[address] rage Pulse 78 08/29/2023 9:45 AM SAIL REPAIR PERSON Temperature - - Respiratory Rate - - Oxygen Saturation - - Inhaled Oxygen Concentration - - Weight 124 kg (274 lb 0.5 oz) 08/29/2023 9:45 AM SAIL REPAIR PERSON Height 170.1 cm (5' 6.97) 08/29/2023 9:45 AM CS T Body Mass Index 42.96 08/29/2023 9:45 AM SAIL REPAIR PERSON documented in this encounter Patient Instructions * Patient Instructions* Alexia Sanchez APRN, C.NTejinder., M.S. - 08/29/2023 10:00 AM SAIL REPAIR PERSON 08/29/2023 Diabetes Plan Increase Lantus to 100 units in the morning and 80 units in the evening Morning dose - take 50 units twice (total 100 units) Evening dose - take 80 units Change to Toujeo Max once you get this Morning dose - 100 units Evening dose - 80 units Continue NovoLog mealtime insulin 60 units prior to eating Next week - Start Victoza 0.6 mg daily in the morning for 1 week. If tolerating, may increase to 1.2 mg daily in the morning Continue wearing Dexcom sensor Work on reducing portion sizes and additional sugars Follow up with PCP REPAIR PERSON documented in this encounter Consult Notes * Alexia Sanchez APRN, C.NKwesiP., M.S. - 08/29/2023 10:00 AM CST CHIEF COMPLAINT/PURPOSE OF VISIT Patient is here in consultation of type 2 diabetes management. He sees a local provider who has typically assisted him with his diabetes management. He presents today to improve his glycemic control.His is also present today. HISTORY OF PRESENT ILLNESS #1 Diabetes Mellitus Type 2 Diabetes diagnosis: 27 years ago with an office visit. Notes possible polyuria. Was previously on other diabetes medications but most recently has been on insulin therapy. Diabetes regimen: U-100 Lantus and NovoLog insulin at the following doses. Lantus insulin 80 units twice daily. NovoLog mealtime insulin 60 units three times daily. Reports being consistent with taking insulin. Takes mealtime insulin after eating. Administering insulin to the abdomen. Wearing Dexcom sensor. HYPOGLYCEMIA Denies recent hypoglycemia. Aware of symptoms and will feel shaky and diaphoretic. Treats with orange juice or soda. No severe hypoglycemia. BLOOD GLUCOSE MONITORING Average blood glucose readin +/- 60 mg/dL for the sensor average for the past 30 days. GMI 11.3%. Number of times testing per day: Wearing the sensor 90% of the time. LIFESTYLE Diet: Reports eating 3 meals per day. Also snacks throughout the day. Exercise: No routine activity. Weight: Increasing. 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 HISTORY Denies any prior history of pancreatitis. No family history of medullary thyroid cancer or MEN2. REVIEW OF DIABETES COMPLICATIONS/SCREENINGS Lab Results Component Value Date GLUCOSE 276 (H) 04/10/2023 CREATININE 0.96 04/11/2023 TSH 2.51 05/23/2023 ALT 37 04/11/2023 Last eye exam: Few months ago per report. No diabetes complications per report. Sees his PCP regularly with foot exam recently completed. PHYSICAL EXAMINATION General: Alert and appropriately answering questions. No acute distress noted. Psych: Mood appropriate with discussion. IMPRESSION/REPORT/PLAN #1 Diabetes Mellitus Type 2, hyperglycemia with HbA1c >11% #2 Obesity Reviewed his history and family history. Note recent reported HbA1c >11% with recent sensor GMI of 11.3%. Note the need to improve glycemic control for prevention of keno terminal operator complications. He would like to improve his glycemic control. Reviewed the sensor data and note the need to increase his basal insulin dosing. He is currently maxed out on the Lantus insulin dose with an injection. Discussed the option of transitioning to Toujeo Max Solostar pen. He will use up his Lantus insulin and note the need to increase the dosing in the morning. Discussed the following. Increase Lantus insulin to 100 units in the morning and 80 units in the evening Morning dose- take 50 units twice for total of 100 units Evening dose- take 80 units With change to Toujeo Max Morning dose 100 units Evening dose 80 units Continue current NovoLog mealtime insulin 60 units prior to eating. Continue wearing Dexcom sensor. Work on reducing portion sizes and additional sugars. Next week, he will initiate Victoza 0.6 mg daily in the morning for 1 weeks. If tolerating, may increase to 1.2 mg daily in the morning. Discussed possible side effects and also symptoms that requiremedical evaluation. Notes he will be following up with his PCP. No further follow up orders placed at this time. After visit summary provided with above details. He was in agreement with the above plan. Questions answered to his satisfaction. I personally spent 55 minutes in care of the patient today. Time includes both non face to face andface to face patient care. Answers submitted by the patient for this visit: Low Blood Sugar Awareness Survey (Submitted on 08/23/2023) How often do you have classic symptoms (suddenly feeling weak, shaky, and sweaty at onset) when youhave a low blood sugar? : Never Have you lost some of the classic symptoms (suddenly feeling weak, shaky and sweaty at onset) that used to occur when you have a low blood sugar? : Yes Are you confident that you will recognize when you are having a low blood sugar?: Yes At what number is your blood sugar when you feel a low? : 60-70 How often in the past 30 days have you had a blood sugar below 70 with warning symptoms of sweatiness, shakiness, weakness?: Never How often in the past 30 days have you had a blood sugar below 70 without any warning symptoms of sweatiness, shakiness weakness?: Never How often in the past three months have you had a low blood sugar event where you needed assistancefrom another person? : Never How often in the past three months have you had a low blood sugar event where you were unconscious,or had a seizure, and either received Glucagon or called 911? : 1-3 times REPAIR PERSON documented in this encounter Plan of Treatment Not on file documented as of this encounter Visit Diagnoses Diagnosis Diabetes Mellitus Type 2 (HCC)- Primary Obesity Unspecified documented in this encounter Care Teams Wafer Batter Mixer Relationship Specialty Start Date End Date Elsewhere, Pcp PCP - General Internal Medicine 04/23/23 documented as of this encounter
--- OUTSIDE RECORDS SUMMARY | 2023-09-05 10:08 | XMS_ITS | Clinical Summary ---
Author Name Unknown Organization [facility] Address [address] [place] [address] Care Team Providers Care Local Company Tanker Driver Name Role Phone None, Pcp Primary Care [...] age to complete this topic Care Teams Local Company Tanker Driver Relationship Specialty Start Date End Date None, Pcp [address] [place] [address] PCP - General Temper Mill Roller 04/30/22
--- OUTSIDE RECORDS SUMMARY | 2023-09-05 10:08 | XMS_ITS | Clinical Summary ---
Author Name Unknown Organization [facility] Address [address] [place] [address] Care Team Providers Care Industrial Renderer Name Role Phone Elsewhere, Pcp Primary Care Provider Unavailabl e Source Comments Patient records contain information from all sites at [facility]. For routine questions regarding patient records, call [phone] during business hours, M-F 8:00 AM - 5:00 PM Central Time. Record requests for emergency care only can be directed to [phone] at any time.[facility] Allergies Active Allergy Reactions Criticality Noted [...] FlexPen) 100 unit/mL (3 mL) injection Inject 60 Units under the skin 3 (three) times a day with meals. 0 Active loratadine-pseudo ephedrine (CLARITIN-D 12-hour) 5-120 mg per 12 hr tablet Take 1 tablet by mouth 2 (two) times a day. 0 Active hydroCHLOROthiazi de (HYDRODIURIL) 12.5 mg tablet Take 12.5 mg by mouth daily. 0 Active insulin glargine (LANTUS) 100 unit/mL injection Inject 80 Units under the skin 2 (two) times a day. 0 Active EPINEPHrine 0.3 mg/0.3 mL injection syringe Inject 0.3 mL (0.3 mg total) intramuscularly as needed for anaphylaxis for up to 10 days. Inject into the thigh. 1 each 0 04/23/2023 Active escitalopram (LEXAPRO) 10 mg tablet Take 1 tablet by mouth daily. 0 07/01/2023 Active oxyBUTYnin (DITROPAN XL) 15 mg 24 hr tablet Take 15 mg by mouth daily. 0 Active insulin glargine U-300 conc (Toujeo Max U-300 SoloStar) 300 unit/mL (3 mL) injection Inject 80-100 Units under the skin 2 (two) times a day. Take 100 units in the morning and 80 units in the evening 54 mL 1 08/29/2023 Active liraglutide (Victoza 3-Lionel) 0.6 mg/0.1 mL (18 mg/3 mL) injection Inject 0.6 mg under the skin daily. Take 0.6 mg daily in the morning for 1 week. If tolerating, increase to 1.2 mg daily in the morning. 18 mL 1 08/29/2023 Active Active Problems Problem Noted Date Diagnosed Date Angioneurotic (Angioedema Acquired) Edema Initia l 04/10/2023 Obesity Unspecified 03/05/2010 Diabetes Mellitus Type 2 02/20/2010 Overview: Overview: a system change updated this record. This will not affect patient care or billing. This comment can be deleted. Hyperlipidemia 02/20/2010 Hypertension 02/20/2010 Hypothyroidism 02/20/2010 Encounters Date Type Department Care Team Description 08/30/2023 Orders Only Division of Endocrinology in [address] [phone] Alexia Sanchez APRN, C.N.P., M.S. 08/29/2023 10:00 AM COPY OPERATOR Comprehensive Visit Division of Endocrinology in [address] [address] Alexia Sanchez APRN, C.N.P., M.S. Diabetes Mellitus Type 2 (HCC) (Primary Dx); Obesity Unspecified 08/24/2023 11:00 AM COPY OPERATOR Clinical Communication Virtual Review in [place], [place] [address] [place] [address] Pre-visit Intake 06/08/2023 Clinical Communication Division of Endocrinology in [address] [address] Alexia Sanchez APRN, C.N.P., M.S. Pre-visit Testing Orders 06/07/[address] [address] Gwen Jenkins, C.N.P. Diabetes Mellitus Type 2 [...] e alcohol) Sometimes 0 times a week [facility] Utilities Answer Date Recorded In the past 12 months has th e [employer], gas, oil, or water company threatened to [...] your living situation today? I have a [facility] place to live 08/23/2023 Sex and Gender Information Value Date Recorded Sex Assigned at Male 08/18/2023 9:22 AM COPY OPERATOR Gender Identity Male 08/18/2023 9:22 AM COPY OPERATOR Sexual Orientation Straight 08/18/2023 9: 22 AM COPY OPERATOR Last Filed Vital Signs Vital Sign Reading Time Taken Comments Blood Pressure 144/78 08/29/2023 9:[address] rage Pulse 78 08/29/2023 9:45 AM COPY OPERATOR Temperature 36.3 ??C (97.3 ??F) 04/23/2023 7:00 AM CD T Respiratory Rate 24 04/23/2023 7:00 AM CDT Oxygen Saturation 97% 04/23/2023 11:45 AM CDT Inhaled Oxygen Concentration - - Weight 124 kg (274 lb 0.5 oz) 08/29/2023 9:45 AM COPY OPERATOR Height 170.1 cm (5' 6.97) 08/29/2023 9:45 AM CS T Body Mass Index 42.96 08/29/2023 9:45 AM COPY OPERATOR Plan of Treatment Health Maintenance Due Date Last Done Comments CT Colonography 1968 Colonoscopy 1968 Diabetic Office Visit with F oot Exam 1968 Dilated Eye Exam 1968 FIT 1968 Hemoglobin A1C 1968 Hepatitis B Vaccines (1 of 3 - 3-dose series) 1968 Hepatitis C Screening 1968 Lipid (Cholesterol) Screening 1968 Urine Albumin 1968 COVID-19 Vaccine (#1) 01/07/1969 Pneumococcal vaccine (0-64 y ears) (2 of 2 - PCV) 05/20/2007 05/20/2006 Zoster Vaccines (1 of 2) 2018 Influenza Vaccine (#1) 2023 9, 05/18/2012, 05/18/2012, Additional history exists Depression Screening (Annual PHQ-2) 08/08/2023 Office Visit for Blood Press ure Check / Re-check 11/28/2023 08/29/2023 Creatinine Level (Kidney Fun ction Test) 04/11/2024 04/11/2023, 04/10/2023, 10/07/2014 Potassium Level 04/11/2024 04/11/2023, 09/0 10/2022, 10/07/2014 Sodium Level 04/11/2024 04/11/2023, 09/0 10/2022, 10/07/2014 Thyroid Stimulating Hormone (TSH) test for thyroid function 05/23/2024 05/23/2023, 04/10/2023, 10/07/2014 Cologuard 10/15/2024 10/15/2021 Colorectal Cancer Screening 10/15/2024 DTaP,Tdap,and Td Vaccines (2 - Td or Tdap) 05/14/2029 05/14/2019, 05/20/2006 Care Teams Industrial Renderer Relationship Specialty Start Date End Date Elsewhere, Pcp PCP - General Internal Medicine 04/23/23
--- OUTSIDE RECORDS SUMMARY | 2023-09-05 10:08 | XMS_ITS ---
Author Name Unknown Organization [facility] Address [address] [place] [address] Care Team Providers Care Manager Education Name Role Phone Unavailable Unavailable Unavailable Surgery Details Not on file Complications Check Surgery Details section. Procedure Estimated Blood Loss Check Surgery Details section. Procedure Findings Check Surgery Details section. Procedure Specimens Taken Check Surgery Details section.
--- OUTSIDE RECORDS SUMMARY | 2023-09-05 10:08 | XMS_ITS | Encounter Summary ---
Author Name Unknown Organization [facility] Address [address] [place] [address] Care Team Providers Care Gun Tester Name Role Phone Elsewhere, Pcp Primary Care Provider Unavailabl e Reason for Visit * Reason Comments Allergic Reaction Tongue swelling star mike this morning after eating a peanut butter sandwich. Patient self administered epi pen prior to arrival. Encounter Details Date Type Department Care Team (Late st Contact Info) Description 04/23/2023 6:58 AM CDT - 04/23/2023 12:12 PM CDT Emergency [facility] [address] [place] [phone] Rashad Soto, P.A.-C., P.A. [address] [place] [phone] Angioedema Personal History (Primary Dx) Discharge Disposition: [...] Sex Assigned at Male 08/18/2023 9:22 AM SYSTEMS ARCHITECTURE ANALYST Gender Identity Male 08/18/2023 9:22 AM SYSTEMS ARCHITECTURE ANALYST Sexual Orientation Straight 08/18/2023 9: 22 AM SYSTEMS ARCHITECTURE ANALYST documented as of this encounter Last Filed [...] butter and related products. Follow-up with your product safety officer as recommended. You may take cetirizine 10 [...] skin 2 (two) times a day. 0 latanoprost (XALATAN) 0.005 % ophthalmic solution [...] this encounter ED Notes * Rashad Soto P.A.-C., P.A. - 04/23/2023 7:47 AM CDT I have personally seen and examined this patient. I have fully participated in the care of this patient. I personally performed a substantive portion of the visit including all aspects of medical decision making. I agree with the note of the LICENSED CLINICIAN/PA. I have reviewed and agree with the [...] swelling of the lips again. Presented to [facility] Emergency Department. He was treated with epinephrine, [...] peanut butter allergies.During his recent admission at [facility], he underwent numerous testing including a C4 esterasecomplement which is normal at 26.72, tryptase 11.6 and an elevated immunoglobulin E of 1122. He is scheduled to follow-up with an product safety officer the next few weeks for further evaluation. Has not taken any of his medications this morning including antihistamines and insulin. No other issues or concerns. REVIEW OF SYSTEMS All negative except as indicated in HPI OBJECTIVE Initial Vitals Temperature 04/23/23 0700 36.3 ??C Pulse Rate 04/23/23 0700 67 Heart Rate -- Resp Rate 04/23/23 0700 24 Blood Pressure 04/23/23 0700 152/80 SpO2 04/23/23 07 95 % Pain Score 04/23/23 0701 0 [...] products. He is to follow-up with an product safety officer next week as scheduled for further evaluation. [...] 1441 Angioedema Personal History Janie Young APRN, C.N.P., D.N.P., M.S.N. 04/23/23 1446 documented in this encounter Plan of Treatment Not on file documented as of this encounter Procedures Procedure [...] CDT Generic [facility] POCT [place]ABLES[place] [address], [place] [address] * (ABNORMAL) Glucose, POCT (04/23/2023 9:44 AM CDT) Glucose, POCT, B 343(H) 70 - 140 mg/dL 04/23/2023 9:44 AM CDT CNFL Blood 04/23/2023 9:44 AM CDT 04/23/2023 9:50 AM CDT Generic [facility] POCT [place]ABLES[place] [address], [place] [address] * (ABNORMAL) Glucose, POCT (04/23/2023 8:49 AM CDT) Glucose, POCT, B 381(H) 70 - 140 mg/dL 04/23/2023 8:49 AM CDT CNFL Blood 04/23/2023 8:49 AM CDT 04/23/2023 8:56 AM CDT Generic [facility] POCT ORDERABLES- MANUAL Performing Organization Address City/[facility]/ZIP Co de Phone Number [facility] [address] [place] [phone], [facility] in [address] [address] * (ABNORMAL) Glucose, POCT (04/23/2023 7:32 AM CDT) Glucose, POCT, B 367(H) 70 - 140 mg/dL 04/23/2023 7:32 AM CDT CNWY Blood 04/23/2023 7:32 AM CDT 04/23/2023 7:56 AM CDT Generic [facility] POCT ORDERABLES- MANUAL Performing Organization Address City/[facility] Co de Phone Number [address] [address], [facility] in [address] [address] documented in this encounter Visit Diagnoses Diagnosis [...] dose 0745 (Given - Provid er: Lashay Leong R.N.) diphenhydrAMINE injection 25 mg (BENADRYL) (COMPLETED) 25 mg, intravenous, Once, On 04/23/23 at 0727, For 1 dose 0739 (Given - Provid er: Lashay Leong RKwesiN.) famotidine injection 20 mg (PEPCID) (COMPLETED) 20 mg, intravenous, Once, On 04/23/23 at 0727, For 1 dose, Adult IV Push rate: 10 mg/min, Drug Monitoring Program: Pharmacist to adjust medication dosing based on indication and drug clearance factors. 0742 (Given - Provid er: Lashay Leong R.N.) insulin aspart U-100 injection 35 Units (NovoLOG FlexPen) (COMPLETED) 35 Units, subcutaneous, Once, On 04/23/23 at 0753, For 1 dose 0817 (Given - Provid er: Han GuzmánN. - Comment: [id number]) insulin aspart U-100 injection 9 Units (NovoLOG FlexPen) (COMPLETED) 9 Units, subcutaneous, Once, On 04/23/23 at 0951, For 1 dose 1010 (Given - Provid er: Lashay Leong R.N. - Comment: [id number]) insulin glargine injection 60 Units (COMPLETED) 60 Units, subcutaneous, Once, On 04/23/23 at 0753, For 1 dose 0818 (Given - Provid er: Bethanie Sheriff R.N. - Comment: [id number]) NaCl 0.9 % bolus 1,000 mL (COMPLETED) 1,000 mL, intravenous, at 1,000 mL/hr, Administer over 1 Hours, Once, On 04/23/23 at 0753, For 1 dose 0822 (New Bag - Prov ider: Lashay Leong R.N.)1031 (Stopped - Provider: Lashay Leong RKwesiNKwesi) sodium chloride 0.9 % injection 3 mL [...] injection documented in this encounter Care Teams Gun Tester Relationship Specialty Start Date End Date Elsewhere, Pcp PCP - General Internal Medicine 04/23/23 documented as of this encounter
--- OUTSIDE RECORDS SUMMARY | 2023-09-05 10:08 | XMS_ITS | Encounter Summary ---
Author Name Unknown Organization [facility] Address [address] [place] [address] Care Team Providers Care Roller Turner Name Role Phone Elsewhere, Pcp Primary Care Provider Unavailabl e Reason for Referral * Specialty Diagnoses / Procedures Referred By Yasmeen dudley Referred To Contact Alexia Sanchez APRN, C.N.PKwesi, M.S. [address] [place] [phone] [facility] Referral ID Status Reason Start Date Expiration Date Visits Re quested Visits Authorized NAUTICAL INSPECTOR Reason for Visit * Reason Onset Date Comments Pre-visit Testing Orders 06/08/2023 Encounter Details Date Type Department Care Team (Latest Contact Info) Description 06/08/2023 Clinical Communication Division of Endocrinology in [place], [place] [address] [place] [phone] Alexia Sanchez APRN, C.N.P., M.S. [address] [place] [phone] Pre-visit Testing Orders Social History Tobacco Use [...] your living situation today? I have a [facility] place to live 08/23/2023 Sex and Gender Information Value Date Recorded Sex Assigned at Male 08/18/2023 9:22 AM AERONAUTICAL INSPECTOR Gender Identity Male 08/18/2023 9:22 AM AERONAUTICAL INSPECTOR Sexual Orientation Straight 08/18/2023 9: 22 AM AERONAUTICAL INSPECTOR documented as of this encounter Miscellaneous Notes * Addendum Note - Alexia Sanchez APRN, C.N.P., M.S. - 08/23/2023 9:09 AM CSTAddended by: ALEXIA SANCHEZ on: 08/23/2023 09:09 AM Modules accepted: Orders NAUTICAL INSPECTOR documented in this encounter Plan of Treatment Scheduled Referrals Name Type Priority Associated Diagnoses Orde r Schedule Nutrition - visual educator visit (clinic) Outpatient Referral Routine Diabetes Mellitus Type 2 (HCC) Expected: 08/29/2023, Expires: 05/29/2024 documented as of this encounter Visit Diagnoses Diagnosis Diabetes Mellitus Type 2 (HCC)- Primary documented in this encounter Care Teams Roller Turner Relationship Specialty Start Date End Date Elsewhere, Pcp PCP - General Internal Medicine 04/23/23 documented as of this encounter
--- OUTSIDE RECORDS SUMMARY | 2023-09-05 10:08 | XMS_ITS | Encounter Summary ---
Author Name Unknown Organization [facility] Address [address] [place] [address] Care Team Providers Care Ball Fringe Machine Operator Name Role Phone Elsewhere, Pcp Primary Care Provider Unavailabl e Reason for Visit * Reason Onset Date Comments Pre-visit Intake 08/24/2023 Encounter Details Date Type Department Care Team (Latest Contact Info) Description 08/24/2023 11:00 AM INSPECTOR WATCH PARTS Clinical Communication Virtual Review in [place], [place] 200 [place], [place] [phone] Pre-visit Intake Social History Tobacco Use Types Packs/Day Years Used Date Smoking Tobacco: Never Smokeless Tobacco: Never Alcohol Use Standard Drinks/Week Comments Yes 2 (1 standard drink = 0.6 oz pur e alcohol) Sometimes 0 times a week [facility] Utilities Answer Date Recorded In the [...] your living situation today? I have a [facility] place to live 08/23/2023 Sex and Gender Information Value Date Recorded Sex Assigned at Male 08/18/2023 9:22 AM INSPECTOR WATCH PARTS Gender Identity Male 08/18/2023 9:22 AM INSPECTOR WATCH PARTS Sexual Orientation Straight 08/18/2023 9: 22 AM INSPECTOR WATCH PARTS documented as of this encounter Plan of Treatment Not on file documented as of this encounter Visit Diagnoses Not on filedocumented in this encounter Care Teams Ball Fringe Machine Operator Relationship Specialty Start Date End Date Elsewhere, Pcp PCP - General Internal Medicine 04/23/23 documented as of this encounter
--- OUTSIDE RECORDS SUMMARY | 2023-09-05 10:08 | XMS_ITS | Referral Summary ---
Author Name Unknown Organization [facility] Address [address] [place] [address] Care Team Providers Care Quality Management Coordinator Name Role Phone Elsewhere, Pcp Primary Care Provider Unavailabl e Source Comments Patient records contain information from all sites at [facility]. For routine questions regarding patient records, call [phone] during business hours, M-F 8:00 AM - 5:00 PM Central Time. Record requests for emergency care only can be directed to [phone] at any time.[facility] Encounters Date Type Department Care Team Description 08/30/2023 Orders Only Division of Endocrinology in [place], [place] [address] [place] [phone] Alexia Sanchez APRN, C.N.P., M.S. 08/29/2023 10:00 AM WARDROBE CUSTODIAN Comprehensive Visit Division of Endocrinology in [place], [place] [address] [place] [phone] Alexia Sanchez APRN, C.N.P., M.S. Diabetes Mellitus Type 2 (HCC) (Primary Dx); Obesity Unspecified 08/24/2023 11:00 AM WARDROBE CUSTODIAN Clinical Communication Virtual Review in [place], [place] 200 [place] [address] Pre-visit Intake 06/08/2023 Clinical Communication Division of Endocrinology in [place], [place] [address] [place] [phone] Alexia Sanchez APRN, C.N.P., M.S. Pre-visit Testing Orders 06/07/[address] [address] Gwen Jenkins C.NKwesiP. Diabetes Mellitus Type 2 [...] e alcohol) Sometimes 0 times a week [facility] Utilities Answer Date Recorded In the [...] Sex Assigned at Male 08/18/2023 9:22 AM WARDROBE CUSTODIAN Gender Identity Male 08/18/2023 9:22 AM WARDROBE CUSTODIAN Sexual Orientation Straight 08/18/2023 9: 22 AM WARDROBE CUSTODIAN Last Filed Vital Signs Vital Sign Reading Time Taken Comments Blood Pressure 144/78 08/29/2023 9:[address] rage Pulse 78 08/29/2023 9:45 AM WARDROBE CUSTODIAN Temperature 36.3 ??C (97.3 ??F) 04/23/2023 7:00 AM CD T Respiratory Rate 24 04/23/2023 7:00 AM CDT Oxygen Saturation 97% 04/23/2023 11:45 AM CDT Inhaled Oxygen Concentration - - Weight 124 kg (274 lb 0.5 oz) 08/29/2023 9:45 AM WARDROBE CUSTODIAN Height 170.1 cm (5' 6.97) 08/29/2023 9:45 AM CS T Body Mass Index 42.96 08/29/2023 9:45 AM WARDROBE CUSTODIAN Plan of Treatment Not on file Care Teams Quality Management Coordinator Relationship Specialty Start Date End Date Elsewhere, Pcp PCP - General Internal Medicine 04/23/23
[2023-09-05] MEDS: PERFLUTREN LIPID MICROSPHERES 2 ML VIAL IV (13:24)
== END 2023-09-05 09:57 | disposition home or self-care (01) ==
LOC: RAD 09:57
PROVIDERS: PCP Nurse Practitioner Family; Visit Provider Nurse Practitioner Family
DX: R55 Syncope and collapse (principal)
CPT/HCPCS: 93306; Q9957

== ENCOUNTER 2023-11-28 08:03 | Outpatient (CLI) | payer OTHER, SELFPAY ==
--- OUTSIDE RECORDS SUMMARY | 2023-11-30 07:28 | XMS_ITS | Referral Summary ---
Author Name Unknown Organization [facility] Address [address] [place] [address] Care Team Providers Care Long Chain Dyeing Machine Operator Name Role Phone Elsewhere, Pcp Primary Care Provider Unavailabl e Source Comments Patient records contain information from all sites at [facility]. For routine questions regarding patient records, call [phone] during business hours, M-F 8:00 AM - 5:00 PM Central Time. Record requests for emergency care only can be directed to [phone] at any time.[facility] Encounters Date Type Department Care Team Description 09/19/2023 Orders Only Division of Endocrinology in [place], [place] [address] [place] [address] Alexia Sanchez APRN, C.N.P., M.S. 09/19/2023 Orders Only Division of Endocrinology in [place], [place] [address] [place] [phone] Alexia Sanchez APRN, C.N.P., M.S. 09/07/2023 Clinical Communication Division of Endocrinology in [place], [place] [address] [place] [address] Alexia Sanchez APRN, C.N.P., M.S. from Last 3 Months Allergies Active Allergy Reactions Criticality Noted Date Comments Ari Inhibitors Angioedema High 04/05/2023 Lisinopril Other (see comments) High 06/07/2023 likely angioedema, normal formal testing Pioglitazone Other (see comments) 06/07/2023 Medications Medication Sig Dispensed Refills Start Date End Date Status aspirin [address] tablet Take 81 mg by mouth. 03/02/2012 Acti ve atorvastatin (Lipitor) 10 mg tablet Lipitor 10 mg oral tablet See Instructions, 1 TABLET DAILY 11/03/2013 Active latanoprost (XALATAN) 0.005 % ophthalmic solution INT 1 GTT IN OU QHS 01/15/2020 Activ e levothyroxine (SYNTHROID, LEVOTHROID) 100 mcg tablet Two tablets daily 08/20/2014 Active rOPINIRole (REQUIP) 4 mg tablet 01/28/2020 Active sertraline (ZOLOFT) 100 mg tablet Take 100 mg by mouth. 06/21/2016 Act ramses simvastatin (ZOCOR) 40 mg tablet Take 40 mg by mouth. 04/09/2014 Acti ve BD Insulin Syringe Ultra-Fine 1 mL 31 gauge x /16 syringe 05/09/2020 Active FreeStyle Jaye 14 Day Sensor kit APPLY UTD Q 14 DAYS 06/30/2020 Active oxybutynin (DITROPAN-XL) 10 mg 24 hr tablet TAKE 1 TABLET BY MOUTH DAILY 90 tablet 3 09/26/2020 Active insulin aspart U-100 (NovoLOG FlexPen) 100 unit/mL (3 mL) injection Inject 60 Units under the skin 3 (three) times a day with meals. Active loratadine-pseudo ephedrine (CLARITIN-D 12-hour) 5-120 mg per 12 hr tablet Take 1 tablet by mouth 2 (two) times a day. Active hydroCHLOROthiazi de (HYDRODIURIL) 12.5 mg tablet Take 12.5 mg by mouth daily. Active insulin glargine (LANTUS) 100 unit/mL injection Inject 80 Units under the skin 2 (two) times a day. Active EPINEPHrine 0.3 mg/0.3 mL injection syringe Inject 0.3 mL (0.3 mg total) intramuscularly as needed for anaphylaxis for up to 10 days. Inject into the thigh. 1 each 04/23/2023 Active escitalopram (LEXAPRO) 10 mg tablet Take 1 tablet by mouth daily. 07/01/2023 Active oxyBUTYnin (DITROPAN XL) 15 mg 24 hr tablet Take 15 mg by mouth daily. Active insulin glargine U-300 conc (Toujeo Max [...] Influenza, Seasonal, Injectable 05/18/2012,05/17 Influenza, Unspecified 05/17/2011 PPSV23(Discontinued) 05/20/2006 Td, (Adult) Unspecified 05/20/2006 Tdap 05/14/2019 influenza vaccine quad (FLUZONE/FLUARIX) (6 months and older)(PF) 05/14/2019,05/18/2012,05/17/2011,2009,07/04/2009,05/19/2009 Social History Tobacco Use Types Packs/Day Years Used Date Smoking Tobacco: Never Smokeless Tobacco: Never Alcohol Use Standard Drinks/Week Comments Yes 2 (1 standard drink = 0.6 oz pur e alcohol) Sometimes 0 times a week [facility] Utilities Answer Date Recorded In the past 12 months has [employer], gas, oil, or water [employer] threatened to shut off services in your [...] your living situation today? I have a [facility] place to live 08/23/2023 Sex and Gender Information Value Date Recorded Sex Assigned at Male 08/18/2023 9:22 AM TALENT ACQUISITION DIRECTOR Gender Identity Male 08/18/2023 9:22 AM TALENT ACQUISITION DIRECTOR Sexual Orientation Straight 08/18/2023 9: 22 AM TALENT ACQUISITION DIRECTOR Last Filed Vital Signs Vital Sign Reading Time Taken Comments Blood Pressure 144/78 08/29/2023 9:[address]ENT ACQUISITION [address] rage Pulse 78 08/29/2023 9:45 AM TALENT ACQUISITION DIRECTOR Temperature 36.3 ??C (97.3 ??F) 04/23/2023 7:00 AM CD T Respiratory Rate 24 04/23/2023 7:00 AM CDT Oxygen Saturation 97% 04/23/2023 11:45 AM CDT Inhaled Oxygen Concentration - - Weight 124 kg (274 lb 0.5 oz) 08/29/2023 9:45 AM TALENT ACQUISITION DIRECTOR Height 170.1 cm (5' 6.97) 08/29/2023 9:45 AM CS T Body Mass Index 42.96 08/29/2023 9:45 AM TALENT ACQUISITION DIRECTOR Plan of Treatment Not on file Procedures Procedure Name Priority Date/Time Associated Diagnosis Comments EXTI THYROID-STIMULATING HORMONE-SENSITIVE (S-TSH), S Routine 05/23/2023 11:14 AM CDT EXTI SODIUM, S/P Routine 04/11/2023 5:56 AM CDT EXTI POTASSIUM, S/P Routine 04/11/2023 5 :56 AM CDT EXTI CREATININE WITH EGFR, S/P Routine 04/11/2023 5:56 AM CDT from Last 3 Months or Most Recently Relevant to Health Maintenance Care Teams Long Chain Dyeing Machine Operator Relationship Specialty Start Date End Date Elsewhere, Pcp PCP - General Internal Medicine 04/23/23
--- OUTSIDE RECORDS SUMMARY | 2023-11-30 07:28 | XMS_ITS | Clinical Summary ---
Author Name Unknown Organization [facility] Address [address] [place] [address] Care Team Providers Care Vmware Administrator Name Role Phone None, Pcp Primary Care [...] 1968 FIT-DNA 1968 Sigmoidoscopy 1968 iFOBT 1968 Zoster Vaccines (1 of 2) 2018 COVID-19 Vaccine ( season) 2023 Influenza Vaccine (Season Ended) 2024 05/14/2019, 05/18/2012, 05/17/2011, Additional history exists DTaP,Tdap,and Td Vaccines (2 - Td or Tdap) 05/14/2029 05/14/2019, 05/20/2006 HPV Vaccines Aged Out No longer eligi ble based on patient's age to complete this topic Pneumococcal Vaccine: Pediatrics (0 to 5 Years) and At-Risk Patients (6 to 64 Years) Aged Out No longer eligible based on patient's age to complete this topic Care Teams Vmware Administrator Relationship Specialty Start Date End Date None, Pcp [address] [facility] [place] [address] PCP - General Staking Technician 04/30/22
--- OUTSIDE RECORDS SUMMARY | 2023-11-30 07:28 | XMS_ITS ---
Author Name Unknown Organization [facility] Address [address] [place] [address] Care Team Providers Care Die Inspector Name Role Phone Unavailable Unavailable Unavailable Surgery Details Not on file Complications Check Surgery Details section. Procedure Estimated Blood Loss Check Surgery Details section. Procedure Findings Check Surgery Details section. Procedure Specimens Taken Check Surgery Details section.
--- OUTSIDE RECORDS SUMMARY | 2023-11-30 07:28 | XMS_ITS | Clinical Summary ---
Author Name Unknown Organization [facility] Address [address] [place] [address] Care Team Providers Care Lamination Spinner Name Role Phone Elsewhere, Pcp Primary Care Provider Unavailabl e Source Comments Patient records contain information from all sites at [facility]. For routine questions regarding patient records, call [phone] during business hours, M-F 8:00 AM - 5:00 PM Central Time. Record requests for emergency care only can be directed to [phone] at any time.[facility] Allergies Active Allergy Reactions Criticality Noted Date [...] 1 mL 31 gauge x 5/16 syringe 05/09/2020 Active FreeStyle Jaye 14 Day [...] 09/19/2023 Orders Only Division of Endocrinology in [place], [place] [address] [place] [address] Alexia Sanchez APRN, C.N.P., M.S. 09/19/2023 Orders Only Division of Endocrinology in [place], [place] [address] [place] [address] Alexia Sanchez APRN, C.N.P., M.S. 09/07/2023 Clinical Communication Division of Endocrinology in [place], [place] [address] [place] [address] Alexia Sanchez APRN, C.N.P., M.S. from Last 3 Months Immunizations Name Administration [...] e alcohol) Sometimes 0 times a week [facility] Utilities Answer Date Recorded In the [...] your living situation today? I have a [facility] place to live 08/23/2023 Sex and Gender Information Value Date Recorded Sex Assigned at Male 08/18/2023 9:22 AM SUPERVISOR MODERN LANGUAGES Gender Identity Male 08/18/2023 9:22 AM SUPERVISOR MODERN LANGUAGES Sexual Orientation Straight 08/18/2023 9: 22 AM SUPERVISOR MODERN LANGUAGES Last Filed Vital Signs Vital Sign Reading Time Taken Comments Blood Pressure 144/78 08/29/2023 9:[address]OR MODERN LANGUAGES [address] rage Pulse 78 08/29/2023 9:45 AM SUPERVISOR MODERN LANGUAGES Temperature 36.3 ??C (97.3 ??F) 04/23/2023 7:00 AM CD T Respiratory Rate 24 04/23/2023 7:00 AM CDT Oxygen Saturation 97% 04/23/2023 11:45 AM CDT Inhaled Oxygen Concentration - - Weight 124 kg (274 lb 0.5 oz) 08/29/2023 9:45 AM SUPERVISOR MODERN LANGUAGES Height 170.1 cm (5' 6.97) 08/29/2023 9:45 AM CS T Body Mass Index 42.96 08/29/2023 9:45 AM SUPERVISOR MODERN LANGUAGES Plan of Treatment Health Maintenance Due Date Last Done Comments CT Colonography 1968 Colonoscopy 1968 Diabetic Office Visit with F oot Exam 1968 Dilated Eye Exam 1968 FIT 1968 Hemoglobin A1C 1968 Hepatitis C Screening 1968 Lipid (Cholesterol) Screening 1968 Urine Albumin 1968 Hepatitis B Vaccines (1 of 3 - 19+ 3-dose series) 1987 Pneumococcal vaccine (0-64 y ears) (2 of 2 - PCV) 05/20/2007 05/20/2006 Zoster Vaccines (1 of 2) 2018 COVID-19 Vaccine (1 - 2022-2 4 season) 2023 Influenza Vaccine (#1) 2023 9, 05/18/2012, 05/18/2012, [...] - Td or Tdap) 05/14/2029 05/14/2019, 05/20/2006 Procedures Procedure Name Priority Date/Time Associated Diagnosis Comments EXTI THYROID-STIMULATING HORMONE-SENSITIVE (S-TSH), S Routine 05/23/2023 11:14 AM CDT EXTI SODIUM, S/P Routine 04/11/2023 5:56 AM CDT EXTI POTASSIUM, S/P Routine 04/11/2023 5 :56 AM CDT EXTI CREATININE WITH EGFR, S/P Routine 04/11/2023 5:56 AM CDT from Last 3 Months or Most Recently Relevant to Health Maintenance Care Teams Lamination Spinner Relationship Specialty Start Date End Date Elsewhere, Pcp PCP - General Internal Medicine 04/23/23
--- OUTSIDE RECORDS SUMMARY | 2023-11-30 07:28 | XMS_ITS | Clinical Summary ---
Author Name Unknown Organization [facility] Address [place], [place] [address] Care Team Providers Care Statement Clerk Name Role Phone Falguni Jenkins HOME IMPROVEMENT ADVISOR Primary Care Provider [phone] Allergies Active Allergy Reactions Criticality Noted Date [...] Take 15 mg by mouth at bedtime. Active Insulin Syringe-Needle U-100 1 mL 30 gauge X 7/16 syrg two times daily. 11/05/2022 Active triamcinolone (ARISTOCORT; KENALOG) 0.1 % cream APPLY A THIN LAYER TO AFFECTED AREA ON CHEST, BACK, LEGS, AND ARMS 1-2X DAILY FOR UP TO 2 WEEKS AT A TIME. 03/25/2023 Active escitalopram oxalate (LEXAPRO) 5 mg tablet Take 5 mg by mouth every morning. Active insulin aspart, U-100, (NovoLOG FlexPen U-100 Insulin) 100 unit/mL (3 mL) pen Inject 35 units subcutaneous three times daily with meals. Plus sliding scale of 2 to 10 units per meal. Active Lantus Solostar U-100 Insulin 100 unit/mL (3 mL) pen Inject 55 units subcutaneous 2 times daily 12 hours apart. Product desired: LANTUS SOLOSTAR Active hydroCHLOROthiazid e (HCTZ) 25 mg tabletIndications: HTN (hypertension) Take 1 Tablet (25 mg) by mouth once daily. 30 Tablet 04/11/2023 Active albuterol HFA (PRO-AIR; VENTOLIN; PROVENTIL) 90 mcg/actuation inhalerIndications :Angioedema, initial encounter Inhale 2 Puffs by mouth 4 times daily if needed for Shortness Of Breath. 1 Each 04/11/2023 Active EPINEPHrine Base (Symjepi) 0.3 mg/0.3 mL syrgIndications:An gioedema, initial encounter Inject 0.3 mg As Directed each time if needed (Angioedema). 2 Each 04/11/2023 Active famotidine (PEPCID) 40 mg tabletIndications: Angioedema, initial encounter Take 1 Tablet (40 mg) by mouth once daily. 14 Tablet 04/11/2023 Active predniSONE (DELTASONE) 20 mg tabletIndications: Angioedema, initial encounter Take 2 Tablets (40 mg) by mouth once daily with a meal. 28 Tablet 04/12/2023 Active loratadine (CLARITIN) 10 mg tabletIndications: Angioedema, initial encounter Take 1 Tablet (10 mg) by mouth once daily. 30 Tablet 04/12/2023 Active Active Problems Problem Noted Date Diagnosed Date Angioedema 04/10/2023 Obesity, unspecified 03/05/2010 Diabetes mellitus type II 02/20/2010 Overview: a system change updated this record. This will not affect patient care or billing. This comment can be deleted. Unspecified hypothyroidism 02/20/2010 HTN (hypertension) 02/20/2010 Other and unspecified hyperlipidemia 02/20/2010 Encounters Date Type Department Care Team Description 09/05/2023 10:00 AM VICE PRESIDENT OF RECRUITING Orders Only [facility] [address] [place] [address] 2 scans: (2-Ord) ECHO TTE COMPLETE W CONTRAST ([id number]) from Last 3 Months Immunizations Name Administration [...] Health Maintenance Due Date Last Done Comments Tdap 1979 Depression screening for age 12+ 1980 HIV for age 15-65 1983 Hepatitis C screening for ag e 18-79 1986 Hepatitis B series for Diabe dinorah (1 of 3 - 19+ 3-dose series) 1987 Pneumococcal series for age 6-64 (2 of 2 - PCV) 05/20/2007 05/20/2006, 05/20/2006 Colonoscopy through age 75 2013 Tetanus booster 05/20/2016 05/20/2006, 05/20/2006 Lipids for age 45-75 06/16/2017 06/16/2012, 06/16/2012, 06/16/2012, Additional history exists Zoster (shingles) series for age 50+ (1 of 2) 2018 COVID-19 vaccine series ( season) 2023 Influenza for age 50-64 04/08/2024 05/17/20 11, 04/16/2010, 05/19/2009, Additional history exists BMI (ht and wt on same day) for age 18+ 05/23/2024 05/23/2023 Procedures Procedure Name Priority Date/Time Associated Diagnosis Comments ECHO TTE COMPLETE W CONTRAST Routine 09/05/2023 11:00 AM VICE PRESIDENT OF RECRUITING Syncope and collapse CHOLESTEROL,TOTAL Routine 06/16/2012 Diabetes mellitus type II from Last 3 Months or Most Recently Relevant to Health Maintenance Results * ECHO TTE COMPLETE W CONTRAST (09/05/2023 11:00 AM VICE PRESIDENT OF RECRUITING) AORTIC VALVE MEAN PG 4 mmHg EJECTION FRACTION 70 % LVEDD 4.4 cm EJECTION FRACTION 65 - 70% Anatomical Region Laterality Modality Ultrasound 09/05/2023 10:1 7 AM VICE PRESIDENT OF RECRUITING Narrative 09/05/2023 11:33 AM VICE PRESIDENT OF RECRUITING ECHOCARDIOGRAM HERB BOWENS ? Accession#: ?? [id number] : ?1970 53 years Study Date: ?? 09/05/2023 10:17:16 AM Gender: M ?BP: ? 183/94 mmHg Height: 170.00 cm ?BSA: ?2.31 m? ? ? Weight: 124.00 kg ?Tech: ? MCK ? Referring MD: FALGUNI JENKINS Site: ? [facility] Reading Location: Mobile-OP Patient Location: Outpatient. Procedure: 2D w/ Contrast, Color Doppler and Spectral Doppler. Indication for study: Syncope and collapse Cardiac Rhythm: Normal sinus.Study quality: Technically limited. Imaging limitations: This study was subject to imaging limitations due to body habitus and a prominent lung artifact. Final Impressions: 1. Technically limited exam. 2. Echo contrast was administered to enhance visualization of all left ventricular segments. 3. Normal LV size, normal wall thickness, normal global systolic function with an estimated EF of 65 - 70%. 4. Right ventricular cavity size is normal, global systolic RV function is normal. 5. No significant functional valve disease detected. Chamber Sizes and Function Normal left ventricular size, normal wall thickness, normal global systolic function with an estimated EF of 65 - 70%. Left atrial size is normal. Right ventricular cavity size is normal, global systolic RV function is normal. RV wall thickness is normal. The right atrium is normal. Right atrial volume index is 10 ml/m? ? ?. Right atrial area is 11 cm? ? ?. The pulmonary artery is of normal size and origin. The sinus of Valsalva is normal sized. The ascending aorta is normal sized. Valves, RV Pressures and Diastolic Function The aortic valve is not well visualized , no stenosis and no regurgitation. The mitral valve is normal in structure, no mitral regurgitation. Mitral annular calcification is present. Normal diastolic function. The tricuspid valve is normal in structure. Tricuspid regurgitation is trace regurgitation. The pulmonic valve is normal. Trace pulmonary regurgitation. Masses, Effusion, Shunts There is no pericardial effusion. The inferior vena cava is not well visualized, respiratory size variation not well visualized. Interatrial septum is not well visualized. MEASUREMENTS AND CALCULATIONS 2-D Measurements and LV Function: LVID (d) 4.4 cm LV FS% (2D) ?? 51 % LVID (s) 2.2 cm LVOT diameter 2.2 cm IVS (d) ??0.9 cm HR ?72 bpm LVPW (d) 1.4 cm LA Vol index ??17 ml/m2 Ao Sinus 3.6 cm RA Vol index ??10 ml/m2 Asc Ao ?? 3.5 cm RA area ? 11 cm? ? ? LA ? 4.0 cm RV Max 4C (d) 4.2 cm Diastology: Mitral ?Tissue Doppler E Peak 1.0 m/s ??e', Septum ? 0.10 m/s A Peak 1.0 m/s ??e', Lateral ?0.14 m/s E/A ?1.0 ?E/e' Average ?? 8.53 DT ? 234 msec Aortic Valve: Vmax ? 1.4 m/s ??MALISSA (V) ?? 2.80 cm? ? ? VTI ?0.28 m ?? MALISSA (I) ?? 3.14 cm? ? ? LVOT V max 1.0 m/s ??Max PG ?8 mmHg LVOT VTI ?? 0.22 m ?? Mean PG ?? 4 mmHg SV ? 87 ml ?Dim Index 0.81 SV index ?? 38 ml/m? ? ? CO ?6.3 l/min ?CI ?2.7 l/min/m? ? ? Mitral Valve: MVA ?3.2 cm? ? ? MV P 1/2 68 msec Tricuspid Valve and estimated PA pressures: TAPSE 3.6 cm Contrast documentation: 2 ml diluted Definity, lot #[id number], [facility]# [id number] was administered peripherally to enhance visualization of all left ventricular segments. . This study was interpreted by an [facility] accredited facility. CC: HIM ([facility]) [facility]. ??Final ?? Procedure Note Ashvin Gonzales MD - 09/05/2023 ECHOCARDIOGRAM HERB BOWENS : 1970 53 years Study Date: 09/05/2023 10:17:16 AM Gender: M BP: 183/94 mmHg Height: 170.00 cm BSA: 2.31 m? ? ? Weight: 124.00 kg Tech: GARTH Referring MD: FALGUNI JENKINS Site: [facility] Reading Location: Mobile-OP Patient Location: Outpatient. Procedure: 2D w/ Contrast, Color Doppler and Spectral Doppler. Indication for study: Syncope and collapse Cardiac Rhythm: Normal sinus.Study quality: Technically limited. Imaging limitations: This study was subject to imaging limitations due tobody habitus and a prominent lung artifact. Final Impressions: 1. Technically limited exam. 2. Echo contrast was administered to enhance visualization of all leftventricular segments. 3. Normal LV size, normal wall thickness, normal global systolic functionwith an estimated EF of 65 - 70%. 4. Right ventricular cavity size is normal, global systolic RV functionis normal. 5. No significant functional valve disease detected. Chamber Sizes and Function Normal left ventricular size, normal wall thickness, normal globalsystolic function with an estimated EF of 65 - 70%. Left atrial size isnormal. Right ventricular cavity size is normal, global systolic RVfunction is normal. RV wall thickness is normal. The right atrium isnormal. Right atrial volume index is 10 ml/m? ? ?. Right atrial area is 11cm? ? ?. The pulmonary artery is of normal size and origin. The sinus ofValsalva is normal sized. The ascending aorta is normal sized. Valves, RV Pressures and Diastolic Function The aortic valve is not well visualized , no stenosis and noregurgitation. The mitral valve is normal in structure, no mitralregurgitation. Mitral annular calcification is present. Normal diastolicfunction. The tricuspid valve is normal in structure. Tricuspidregurgitation is trace regurgitation. The pulmonic valve is normal. Tracepulmonary regurgitation. Masses, Effusion, Shunts There is no pericardial effusion. The inferior vena cava is not wellvisualized, respiratory size variation not well visualized. Interatrialseptum is not well visualized. MEASUREMENTS AND CALCULATIONS 2-D Measurements and LV Function: LVID (d) 4.4 cm LV FS% (2D) 51 % LVID (s) 2.2 cm LVOT diameter 2.2 cm IVS (d) 0.9 cm HR 72 bpm LVPW (d) 1.4 cm LA Vol index 17 ml/m2 Ao Sinus 3.6 cm RA Vol index 10 ml/m2 Asc Ao 3.5 cm RA area 11 cm? ? ? LA 4.0 cm RV Max 4C (d) 4.2 cm Diastology: Mitral Tissue Doppler E Peak 1.0 m/s e', Septum 0.10 m/s A Peak 1.0 m/s e', Lateral 0.14 m/s E/A 1.0 E/e' Average 8.53 DT 234 msec Aortic Valve: Vmax 1.4 m/s MALISSA (V) 2.80 cm? ? ? VTI 0.28 m MALISSA (I) 3.14 cm? ? ? LVOT V max 1.0 m/s Max PG 8 mmHg LVOT VTI 0.22 m Mean PG 4 mmHg SV 87 ml Dim Index 0.81 SV index 38 ml/m? ? ? CO 6.3 l/min CI 2.7 l/min/m? ? ? Mitral Valve: MVA 3.2 cm? ? ? MV P 1/2 68 msec Tricuspid Valve and estimated PA pressures: TAPSE 3.6 cm Contrast documentation: 2 ml diluted Definity, lot #[id number], [facility]#[id number] was administered peripherally to enhance visualization of allleft ventricular segments. . This study was interpreted by an [facility] accredited facility. CC: HIM (med records) [facility]. Final Falguni Jenkins NP ECHO ORD * CHOLESTEROL,TOTAL (06/16/2012) CHOLESTEROL TOTAL 146 100 - 199 MG/DL OTHER-NOT LISTED-ADD NARRATIVE DETAILS Blood specimen (specimen) BLOOD SPECIMEN / Unknown 06/16/2012 Malcolm Saldaña MD CHEMISTRY OTHER-NOT LISTED-ADD NARRATIVE DETAILS from Last 3 Months or Most Recently Relevant to Health Maintenance Advance Directives * Full Code (Latest Code Status on File) Date Activated Date Inactivated Comments 04/10/2023 3:42 PM 04/11/2023 3:34 PM Question Answer Comments Code Status Discussion: Reviewed Preferences Care Teams Statement Clerk Relationship Specialty Start Date End Date Falguni Jenkins, HOME IMPROVEMENT ADVISOR [address] [place] [address] [place] [address] PCP - General Emergency Medicine 04/21/22
--- OUTSIDE RECORDS SUMMARY | 2023-11-30 07:29 | XMS_ITS | Encounter Summary ---
Author Name Unknown Organization [facility] Address [address] [place] [address] Care Team Providers Care Momd Teacher Name Role Phone Elsewhere, Pcp Primary Care Provider Unavailabl e Encounter Details Date Type Department Care Team ([facility] st Contact Info) Description 09/19/2023 Orders Only Division of Endocrinology in [place], [place] [address] [place] [address] Alexia Sanchez, ELAN, C.N.P., M.S. [address] [place] [address] Social History Tobacco Use Types Packs/Day Years Used Date Smoking Tobacco: Never Smokeless Tobacco: Never Alcohol Use Standard Drinks/Week Comments Yes 2 (1 standard drink = 0.6 oz pur e alcohol) Sometimes 0 times a week [facility] Utilities Answer Date Recorded In the past 12 months has [employer], gas, oil, or water [employer] threatened to shut off services in your [...] your living situation today? I have a [facility] place to live 08/23/2023 Sex and Gender Information Value Date Recorded Sex Assigned at Male 08/18/2023 9:22 AM NOZZLE CEMENT SPRAYER HELPER Gender Identity Male 08/18/2023 9:22 AM NOZZLE CEMENT SPRAYER HELPER Sexual Orientation Straight 08/18/2023 9: 22 AM NOZZLE CEMENT SPRAYER HELPER documented as of this encounter Plan of Treatment Not on file documented as of this encounter Visit Diagnoses Not on filedocumented in this encounter Care Teams Momd Teacher Relationship Specialty Start Date End Date Elsewhere, Pcp PCP - General Internal Medicine 04/23/23 documented as of this encounter
--- OUTSIDE RECORDS SUMMARY | 2023-11-30 07:29 | XMS_ITS | Encounter Summary ---
Author Name Unknown Organization [facility] Address [address] [place] [address] Care Team Providers Care Social Media Marketing Analyst Name Role Phone Elsewhere, Pcp Primary Care Provider Unavailabl e Reason for Referral * Medication Prior Authorization - Closed Specialty Diagnoses / Procedures Referred By Yasmeen dudley Referred To Contact Alexia Sanchez APRN, C.N.P., M.S. [address] [place] [phone] Referral ID Status Reason Start Date Expiration Date Visits Re quested Visits Authorized [id number] Closed 1 1 EPT ARTIST Reason for Visit * Reason Comments Diabetes Mellitus * Outpatient (Routine) - Closed Specialty Diagnoses / Procedures Referred By Yasmeen dudley Referred To Contact Endocrinology Diagnoses Diabetes Mellitus Type 2 (HCC) Gwen Jenkins, C.N.P. [address] [place] [address] [facility] Referral ID Status Reason Start Date Expiration Date Visits Re quested Visits Authorized [id number] Closed 06/07/2023 06/06/2024 1 1 Encounter Details Date Type Department Care Team (Latest Contact Info) Description 08/29/2023 10:00 AM CONCEPT ARTIST Comprehensive Visit Division of Endocrinology in [place], [place] [address] [place] [phone] Alexia Sanchez APRN C.N.P., M.S. [address] [place] [address] [place] [address] Diabetes Mellitus Type 2 (HCC) (Primary Dx); Obesity Unspecified Social History Tobacco Use Types Packs/Day Years Used Date Smoking Tobacco: Never Smokeless Tobacco: Never Alcohol Use Standard Drinks/Week Comments Yes 2 (1 standard drink = 0.6 oz pur e alcohol) Sometimes 0 times a week [facility] Utilities Answer Date Recorded In the past 12 months has e [employer], [employer], oil, or water [employer] threatened to shut off services in your [...] your living situation today? I have a [facility] place to live 08/23/2023 Sex and Gender Information Value Date Recorded Sex Assigned at Male 08/18/2023 9:22 AM CONCEPT ARTIST Gender Identity Male 08/18/2023 9:22 AM CONCEPT ARTIST Sexual Orientation Straight 08/18/2023 9: 22 AM CONCEPT ARTIST documented as of this encounter Last Filed Vital Signs Vital Sign Reading Time Taken Comments Blood Pressure 144/78 08/29/2023 9:[address] rage Pulse 78 08/29/2023 9:45 AM CONCEPT ARTIST Temperature - - Respiratory Rate - - Oxygen Saturation - - Inhaled Oxygen Concentration - - Weight 124 kg (274 lb 0.5 oz) 08/29/2023 9:45 AM CONCEPT ARTIST Height 170.1 cm (5' 6.97) 08/29/2023 9:45 AM CS T Body Mass Index 42.96 08/29/2023 9:45 AM CONCEPT ARTIST documented in this encounter Patient Instructions * Patient Instructions* Alexia Sanchez APRN, C.NTejinder., M.S. - 08/29/2023 10:00 AM CONCEPT ARTIST 08/29/2023 Diabetes Plan Increase Lantus to 100 [...] and additional sugars Follow up with PCP EPT ARTIST documented in this encounter Consult Notes * [...] Weight: Increasing. 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 HISTORY Denies any prior history of pancreatitis. [...] to improve glycemic control for prevention of superintendent marine oil terminal complications. He would like to improve his [...] Glucagon or called 911? : 1-3 times EPT ARTIST documented in this encounter Plan of Treatment Not on file documented as of this encounter Visit Diagnoses Diagnosis Diabetes Mellitus Type 2 (HCC)- Primary Obesity Unspecified documented in this encounter Care Teams Social Media Marketing Analyst Relationship Specialty Start Date End Date Elsewhere, Pcp PCP - General Internal Medicine 04/23/23 documented as of this encounter
--- OUTSIDE RECORDS SUMMARY | 2023-11-30 07:29 | XMS_ITS | Encounter Summary ---
Author Name Unknown Organization [facility] Address [address] [place] [address] Care Team Providers Care Roller Skate Repairer Name Role Phone Elsewhere, Pcp Primary Care Provider Unavailabl e Reason for Visit * Reason Onset Date Comments Pre-visit Intake 08/24/2023 Encounter Details Date Type Department Care Team (Latest Contact Info) Description 08/24/2023 11:00 AM ART DISPLAY MAKER Clinical Communication Virtual Review in [place], [place] [address] [place] [address] Pre-visit Intake Social History Tobacco Use Types Packs/Day Years Used Date Smoking Tobacco: Never Smokeless Tobacco: Never Alcohol Use Standard Drinks/Week Comments Yes 2 (1 standard drink = 0.6 oz pur e alcohol) Sometimes 0 times a week [facility] Utilities Answer Date Recorded In [...] your living situation today? I have a [facility] place to live 08/23/2023 Sex and Gender Information Value Date Recorded Sex Assigned at Male 08/18/2023 9:22 AM ART DISPLAY MAKER Gender Identity Male 08/18/2023 9:22 AM ART DISPLAY MAKER Sexual Orientation Straight 08/18/2023 9: 22 AM ART DISPLAY MAKER documented as of this encounter Plan of Treatment Not on file documented as of this encounter Visit Diagnoses Not on filedocumented in this encounter Care Teams Roller Skate Repairer Relationship Specialty Start Date End Date Elsewhere, Pcp PCP - General Internal Medicine 04/23/23 documented as of this encounter
--- OUTSIDE RECORDS SUMMARY | 2023-11-30 07:29 | XMS_ITS | Encounter Summary ---
Author Name Unknown Organization [facility] Address [address] [place] [address] Care Team Providers Care Informatics Consultant Name Role Phone Elsewhere, Pcp Primary Care Provider Unavailabl e Encounter Details Date Type Department Care Team ([facility] st Contact Info) Description 08/30/2023 Orders Only Division of Endocrinology in [place], [place] [address] [place] [address] Alexia Sanchez, ELAN, C.N.P., M.S. [address] [place] [address] Social History Tobacco Use Types Packs/Day Years Used Date Smoking Tobacco: Never Smokeless Tobacco: Never Alcohol Use Standard Drinks/Week Comments Yes 2 (1 standard drink = 0.6 oz pur e alcohol) Sometimes 0 times a week [facility] Utilities Answer Date Recorded In the past 12 months has [employer], gas, oil, or water [employer] threatened to shut off services in your [...] your living situation today? I have a [facility] place to live 08/23/2023 Sex and Gender Information Value Date Recorded Sex Assigned at Male 08/18/2023 9:22 AM RESIDENTIAL WORKER Gender Identity Male 08/18/2023 9:22 AM RESIDENTIAL WORKER Sexual Orientation Straight 08/18/2023 9: 22 AM RESIDENTIAL WORKER documented as of this encounter Plan of Treatment Not on file documented as of this encounter Visit Diagnoses Not on filedocumented in this encounter Care Teams Informatics Consultant Relationship Specialty Start Date End Date Elsewhere, Pcp PCP - General Internal Medicine 04/23/23 documented as of this encounter
--- OUTSIDE RECORDS SUMMARY | 2023-11-30 07:29 | XMS_ITS | Encounter Summary ---
Author Name Unknown Organization [facility] Address [address] [place] [address] Care Team Providers Care Commercial Crabber Name Role Phone Elsewhere, Pcp Primary Care Provider Unavailabl e Encounter Details Date Type Department Care Team ([facility] st Contact Info) Description 09/19/2023 Orders Only Division of Endocrinology in [place], [place] [address] [place] [address] Alexia Sanchez, ELAN, C.N.P., M.S. [address] [place] [address] Social History Tobacco Use Types Packs/Day Years Used Date Smoking Tobacco: Never Smokeless Tobacco: Never Alcohol Use Standard Drinks/Week Comments Yes 2 (1 standard drink = 0.6 oz pur e alcohol) Sometimes 0 times a week [facility] Utilities Answer Date Recorded In the past 12 months has [employer], gas, oil, or water [employer] threatened to shut off services in your [...] your living situation today? I have a [facility] place to live 08/23/2023 Sex and Gender Information Value Date Recorded Sex Assigned at Male 08/18/2023 9:22 AM SOCIAL WORK NURSE Gender Identity Male 08/18/2023 9:22 AM SOCIAL WORK NURSE Sexual Orientation Straight 08/18/2023 9: 22 AM SOCIAL WORK NURSE documented as of this encounter Plan of Treatment Not on file documented as of this encounter Visit Diagnoses Not on filedocumented in this encounter Care Teams Commercial Crabber Relationship Specialty Start Date End Date Elsewhere, Pcp PCP - General Internal Medicine 04/23/23 documented as of this encounter
--- OUTSIDE RECORDS SUMMARY | 2023-11-30 07:29 | XMS_ITS | Encounter Summary ---
Author Name Unknown Organization [facility] Address [address] [place] [address] Care Team Providers Care Soap Boiler Name Role Phone Elsewhere, Pcp Primary Care Provider Unavailabl e Reason for Referral * Specialty Diagnoses / Procedures Referred By Yasmeen dudley Referred To Contact Alexia Sanchez APRN, C.N.PKwesi, M.S. [address] [place] [phone] [facility] Referral ID Status Reason Start Date Expiration Date Visits Re quested Visits Authorized LANCE MODEL Reason for Visit * Reason Onset Date Comments Pre-visit Testing Orders 06/08/2023 Encounter Details Date Type Department Care Team (Latest Contact Info) Description 06/08/2023 Clinical Communication Division of Endocrinology in [place], [place] [address] [place] [phone] Alexia Sanchez APRN, C.N.P., M.S. [address] [place] [phone] Pre-visit Testing Orders Social History Tobacco Use [...] your living situation today? I have a [facility] place to live 08/23/2023 Sex and Gender Information Value Date Recorded Sex Assigned at Male 08/18/2023 9:22 AM FREE LANCE MODEL Gender Identity Male 08/18/2023 9:22 AM FREE LANCE MODEL Sexual Orientation Straight 08/18/2023 9: 22 AM FREE LANCE MODEL documented as of this encounter Miscellaneous Notes * Addendum Note - Alexia Sanchez APRN, C.N.P., M.S. - 08/23/2023 9:09 AM CSTAddended by: ALEXIA SANCHEZ on: 08/23/2023 09:09 AM Modules accepted: Orders LANCE MODEL documented in this encounter Plan of Treatment Scheduled Referrals Name Type Priority Associated Diagnoses Orde r Schedule Nutrition - hematology nurse educator visit (clinic) Outpatient Referral Routine Diabetes Mellitus Type 2 (HCC) Expected: 08/29/2023, Expires: 05/29/2024 documented as of this encounter Visit Diagnoses Diagnosis Diabetes Mellitus Type 2 (HCC)- Primary documented in this encounter Care Teams Soap Boiler Relationship Specialty Start Date End Date Elsewhere, Pcp PCP - General Internal Medicine 04/23/23 documented as of this encounter
--- OUTSIDE RECORDS SUMMARY | 2023-11-30 07:29 | XMS_ITS | Encounter Summary ---
Author Name Unknown Organization [facility] Address [address] [place] [address] Care Team Providers Care Nuclear Powerplant Supervisor Name Role Phone Elsewhere, Pcp Primary Care Provider Unavailabl e Encounter Details Date Type Department Care Team (Latest Contact Info) Description 09/07/2023 Clinical Communication Division of Endocrinology in [place], [place] [address] [place] [address] Alexia Sanchez, ELAN, C.N.P., M.S. [address] [place] [address] Social History Tobacco Use Types Packs/Day Years Used Date Smoking Tobacco: Never Smokeless Tobacco: Never Alcohol Use Standard Drinks/Week Comments Yes 2 (1 standard drink = 0.6 oz pur e alcohol) Sometimes 0 times a week [facility] Utilities Answer Date Recorded In the past 12 months has [employer], gas, oil, or water [employer] threatened to shut off services in your [...] Sex Assigned at Male 08/18/2023 9:22 AM WATER SAFETY TEACHER Gender Identity Male 08/18/2023 9:22 AM WATER SAFETY TEACHER Sexual Orientation Straight 08/18/2023 9: 22 AM WATER SAFETY TEACHER documented as of this encounter Miscellaneous Notes * Telephone Encounter - Alexia Sanchez APRN, C.N.P., M.S. - 09/13/2023 8:13 PM CST Message sent to patient asking him to find out what fax number an appeal letter can be sent to. R SAFETY TEACHER documented in this encounter Plan of Treatment Not on file documented as of this encounter Visit Diagnoses Not on filedocumented in this encounter Care Teams Nuclear Powerplant Supervisor Relationship Specialty Start Date End Date Elsewhere, Pcp PCP - General Internal Medicine 04/23/23 documented as of this encounter
== END 2023-11-28 08:04 | disposition home or self-care (01) ==
LOC: NFLDREF 11-30 07:26
PROVIDERS: PCP Nurse Practitioner Family; Referring Provider Nurse Practitioner Family; Visit Provider Nurse Practitioner Family
DX: E11.69 Type 2 diabetes mellitus with other specified complication (principal); Z79.4 Long term (current) use of insulin; E03.9 Hypothyroidism, unspecified; E78.5 Hyperlipidemia, unspecified; R53.83 Other fatigue
CPT/HCPCS: 80053; 80061; 82043; 82570; 84403; 84439; 84443

== ENCOUNTER 2024-01-04 12:54 | Outpatient (CLI) | payer OTHER, SELFPAY ==
--- OUTSIDE RECORDS SUMMARY | 2024-01-04 12:56 | XMS_ITS | Clinical Summary ---
Author Organization [facility] Address [address] [place] [address] Care Team Providers Care Quill Skinner Name Role Phone None, Pcp Primary Care [...] age to complete this topic Care Teams Quill Skinner Relationship Specialty Start Date End Date None, Pcp [address] [place] [address] PCP - General Underpresser Hand 04/30/22
--- OUTSIDE RECORDS SUMMARY | 2024-01-04 12:56 | XMS_ITS | Clinical Summary ---
Author Organization [facility] Address [place], [place] [address] Care Team Providers Care Hard Hat Diver Name Role Phone Gwen Jenkins BARREL RIFLER Primary Care Provider [phone] Allergies Active Allergy Reactions Criticality Noted Date [...] use of insulin (HC) USE DIRECTED WITH VICTOZA DAILY 100 Each 05/09/2019 Active oxybutynin (DITROPAN [...] of 2) 2018 COVID-19 vaccine series ( - season) 2023 Influenza for age 50-64 04/08/2024 05/17/20, 04/16/2010, 05/19/2009, Additional history exists BMI (ht and wt on same day) for age 18+ 05/23/2024 05/23/2023 Procedures Procedure Name Priority Date/Time Associated Diagnosis Comments CHOLESTEROL,TOTAL Routine 06/16/2012 Diabetes mellitus type II from Last 3 Months or Most Recently Relevant to Health Maintenance Results * CHOLESTEROL,TOTAL (06/16/2012) CHOLESTEROL TOTAL 146 100 [...] Code Status Discussion: Reviewed Preferences Care Teams Hard Hat Diver Relationship Specialty Start Date End Date Gwen Jenkins BARREL RIFLER [address] [facility] [place] [address] PCP - General Emergency Medicine 04/21/22
--- OUTSIDE RECORDS SUMMARY | 2024-01-04 12:57 | XMS_ITS | Encounter Summary ---
Author Organization [facility] Address [address] [place] [address] Care Team Providers Care Underwater Trapper Name Role Phone Elsewhere, Pcp Primary Care Provider Unavailabl e Encounter Details Date Type Department Care Team (Late st Contact Info) Description 01/03/2024 Orders Only [facility] [id number] [address] , [address] [phone] Fanny Castillo Social History Tobacco Use Types Packs/Day Years Used Date Smoking Tobacco: Never Smokeless Tobacco: Never Alcohol Use Standard Drinks/Week Comments Yes 2 (1 standard drink = 0.6 oz pur e alcohol) Sometimes 0 times a week [facility] Utilities Answer Date Recorded In the past [...] living situation today? I have a [facility] place to live 08/23/2023 Sex and Gender Information Value Date Recorded Sex Assigned at Male 08/18/2023 9:22 AM CONSUMER BANKER Gender Identity Male 08/18/2023 9:22 AM CONSUMER BANKER Sexual Orientation Straight 08/18/2023 9: 22 AM CONSUMER BANKER documented as of this encounter Plan of Treatment Not on file documented as of this encounter Visit Diagnoses Not on filedocumented in this encounter Care Teams Underwater Trapper Relationship Specialty Start Date End Date Elsewhere, Pcp PCP - General Internal Medicine 04/23/23 documented as of this encounter
--- OUTSIDE RECORDS SUMMARY | 2024-01-04 12:57 | XMS_ITS | Encounter Summary ---
Author Organization [facility] Address [address] [place] [address] Care Team Providers Care Dry Chain Puller Name Role Phone Elsewhere, Pcp Primary Care Provider Unavailabl e Reason for Referral * Medication Prior Authorization - Authorized Specialty Diagnoses / Procedures Referred By Yasmeen t Referred To Contact Diagnoses Diabetes Mellitus Type 2 (HCC) Alexia Sanchez APRN, C.NTejinder., M.S. [address] [place] [phone] Referral ID Status Reason Start Date Expiration Date V isits Requested Visits Authorized [id number] Authorized 01/03/2024 01/02/2025 1 1 Encounter Details Date Type Department Care Team (Late st Contact Info) Description 12/16/2023 Orders Only Division of Endocrinology in [place], [place] [address] [place] [phone] Alexia Sanchez APRN, C.N.P., M.S. [address] [place] [phone] Diabetes Mellitus Type 2 (HCC) (Primary Dx) Social History Tobacco Use Types Packs/Day Years Used Date Smoking Tobacco: Never Smokeless Tobacco: Never Alcohol Use Standard Drinks/Week Comments Yes 2 (1 standard drink = 0.6 oz pur e alcohol) Sometimes 0 times a week [facility] Utilities Answer Date Recorded In the [...] your living situation today? I have a [facility] place to live 08/23/2023 Sex and Gender Information Value Date Recorded Sex Assigned at Male 08/18/2023 9:22 AM HOME VISITS NURSE Gender Identity Male 08/18/2023 9:22 AM HOME VISITS NURSE Sexual Orientation Straight 08/18/2023 9: 22 AM HOME VISITS NURSE documented as of this encounter Plan of Treatment Not on file documented as of this encounter Visit Diagnoses Diagnosis Diabetes Mellitus Type 2 (HCC)- Primary documented in this encounter Care Teams Dry Chain Puller Relationship Specialty Start Date End Date Elsewhere, Pcp PCP - General Internal Medicine 04/23/23 documented as of this encounter
--- OUTSIDE RECORDS SUMMARY | 2024-01-04 12:57 | XMS_ITS | Referral Summary ---
Author Organization [facility] Address [address] [place] [address] Care Team Providers Care Clinical Informatics Spec Name Role Phone Elsewhere, Pcp Primary Care Provider Unavailabl e Source Comments Patient records contain information from all sites at [facility]. For routine questions regarding patient records, call [phone] during business hours, M-F 8:00 AM - 5:00 PM Central Time. Record requests for emergency care only can be directed to [phone] at any time.[facility] Encounters Date Type Department Care Team Description 01/03/2024 Orders Only [facility] [place] [id number] [place] [phone] Fanny Castillo 12/28/2023 Orders Only Division of Endocrinology in [place], [place] [address] [place] [address] Alexia Sanchez APRN C.N.P., M.S. 12/16/2023 Orders Only Division of Endocrinology in [place], [place] [address] [place] [address] Alexia Sanchez APRN, C.N.P., M.S. Diabetes Mellitus Type 2 (HCC) (Primary Dx) 12/16/2023 9:00 AM CDT Telemedicine Department of Nutrition and Diabetes Education in [place], [place] [address] [place] [address] Alexia Sanchez APRN, C.N.P., M.S. Nesha Rosales M.S.N., R.N., CDCES Diabetes Mellitus Type 2 Hyperglycemia (HCC) 12/09/2023 Refill Division of Endocrinology in [place], [place] [address] [place] [address] Alexia Sanchez APRN, C.N.P., M.S. Med Refill (NovoLOG) 12/02/2023 Clinical Communication Division of Endocrinology in [place], [place] [address] [place] [address] Alexia Sanchez APRN, C.N.P., M.S. [facility] - Outside Materials from Last 3 Months Allergies Active Allergy Reactions Criticality Noted Date Comments Ari Inhibitors Angioedema High 04/05/2023 Lisinopril Other (see comments) High 06/07/2023 likely angioedema, normal formal testing Pioglitazone Other (see comments) 06/07/2023 Medications Medication Sig Dispensed Refills Start Date End Date Status aspirin [address] tablet Take 81 mg by mouth. 2 Active atorvastatin (Lipitor) 10 mg tablet Lipitor 10 mg oral tablet See Instructions, 1 TABLET DAILY 4 Active latanoprost (XALATAN) 0.005 % ophthalmic solution INT 1 GTT IN OU QHS 0 Active levothyroxine (SYNTHROID, LEVOTHROID) 100 mcg tablet Two tablets daily 5 Active rOPINIRole (REQUIP) 4 mg tablet 0 Active sertraline (ZOLOFT) 100 mg tablet Take 100 mg by mouth. 6 Active simvastatin (ZOCOR) 40 mg tablet Take 40 mg by mouth. 4 Active BD Insulin Syringe Ultra-Fine 1 mL 31 gauge x 5/16 syringe 0 Active FreeStyle Jaye 14 Day Sensor kit APPLY UTD Q 14 DAYS 0 Active oxybutynin (DITROPAN-XL) 10 mg 24 hr tablet TAKE 1 TABLET BY MOUTH DAILY 90 tablet 3 1 Active loratadine-pseudoe phedrine (CLARITIN-D 12-hour) 5-120 mg per 12 hr tablet Take 1 tablet by mouth 2 (two) times a day. Active hydroCHLOROthiazid e (HYDRODIURIL) 12.5 mg tablet Take 12.5 mg by mouth daily. Active insulin glargine (LANTUS) 100 unit/mL injection Inject 80 Units under the skin 2 (two) times a day. Active EPINEPHrine 0.3 mg/0.3 mL injection syringe Inject 0.3 mL (0.3 mg total) intramuscularly as needed for anaphylaxis for up to 10 days. Inject into the thigh. 1 each 3 Active escitalopram (LEXAPRO) 10 mg tablet Take 1 tablet by mouth daily. 3 Active oxyBUTYnin (DITROPAN XL) 15 mg 24 hr tablet Take 15 mg by mouth daily. Active insulin glargine U-300 conc (Toujeo Max U-300 SoloStar) 300 unit/mL (3 mL) injection Inject 80-100 Units under the skin 2 (two) times a day. Take 100 units in the morning and 80 units in the evening 54 mL 1 4 Active liraglutide (Victoza 3-Lionel) 0.6 mg/0.1 mL (18 mg/3 mL) injection Inject 0.6 mg under the skin daily. Take 0.6 mg daily in the morning for 1 week. If tolerating, increase to 1.2 mg daily in the morning. 18 mL 1 4 Active insulin aspart U-100 (NovoLOG FlexPen) 100 unit/mL (3 mL) injectionIndicatio ns:Diabetes Mellitus Type 2 Hyperglycemia (HCC) Inject 60 Units under the skin 3 (three) times a day with meals. 180 mL 1 4 Active blood-glucose sensor (Dexcom G7 Sensor) deviceIndications: Diabetes Mellitus Type 2 (HCC) 1 each as directed. 9 each 4 4 12/19/19 25 Active insulin aspart U-100 (NovoLOG FlexPen) 100 unit/mL (3 mL) injection Inject 60 Units under the skin 3 (three) times a day with meals. 12/09/19 24 Discontinu ed(Reorder ) Active Problems Problem Noted Date Diagnosed Date [...] e alcohol) Sometimes 0 times a week [facility] Step[employer]ities Answer Date Recorded In the past 12 months has th e [employer], gas, oil, or water [employer] threatened to shut off services in your [...] your living situation today? I have a [facility] place to live 08/23/2023 Sex and Gender Information Value Date Recorded Sex Assigned at Male 08/18/2023 9:22 AM FIRE EXTINGUISHER INSTALLER Gender Identity Male 08/18/2023 9:22 AM FIRE EXTINGUISHER INSTALLER Sexual Orientation Straight 08/18/2023 9: 22 AM FIRE EXTINGUISHER INSTALLER Last Filed Vital Signs Vital Sign Reading Time Taken Comments Blood Pressure 144/78 08/29/2023 9:45 AM FIRE EXTINGUISHER INSTALLER Ave rage Pulse 78 08/29/2023 9:45 AM FIRE EXTINGUISHER INSTALLER Temperature 36.3 ??C (97.3 ??F) 04/23/2023 7:00 AM CD T Respiratory Rate 24 04/23/2023 7:00 AM CDT Oxygen Saturation 97% 04/23/2023 11:45 AM CDT Inhaled Oxygen Concentration - - Weight 124 kg (274 lb 0.5 oz) 08/29/2023 9:45 AM FIRE EXTINGUISHER INSTALLER Height 170.1 cm (5' 6.97) 08/29/2023 9:45 AM CS T Body Mass Index 42.96 08/29/2023 9:45 AM FIRE EXTINGUISHER INSTALLER Plan of Treatment Not on file Procedures [...] Recently Relevant to Health Maintenance Care Teams Clinical Informatics Spec Relationship Specialty Start Date End Date Elsewhere, Pcp PCP - General Internal Medicine 04/23/23
--- OUTSIDE RECORDS SUMMARY | 2024-01-04 12:57 | XMS_ITS ---
Author Organization [facility] Address [address] [place] [address] Care Team Providers Care Feeder Operator Automatic Name Role Phone Unavailable Unavailable Unavailable Surgery Details Not on file Complications Check Surgery Details section. Procedure Estimated Blood Loss Check Surgery Details section. Procedure Findings Check Surgery Details section. Procedure Specimens Taken Check Surgery Details section.
--- OUTSIDE RECORDS SUMMARY | 2024-01-04 12:57 | XMS_ITS | Encounter Summary ---
Author Organization [facility] Address [address] [place] [address] Care Team Providers Care Visual Merchandising Assistant Name Role Phone Elsewhere, Pcp Primary Care Provider Unavailabl e Encounter Details Date Type Department Care Team (Latest Contact Info) Description 12/16/2023 9:00 AM CDT Telemedicine Department of Nutrition and Diabetes Education in [place], [place] [address] [place] [address] Alexia Sanchez, ELAN, C.N.P., M.S. [address] [place] [phone] Nesha Rosales M.S.N., R.N., [facility] [address] [place] [phone] Diabetes Mellitus Type 2 Hyperglycemia (HCC) Social History Tobacco Use Types Packs/Day Years Used Date Smoking Tobacco: Never Smokeless Tobacco: Never Alcohol Use Standard Drinks/Week Comments Yes 2 (1 standard drink = 0.6 oz pur e alcohol) Sometimes 0 times a week [facility] Utilities Answer Date Recorded In the past 12 months has e [employer], gas, oil, or water company threatened to [...] your living situation today? I have a [facility] place to live 08/23/2023 Sex and Gender Information Value Date Recorded Sex Assigned at Male 08/18/2023 9:22 AM CONSTRUCTION PRODUCER Gender Identity Male 08/18/2023 9:22 AM CONSTRUCTION PRODUCER Sexual Orientation Straight 08/18/2023 9: 22 AM CONSTRUCTION PRODUCER documented as of this encounter Progress Notes * Nesha Rosales M.S.N., R.N., [facility] - 12/16/2023 9:00 AM CDT SUBJECTIVE CHIEF COMPLAINT/REASON FOR VISIT Diabetes Education Type of Visit: Insulin - Follow-up Referred by: Alexia Sanchez APRN, C.N.P., M.S. HISTORY OF PRESENT ILLNESS OBJECTIVE Pertinent Labs: ASSESSMENT / PLAN Medication Changes: No Patient Education Provided: Yes, patient education was provided, refer to the patients education record. Diagnosis Plan 1. Diabetes Mellitus Type 2 Hyperglycemia (HCC) Nutrition - hospice educator visit (clinic) Diabetes History: Living with Type 2 Diabetes Current Insulin: Toujeo U300 100-0-0-80 and Novolog 60-60-60-0 Current Medication: Recently stopped Victoza due to side effects Goal Range: 100-140mg/dL Technology: Using Dexcom G6, although isn't current using as he doesn't have a transmitter. He willreach out to his PCP about this. Strongly encouraged he use fingersticks until CGM available. He would also like to try Dexcom G7; this will be pended for Alexia Sanchez CNP. Monitoring: Encouraged patient to check blood sugars before meals and before bed. If bedtime is less than 4 hours after evening meal, encouraged last blood sugar check to be before evening meal or during the night. Hypoglycemia: Reviewed hypoglycemia risk associated with the patient's current diabetes therapy. Hypoglycemia treatment using the Rule of 15 was discussed. Diabetes education: Principles and properties of multiple daily injection insulin regimen reviewed.Educated on dose adjustment for multiple daily injection insulin program with emphasis on immediatenext day dose adjustment in light of hypoglycemia. Discussion at this time was for LONG acting insulin only. Discussed insulin pen technique including how to use an insulin pen, priming the pen needle as wellas changing the needle with each new injection. Ensured that patient had an understanding of areas to inject insulin, need to rotate sites, proper storage of insulin and sharps disposal. He plans to rotate injections more and hold needle in for 5-10 seconds. Due to not having any blood sugar readings, we were unable to make adjustments in his insulin doses. Encouraged him to contact our scheduling team to schedule f/u with Alexia Sanchez CNP. Also, will provide Thriving with Diabetes class information. If he'd like to take the class, he will let us know. If he's like to seeing individually instead to continue with dose adjustment concepts, he willtouch base with us. Goals: 1. Call to schedule f/u with Alexia Sanchez CNP. 2. Let us know if wanting to attend Thrive class, or be seen individually. 3. Rotate injection sites. 4. Keep pen needle under skin for close to 10 seconds after injecting insulin. 5. Check blood sugars 4x/day. Contact information given. Greater than 50% of time spent in counseling/coordination of care. Consult conducted via real-time audio/video technology by Nesha Rosales M.S.Angella., R.N., [facility] in [facility] to the patient in patient's home. Time spent with patient (minutes): 40 Minutes documented in this encounter Plan of Treatment Not on file documented as of this encounter Visit Diagnoses Diagnosis Diabetes Mellitus Type 2 Hyperglycemia (HCC) documented in this encounter Care Teams Visual Merchandising Assistant Relationship Specialty Start Date End Date Elsewhere, Pcp PCP - General Internal Medicine 04/23/23 documented as of this encounter
--- OUTSIDE RECORDS SUMMARY | 2024-01-04 12:57 | XMS_ITS | Encounter Summary ---
Author Organization [facility] Address [address] [place] [address] Care Team Providers Care Patient Service Technician Pst Name Role Phone Elsewhere, Pcp Primary Care Provider Unavailabl e Reason for Visit * Reason Comments Med Refill NovoLOG Encounter Details Date Type Department Care Team ([facility] st Contact Info) Description 12/09/2023 Refill Division of Endocrinology in [place], [place] [address] [place] [address] Alexia Sanchez, ELAN, C.N.P., M.S. [address] [place] [address] Med Refill (NovoLOG) Social History Tobacco Use Types Packs/Day Years Used Date Smoking Tobacco: Never Smokeless Tobacco: Never Alcohol Use Standard Drinks/Week Comments Yes 2 (1 standard drink = 0.6 oz pur e alcohol) Sometimes 0 times a week [facility] Utilities Answer Date Recorded In the past 12 months has [employer], oil, or water Car reviews threatened to shut off services in your [...] Sex Assigned at Male 08/18/2023 9:22 AM SHOE COVERER Gender Identity Male 08/18/2023 9:22 AM SHOE COVERER Sexual Orientation Straight 08/18/2023 9: 22 AM SHOE COVERER documented as of this encounter Plan of Treatment Not on file documented as of this encounter Visit Diagnoses Diagnosis Diabetes Mellitus Type 2 Hyperglycemia (HCC)- Primary documented in this encounter Care Teams Patient Service Technician Pst Relationship Specialty Start Date End Date Elsewhere, Pcp PCP - General Internal Medicine 04/23/23 documented as of this encounter
--- OUTSIDE RECORDS SUMMARY | 2024-01-04 12:57 | XMS_ITS | Encounter Summary ---
Author Organization [facility] Address [address] [place] [address] Care Team Providers Care Seo Executive Name Role Phone Elsewhere, Pcp Primary Care Provider Unavailabl e Encounter Details Date Type Department Care Team ([facility] st Contact Info) Description 12/28/2023 Orders Only Division of Endocrinology in [place], [place] [address] [place] [address] Alexia Sanchez, ELAN, C.N.P., M.S. [address] [place] [address] Social History Tobacco Use Types Packs/Day Years Used Date Smoking Tobacco: Never Smokeless Tobacco: Never Alcohol Use Standard Drinks/Week Comments Yes 2 (1 standard drink = 0.6 oz pur e alcohol) Sometimes 0 times a week [facility] Utilities Answer Date Recorded In the past 12 months has [employer], gas, oil, or water [employer] threatened to shut off services in your [...] your living situation today? I have a [facility] place to live 08/23/2023 Sex and Gender Information Value Date Recorded Sex Assigned at Male 08/18/2023 9:22 AM UNIX ADMINISTRATOR Gender Identity Male 08/18/2023 9:22 AM UNIX ADMINISTRATOR Sexual Orientation Straight 08/18/2023 9: 22 AM UNIX ADMINISTRATOR documented as of this encounter Plan of Treatment Not on file documented as of this encounter Visit Diagnoses Not on filedocumented in this encounter Care Teams Seo Executive Relationship Specialty Start Date End Date Elsewhere, Pcp PCP - General Internal Medicine 04/23/23 documented as of this encounter
--- OUTSIDE RECORDS SUMMARY | 2024-01-04 12:57 | XMS_ITS | Encounter Summary ---
Author Organization [facility] Address [address] [place] [address] Care Team Providers Care Equipment Planner Name Role Phone Elsewhere, Pcp Primary Care Provider Unavailabl e Reason for Visit * Reason Onset Date Comments OSM - Outside Materials 12/02/2023 Encounter Details Date Type Department Care Team (Latest Contact Info) Description 12/02/2023 Clinical Communication Division of Endocrinology in [place], [place] [address] [place] [address] Alexia Sanchez, ELAN, C.N.P., M.S. [address] [place] [address] [employer]SM - Outside Materials Social History Tobacco Use Types Packs/Day Years Used Date Smoking Tobacco: Never Smokeless Tobacco: Never Alcohol Use Standard Drinks/Week Comments Yes 2 (1 standard drink = 0.6 oz pur e alcohol) Sometimes 0 times a week [facility] Utilities Answer Date Recorded In the past 12 months has [employer], [employer], oil, or water [employer] threatened to shut off services in your [...] your living situation today? I have a [facility] place to live 08/23/2023 Sex and Gender Information Value Date Recorded Sex Assigned at Male 08/18/2023 9:22 AM FLOATER OPERATOR Gender Identity Male 08/18/2023 9:22 AM FLOATER OPERATOR Sexual Orientation Straight 08/18/2023 9: 22 AM FLOATER OPERATOR documented as of this encounter Plan of Treatment Not on file documented as of this encounter Visit Diagnoses Not on filedocumented in this encounter Care Teams Equipment Planner Relationship Specialty Start Date End Date Elsewhere, Pcp PCP - General Internal Medicine 04/23/23 documented as of this encounter
--- OUTSIDE RECORDS SUMMARY | 2024-01-04 12:57 | XMS_ITS | Clinical Summary ---
Author Organization [facility] Address [address] [place] [address] Care Team Providers Care Clinical Trial Assistant Name Role Phone Elsewhere, Pcp Primary Care Provider Unavailabl e Source Comments Patient records contain information from all sites at [facility]. For routine questions regarding patient records, call [phone] during business hours, M-F 8:00 AM - 5:00 PM Central Time. Record requests for emergency care only can be directed to [phone] at any time.[facility] Allergies Active Allergy Reactions Criticality Noted Date [...] Sensor kit APPLY UTD Q 14 DAYS 11/23/202 0 Active oxybutynin (DITROPAN-XL) 10 mg 24 [...] Department Care Team Description 01/03/2024 Orders Only [facility] [place] [id number] [place] [phone] Fanny Castillo 12/28/2023 Orders Only Division of Endocrinology in [place], [place] [address] [place] [address] Alexia Sanchez APRN, C.N.P., M.S. 12/16/2023 9:00 AM CDT Telemedicine Department of Nutrition and Diabetes Education in [place], [place] [address] [place] [address] Alexia Sanchez APRN, Alonzo.N.P., M.S. Nesha Rosales M.S.N., R.N., [facility] Diabetes Mellitus Type 2 Hyperglycemia (HCC) 12/16/2023 Orders Only Division of Endocrinology in [place], [place] [address] [place] [address] Alexia Sanchez APRN, C.N.P., M.S. Diabetes Mellitus Type 2 (HCC) (Primary Dx) 12/09/2023 Refill Division of Endocrinology in [place], [place] [address] [place] [phone] Alexia Sanchez APRN, C.N.P., M.S. Med Refill (NovoLOG) 12/02/2023 Clinical Communication Division of Endocrinology in [place], [place] [address] [place] [phone] Alexia Sanchez APRN C.N.P., M.S. OSM - Outside Materials from Last 3 Months Immunizations Name Administration [...] Relation Name Status Comments Father Lee Long Social History Tobacco Use Types Packs/Day Years Used Date Smoking Tobacco: Never Smokeless Tobacco: Never Alcohol Use Standard Drinks/Week Comments Yes 2 (1 standard drink = 0.6 oz pur e alcohol) Sometimes 0 times a week [facility] [employer])ities Answer Date Recorded In the past 12 months has [employer], [employer], oil, or water [employer] threatened to shut off services in your [...] your living situation today? I have a [facility] place to live 08/23/2023 Sex and Gender Information Value Date Recorded Sex Assigned at Male 08/18/2023 9:22 AM BLOCK BREAKER Gender Identity Male 08/18/2023 9:22 AM BLOCK BREAKER Sexual Orientation Straight 08/18/2023 9: 22 AM BLOCK BREAKER Last Filed Vital Signs Vital Sign Reading Time Taken Comments Blood Pressure 144/78 08/29/2023 9:[address] rage Pulse 78 08/29/2023 9:45 AM BLOCK BREAKER Temperature 36.3 ??C (97.3 ??F) 04/23/2023 7:00 AM CD T Respiratory Rate 24 04/23/2023 7:00 AM CDT Oxygen Saturation 97% 04/23/2023 11:45 AM CDT Inhaled Oxygen Concentration - - Weight 124 kg (274 lb 0.5 oz) 08/29/2023 9:45 AM BLOCK BREAKER Height 170.1 cm (5' 6.97) 08/29/2023 9:45 AM CS T Body Mass Index 42.96 08/29/2023 9:45 AM BLOCK BREAKER Plan of Treatment Health Maintenance Due Date [...] Relevant to Health Maintenance Care Teams Clinical Trial Assistant Relationship Specialty Start Date End Date Elsewhere, Pcp PCP - General Internal Medicine 04/23/23
--- OUTSIDE RECORDS SUMMARY | 2024-01-04 12:57 | XMS_ITS | Encounter Summary ---
Author Organization [facility] Address [address] [place] [address] Care Team Providers Care Business Continuity Management Director Name Role Phone Elsewhere, Pcp Primary Care Provider Unavailabl e Encounter Details Date Type Department Care Team (Late st Contact Info) Description 09/19/2023 Orders Only Division of Endocrinology in [place], [place] [address] [place] [address] Alexia Sanchez, ELAN, C.N.P., M.S. [address] [place] [address] Social History Tobacco Use Types Packs/Day Years Used Date Smoking Tobacco: Never Smokeless Tobacco: Never Alcohol Use Standard Drinks/Week Comments Yes 2 (1 standard drink = 0.6 oz pur e alcohol) Sometimes 0 times a week [facility] Utilities Answer Date Recorded In the past 12 months has [employer], gas, oil, or water [employer] threatened to shut off services in your [...] your living situation today? I have a [facility] place to live 08/23/2023 Sex and Gender Information Value Date Recorded Sex Assigned at Male 08/18/2023 9:22 AM FREIGHT RATE ANALYST Gender Identity Male 08/18/2023 9:22 AM FREIGHT RATE ANALYST Sexual Orientation Straight 08/18/2023 9: 22 AM FREIGHT RATE ANALYST documented as of this encounter Plan of Treatment Not on file documented as of this encounter Visit Diagnoses Not on filedocumented in this encounter Care Teams Business Continuity Management Director Relationship Specialty Start Date End Date Elsewhere, Pcp PCP - General Internal Medicine 04/23/23 documented as of this encounter
--- NOTE | 2024-01-04 13:00 | CRLHL7_ITS ---
For Patients: As a result of the Century Cures Act, medical imaging exams and procedure reports are released immediately into your electronic medical record. You may view this report before your referring provider. If you have questions, please contact your health care provider. INDICATION: abnormal levels of other serum enzymes COMPARISON: none TECHNIQUE: Real time castellanos scale imaging and color Doppler analysis was performed of the right upper quadrant. FINDINGS: The liver echotexture is diffusely coarsened and hyperechoic. The liver measures 20.3 cm. There is a normal appearance of the hepatic IVC and proximal abdominal aorta. There is no evidence of ascites. The gallbladder is of normal size and there is no evidence of intraluminal stones or sludge. The gallbladder wall measures 1.8 mm in thickness. The common bile duct is of normal size and measures 2.8 mm in diameter at the level of the amrit hepatis. The visualized pancreas appears normal. There is no evidence of a stone or hydronephrosis within the right kidney. The right kidney measures 13.1 cm in length. IMPRESSION: Hepatomegaly with diffuse hepatic steatosis. Normal gallbladder. Dictated by Edil Lang MD @ 01/05/2024 10:12:11 AM (Electronically Signed)
== END 2024-01-04 12:55 | disposition home or self-care (01) ==
LOC: US 12:55
PROVIDERS: PCP Nurse Practitioner Family; Visit Provider Nurse Practitioner Family
DX: R74.8 Abnormal levels of other serum enzymes (principal); K76.0 Fatty (change of) liver, not elsewhere classified
CPT/HCPCS: 76705

== ENCOUNTER 2024-03-08 13:10 | Outpatient (CLI) | payer MEDICAID, SELFPAY ==
--- OUTSIDE RECORDS SUMMARY | 2024-03-10 08:27 | XMS_ITS | Encounter Summary ---
Author Organization [facility] Address [address] [place] [address] Care Team Providers Care Service Girl Name Role Phone Elsewhere, Pcp Primary Care Provider Unavailabl e Encounter Details Date Type Department Care Team (Late st Contact Info) Description 01/03/2024 Orders Only [facility] [place] [address], [address] [phone] Fanny Castillo Social History Tobacco Use Types Packs/Day Years Used Date Smoking Tobacco: Never Smokeless Tobacco: Never Alcohol Use Standard Drinks/Week Comments Yes 2 (1 standard drink = 0.6 oz pur e alcohol) Sometimes 0 times a week [facility] Utilities Answer Date Recorded In the [...] your living situation today? I have a [facility] place to live 08/23/2023 Sex and Gender Information Value Date Recorded Sex Assigned at Male 08/18/2023 9:22 AM PROCEDURES ANALYST Gender Identity Male 08/18/2023 9:22 AM PROCEDURES ANALYST Sexual Orientation Straight 08/18/2023 9: 22 AM PROCEDURES ANALYST documented as of this encounter Plan of Treatment Not on file documented as of this encounter Visit Diagnoses Not on filedocumented in this encounter Care Teams Service Girl Relationship Specialty Start Date End Date Elsewhere, Pcp PCP - General Internal Medicine 04/23/23 documented as of this encounter
--- OUTSIDE RECORDS SUMMARY | 2024-03-10 08:27 | XMS_ITS | Encounter Summary ---
Author Organization [facility] Address [address] [place] [address] Care Team Providers Care Certified Nurses' Aide Name Role Phone Elsewhere, Pcp Primary Care Provider Unavailabl e Encounter Details Date Type Department Care Team (Late st Contact Info) Description 01/12/2024 Orders Only Division of Endocrinology in [place], [place] [address] [place] [address] Alexia Sanchez, ELAN, C.N.P., M.S. [address] [place] [address] Social History Tobacco Use Types Packs/Day Years Used Date Smoking Tobacco: Never Smokeless Tobacco: Never Alcohol Use Standard Drinks/Week Comments Yes 2 (1 standard drink = 0.6 oz pur e alcohol) Sometimes [address] [facility] Utilities Answer Date Recorded In the past 12 months has [employer], gas, oil, or water [employer] threatened to shut off services in your [...] your living situation today? I have a [facility] place to live 08/23/2023 Sex and Gender Information Value Date Recorded Sex Assigned at Male 08/18/2023 9:22 AM CHAIR CANER Gender Identity Male 08/18/2023 9:22 AM CHAIR CANER Sexual Orientation Straight 08/18/2023 9: 22 AM CHAIR CANER documented as of this encounter Plan of Treatment Not on file documented as of this encounter Visit Diagnoses Not on filedocumented in this encounter Care Teams Certified Nurses' Aide Relationship Specialty Start Date End Date Elsewhere, Pcp PCP - General Internal Medicine 04/23/23 documented as of this encounter
--- OUTSIDE RECORDS SUMMARY | 2024-03-10 08:27 | XMS_ITS | Clinical Summary ---
Author Organization [facility] Address [address] [place] [address] Care Team Providers Care Inspection Clerk Name Role Phone Elsewhere, Pcp Primary Care Provider Unavailabl e Source Comments Patient records contain information from all sites at [facility]. For routine questions regarding patient records, call [phone] during business hours, M-F 8:00 AM - 5:00 PM Central Time. Record requests for emergency care only can be directed to [phone] at any time.[facility] Allergies Active Allergy Reactions Criticality Noted [...] Take 12.5 mg by mouth daily. Active EPINEPHrine 0.3 mg/0.3 mL injection syringe Inject 0.3 mL (0.3 mg total) intramuscularly as needed for anaphylaxis for up to 10 days. Inject into the thigh. 1 each 3 Active escitalopram (LEXAPRO) 10 mg tablet Take 1 tablet by mouth daily. 3 Active oxyBUTYnin (DITROPAN XL) 15 mg 24 hr tablet Take 15 mg by mouth daily. Active liraglutide (Victoza 3-Lionel) 0.6 mg/0.1 mL (18 mg/3 mL) injection Inject 0.6 mg under the skin daily. Take 0.6 mg daily in the morning for 1 week. If tolerating, increase to 1.2 mg daily in the morning. 18 mL 1 4 Active blood-glucose sensor (UserZoomcom G7 Sensor) deviceIndications: Diabetes Mellitus Type 2 (HCC) 1 each as directed. 9 each 4 4 12/19/19 25 Active insulin aspart U-100 (NovoLOG FlexPen) 100 unit/mL (3 mL) injectionIndicatio ns:Diabetes Mellitus Type 2 Hyperglycemia (HCC) Inject 100 Units under the skin 3 (three) times a day with meals. 300 mL 1 4 02/16/20 25 Active insulin glargine U-300 conc (Toujeo Max U-300 SoloStar) 300 unit/mL (3 mL) injectionIndicatio ns:Diabetes Mellitus Type 2 Hyperglycemia (HCC) Inject 120-140 Units under the skin 2 (two) times a day. Take 140 units in the morning and 120 units in the evening 84 mL 1 4 02/16/20 25 Active insulin glargine (LANTUS) 100 unit/mL injection Inject 80 Units under the skin 2 (two) times a day. 02/16/20 24 Discontinu ed(Duplica te order) insulin glargine U-300 conc (Toujeo Max U-300 SoloStar) 300 unit/mL (3 mL) injection Inject 80-100 Units under the skin 2 (two) times a day. Take 100 units in the morning and 80 units in the evening 54 mL 1 4 02/16/20 24 Discontinu ed(Duplica te order) insulin aspart U-100 (NovoLOG FlexPen) 100 unit/mL (3 mL) injectionIndicatio ns:Diabetes Mellitus Type 2 Hyperglycemia (HCC) Inject 60 Units under the skin 3 (three) times a day with meals. 180 mL 1 4 02/16/20 24 Discontinu ed(Reorder ) Active Problems Problem Noted Date Diagnosed Date Angioneurotic (Angioedema Acquired) Edema Initia l 04/10/2023 Obesity Unspecified 03/05/2010 Diabetes Mellitus Type 2 02/20/2010 Overview (03/17/2020): Overview: a system change updated this record. This will not affect patient care or billing. This comment can be deleted. Hyperlipidemia 02/20/2010 Hypertension 02/20/2010 Hypothyroidism 02/20/2010 Encounters Date Type Department Care Team Description 01/12/2024 Orders Only Division of Endocrinology in [place], [place] [address] [place] [address] Alexia Sanchez APRN, C.N.P., M.S. 01/03/2024 Orders Only [facility] - [place] [id number] [place] [phone] Fanny Castillo 12/28/2023 Orders Only Division of Endocrinology in [place], [place] [address] [place] [address] Alexia Sanchez APRN, C.N.P., M.S. 12/16/2023 9:00 AM CDT Telemedicine Department of Nutrition and Diabetes Education in [place], [place] [address] [place] [address] LauraAlexia barraza APRN, C.N.P., M.S. Nesha Rosales M.S.N., R.N., [facility] Diabetes Mellitus Type 2 Hyperglycemia (HCC) 12/16/2023 Orders Only Division of Endocrinology in [place], [place] [address] [place] [address] Alexia Sanchez APRN, C.N.P., M.S. Diabetes Mellitus Type 2 (HCC) (Primary Dx) 12/09/2023 Refill Division of Endocrinology in [place], [place] [address] [place] [address] Alexia Sanchez APRN, C.N.P., M.S. Med Refill (NovoLOG) from Last 3 Months Immunizations Name Administration [...] e alcohol) Sometimes 0 times a week [facility] Utilities Answer Date Recorded In the past 12 months has [employer], gas, oil, or water company threatened to [...] your living situation today? I have a [facility] place to live 08/23/2023 Sex and Gender Information Value Date Recorded Sex Assigned at Male 08/18/2023 9:22 AM STAFF COUNSELOR Gender Identity Male 08/18/2023 9:22 AM STAFF COUNSELOR Sexual Orientation Straight 08/18/2023 9: 22 AM STAFF COUNSELOR Last Filed Vital Signs Vital Sign Reading Time Taken Comments Blood Pressure 144/78 08/29/2023 9:[address] rage Pulse 78 08/29/2023 9:45 AM STAFF COUNSELOR Temperature 36.3 ??C (97.3 ??F) 04/23/2023 7:00 AM CD T Respiratory Rate 24 04/23/2023 7:00 AM CDT Oxygen Saturation 97% 04/23/2023 11:45 AM CDT Inhaled Oxygen Concentration - - Weight 124 kg (274 lb 0.5 oz) 08/29/2023 9:45 AM STAFF COUNSELOR Height 170.1 cm (5' 6.97) 08/29/2023 9:45 AM CS T Body Mass Index 42.96 08/29/2023 9:45 AM STAFF COUNSELOR Plan of Treatment Health Maintenance Due Date [...] Vaccine (1 - 2022-2 4 season) 2023 Depression Screening (Annual PHQ-2) 08/08/2023 Office Visit for Blood Press ure Check / Re-check 11/28/2023 08/29/2023 Creatinine Level (Kidney Fun ction Test) 04/11/2024 04/11/2023, 04/10/2023, 10/07/2014 Potassium Level 04/11/2024 04/11/2023, 09/0 10/2022, 10/07/2014 Sodium Level 04/11/2024 04/11/2023, 09/0 10/2022, 10/07/2014 Influenza Vaccine (#1) 2024 9, 05/18/2012, 05/18/2012, Additional history exists Thyroid Stimulating Hormone (TSH) test for thyroid function 05/23/2024 05/23/2023, 04/10/2023, 10/07/2014 Cologuard 10/15/2024 10/15/2021 Colorectal Cancer Screening 10/15/2024 DTaP,Tdap,and Td Vaccines (2 - Td or Tdap) 05/14/2029 05/14/2019, 05/20/2006 Procedures Procedure Name Priority Date/Time Associated Diagnosis Comments THYROID-STIMULATING HORMONE-SENSITIVE (S-TSH) Routine 10/07/2014 11:41 PM STAFF COUNSELOR COMPREHENSIVE METABOLIC PANEL, S/P Routine 10/07/2014 11:41 PM STAFF COUNSELOR from Last 3 Months or Most Recently Relevant to Health Maintenance Results * Thyroid-Stimulating Hormone-Sensitive (s-TSH) (10/07/2014 11:41 PM STAFF COUNSELOR) TSH (Thyrotropin) 1.79 0.27 - 4.20 MIUL POWERCHART Blood 10/07/2014 11:4 1 PM STAFF COUNSELOR Amari Calvillo M.D. LAB BLOOD ADD-ON POWERCHART * (ABNORMAL) CMP (Comprehensive Metabolic Panel) (10/07/2014 11:41 PM STAFF COUNSELOR) Anion Gap 16 10 - 20 MMOLL POWERCHART Alkaline Phosphatase, S 70 45 - 115 UL POWERCHART Alanine Amniotransferase, LD 44 7 - 55 UNITL POWERCHART Aspartate Aminotransferase (AST), S 47 8 - 48 UNITL POWERCHART Bilirubin, Total, S 0.3 0.1 - 1.0 MGDL POWERCHART BUN (Blood Urea Nitrogen), S 19(H) 7 - 18 MGDL POWERCHART Chloride, S 104 98 - 107 MMOLL POWERCHART CO2 Total 22.6(L) 23.0 - 29.0 MMOLL POWERCHART Creatinine 0.80 0.60 - 1.30 MGDL POWERCHART Total Protein, S 7.1 6.3 - 7.9 GDL POWERCHART Glucose 191(H) 70 - 139 MGDL POWERCHART Calcium, Total, S 9.3 8.6 - 10.0 MGDL POWERCHART Sodium, S 138.4 135.0 - 145.0 MMOLL POWERCHART Potassium, S 4.0 3.6 - 4.8 MMOLL POWERCHART Albumin, S 3.7 3.5 - 5.0 GDL POWERCHART HXeGFR (MDRD) >60 >=60 [id number] 2 POWERCHART eGFR Black/ >60 >=60 [id number] 2 POWERCHART Blood 10/07/2014 11:4 1 PM STAFF COUNSELOR Amari Calvillo M.D. LAB BLOOD ADD-ON POWERCHART from Last 3 Months or Most Recently Relevant to Health Maintenance Care Teams Inspection Clerk Relationship Specialty Start Date End Date Elsewhere, Pcp PCP - General Internal Medicine 04/23/23
--- OUTSIDE RECORDS SUMMARY | 2024-03-10 08:27 | XMS_ITS | Encounter Summary ---
Author Organization [facility] Address [address] [place] [address] Care Team Providers Care Sports Fitness And Wellness Director Name Role Phone Elsewhere, Pcp Primary Care Provider Unavailabl e Encounter Details Date Type Department Care Team (Late st Contact Info) Description 12/28/2023 Orders Only Division of Endocrinology in [place], [place] [address] [place] [address] Alexia Sanchez, ELAN, C.N.P., M.S. [address] [place] [address] Social History Tobacco Use Types Packs/Day Years Used Date Smoking Tobacco: Never Smokeless Tobacco: Never Alcohol Use Standard Drinks/Week Comments Yes 2 (1 standard drink = 0.6 oz pur e alcohol) Sometimes 0 times a week [facility] Utilities Answer Date Recorded In the past 12 months has [employer], gas, oil, or water [employer] threatened to shut off services in your [...] your living situation today? I have a [facility] place to live 08/23/2023 Sex and Gender Information Value Date Recorded Sex Assigned at Male 08/18/2023 9:22 AM RUBBING BED OPERATOR Gender Identity Male 08/18/2023 9:22 AM RUBBING BED OPERATOR Sexual Orientation Straight 08/18/2023 9: 22 AM RUBBING BED OPERATOR documented as of this encounter Plan of Treatment Not on file documented as of this encounter Visit Diagnoses Not on filedocumented in this encounter Care Teams Sports Fitness And Wellness Director Relationship Specialty Start Date End Date Elsewhere, Pcp PCP - General Internal Medicine 04/23/23 documented as of this encounter
--- OUTSIDE RECORDS SUMMARY | 2024-03-10 08:27 | XMS_ITS | Clinical Summary ---
Author Organization [facility] Address [place], [place] [address] Care Team Providers Care Analytical Laboratory Technician Name Role Phone Gwen Jenkins DIRECTOR OF SEARCH ENGINE OPTIMIZATION Primary Care Provider [phone]- [phone] Allergies Active Allergy Reactions Criticality Noted Date [...] Code Status Discussion: Reviewed Preferences Care Teams Analytical Laboratory Technician Relationship Specialty Start Date End Date Gwen Jenkins DIRECTOR OF SEARCH ENGINE OPTIMIZATION [address] [facility] [place] [address] PCP - General Emergency Medicine 04/21/22
--- OUTSIDE RECORDS SUMMARY | 2024-03-10 08:27 | XMS_ITS | Encounter Summary ---
Author Organization [facility] Address [address] [place] [address] Care Team Providers Care Acid Regenerator Name Role Phone Elsewhere, Pcp Primary Care Provider Unavailabl e Encounter Details Date Type Department Care Team (Latest Contact Info) Description 12/16/2023 9:00 AM CDT Telemedicine Department of Nutrition and Diabetes Education in [place], [place] [address] [place] [phone] Alexia Sanchez, ELAN, C.N.P., M.S. [address] [place] [phone] Nesha Rosales M.S.N., R.N., [facility] [address] [place] [phone] Diabetes Mellitus Type 2 Hyperglycemia (HCC) Social History Tobacco Use Types Packs/Day Years Used Date Smoking Tobacco: Never Smokeless Tobacco: Never Alcohol Use Standard Drinks/Week Comments Yes 2 (1 standard drink = 0.6 oz pur e alcohol) Sometimes 0 times a week [facility] Utilities Answer Date Recorded In the past 12 months has e [employer], gas, oil, or water company threatened to [...] your living situation today? I have a [facility] place to live 08/23/2023 Sex and Gender Information Value Date Recorded Sex Assigned at Male 08/18/2023 9:22 AM OYSTER SHUCKER Gender Identity Male 08/18/2023 9:22 AM OYSTER SHUCKER Sexual Orientation Straight 08/18/2023 9: 22 AM OYSTER SHUCKER documented as of this encounter Progress Notes * Nesha Rosales M.S.N., R.N., [facility] - 12/16/2023 9:00 AM CDT SUBJECTIVE CHIEF COMPLAINT/REASON FOR VISIT Diabetes Education Type of Visit: Insulin - Follow-up Referred by: Alexia Sanchez APRN, C.N.P., M.S. HISTORY OF PRESENT ILLNESS OBJECTIVE Pertinent Labs: ASSESSMENT / PLAN Medication Changes: No Patient Education Provided: Yes, patient education was provided, refer to the patients education record. Diagnosis Plan 1. Diabetes Mellitus Type 2 Hyperglycemia (HCC) Nutrition - rn diabetes educator visit (clinic) Diabetes History: Living with [...] audio/video technology by Nesha Rosales M.S.Angella., R.N., [facility] in [facility] to the patient in patient's home. Time spent with patient (minutes): 40 Minutes documented in this encounter Plan of Treatment Not on file documented as of this encounter Visit Diagnoses Diagnosis Diabetes Mellitus Type 2 Hyperglycemia (HCC) documented in this encounter Care Teams Acid Regenerator Relationship Specialty Start Date End Date Elsewhere, Pcp PCP - General Internal Medicine 04/23/23 documented as of this encounter
--- OUTSIDE RECORDS SUMMARY | 2024-03-10 08:27 | XMS_ITS | Clinical Summary ---
Author Organization [facility] Address [address] [place] [address] Care Team Providers Care Boss Miner Name Role Phone None, Pcp Primary Care [...] COVID-19 Vaccine ( season) 2023 Influenza Vaccine (#1) 2024 9, 05/18/2012, 05/17/2011, Additional history exists DTaP,Tdap,and Td Vaccines (2 - Td or Tdap) 05/14/2029 05/14/2019, 05/20/2006 HPV Vaccines Aged Out No longer eligi ble based on patient's age to complete this topic Pneumococcal Vaccine: Pediatrics (0 to 5 Years) and At-Risk Patients (6 to 64 Years) Aged Out No longer eligible based on patient's age to complete this topic Care Teams Boss Miner Relationship Specialty Start Date End Date None, Pcp [address] [place] [address] PCP - General Packaging Line Operator 04/30/22
--- OUTSIDE RECORDS SUMMARY | 2024-03-10 08:27 | XMS_ITS | Referral Summary ---
Author Organization [facility] Address [address] [place] [address] Care Team Providers Care Optical Glass Sawyer Name Role Phone Elsewhere, Pcp Primary Care Provider Unavailabl e Source Comments Patient records contain information from all sites at [facility]. For routine questions regarding patient records, call [phone] during business hours, M-F 8:00 AM - 5:00 PM Central Time. Record requests for emergency care only can be directed to [phone] at any time.[facility] Encounters Date Type Department Care Team Description 01/12/2024 Orders Only Division of Endocrinology in [place], [place] [address] [place] [phone] Alexia Sanchez APRN, C.N.P., M.S. 01/03/2024 Orders Only [facility] [place] [address] [place] [phone] Fanny Castillo 12/28/2023 Orders Only Division of Endocrinology in [place], [place] [address] [place] [address] Alexia Sanchez APRN, C.N.P., M.S. 12/16/2023 Orders Only Division of Endocrinology in [place], [place] [address] [place] [phone] Alexia Sanchez APRN, C.N.P., M.S. Diabetes Mellitus Type 2 (HCC) (Primary Dx) 12/16/2023 9:00 AM CDT Telemedicine Department of Nutrition and Diabetes Education in [place], [place] [address] [place] [phone] Alexia Sanchez APRN, C.N.Jad., M.S. Nesha Rosales M.S.N., R.N., [facility] Diabetes Mellitus Type 2 Hyperglycemia (HCC) 12/09/2023 Refill Division of Endocrinology in [place], [place] [address] [place] [address] Alexia Sanchez APRN, C.N.Jad., M.S. Med Refill (NovoLOG) from Last 3 Months Allergies Active Allergy [...] 18 mL 1 4 Active blood-glucose sensor (Dexcom G7 Sensor) deviceIndications: Diabetes Mellitus Type 2 (HCC) 1 each as directed. 9 each 4 4 12/19/19 25 Active insulin aspart U-100 (NovoLOG FlexPen) 100 unit/mL (3 mL) injectionIndicatio ns:Diabetes Mellitus Type 2 Hyperglycemia (HCC) Inject 100 Units under the skin 3 (three) times a day with meals. 300 mL 4 02/16/20 25 Active insulin glargine U-300 conc (Toujeo Max U-300 SoloStar) 300 unit/mL (3 mL) injectionIndicatio ns:Diabetes Mellitus Type 2 Hyperglycemia (HCC) Inject 120-140 Units under the skin 2 (two) times a day. Take 140 units in the morning and 120 units in the evening 84 mL 4 02/16/20 25 Active insulin glargine (LANTUS) [...] 80 units in the evening 54 mL 4 02/16/20 24 Discontinu ed(Duplica te order) [...] alcohol) Sometimes 0 times a week [facility] Utilities Answer Date Recorded In the past 12 months has [employer], [employer], oil, or water [employer] threatened to shut off services in your [...] your living situation today? I have a [facility] place to live 08/23/2023 Sex and Gender Information Value Date Recorded Sex Assigned at Male 08/18/2023 9:22 AM ISSUING OPERATOR Gender Identity Male 08/18/2023 9:22 AM ISSUING OPERATOR Sexual Orientation Straight 08/18/2023 9: 22 AM ISSUING OPERATOR Last Filed Vital Signs Vital Sign Reading Time Taken Comments Blood Pressure 144/78 08/29/2023 9:[address] rage Pulse 78 08/29/2023 9:45 AM ISSUING OPERATOR Temperature 36.3 ??C (97.3 ??F) 04/23/2023 7:00 AM CD T Respiratory Rate 24 04/23/2023 7:00 AM CDT Oxygen Saturation 97% 04/23/2023 11:45 AM CDT Inhaled Oxygen Concentration - - Weight 124 kg (274 lb 0.5 oz) 08/29/2023 9:45 AM ISSUING OPERATOR Height 170.1 cm (5' 6.97) 08/29/2023 9:45 AM CS T Body Mass Index 42.96 08/29/2023 9:45 AM ISSUING OPERATOR Plan of Treatment Not on file Procedures Procedure Name Priority Date/Time Associated Diagnosis Comments THYROID-STIMULATING HORMONE-SENSITIVE (S-TSH) Routine 10/07/2014 11:41 PM ISSUING OPERATOR COMPREHENSIVE METABOLIC PANEL, S/P Routine 10/07/2014 11:41 PM ISSUING OPERATOR from Last 3 Months or Most Recently Relevant to Health Maintenance Results * Thyroid-Stimulating Hormone-Sensitive (s-TSH) (10/07/2014 11:41 PM ISSUING OPERATOR) TSH (Thyrotropin) 1.79 0.27 - 4.20 MIUL POWERCHART Blood 10/07/2014 11:4 1 PM ISSUING OPERATOR Amari Calvillo M.D. LAB BLOOD ADD-ON POWERCHART * (ABNORMAL) CMP (Comprehensive Metabolic Panel) (10/07/2014 11:41 PM ISSUING OPERATOR) Anion Gap 16 10 - 20 MMOLL [...] 5.0 GDL POWERCHART HXeGFR (MDRD) >60 >=60 [id number] 2 POWERCHART eGFR Black/ >60 >=60 [id number] 2 POWERCHART Blood 10/07/2014 11:4 1 PM ISSUING OPERATOR Amari Calvillo M.D. LAB BLOOD ADD-ON POWERCHART from Last 3 Months or Most Recently Relevant to Health Maintenance Care Teams Optical Glass Sawyer Relationship Specialty Start Date End Date Elsewhere, Pcp PCP - General Internal Medicine 04/23/23
--- OUTSIDE RECORDS SUMMARY | 2024-03-10 08:27 | XMS_ITS ---
Author Organization [facility] Address [address] [place] [address] Care Team Providers Care Packaging Engineer Name Role Phone Unavailable Unavailable Unavailable Surgery Details Not on file Complications Check Surgery Details section. Procedure Estimated Blood Loss Check Surgery Details section. Procedure Findings Check Surgery Details section. Procedure Specimens Taken Check Surgery Details section.
--- OUTSIDE RECORDS SUMMARY | 2024-03-10 08:27 | XMS_ITS | Encounter Summary ---
Author Organization [facility] Address [address] [place] [address] Care Team Providers Care Pararescue Manager Name Role Phone Elsewhere, Pcp Primary Care Provider Unavailabl e Reason for Referral * Medication Prior Authorization - Authorized Specialty Diagnoses / Procedures Referred By Yasmeen t Referred To Contact Diagnoses Diabetes Mellitus Type 2 (HCC) Alexia Sanchez APRN, C.N.Jad., M.S. [address] [place] [phone] Referral ID Status Reason Start Date Expiration Date V isits Requested Visits Authorized [id number] Authorized 01/03/2024 01/02/2025 1 1 Encounter Details Date Type Department Care Team (Late st Contact Info) Description 12/16/2023 Orders Only Division of Endocrinology in [place], [place] [address] [place] [phone] Alexia Sanchez APRN, C.N.P., M.S. [address] [place] [phone] Diabetes Mellitus Type 2 (HCC) (Primary Dx) Social History Tobacco Use Types Packs/Day Years Used Date Smoking Tobacco: Never Smokeless Tobacco: Never Alcohol Use Standard Drinks/Week Comments Yes 2 (1 standard drink = 0.6 oz pur e alcohol) Sometimes [address] [facility] Utilities Answer Date Recorded In the [...] Sex Assigned at Male 08/18/2023 9:22 AM OFFICE MACHINERY OR EQUIPMENT INSTALLER Gender Identity Male 08/18/2023 9:22 AM OFFICE MACHINERY OR EQUIPMENT INSTALLER Sexual Orientation Straight 08/18/2023 9: 22 AM OFFICE MACHINERY OR EQUIPMENT INSTALLER documented as of this encounter Plan of Treatment Not on file documented as of this encounter Visit Diagnoses Diagnosis Diabetes Mellitus Type 2 (HCC)- Primary documented in this encounter Care Teams Pararescue Manager Relationship Specialty Start Date End Date Elsewhere, Pcp PCP - General Internal Medicine 04/23/23 documented as of this encounter
--- OUTSIDE RECORDS SUMMARY | 2024-03-10 08:28 | XMS_ITS | Encounter Summary ---
Author Organization [facility] Address [address] [place] [address] Care Team Providers Care Delivery Analyst Name Role Phone Elsewhere, Pcp Primary Care Provider Unavailabl e Reason for Visit * Reason Comments Med Refill NovoLOG Encounter Details Date Type Department Care Team ([facility] st Contact Info) Description 12/09/2023 Refill Division of Endocrinology in [place], [place] [address] [place] [phone] Alexia Sanchez, ELAN, C.N.P., M.S. [address] [place] [phone] Med Refill (NovoLOG) Social History Tobacco Use Types Packs/Day Years Used Date Smoking Tobacco: Never Smokeless Tobacco: Never Alcohol Use Standard Drinks/Week Comments Yes 2 (1 standard drink = 0.6 oz pur e alcohol) Sometimes 0 times a week [facility] Utilities Answer Date Recorded In the past 12 months has [employer], oil, or water [employer] threatened to shut off services in your [...] your living situation today? I have a [facility] place to live 08/23/2023 Sex and Gender Information Value Date Recorded Sex Assigned at Male 08/18/2023 9:22 AM RADIAL DRILL PRESS OPERATOR Gender Identity Male 08/18/2023 9:22 AM RADIAL DRILL PRESS OPERATOR Sexual Orientation Straight 08/18/2023 9: 22 AM RADIAL DRILL PRESS OPERATOR documented as of this encounter Plan of Treatment Not on file documented as of this encounter Visit Diagnoses Diagnosis Diabetes Mellitus Type 2 Hyperglycemia (HCC)- Primary documented in this encounter Care Teams Delivery Analyst Relationship Specialty Start Date End Date Elsewhere, Pcp PCP - General Internal Medicine 04/23/23 documented as of this encounter
--- OUTSIDE RECORDS SUMMARY | 2024-03-10 08:28 | XMS_ITS | Encounter Summary ---
Author Organization [facility] Address [address] [place] [address] Care Team Providers Care Brick Sorter Name Role Phone Elsewhere, Pcp Primary Care Provider Unavailabl e Reason for Visit * Reason Onset Date Comments [employer] - Outside Materials 12/02/2023 Encounter Details Date Type Department Care Team (Latest Contact Info) Description 12/02/2023 Clinical Communication Division of Endocrinology in [place], [place] [address] [place] [phone] Alexia Sanchez, ELAN, C.N.P., M.S. [address] [place] [phone] [employer] Social History Tobacco Use Types Packs/Day Years Used Date Smoking Tobacco: Never Smokeless Tobacco: Never Alcohol Use Standard Drinks/Week Comments Yes 2 (1 standard drink = 0.6 oz pur e alcohol) Sometimes 0 times a week [facility] Utilities Answer Date Recorded In the past 12 months has [employer], [employer], oil, or water [employer] threatened to shut off services in your [...] your living situation today? I have a [facility] place to live 08/23/2023 Sex and Gender Information Value Date Recorded Sex Assigned at Male 08/18/2023 9:22 AM FLUORESCENT LAMP REPLACER Gender Identity Male 08/18/2023 9:22 AM FLUORESCENT LAMP REPLACER Sexual Orientation Straight 08/18/2023 9: 22 AM FLUORESCENT LAMP REPLACER documented as of this encounter Plan of Treatment Not on file documented as of this encounter Visit Diagnoses Not on filedocumented in this encounter Care Teams Brick Sorter Relationship Specialty Start Date End Date Elsewhere, Pcp PCP - General Internal Medicine 04/23/23 documented as of this encounter
== END 2024-03-08 13:11 | disposition home or self-care (01) ==
LOC: NFLDREF 03-10 08:25
PROVIDERS: PCP Nurse Practitioner Family; Referring Provider Nurse Practitioner Family; Visit Provider Nurse Practitioner Family
DX: E03.9 Hypothyroidism, unspecified (principal); E11.69 Type 2 diabetes mellitus with other specified complication; Z79.4 Long term (current) use of insulin
CPT/HCPCS: 84439; 84443

== ENCOUNTER 2024-04-20 09:02 | Outpatient (CLI) | payer OTHER, SELFPAY ==
--- OUTSIDE RECORDS SUMMARY | 2024-04-20 09:05 | XMS_ITS | Clinical Summary ---
Author Organization [facility] Address [address] [place] [address] Care Team Providers Care Digital Business Analyst Name Role Phone None, Pcp Primary Care [...] of 2) 2018 COVID-19 Vaccine ( season) 2024 Influenza Vaccine (#1) 2024 9, 05/18/2012, 05/17/2011, [...] age to complete this topic Care Teams Digital Business Analyst Relationship Specialty Start Date End Date None, Pcp [address] [place] [phone] PCP - General Teletype Technician 04/30/22
--- OUTSIDE RECORDS SUMMARY | 2024-04-20 09:05 | XMS_ITS | Encounter Summary ---
Author Organization [facility] Address [address] [place] [address] Care Team Providers Care Endoscopy Nurse Name Role Phone Elsewhere, Pcp Primary Care Provider Unavailabl e Reason for Visit * Reason Onset Date Comments [employer] - Outside Materials 03/13/2024 Encounter Details Date Type Department Care Team (Latest Contact Info) Description 03/13/2024 Clinical Communication Division of Endocrinology in [place], [place] [address] [place] [phone] Alexia Sanchez, ELAN, C.N.P., M.S. [address] [place] [phone] [employer] Social History Tobacco Use Types Packs/Day Years Used Date Smoking Tobacco: Never Smokeless Tobacco: Never Alcohol Use Standard Drinks/Week Comments Yes 2 (1 standard drink = 0.6 oz pur e alcohol) Sometimes 0 times a week [facility] Utilities Answer Date Recorded In the past 12 months has [employer], oil, or water [employer] threatened to shut off services in your [...] your living situation today? I have a [facility] place to live 08/23/2023 Sex and Gender Information Value Date Recorded Sex Assigned at Male 08/18/2023 9:22 AM WINDOWS ADMIN Gender Identity Male 08/18/2023 9:22 AM WINDOWS ADMIN Sexual Orientation Straight 08/18/2023 9: 22 AM WINDOWS ADMIN documented as of this encounter Plan of Treatment Upcoming Encounters Date Type Department Care Team (Latest Contact Info) Description 04/23/2024 2:00 PM CDT Clinical Support Department of Nutrition and Diabetes Education in [place], [place] [address] [place] [phone] Alexia Sanchez APRN, C.N.P., M.S. [address] [place] [phone] Yojana Madrigal R.N. 05/07/2024 2:00 PM CDT Appointment Department of Laboratory Medicine and Pathology, [facility], in [place], [place] [address] [place] [phone] Lazarus Dasilva M.D. [address] [place] [phone] 07/12/2024 11:00 AM WINDOWS ADMIN Clinical Communication Virtual Review in [place], [place] [address] [place] [phone] 07/13/2024 1:30 PM WINDOWS ADMIN Office Visit Division of Endocrinology in [place], [place] [address] [place] [phone] Lazarus Dasilva M.D. [address] [place] [phone] documented as of this encounter Visit Diagnoses Not on filedocumented in this encounter Care Teams Endoscopy Nurse Relationship Specialty Start Date End Date Elsewhere, Pcp PCP - General Internal Medicine 04/23/23 documented as of this encounter
--- OUTSIDE RECORDS SUMMARY | 2024-04-20 09:05 | XMS_ITS | Clinical Summary ---
Author Organization [employer] [facility] Address [place], [place] [address] Care Team Providers Care Gutter Hanger Name Role Phone Gwen Jenkins B[employer]ER [employer] Primary Care Provider [phone]- [phone] Allergies Active Allergy Reactions Criticality Noted Date [...] unspecified 03/05/2010 Diabetes mellitus type II 02/20/2010 Overview (10/23/2013): a system change updated this record. This [...] of Communication with Friends and Fami ly Not on file 04/08/2024 Financial Resource Strain Answer Date R ecorded [...] 2) 2018 COVID-19 vaccine series ( season) 2024 Influenza for age 50-64 04/08/2024 05/17/20, 04/16/2010, [...] Code Status Discussion: Reviewed Preferences Care Teams Gutter Hanger Relationship Specialty Start Date End Date Gwen Jenkins NP [address] [place] [address] [place] [address] PCP - General Emergency Medicine 04/21/22
--- OUTSIDE RECORDS SUMMARY | 2024-04-20 09:05 | XMS_ITS | Clinical Summary ---
Author Organization [facility] Address [address] [place] [address] Care Team Providers Care Director Of Social Work Name Role Phone Elsewhere, Pcp Primary Care Provider Unavailabl e Source Comments Patient records contain information from all sites at [facility]. For routine questions regarding patient records, call [phone] during business hours, M-F 8:00 AM - 5:00 PM Central Time. Record requests for emergency care only can be directed to [phone] at any time.[facility] Allergies Active Allergy Reactions Criticality Noted Date Comments Ari Inhibitors Angioedema High 04/05/2023 Lisinopril Other (see comments) High 06/07/2023 likely angioedema, normal formal testing Pioglitazone Other (see comments) 06/07/2023 Medications Medication Sig Dispensed Refills Start Date End Date Status aspirin [address] tablet Take 81 mg by mouth. 03/02/20 12 Active atorvastatin (Lipitor) 10 mg tablet Lipitor 10 mg oral tablet See Instructions, 1 TABLET DAILY 11/04/19 14 Active latanoprost (XALATAN) 0.005 % ophthalmic solution INT 1 GTT IN OU QHS 01/15/20 20 Active levothyroxine (SYNTHROID, LEVOTHROID) 100 mcg tablet Two tablets daily 08/20/19 15 Active rOPINIRole (REQUIP) 4 mg tablet 01/28/20 20 Active simvastatin (ZOCOR) 40 mg tablet Take 40 mg by mouth. 04/09/20 14 Active BD Insulin Syringe Ultra-Fine 1 mL 31 gauge x 5/16 syringe 05/09/20 20 Active hydroCHLOROthiazi de (HYDRODIURIL) 12.5 mg tablet Take 12.5 mg by mouth daily. Active EPINEPHrine 0.3 mg/0.3 mL injection syringe Inject 0.3 mL (0.3 mg total) intramuscularly as needed for anaphylaxis for up to 10 days. Inject into the thigh. 1 each 04/23/20 23 Active escitalopram (LEXAPRO) 10 mg tablet Take 1 tablet by mouth daily. 07/01/20 23 Active oxyBUTYnin (DITROPAN XL) 15 mg 24 hr tablet Take 15 mg by mouth daily. Active blood-glucose sensor ([employer] G7 Sensor) deviceIndications :Diabetes Mellitus Type 2 (HCC) 1 each as directed. 9 each 4 12/19/19 24 025 Active insulin aspart U-100 (NovoLOG FlexPen) 100 unit/mL (3 mL) injectionIndicati ons:Diabetes Mellitus Type 2 Hyperglycemia (HCC) Inject 100 Units under the skin 3 (three) times a day with meals. 300 mL 1 02/16/20 24 025 Active insulin glargine U-300 conc (Toujeo Max U-300 SoloStar) 300 unit/mL (3 mL) injectionIndicati ons:Diabetes Mellitus Type 2 Hyperglycemia (HCC) Inject 120-140 Units under the skin 2 (two) times a day. Take 140 units in the morning and 120 units in the evening 84 mL 1 02/16/20 24 025 Active famotidine (Pepcid) 40 mg tablet Take 1 tablet by mouth daily. 04/11/20 23 Active loratadine (Claritin) 10 mg tablet Take 1 tablet by mouth daily. 04/12/20 23 Active BD Ultra-Fine Short Pen Needle 31 gauge x 5/16 needle 04/15/20 24 Active QUEtiapine (SEROqueL) 50 mg tablet Take 50 mg by mouth at bedtime. 01/25/20 24 Active escitalopram (Lexapro) 20 mg tablet Take 1 tablet by mouth daily. 01/25/20 24 Active hydroCHLOROthiazi de (HydroDiuril) 25 mg tablet Take 25 mg by mouth daily. Active Lantus Solostar U-100 Insulin 100 unit/mL (3 mL) pen 04/11/20 24 Active levothyroxine 25 mcg tablet 04/13/20 24 Active tirzepatide (Mounjaro) 5 mg/0.5 mL pen injector injection Inject 0.5 mL (5 mg total) under the skin every 7 (seven) days. Stop the lower dose when starting this 2 mL 05/16/20 24 025 Active tirzepatide (Mounjaro) 7.5 mg/0.5 mL pen injector injection Inject 0.5 mL (7.5 mg total) under the skin every 7 (seven) days. Stop the lower dose when starting this 2 mL 06/15/20 24 025 Active tirzepatide (Mounjaro) 10 mg/0.5 mL pen injector injection Inject 0.5 mL (10 mg total) under the skin every 7 (seven) days. Stop the lower dose when starting this 2 mL 07/15/20 24 025 Active tirzepatide (Mounjaro) 12.5 mg/0.5 mL pen injector injection Inject 0.5 mL (12.5 mg total) under the skin every 7 (seven) days. Stop the lower dose when starting this 2 mL 08/14/19 25 026 Active tirzepatide (Mounjaro) 15 mg/0.5 mL pen injector injection Inject 0.5 mL (15 mg total) under the skin every 7 (seven) days. Stop the lower dose when starting this 2 mL 09/13/19 026 Active tirzepatide (Mounjaro) 2.5 mg/0.5 mL pen injector injection Inject 0.5 mL (2.5 mg total) under the skin every 7 (seven) days. 2 mL 04/16/20 24 025 Active sertraline (ZOLOFT) 100 mg tablet Take 100 mg by mouth. 06/21/20 16 024 Discontinued(Th erapy completed) FreeStyle Jaye 14 Day Sensor kit APPLY UTD Q 14 DAYS 06/30/20 024 Discontinued(Th erapy completed) oxybutynin (DITROPAN-XL) 10 mg 24 hr tablet TAKE 1 TABLET BY MOUTH DAILY 90 tablet 3 09/26/19 21 024 Discontinued(Th erapy completed) loratadine-pseudo ephedrine (CLARITIN-D 12-hour) 5-120 mg per 12 hr tablet Take 1 tablet by mouth 2 (two) times a day. 024 Discontinued(Th erapy completed) liraglutide (Victoza 3-Lionel) 0.6 mg/0.1 mL (18 mg/3 mL) injection Inject 0.6 mg under the skin daily. Take 0.6 mg daily in the morning for 1 week. If tolerating, increase to 1.2 mg daily in the morning. 18 mL 1 08/29/19 24 024 Discontinued Active Problems Problem Noted Date Diagnosed Date Angioneurotic (Angioedema Acquired) Edema Initia l 04/10/2023 Obesity Unspecified 03/05/2010 Diabetes Mellitus Type 2 02/20/2010 Overview (03/17/2020): Overview: a system change updated this record. This will not affect patient care or billing. This comment can be deleted. Hyperlipidemia 02/20/2010 Hypertension 02/20/2010 Hypothyroidism 02/20/2010 Encounters Date Type Department Care Team Description 04/17/2024 Orders Only Pharmacy Prior Auth [phone] Mel Segovia 04/16/2024 4:00 PM CDT Office Visit Division of Endocrinology in [place], [place] [address] [place] [address] Alexia Sanchez APRN, C.N.P., M.S. Lazarus Dasilva M.D. Diabetes Mellitus Type 2 (HCC) 04/11/2024 Refill Division of Endocrinology in [place], [place] [address] [place] [address] Alexia Sanchez APRN, C.N.P., M.S. Med Refill (Omnipod 5 G6) 04/02/2024 Refill Division of Endocrinology in [place], [place] [address] [place] [address] Aelxia Sanchez APRN, C.N.P., M.S. Med Refill 03/27/2024 Orders Only Division of Endocrinology in [place], [place] [address] [place] [address] Alexia Sanchez APRN C.N.P., M.S. Diabetes Mellitus Type 2 (HCC) (Primary Dx) 03/13/2024 Clinical Communication Division of Endocrinology in [place], [place] [address] [place] [address] Alexia Sanchez APRN, C.N.P., M.S. OSM - Outside Materials from Last 3 Months Immunizations Name Administration Dates Next Due H1N1 Inj 07/04/2009 Influenza TIV (IM) 04/16/2010, 9,06/08/2008,2006 Influenza, Seasonal, Injectable 05/18/2012,05/17 Influenza, Unspecified 05/17/2011 PPSV23 05/20/2006 Td, (Adult) Unspecified 05/20/2006 Tdap 05/14/2019 influenza trivalent vaccine (6 months and older)(PF) 04/16/2010,05/19/2009 influenza vaccine quad (FLUZONE/FLUARIX) (6 months and [...] e alcohol) Sometimes 0 times a week [facility] Utilities Answer Date Recorded In the past 12 months has [employer], gas, oil, or water [employer] threatened to shut off services in your [...] your living situation today? I have a [facility] place to live 08/23/2023 Sex and Gender Information Value Date Recorded Sex Assigned at Male 08/18/2023 9:22 AM CODING QUALITY COORDINATOR Gender Identity Male 08/18/2023 9:22 AM CODING QUALITY COORDINATOR Sexual Orientation Straight 08/18/2023 9: 22 AM CODING QUALITY COORDINATOR Last Filed Vital Signs Vital Sign Reading Time Taken Comments Blood Pressure 132/78 04/16/2024 4:07 PM CDT Pulse 84 04/16/2024 4:07 PM CDT Temperature 36.3 ??C (97.3 ??F) 04/23/2023 7:00 AM CD T Respiratory Rate 24 04/23/2023 7:00 AM CDT Oxygen Saturation 97% 04/23/2023 11:45 AM CDT Inhaled Oxygen Concentration - - Weight 127 kg (280 lb 10.3 oz) 04/16/2024 4:07 P M CDT Height 172.7 cm (5' 7.99) 04/16/2024 4:07 PM CD T Body Mass Index 42.68 04/16/2024 4:07 PM CDT Plan of Treatment Upcoming Encounters Date Type Department Care Team (Latest Contact Info) Description 04/23/2024 2:00 PM CDT Clinical Support Department of Nutrition and Diabetes Education in [place], [place] [address] [place] [phone] Alexia Sanchez APRN, C.N.P., M.S. [address] [place] [phone] Yojana Madrigal R.N. 05/07/2024 2:00 PM CDT Appointment Department of Laboratory Medicine and Pathology, [facility] in [place], [place] [address] [place] [phone] Lazarus Dasilva M.D. [address] [place] [phone] 07/12/2024 11:00 AM CODING QUALITY COORDINATOR Clinical Communication Virtual Review in [place], [place] 200 [place] [address] 07/13/2024 1:30 PM CODING QUALITY COORDINATOR Office Visit Division of Endocrinology in [place], [place] [address] [place] [phone] Lazarus Dasilva M.D. [address] [place] [phone] Health Maintenance Due Date Last Done Comments CT Colonography 1968 Colonoscopy 1968 FIT 1968 Hemoglobin A1C 1968 Hepatitis C Screening 1968 Lipid (Cholesterol) Screening 1968 Urine Albumin 1968 Hepatitis B Vaccines (1 of 3 - 19+ 3-dose series) 1987 Pneumococcal vaccine (0-64 years) (2 of 2 - PCV) 05/20/2007 05/20/2006 Zoster Vaccines (1 of 2) 2018 Depression Screening (Annual PHQ-2) 08/08/2023 COVID-19 Vaccine (1 - 2022-24 season) 2024 Creatinine Level (Kidney Function Test) 04/11/2024 04/11/2023, 04/10/2023, 10/07/2014 Potassium Level 04/11/2024 04/11/2023, 09/0 10/2022, 10/07/2014 Sodium Level 04/11/2024 04/11/2023, 09/0 10/2022, 10/07/2014 Influenza Vaccine (#1) 2024 9, 05/18/2012, 05/18/2012, Additional history exists Thyroid Stimulating Hormone (TSH) test for thyroid function 05/23/2024 05/23/2023, 04/10/2023, 10/07/2014 Dilated Eye Exam 07/30/2024 Postponed f rom 1968 (Insurance / Financial) Cologuard 10/15/2024 10/15/2021 Colorectal Cancer Screening 10/15/2024 Diabetic Office Visit with Foot Exam 04/16/2025 04/16/2024 Office Visit for Blood Pressure Check / Re-check 04/16/2025 04/16/2024 DTaP,Tdap,and Td Vaccines (2 - Td or Tdap) 05/14/2029 05/14/2019, 05/20/2006 Procedures Procedure Name Priority Date/Time Associated Diagnosis Comments THYROID-STIMULATING HORMONE-SENSITIVE (S-TSH) Routine 10/07/2014 11:41 PM CODING QUALITY COORDINATOR COMPREHENSIVE METABOLIC PANEL, S/P Routine 10/07/2014 11:41 PM CODING QUALITY COORDINATOR from Last 3 Months or Most Recently Relevant to Health Maintenance Results * Thyroid-Stimulating Hormone-Sensitive (s-TSH) (10/07/2014 11:41 PM CODING QUALITY COORDINATOR) TSH (Thyrotropin) 1.79 0.27 - 4.20 MIUL POWERCHART Blood 10/07/2014 11:4 1 PM CODING QUALITY COORDINATOR Amari Calvillo M.D. LAB BLOOD ADD-ON POWERCHART * (ABNORMAL) CMP (Comprehensive Metabolic Panel) (10/07/2014 11:41 PM CODING QUALITY COORDINATOR) Anion Gap 16 10 - 20 MMOLL [...] 5.0 GDL POWERCHART HXeGFR (MDRD) >60 >=60 [id number] 2 POWERCHART eGFR Black/ >60 >=60 [id number] 2 POWERCHART Blood 10/07/2014 11:4 1 PM CODING QUALITY COORDINATOR Amari Calvillo M.D. LAB BLOOD ADD-ON POWERCHART from Last 3 Months or Most Recently Relevant to Health Maintenance Care Teams Director Of Social Work Relationship Specialty Start Date End Date Elsewhere, Pcp PCP - General Internal Medicine 04/23/23
--- OUTSIDE RECORDS SUMMARY | 2024-04-20 09:05 | XMS_ITS | Encounter Summary ---
Author Organization [facility] Address [address] [place] [address] Care Team Providers Care Machine Cleaner Name Role Phone Elsewhere, Pcp Primary Care Provider Unavailabl e Encounter Details Date Type Department Care Team (Late st Contact Info) Description 01/03/2024 Orders Only [facility] [address], [address] [phone] Fanny Castillo Social History Tobacco Use Types Packs/Day Years Used Date Smoking Tobacco: Never Smokeless Tobacco: Never Alcohol Use Standard Drinks/Week Comments Yes 2 (1 standard drink = 0.6 oz pur e alcohol) Sometimes 0 times a week [facility] Utilities Answer Date Recorded In [...] your living situation today? I have a [facility] place to live 08/23/2023 Sex and Gender Information Value Date Recorded Sex Assigned at Male 08/18/2023 9:22 AM MANAGER GRAPHIC Gender Identity Male 08/18/2023 9:22 AM MANAGER GRAPHIC Sexual Orientation Straight 08/18/2023 9: 22 AM MANAGER GRAPHIC documented as of this encounter Plan of Treatment Upcoming Encounters Date Type Department Care Team (Latest Contact Info) Description 04/23/2024 2:00 PM CDT Clinical Support Department of Nutrition and Diabetes Education in [place], [place] [address] [place] [phone] Alexia Sanchez APRN, C.N.P., M.S. [address] [place] [phone] Yojana Madrigal R.N. 05/07/2024 2:00 PM CDT Appointment Department of Laboratory Medicine and Pathology, [facility], in [place], [place] [address] [place] [phone] Lazarus Dasilva M.D. [address] [place] [phone] 07/12/2024 11:00 AM MANAGER GRAPHIC Clinical Communication Virtual Review in [place], [place] 200 [place] [address] 07/13/2024 1:30 PM MANAGER GRAPHIC Office Visit Division of Endocrinology in [place], [place] [address] [place] [address] Lazarus Dasilva M.D. [address] [place] [address] documented as of this encounter Visit Diagnoses Not on filedocumented in this encounter Care Teams Machine Cleaner Relationship Specialty Start Date End Date Elsewhere, Pcp PCP - General Internal Medicine 04/23/23 documented as of this encounter
--- OUTSIDE RECORDS SUMMARY | 2024-04-20 09:05 | XMS_ITS | Referral Summary ---
Author Organization [facility] Address [address] [place] [address] Care Team Providers Care Twitchell Operator Name Role Phone Elsewhere, Pcp Primary Care Provider Unavailabl e Source Comments Patient records contain information from all sites at [facility]. For routine questions regarding patient records, call [phone] during business hours, M-F 8:00 AM - 5:00 PM Central Time. Record requests for emergency care only can be directed to [phone] at any time.[facility] Encounters Date Type Department Care Team Description 04/17/2024 Orders Only Pharmacy Prior Auth RO [phone] Mel Segovia 04/16/2024 4:00 PM CDT Office Visit Division of Endocrinology in [place], [place] [address] [place] [phone] Alexia Sanchez APRN, C.N.P., M.S. Lazarus Dasilva M.D. Diabetes Mellitus Type 2 (HCC) 04/11/2024 Refill Division of Endocrinology in [place], [place] [address] [place] [phone] Alexia Sanchez APRN, C.N.P., M.S. Med Refill (Omnipod 5 G6) 04/02/2024 Refill Division of Endocrinology in [place], [place] [address] [place] [phone] Alexia Sanchez APRN, C.N.P., M.S. Med Refill 03/27/2024 Orders Only Division of Endocrinology in [place], [place] [address] [place] [phone] Alexia Sanchez APRN, C.N.P., M.S. Diabetes Mellitus Type 2 (HCC) (Primary Dx) 03/13/2024 Clinical Communication Division of Endocrinology in [place], [place] [address] [place] [address] Alexia Sanchez APRN, C.N.P., M.S. OSM - [...] mg by mouth daily. Active blood-glucose sensor ([employer] G7 Sensor) deviceIndications :Diabetes Mellitus Type 2 (HCC) 1 each as directed. 9 each 4 05/13/ 025 Active insulin aspart U-100 (NovoLOG FlexPen) [...] dose when starting this 2 mL 08/14/19 026 Active tirzepatide (Mounjaro) 15 mg/0.5 mL pen injector injection Inject 0.5 mL (15 mg total) under the skin every 7 (seven) days. Stop the lower dose when starting this 2 mL 09/13/19 026 Active tirzepatide (Mounjaro) 2.5 mg/0.5 mL pen injector injection Inject 0.5 mL (2.5 mg total) under the skin every 7 (seven) days. 2 mL 04/16/20 025 Active sertraline (ZOLOFT) 100 mg tablet [...] e alcohol) Sometimes 0 times a week [facility] Utilities Answer Date Recorded In the past 12 months has e [employer], gas, oil, or water [employer] threatened to shut off services in your [...] your living situation today? I have a [facility] place to live 08/23/2023 Sex and Gender Information Value Date Recorded Sex Assigned at Male 08/18/2023 9:22 AM TORTILLA MAKER Gender Identity Male 08/18/2023 9:22 AM TORTILLA MAKER Sexual Orientation Straight 08/18/2023 9: 22 AM TORTILLA MAKER Last Filed Vital Signs Vital Sign Reading [...] Department of Nutrition and Diabetes Education in [place], [place] 200 [place] [address] Alexia Sanchez APRN, C.N.P., M.S. 200 [place] [address] Yojana Madrigal R.N. 05/07/2024 2:00 PM CDT Appointment Department of Laboratory Medicine and Pathology, [facility], in [place], [place] [address] [place] [phone] Lazarus Dasilva M.D. [address] [place] [phone] 07/12/2024 11:00 AM TORTILLA MAKER Clinical Communication Virtual Review in [place], [place] 200 [place] [address] 07/13/2024 1:30 PM TORTILLA MAKER Office Visit Division of Endocrinology in [place], [place] [address] [place] [phone] Lazarus Dasilva M.D. [address] [place] [phone] Procedures Procedure Name Priority Date/Time Associated Diagnosis Comments THYROID-STIMULATING HORMONE-SENSITIVE (S-TSH) Routine 10/07/2014 11:41 PM TORTILLA MAKER COMPREHENSIVE METABOLIC PANEL, S/P Routine 10/07/2014 11:41 PM TORTILLA MAKER from Last 3 Months or Most Recently Relevant to Health Maintenance Results * Thyroid-Stimulating Hormone-Sensitive (s-TSH) (10/07/2014 11:41 PM TORTILLA MAKER) Pathologist [facility] TSH (Thyrotropin) 1.79 0.27 - 4.20 MIUL POWERCHART Blood 10/07/2014 11:4 1 PM TORTILLA MAKER Amari Calvillo M.D. LAB BLOOD ADD-ON POWERCHART * (ABNORMAL) CMP (Comprehensive Metabolic Panel) (10/07/2014 11:41 PM TORTILLA MAKER) Anion Gap 16 10 - 20 MMOLL [...] 5.0 GDL POWERCHART HXeGFR (MDRD) >60 >=60 [id number] 2 POWERCHART eGFR Black/ >60 >=60 [id number] 2 POWERCHART Blood 10/07/2014 11:4 1 PM TORTILLA MAKER Amari Calvillo M.D. LAB BLOOD ADD-ON POWERCHART from Last 3 Months or Most Recently Relevant to Health Maintenance Care Teams Twitchell Operator Relationship Specialty Start Date End Date Elsewhere, Pcp PCP - General Internal Medicine 04/23/23
--- OUTSIDE RECORDS SUMMARY | 2024-04-20 09:05 | XMS_ITS | Encounter Summary ---
Author Organization [facility] Address [address] [place] [address] Care Team Providers Care Tourist Information Officer Name Role Phone Elsewhere, Pcp Primary Care Provider Unavailabl e Reason for Visit * Reason Comments Med Refill Encounter Details Date Type Department Care Team (Late st Contact Info) Description 04/02/2024 Refill Division of Endocrinology in [place], [place] [address] [place] [phone] Alexia Sanchez, ELAN, C.N.P., M.S. [address] [place] [phone] Med Refill Social History Tobacco Use Types Packs/Day Years Used Date Smoking Tobacco: Never Smokeless Tobacco: Never Alcohol Use Standard Drinks/Week Comments Yes 2 (1 standard drink = 0.6 oz pur e alcohol) Sometimes [address] [facility] Utilities Answer Date Recorded In the past 12 months has [employer], gas, oil, or water [employer] threatened to shut off services in your [...] Sex Assigned at Male 08/18/2023 9:22 AM PRODUCTION PATTERN MAKER Gender Identity Male 08/18/2023 9:22 AM PRODUCTION PATTERN MAKER Sexual Orientation Straight 08/18/2023 9: 22 AM PRODUCTION PATTERN MAKER documented as of this encounter Plan of Treatment Upcoming Encounters Date Type Department Care Team (Latest Contact Info) Description 04/23/2024 2:00 PM CDT Clinical Support Department of Nutrition and Diabetes Education in [place], [place] [address] [place] [address] Alexia Sanchez APRN, C.N.P., M.S. 200 [place] [address] Yojana Madrigal R.N. 05/07/2024 2:00 PM CDT Appointment Department of Laboratory Medicine and Pathology, [facility], in [place], [place] [address] [place] [address] Lazarus Dasilva M.D. [address] [place] [phone] 07/12/2024 11:00 AM PRODUCTION PATTERN MAKER Clinical Communication Virtual Review in [place], [place] [address] [place] [address] 07/13/2024 1:30 PM PRODUCTION PATTERN MAKER Office Visit Division of Endocrinology in [place], [place] [address] [place] [phone] Lazarus Dasilva M.D. [address] [place] [phone] documented as of this encounter Visit Diagnoses Diagnosis Diabetes Mellitus Type 2 Hyperglycemia (HCC) documented in this encounter Care Teams Tourist Information Officer Relationship Specialty Start Date End Date Elsewhere, Pcp PCP - General Internal Medicine 04/23/23 documented as of this encounter
--- OUTSIDE RECORDS SUMMARY | 2024-04-20 09:05 | XMS_ITS | Encounter Summary ---
Author Organization [facility] Address [address] [place] [address] Care Team Providers Care Rolled Gold Plater Name Role Phone Elsewhere, Pcp Primary Care Provider Unavailabl e Encounter Details Date Type Department Care Team (Late st Contact Info) Description 01/12/2024 Orders Only Division of Endocrinology in [place], [place] [address] [place] [address] Alexia Sanchez, ELAN, C.N.P., M.S. [address] [place] [address] Social History Tobacco Use Types Packs/Day Years Used Date Smoking Tobacco: Never Smokeless Tobacco: Never Alcohol Use Standard Drinks/Week Comments Yes 2 (1 standard drink = 0.6 oz pur e alcohol) Sometimes 0 times a week [facility] Utilities Answer Date Recorded In the past 12 months has [employer], gas, oil, or water [employer] threatened to shut off services in your [...] your living situation today? I have a [facility] place to live 08/23/2023 Sex and Gender Information Value Date Recorded Sex Assigned at Male 08/18/2023 9:22 AM WRAP TURNER Gender Identity Male 08/18/2023 9:22 AM WRAP TURNER Sexual Orientation Straight 08/18/2023 9: 22 AM WRAP TURNER documented as of this encounter Plan of Treatment Upcoming Encounters Date Type Department Care Team (Latest Contact Info) Description 04/23/2024 2:00 PM CDT Clinical Support Department of Nutrition and Diabetes Education in [place], [place] [address] [place] [address] Alexia Sanchez APRN, C.N.P., M.S. [address] [place] [address] Yojana Madrigal R.N. 05/07/2024 2:00 PM CDT Appointment Department of Laboratory Medicine and Pathology, [facility], in [place], [place] [address] [place] [address] Lazarus Dasilva M.D. [address] [place] [phone] 07/12/2024 11:00 AM WRAP TURNER Clinical Communication Virtual Review in [place], [place] 200 [place] [address] 07/13/2024 1:30 PM WRAP TURNER Office Visit Division of Endocrinology in [place], [place] [address] [place] [phone] Lazarus Dasilva M.D. [address] [place] [phone] documented as of this encounter Visit Diagnoses Not on filedocumented in this encounter Care Teams Rolled Gold Plater Relationship Specialty Start Date End Date Elsewhere, Pcp PCP - General Internal Medicine 04/23/23 documented as of this encounter
--- OUTSIDE RECORDS SUMMARY | 2024-04-20 09:05 | XMS_ITS | Encounter Summary ---
Author Organization [facility] Address [address] [place] [phone] Care Team Providers Care Timber Faller Name Role Phone Elsewhere, Pcp Primary Care Provider Unavailabl e Reason for Visit * Reason Comments Med Refill Omnipod 5 G6 Encounter Details Date Type Department Care Team (Late st Contact Info) Description 04/11/2024 Refill Division of Endocrinology in [place], [place] [address] [place] [phone] Alexia Sanchez, ELAN, C.N.P., M.S. [address] [place] [phone] Med Refill (Omnipod 5 G6) Social History Tobacco Use Types Packs/Day Years Used Date Smoking Tobacco: Never Smokeless Tobacco: Never Alcohol Use Standard Drinks/Week Comments Yes 2 (1 standard drink = 0.6 oz pur e alcohol) Sometimes 0 times a week [facility] Utilities Answer Date Recorded In the past 12 months has [employer], [employer], oil, or water [employer] threatened to shut off services in your [...] situation today? I have a [facility] place to live 08/23/2023 Sex and Gender Information Value Date Recorded Sex Assigned at Male 08/18/2023 9:22 AM ENGLISH LANGUAGE ARTS TEACHER Gender Identity Male 08/18/2023 9:22 AM ENGLISH LANGUAGE ARTS TEACHER Sexual Orientation Straight 08/18/2023 9: 22 AM ENGLISH LANGUAGE ARTS TEACHER documented as of this encounter Plan of Treatment Upcoming Encounters Date Type Department Care Team (Latest Contact Info) Description 04/23/2024 2:00 PM CDT Clinical Support Department of Nutrition and Diabetes Education in [place], [place] [address] [place] [phone] Alexia Sanchez APRN, C.N.P., M.S. [address] [place] [phone] Yojana Madrigal R.NKwesi 05/07/2024 2:00 PM CDT Appointment Department of Laboratory Medicine and Pathology, [facility], in [place], [place] 200 [place] [phone] Lazarus Dasilva M.D. [address] [place] [phone] 07/12/2024 11:00 AM ENGLISH LANGUAGE ARTS TEACHER Clinical Communication Virtual Review in [place], [place] 200 [place] [phone] 07/13/2024 1:30 PM ENGLISH LANGUAGE ARTS TEACHER Office Visit Division of Endocrinology in [place], [place] [address] [place] [phone] Lazarus Dasilva M.D. [address] [place] [phone] documented as of this encounter Visit Diagnoses Not on filedocumented in this encounter Care Teams Timber Faller Relationship Specialty Start Date End Date Elsewhere, Pcp PCP - General Internal Medicine 04/23/23 documented as of this encounter
--- OUTSIDE RECORDS SUMMARY | 2024-04-20 09:05 | XMS_ITS | Encounter Summary ---
Author Organization [facility] Address [address] [place] [phone] Care Team Providers Care Data Base Design Analyst Name Role Phone Elsewhere, Pcp Primary Care Provider Unavailabl e Reason for Referral * Outpatient (Routine) - Closed Specialty Diagnoses / Procedures Referred By Contac t Referred To Contact Endocrinology Diagnoses Diabetes Mellitus Type 2 (HCC) Alexia Sanchez APRN, C.N.P., M.S. [address] [place] [phone] Lorenza Velazquez APRN C.N.P., M.S. [address] [place] [phone] Referral ID Status Reason Start Date Expiration Date Visits Re quested Visits Authorized [id number] Closed 03/27/2024 09/26/2025 1 1 Scheduling Instructions Please schedule in DM2 provider slot - Lorenza or metabolic clinic - please call pt to schedule Encounter Details Date Type Department Care Team (Late st Contact Info) Description 03/27/2024 Orders Only Division of Endocrinology in [place], [place] [address] [place] [phone] Alexia Sanchez APRN, C.N.Jad., M.S. [address] [place] [phone] Diabetes Mellitus Type 2 (HCC) (Primary Dx) Social History Tobacco Use Types Packs/Day Years Used Date Smoking Tobacco: Never Smokeless Tobacco: Never Alcohol Use Standard Drinks/Week Comments Yes 2 (1 standard drink = 0.6 oz pur e alcohol) Sometimes 0 times a week [facility] Utilities Answer Date Recorded In the [...] your living situation today? I have a [facility] place to live 08/23/2023 Sex and Gender Information Value Date Recorded Sex Assigned at Male 08/18/2023 9:22 AM CHILD WELFARE DIRECTOR Gender Identity Male 08/18/2023 9:22 AM CHILD WELFARE DIRECTOR Sexual Orientation Straight 08/18/2023 9: 22 AM CHILD WELFARE DIRECTOR documented as of this encounter Plan of Treatment Upcoming Encounters Date Type Department Care Team (Latest Contact Info) Description 04/23/2024 2:00 PM CDT Clinical Support Department of Nutrition and Diabetes Education in [address] [phone] Alexia Sanchez APRN, C.N.P., M.S. [address] [place] [phone] Yojana Madrigal R.N. 05/07/2024 2:00 PM CDT Appointment Department of Laboratory Medicine and Pathology, [facility] in [address] [phone] Lazarus Dasilva M.D. [address] [place] [phone] 07/12/2024 11:00 AM CHILD WELFARE DIRECTOR Clinical Communication Virtual Review in [place], [place] 200 [place] [phone] 07/13/2024 1:30 PM CHILD WELFARE DIRECTOR Office Visit Division of Endocrinology in [address] [phone] Lazarus Dasilva M.D. [address] [place] [phone] Scheduled Referrals Name Type Priority Associated Diagnoses Order Schedule Endocrinology office visit (clinic) Outpatient Referral Routine Diabetes Mellitus Type 2 (HCC) Expected: 03/27/2024, Expires: 06/27/2025 documented as of this encounter Visit Diagnoses Diagnosis Diabetes Mellitus Type 2 (HCC)- Primary documented in this encounter Care Teams Data Base Design Analyst Relationship Specialty Start Date End Date Elsewhere, Pcp PCP - General Internal Medicine 04/23/23 documented as of this encounter
--- OUTSIDE RECORDS SUMMARY | 2024-04-20 09:05 | XMS_ITS ---
Author Organization [facility] Address [address] [place] [address] Care Team Providers Care Instrumentation Tech Name Role Phone Unavailable Unavailable Unavailable Surgery Details Not on file Complications Check Surgery Details section. Procedure Estimated Blood Loss Check Surgery Details section. Procedure Findings Check Surgery Details section. Procedure Specimens Taken Check Surgery Details section.
--- OUTSIDE RECORDS SUMMARY | 2024-04-20 09:05 | XMS_ITS | Encounter Summary ---
Author Organization [facility] Address [address] [place] [address] Care Team Providers Care Group Dynamics Instructor Name Role Phone Elsewhere, Pcp Primary Care Provider Unavailabl e Encounter Details Date Type Department Care Team (Late st Contact Info) Description 04/17/2024 Orders Only Pharmacy Prior Auth [facility] [phone] Juliette, Mel M Social History Tobacco Use Types Packs/Day Years Used Date Smoking Tobacco: Never Smokeless Tobacco: Never Alcohol Use Standard Drinks/Week Comments Yes 2 (1 standard drink = 0.6 oz pur e alcohol) Sometimes 0 times a week [facility] Utilities Answer Date Recorded In the past 12 months has th e [employer], gas, oil, or water [employer] threatened to shut off services in your [...] your living situation today? I have a [facility] place to live 08/23/2023 Sex and Gender Information Value Date Recorded Sex Assigned at Male 08/18/2023 9:22 AM REFINERY OPERATOR COKING Gender Identity Male 08/18/2023 9:22 AM REFINERY OPERATOR COKING Sexual Orientation Straight 08/18/2023 9: 22 AM REFINERY OPERATOR COKING documented as of this encounter Plan of Treatment Upcoming Encounters Date Type Department Care Team (Latest Contact Info) Description 04/23/2024 2:00 PM CDT Clinical Support Department of Nutrition and Diabetes Education in [place], [place] [address] [place] [phone] Alexia Sanchez APRN, C.N.P., M.S. [address] [place] [phone] Yojana Madrigal R.N. 05/07/2024 2:00 PM CDT Appointment Department of Laboratory Medicine and Pathology, [facility] in [place], [place] [address] [place] [phone] Lazarus Dasilva M.D. [address] [place] [phone] 07/12/2024 11:00 AM REFINERY OPERATOR COKING Clinical Communication Virtual Review in [place], [place] 200 [place] [phone] 07/13/2024 1:30 PM REFINERY OPERATOR COKING Office Visit Division of Endocrinology in [place], [place] [address] [place] [phone] Lazarus Dasilva M.D. [address] [place] [phone] documented as of this encounter Visit Diagnoses Not on filedocumented in this encounter Care Teams Group Dynamics Instructor Relationship Specialty Start Date End Date Elsewhere, Pcp PCP - General Internal Medicine 04/23/23 documented as of this encounter
--- OUTSIDE RECORDS SUMMARY | 2024-04-20 09:05 | XMS_ITS | Encounter Summary ---
Author Organization [facility] Address [address] [place] [address] Care Team Providers Care Purchasing Internship Name Role Phone Elsewhere, Pcp Primary Care Provider Unavailabl e Reason for Referral * Outpatient (Routine) - Authorized Specialty Diagnoses / Procedures Referred By Yasmeen dudley Referred To Contact Endocrinology Diagnoses Diabetes Mellitus Type 2 (HCC) Lazarus Dasilva M.D. [address] [place] [phone] [facility] Referral ID Status Reason Start Date Expiration Date V isits Requested Visits Authorized [id number] Authorized 04/16/2024 10/16/2025 1 1 Scheduling Instructions Metabolism clinic * Medication Prior Authorization - Closed Specialty Diagnoses / Procedures Referred By Yasmeen dudley Referred To Contact Lazarus Dasilva M.D. [address] [place] [phone] Referral ID Status Reason Start Date Expiration Date Visits Re quested Visits Authorized [id number] Closed 1 1 Reason for Visit * Outpatient (Routine) - Closed Specialty Diagnoses / Procedures Referred By Yasmeen dudley Referred To Contact Endocrinology Diagnoses Diabetes Mellitus Type 2 (HCC) Alexia Sanchez APRN, C.N.P., M.S. [address] [place] [phone] Lorenza Velazquez, ELAN C.N.P., M.S. [address] [place] [phone] Referral ID Status Reason Start Date Expiration Date Visits Re quested Visits Authorized [id number] Closed 03/27/2024 09/26/2025 1 1 Encounter Details Date Type Department Care Team (Late st Contact Info) Description 04/16/2024 4:00 PM CDT Office Visit Division of Endocrinology in [place], [place] [address] [place] [phone] Alexia Sanchez APRN C.N.P., M.S. [address] [place] [phone] Lazarus Dasilva M.D. [address] [place] [phone] Diabetes Mellitus Type 2 (HCC) Social History Tobacco Use Types Packs/Day Years Used Date Smoking Tobacco: Never Smokeless Tobacco: Never Alcohol Use Standard Drinks/Week Comments Yes 2 (1 standard drink = 0.6 oz pur e alcohol) Sometimes 0 times a week [facility] Utilities Answer Date Recorded In the past 12 months has [email or web address], gas, oil, or water [employer] threatened to shut off services in your [...] your living situation today? I have a [facility] place to live 08/23/2023 Sex and Gender Information Value Date Recorded Sex Assigned at Male 08/18/2023 9:22 AM SENIOR ELECTRICAL ESTIMATOR Gender Identity Male 08/18/2023 9:22 AM SENIOR ELECTRICAL ESTIMATOR Sexual Orientation Straight 08/18/2023 9: 22 AM SENIOR ELECTRICAL ESTIMATOR documented as of this encounter Last Filed Vital Signs Vital Sign Reading Time Taken Comments Blood Pressure 132/78 04/16/2024 4:07 PM CDT Pulse 84 04/16/2024 4:07 PM CDT Temperature - - Respiratory Rate - - Oxygen Saturation - - Inhaled Oxygen Concentration - - Weight 127 kg (280 lb 10.3 oz) 04/16/2024 4:07 P M CDT Height 172.7 cm (5' 7.99) 04/16/2024 4:07 PM CD T Body Mass Index 42.68 04/16/2024 4:07 PM CDT documented in this encounter Patient Instructions * Patient Instructions* Lazarus Dasilva M.D. - 04/16/2024 4:00 PM CDT Goal blood sugar is <200 mg/dL Begin taking novolog 100 units three times a day Continue Toujeo 140 qAM and 120 qPM Please log your insulin as you take it in your moira Meet with the diabetes nurse for dose adjustments Please make your eye appointment We would plan to have you start the tirzepatide with 2.5 mg/week dose. After 4 weeks, the dose willbe increased to 5 mg. Your dose will be increased in 2.5 mg increments after at least 4 weeks on the current dose. The maximum dosage is 15 mg once weekly. Reasons we would not increase the dose? If you have diarrhea, vomiting, or, bad constipation or abdominal pain please do not take the next dose. The medication is likely to cause nausea, heartburn and decreased appetite. If these symptoms are bad, please do not take the next dose. The right dose is the one that you can tolerate but that is still effective in helping you lose weight. We can plan to touch base in 3 months time with labs but always are available in the portal in between documented in this encounter Consult Notes * Lazarus Dasilva M.D. - 04/16/2024 4:00 PM CDT CHIEF COMPLAINT/PURPOSE OF VISIT Patient is here in consultation of type 2 diabetes management.He presents today for medication assessment. Did not have insulin for one week, was taking the toujeo Was also not using the dexcom G7 HISTORY OF PRESENT ILLNESS #1 Diabetes Mellitus Type 2 Diabetes diagnosis: 27 years ago with an office visit. Notes possible polyuria. Was previously on other diabetes medications but most recently has been on insulin therapy. Diabetes regimen: U-100 Lantus and NovoLog insulin at the following doses. Toujeo Max 140 units qAM and 120 units qPM NovoLog mealtime insulin 100 units three times daily. Reports being consistent with taking insulin. Takes mealtime insulin after eating. Administering insulin to the abdomen. Wearing Dexcom sensor. HYPOGLYCEMIA Denies recent hypoglycemia. Aware of symptoms and will feel shaky and diaphoretic. Treats with orange juice or soda. No severe hypoglycemia. BLOOD GLUCOSE MONITORING Phone did not connect so looking on phone 90 days TI was 16% avg BG of 276+- 86 30 days 10.1 GMI 14% TIR TSH of 30 fT4 of 0.7 He takes his levothyroxine 5/7 days of the week. He does take it fasting. HbA1c of 9.9% LIFESTYLE Diet: Reports eating 3 meals per day. Also snacks throughout the day. Sundae or cookies, cheese crackers Exercise: No routine activity. Family Hx of parents, not sure of others, no siblings or kids ETOH-w/ week Smoking- none Weight: Wt Readings from Last 3 Encounters: 04/16/24 127 kg 08/29/23 124 kg 04/23/23 117 kg 280 lbs now . Work type/schedule: Unemployed HISTORY Denies any prior history of pancreatitis. No family history of medullary thyroid cancer or MEN2. REVIEW OF DIABETES COMPLICATIONS/SCREENINGS Lab Results Component Value Date GLUCOSE 276 (H) 04/10/2023 CREATININE 0.96 04/11/2023 TSH 2.51 05/23/2023 ALT 37 04/11/2023 Last eye exam: Few months ago per report. No diabetes complications per report. Blurred Vision for past month Last year eye exam >1 year ago PHYSICAL EXAMINATION General: Interactive but mood appears low with increased latency of speech Abdominal exam Significant abdominal adiposity no tenderness no evidence of lipodystrophy No ostensible thyromegaly Foot exam , patient has onychomycosis on all his toes, calluses, monofilament testing is abnormal able to feel 1 of the sites only. Good DP pulses bilateral IMPRESSION/REPORT/PLAN #1 Diabetes Mellitus Type 2, hyperglycemia with HbA1c 9.9% #2 Obesity class III #3 Hypothyroidism TSH of 30, currently on 325? Mcg of levothyroxine The patient presents for follow up of uncontrolled type 2 diabetes that has been longstanding. He unfortunately lost his job lost insurance and ran out of his [employer] about a week ago. As such as blood sugars has been in the upper 300s. Denies symptoms of hyperglycemia at this time. He does have a Dexcom G7 which shows that he has had persistent hyperglycemia since not having meal time insulin but when he did he was having post prandial excursions. Given incomplete information, it would be helpful for patient to log his insulin doses so when he meet with the diabetes RN they can work on adjusting insulin doses. Given his insulin use is > 300 TDD we will not pursue a pump at this time. As far as non insulin therapy. He would be a good candidate for metformin, SGLT2 inhibitor, GLP 1 agonist. Patient has had an over 10 kg weight gain in a year. He reports grazing snacks throughout the day that are energy dense such as cookies and ice cream Sundays. He did take Victoza for a month discontinued this due to access issues. He did not have any symptoms. He would certainly benefit in the setting of his class 3 obesity from a GLP 1 agonist management of his diabetes and obesity. He previously tolerated Invokana but discontinued both this medication and metformin due to concerns about side effects from a possible lawsuit. The patient would like to defer an SGLT2 or returning to metformin at this time. This can be revisited in the future. We will prescribe Mounjaro/Tirzepatide. The patient does not have a family history of medullary thyroid cancer nor does he have a personal history of pancreatitis. I discussed the risks and benefits of initiating GLP 1 therapy as well as the rationale for uptitration and when we should and should go up on the dose. Patient expressed understanding. His TSH was elevated to 30 in setting of non adherences 2/7 days of the week. It was increased to 325 mcg but I suspect will need further titration when patient has more adherence. He does have a depressed appearing affect with increased latency of speech unsure if from depression vs hypothyroidism. Plan Urine microalbumin 05/07 when patient returns with his for her visits 04/23 Diabetes RN for insulin titration PCP follow up in the interim Initiate Mounjaro, increasing dose every 4 weeks as tolerated Patient to make local retinopathy screen appt Patient will consider podiatry vs treatment of his onychomycosis, counseled the patient regarding diabetic foot health 3 month follow up with metabolism clinic/myself in 3 months with labs Reconsider jardiance/metformin in the future Discussed care and counseled the patient for [address] Herrera. Lazarus Dasilva MD Endocrinology Fellow Pgr [phone] Associated attestation - Jn Herrera M.D. - 04/17/2024 10:41 AM CDT I saw and evaluated the patient, participating in the soler portions of the service. I reviewed Dr. Dasilva???s note. I agree with Dr. Dasilva???s findings and plan, including confirming albuminuria,starting GLP-1 based therapy and taking levothyroxine with appropriate precautions before considering increasing the dose. Levothyroxine should be taken on an empty stomach, for example in the morning (fasting). Please take it with water (and not other food, drink, medicines or supplements with it for at least 30 minutes thereafter). No doses of levothyroxine should be missed. This can be ensuredby using a Pill Organizer box. If one forgets a dose one day, that dose can be taken with the dose of the next day. Mounjaro (tirzepatide) Injection Mounjaro should not be used by someone with a History of medullary thyroid carcinoma (MTC), or with a personal or family history of MTC or in patients with Multiple Endocrine Neoplasia syndrome type 2 (MEN 2). History of pancreatitis Mounjaro should be used with caution by someone with a Gall bladder disease Taking Mounjaro: The recommended starting dosage is 2.5 mg injected subcutaneously once weekly (any time of day, with or without meals) If you have diarrhea, vomiting, or, bad constipation or abdominal pain please do not take the next dose. It is likely to cause nausea, heartburn and decreased appetite. If these symptoms are bad, please do not take the next dose. After making sure that the 2.5 mg dose is tolerated for at least 4 weeks, the dose can be increasedto 5 mg once weekly. If you have diarrhea, vomiting, or, bad constipation or abdominal pain please do not take the next 5-mg dose. Instead we will reduce it back to 2.5 mg dose and try to go up on it later. The dose can be increased to 7.5 mg, 10 mg, 12.5 mg, or 15 mg provided you can tolerate the lower dose for at least 4 weeks. Higher dose is tolerated less often than the lower dose. Higher dose is expected to cause further weight loss and more glucose control. Mounjaro should be discontinued if you develop Pancreatitis Diarrhea Vomiting Heartburn, not controlled with dietary measures Pain abdomen While taking Mounjaro be careful about reducing other diabetes medicines, and if already present, Gall bladder disease Diabetic Eye disease Mounjaro is expected to Reduce appetite and weight loss. Overeating can lead to vomiting. Stop eating when the stomach feels full. documented in this encounter Plan of Treatment Upcoming Encounters Date Type Department Care Team (Latest Contact Info) Description 04/23/2024 2:00 PM CDT Clinical Support Department of Nutrition and Diabetes Education in [place], [place] [address] [place] [phone] Alexia Sanchez APRN, C.N.P., M.S. [address] [place] [phone] Yojana Madrigal R.N. 05/07/2024 2:00 PM CDT Appointment Department of Laboratory Medicine and Pathology, [facility] in [place], [place] [address] [place] [phone] Lazarus Dasilva M.D. [address] [place] [phone] 07/12/2024 11:00 AM SENIOR ELECTRICAL ESTIMATOR Clinical Communication Virtual Review in [place], [place] 200 [place] [phone] 07/13/2024 1:30 PM SENIOR ELECTRICAL ESTIMATOR Office Visit Division of Endocrinology in [place], [place] [address] [place] [phone] Lazarus Dasilva M.D. [address] [place] [phone] Scheduled Orders Name Type Priority Associated Diagnoses Orde r Schedule Albumin, Random, Urine Lab Routine Diabetes Mellitus Type 2 (HCC) Expected: 04/16/2024, Expires: 07/16/2025 Hemoglobin A1c Lab Routine Diabetes Mellitus Type 2 (HCC) Expected: 07/16/2024, Expires: 07/16/2025 S-TSH (Thyroid-Stimulating Hormone - Sensitive) Lab Routine Diabetes Mellitus Type 2 (HCC) Expected: 07/16/2024, Expires: 07/16/2025 Glucose, Fasting Lab Routine Diabetes Mellitus Type 2 (HCC) Expected: 07/16/2024, Expires: 07/16/2025 Scheduled Referrals Name Type Priority Associated Diagnoses Order Schedule Endocrinology office visit (clinic) Outpatient Referral Routine Diabetes Mellitus Type 2 (HCC) Expected: 07/16/2024, Expires: 07/16/2025 documented as of this encounter Visit Diagnoses Diagnosis Diabetes Mellitus Type 2 (HCC) documented in this encounter Care Teams Purchasing Internship Relationship Specialty Start Date End Date Elsewhere, Pcp PCP - General Internal Medicine 04/23/23 documented as of this encounter
== END 2024-04-20 09:03 | disposition home or self-care (01) ==
PROVIDERS: PCP Nurse Practitioner Family; Visit Provider Nurse Practitioner Family
DX: E11.65 Type 2 diabetes mellitus with hyperglycemia (principal); E03.9 Hypothyroidism, unspecified; Z79.4 Long term (current) use of insulin; Z12.5 Encounter for screening for malignant neoplasm of prostate; Z13.21 Encounter for screening for nutritional disorder
CPT/HCPCS: 82043; 82570; 82607; 84439; 84443; G0103

== ENCOUNTER 2024-07-13 12:52 | Emergency (ER) | payer OTHER, SELFPAY ==
[2024-07-13 13:39] VITALS: BP 144/76; PULSE 69; RESP 18; TEMP 36.6; O2SAT 95; BMI 43.9
--- NOTE | 2024-07-13 14:48 | CRLHL7_ITS ---
For Patients: As a result of the Century Cures Act, medical imaging exams and procedure reports are released immediately into your electronic medical record. You may view this report before your referring provider. If you have questions, please contact your health care provider. INDICATION: Right knee pain. Injury when bending over. COMPARISON: None. TECHNIQUE: Three radiographic view(s) of the right knee. FINDINGS: No evident acute displaced fracture. Moderate patellofemoral predominant compartment degenerative change. Chronic appearing deformity of the distal femoral metadiaphysis with cortical thickening and mild angulation. There is a lucent presumed screw tract which extends horizontally through this region as well as a small osseous excrescence at the medial aspect of the femoral metadiaphysis. Small superior and medium-sized inferior patellar enthesophytes. Small knee joint effusion. IMPRESSION: 1. No evident acute displaced fracture. 2. Chronic appearing deformity of the distal femoral metadiaphysis as described above, possibly due to old trauma and/or surgery. Correlate with clinical history. 3. Moderate patellofemoral compartment predominant degenerative change. 4. Small knee joint effusion. Dictated by Venkatesh Gonsales MD @ 07/13/2024 4:00:01 PM (Electronically Signed)
--- NOTE | 2024-07-13 16:19 | ED_ITS ---
HPI - Extremity Injury (Lower) General Date Seen: 07/13/24 Chief Complaint: Extremity Pain/Injury, Lower Stated Complaint: Knee Pain Time Seen by Provider: 07/13/24 14:58 Source: patient Mode of arrival: ambulatory Limitations: no limitations History of Present Illness HPI Narrative: Patient is a 54-year-old male presenting to the emergency department for right knee pain. He states a couple days ago he bent down and heard a pop in his right knee and since then has been unable to fully extend the knee. Has been trying aspirin home without relief. States the pain is a 7/10. No other injuries to this knee that he is aware of. Denies any numbness to the knee. Denies any other extremity pain. Related Data Home Medications ?Medication ?Instructions ?Recorded ?Confirmed aspirin 81 mg chewable tablet 81 mg PO QDAY 02/16/22 07/18/24 escitalopram oxalate 10 mg tablet 20 mg PO QDAY 04/20/24 07/18/24 Previous Rx's ?Medication ?Instructions ?Recorded cane #1 ea 03/01/22 blood-glucose meter,continuous #1 ea 11/03/22 (Dexcom G6 Director Strategic Planning) blood sugar diagnostic (Accu-Chek #200 ea 11/12/22 Haylee Plus test strips) blood-glucose meter (Accu-Chek #1 ea 11/12/22 Haylee Plus Meter) lancets (Accu-Chek Fastclix Lancet #200 ea 11/12/22 Drum) blood-glucose sensor (Dexcom G6 #3 ea 07/05/23 Sensor device) pen needle, diabetic 31 gauge x #200 ea 09/06/23 5/16 (Unifine Pentips) blood-glucose transmitter (Dexcom #1 ea 11/15/23 G6 Transmitter device) ropinirole 4 mg tablet 4 mg PO QDAY 90 days #90 tabs 11/15/23 insulin syringe-needle U-100 1 mL #500 ea 11/25/23 27 gauge x 1/2 (BD Insulin Syringe) levothyroxine 100 mcg tablet 300 mcg (3 x 100 mcg) PO DAILY #90 03/09/24 tabs levothyroxine 50 mcg tablet 50 mcg PO QDAY #90 tabs 04/23/24 hydrochlorothiazide 25 mg tablet 25 mg PO QDAY 90 days #90 tabs 09/30/24 oxybutynin chloride 15 mg 15 mg PO QDAY #90 tabs 05/07/24 tablet,extended release 24 hr simvastatin 40 mg tablet 40 mg PO DAILY #90 tabs 06/28/24 ketorolac 10 mg tablet 10 mg PO Q6H PRN pain #20 tabs 07/13/24 Allergies Allergy/AdvReac Type Severity Reaction Status Date / Time pioglitazone Allergy Unknown weight Verified 07/18/24 15:08 gain, dyspnea lisinopril Allergy Verified 07/18/24 15:08 Review of Systems Narrative: Pertinent systems reviewed and were negative unless stated in HPI PFSH PFS Medical History Osteomyelitis ?M86.9 - Osteomyelitis, unspecified (ICD-10) Anxiety ?F41.9 - Anxiety disorder, unspecified (ICD-10) Urinary incontinence ?R32 - Unspecified urinary incontinence (ICD-10) Type 2 diabetes mellitus ?E11.9 - Type 2 diabetes mellitus without complications (ICD-10) Restless legs syndrome ?G25.81 - Restless legs syndrome (ICD-10) Primary hypertension ?I10 - Essential (primary) hypertension (ICD-10) Pressure injury of skin ?L89.90 - Pressure ulcer of unspecified site, unspecified stage (ICD-10) Obstructive sleep apnea syndrome ?G47.33 - Obstructive sleep apnea (adult) (pediatric) (ICD-10) Morbid obesity due to excess calories ?E66.01 - Morbid (severe) obesity due to excess calories (ICD-10) Hypothyroidism ?E03.9 - Hypothyroidism, unspecified (ICD-10) Hyperlipidemia ?E78.5 - Hyperlipidemia, unspecified (ICD-10) History of dyspnea ?Z87.09 - Personal history of other diseases of the respiratory system (ICD- 10) Erectile dysfunction ?N52.9 - Male erectile dysfunction, unspecified (ICD-10) Dystrophia unguium ?L60.3 - Nail dystrophy (ICD-10) Carpal tunnel syndrome ?G56.00 - Carpal tunnel syndrome, unspecified upper limb (ICD-10) 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 - Ocular hypertension, bilateral (ICD-10) Surgical History Amputation of right index finger ?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.110A - 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 Works for [employer]. No children. No formal exercise. Non-smoker. Alcohol average 2 drinks per week. No illicit drug use. Smoking Status: Never smoker Do you use any of these nicotine containing products: None Second hand tobacco smoke exposure: No How often do you have a drink containing alcohol: never AUDIT-C Alcohol total score: 0 Non-prescribed substance use: denies use Exam Narrative: Exam Narrative: Const: Well-nourished, Well-developed, in mild distress Eyes: PERRL, no conjunctival injection, and symmetrical lids HENT: Atraumatic external nose and ears. Moist mucous membranes. MSK: Mild swelling to noted to right knee with more swelling noted superior and medial to the patella not seen on his other knee. difficult with extension to right knee. Positive Chasity test to lateral meniscus Skin: Warm, Dry. No rashes or lesions. Neuro: Normal Muscle tone, No focal neurological deficits. Psych: Awake, Alert, & Oriented x3. Appropriate mood and affect. Const: Vital Signs, click to edit/add: Vital Signs - 24 hr 07/13/24 13:39 Temperature 97.9 F Pulse Rate [Pulse Oximeter] 69 Respiratory Rate 18 Blood Pressure [Ri ght Upper Arm] 144/76 H Pulse Oximetry 95 Oxygen Delivery Me thod Room Air Course Vital Signs Vital signs: Initial Vital Signs Temperature 97.9 F 07/13/24 13:39 Temperature Source Temporal Artery Scan 07/13/24 13:39 Pulse Rate 69 07/13/24 13:39 Pulse Rhythm Regular 07/13/24 13:39 Respiratory Rate 18 07/13/24 13:39 Blood Pressure 144/76 H 07/13/24 13:39 Blood Pressure Mean 98 07/13/24 13:39 Blood Pressure Position Sitting 07/13/24 13:39 Pulse Oximetry 95 07/13/24 13:39 Oxygen Delivery Method Room Air 07/13/24 13:39 Vital Signs Temperature 97.9 F 07/13/24 13:39 Pulse Rate 69 07/13/24 13:39 Respiratory Rate 18 07/13/24 13:39 Blood Pressure 144/76 H 07/13/24 13:39 Pulse Oximetry 95 07/13/24 13:39 Oxygen Delivery Method Room Air 07/13/24 13:39 Temperature 97.9 F 07/13/24 13:39 Pulse Rate 69 07/13/24 13:39 Respiratory Rate 18 07/13/24 13:39 Blood Pressure 144/76 H 07/13/24 13:39 Pulse Oximetry 95 07/13/24 13:39 Oxygen Delivery Method Room Air 07/13/24 13:39 Medications Administered Medications: Discontinued Medications Generic Name Dose Route Start Last Admin Trade Name Freq PRN Reason Stop Dose Admin Ketorolac Tromethamine 30 mg 07/13/24 16:19 07/13/24 16:33 Ketorolac 30 Mg/Ml Inj IM 07/13/24 16:20 30 mg ONCE ONE Administration MDM - Extremity Injury (Lower) MDM Narrative Medical decision making narrative: Patient is a 54-year-old male presenting for right knee pain with popping sound and locking sensation. This makes me concern for meniscus injury. Will x-ray the knee. X-ray results reviewed myself the radiologist shows no acute fractures but there is chronic appearing deformity about the distal femoral metadiaphysis. This could be due to old trauma or surgery. There is some moderate patellofemoral compartment degeneration changes and a small knee joint effusion. Will give the patient Toradol for pain and a knee brace. I informed him he needs to follow-up with orthopedics on Tuesday. He is agreeable to this plan. Will give him a prescription for Toradol. No known kidney disease. Imaging Data Right knee x-ray: Attestation: I have reviewed the pertinent imaging results. Radiologist's impression: 1. No evident acute displaced fracture. 2. Chronic appearing deformity of the distal femoral metadiaphysis as described above, possibly due to old trauma and/or surgery. Correlate with clinical history. 3. Moderate patellofemoral compartment predominant degenerative change. 4. Small knee joint effusion. Dictated by Venkatesh Gonsales MD @ 07/13/2024 4:00:01 PM Discharge Plan Discharge Clinical Impression: Acute pain of right knee Patient Disposition: Home, Self-Care Condition: Stable Instructions: Meniscus Tear (ED) Additional Instructions: Take the Toradol as needed for pain. He can also take Tylenol. While your using Toradol though do not take other NSAIDs. Use knee brace for comfort. Follow-up with [facility]. Call them at . Prescriptions: New ketorolac 10 mg tablet 10 mg PO Q6H PRN (Reason: pain) Qty: 20 0RF Rx Instructions: maximum total duration of 5 days from all oral, intranasal, or parenteral formulations No Action aspirin 81 mg tablet,chewable 81 mg PO QDAY (DME) blood-glucose meter [Accu-Chek Haylee Plus Meter] Misc See Rx Instructions .Route Qty: 1 0RF Rx Instructions: As directed (DME) Accu-Chek Haylee Plus test strp Strip See Rx Instructions .Route Qty: 200 12RF Rx Instructions: qid (DME) lancets [Accu-Chek Fastclix Lancet Drum] Misc See Rx Instructions .Route Qty: 200 12RF Rx Instructions: qid escitalopram oxalate 10 mg tablet 20 mg PO QDAY (DME) cane Device See Rx Instructions .Route Qty: 1 0RF Rx Instructions: As directed (DME) Dexcom G6 Director Strategic Planning Misc See Rx Instructions .Route Qty: 1 0RF Rx Instructions: As directed (DME) Dexcom G6 Sensor Device See Rx Instructions .Route Qty: 3 11RF Rx Instructions: As directed (DME) pen needle, diabetic [Unifine Pentips] 31 gauge x 5/16 needle See Rx Instructions .ROUTE .COMPLEX Qty: 200 1RF Dose Instruction: USE TWICE DAILY Rx Instructions: USE TWICE DAILY ropinirole 4 mg tablet 4 mg PO QDAY 90 Days Qty: 90 2RF (DME) Dexcom G6 Transmitter Device See Rx Instructions .ROUTE .COMPLEX Qty: 1 2RF Dose Instruction: USE DIRECTED Rx Instructions: USE DIRECTED (DME) insulin syringe-needle U-100 [BD Insulin Syringe] 1 mL 27 gauge x 1/2 syringe See Rx Instructions .Route Qty: 500 5RF Rx Instructions: qid levothyroxine 100 mcg tablet 300 mcg PO DAILY Qty: 90 3RF Rx Instructions: 300 mcg daily in addition to the 25 mcg tablet levothyroxine 50 mcg tablet 50 mcg PO QDAY Qty: 90 3RF Rx Instructions: in addition to 300 mcg daily; total of 350 mcg daily hydrochlorothiazide 25 mg tablet 25 mg PO QDAY 90 Days Qty: 90 0RF oxybutynin chloride 15 mg tablet extended release 24hr 15 mg PO QDAY Qty: 90 3RF simvastatin 40 mg tablet 40 mg PO DAILY Qty: 90 1RF Follow Up/Referrals: Gwen Jenkins, TILE FITTER, PHARMACY SALES REPRESENTATIVE [Primary Care Provider] - Stand Alone [facility]: [facility] Info Inst[facility]
[2024-07-13] MEDS: KETOROLAC 30 MG/ML inj IM (16:33)
--- OUTSIDE RECORDS SUMMARY | 2024-07-13 16:41 | XMS_ITS | Encounter Summary ---
Author Organization [facility] Address [address] [place] [id number] Care Team Providers Care Plunger Shovel Operator Name Role Phone Elsewhere, Pcp Primary Care Provider Unavailabl e Reason for Referral * Outpatient (Routine) - Authorized Specialty Diagnoses / Procedures Referred By Yasmeen dudley Referred To Contact Endocrinology Diagnoses Diabetes Mellitus Type 2 (HCC) Nurys Waters M.D. [address] [place] [phone] Phone: tel: fax: [facility] Referral ID Status Reason Start Date Expiration Date V isits Requested Visits Authorized [id number] Authorized 04/16/2024 10/16/2025 1 1 Scheduling Instructions Metabolism clinic Reason for Visit * Outpatient (Routine) - Closed Specialty Diagnoses / Procedures Referred By Yasmeen dudley Referred To Contact Endocrinology Diagnoses Diabetes Mellitus Type 2 (HCC) Alexia Sanchez APRN, C.N.P., M.S. [address] [place] [phone] Phone: tel: fax: Lorenza Velazquez APRN, C.N.P., M.S. [address] [place] [phone] Phone: tel: fax: Referral ID Status Reason Start Date Expiration Date Visits Re quested Visits Authorized [id number] Closed 03/27/2024 09/26/2025 1 1 Encounter Details Date Type Department Care Team (Late st Contact Info) Description 04/16/2024 4:00 PM CDT Office Visit Division of Endocrinology in [place], [place] [address] [place] [phone] Alexia Sanchez APRN C.N.P., M.S. [address] [place] [phone] Nurys Waters M.D. [address] [place] [phone] Diabetes Mellitus Type 2 (HCC) Social History Tobacco Use Types Packs/Day Years Used Date Smoking Tobacco: Never Smokeless Tobacco: Never Alcohol Use Standard Drinks/Week Comments Yes 2 (1 standard drink = 0.6 oz pur e alcohol) Sometimes 0 times a week [facility] ffk environmentities Answer Date Recorded In the past 12 months has [employer], gas, oil, or water [employer] threatened to shut off services in your [...] your living situation today? I have a [facility] place to live 08/23/2023 Sex and Gender Information Value Date Recorded Sex Assigned at Male 08/18/2023 9:22 AM HISTORICAL GUIDE Legal Sex Male 10:28 AM HISTORICAL GUIDE Gender Identity Male 08/18/2023 9:22 AM HISTORICAL GUIDE Sexual Orientation Straight 08/18/2023 9: 22 AM HISTORICAL GUIDE documented as of this encounter Last Filed [...] this encounter Patient Instructions * Patient Instructions* Nurys Waters M.D. - 04/16/2024 4:00 PM CDT Goal [...] documented in this encounter Consult Notes * Nurys Waters M.D. - 04/16/2024 4:00 PM CDT CHIEF [...] lost insurance and ran out of his [employer] about a week ago. As such as [...] for [address] Herrera. Nurys Waters MD Endocrinology Fellow Pgr [phone] Cosigned by Jn Herrera M.D. at 04/17/2024 10:41 AM CDT Associated attestation - Jn Herrera M.D. - 04/17/2024 10:41 AM CDT I saw and evaluated the patient, participating in the soler portions of the service. I reviewed Dr. Waters???s note. I agree with Dr. Waters???s findings and plan, including confirming albuminuria,starting GLP-1 [...] stomach feels full. documented in this encounter Miscellaneous Notes * Addendum Note - Nurys Waters M.D. - 04/16/2024 4:00 PM CDTAddended by: NURYS WATERS on: 04/27/2024 01:42 PM Modules accepted: Orders documented in this encounter Plan of Treatment Upcoming Encounters Date Type Department Care Team (Latest Contact Info) Description 09/12/2024 1:00 PM HISTORICAL GUIDE Clinical Communication Virtual Review in [place], [place] [address] [place] [phone] 09/17/2024 2:00 PM HISTORICAL GUIDE Office Visit Division of Endocrinology in [place], [place] [address] [place] [phone] Nurys Waters M.D. [address] [place] [phone] Scheduled Orders Name Type Priority Associated Diagnoses [...] (HCC) documented in this encounter Care Teams Plunger Shovel Operator Relationship Specialty Start Date End Date Elsewhere, Pcp PCP - General Internal Medicine 04/23/23 documented as of this encounter
--- OUTSIDE RECORDS SUMMARY | 2024-07-13 16:41 | XMS_ITS | Encounter Summary ---
Author Organization [facility] Address [address] [place] [phone] Care Team Providers Care Residential Advisor Name Role Phone Elsewhere, Pcp Primary Care Provider Unavailabl e Reason for Visit * Reason Comments Med Refill Encounter Details Date Type Department Care Team (Late st Contact Info) Description 04/30/2024 Refill Division of Community Internal Medicine, [facility], in [place], [place] [address] [place] [phone] Lazarus Dasilva M.D. [address] [place] [phone] Med Refill Social History Tobacco Use Types Packs/Day Years Used Date Smoking Tobacco: Never Smokeless Tobacco: Never Alcohol Use Standard Drinks/Week Comments Yes 2 (1 standard drink = 0.6 oz pur e alcohol) Sometimes 0 times a week [facility] Utilities Answer Date Recorded In the past 12 months has [employer], [employer], oil, or water [employer] threatened to shut off services in your [...] Sex Assigned at Male 08/18/2023 9:22 AM PROPERTY DAMAGE CLAIMS ADJUSTOR Legal Sex Male 10:28 AM PROPERTY DAMAGE CLAIMS ADJUSTOR Gender Identity Male 08/18/2023 9:22 AM PROPERTY DAMAGE CLAIMS ADJUSTOR Sexual Orientation Straight 08/18/2023 9: 22 AM PROPERTY DAMAGE CLAIMS ADJUSTOR documented as of this encounter Plan of Treatment Upcoming Encounters Date Type Department Care Team (Latest Contact Info) Description 09/12/2024 1:00 PM PROPERTY DAMAGE CLAIMS ADJUSTOR Clinical Communication Virtual Review in [place], [place] [address] [place] [phone] 09/17/2024 2:00 PM PROPERTY DAMAGE CLAIMS ADJUSTOR Office Visit Division of Endocrinology in [place], [place] [address] [place] [phone] Lazarus Dasilva M.D. [address] [place] [phone] documented as of this encounter Visit Diagnoses Diagnosis Diabetes Mellitus Type 2 Hyperglycemia (HCC)- Primary documented in this encounter Care Teams Residential Advisor Relationship Specialty Start Date End Date Elsewhere, Pcp PCP - General Internal Medicine 04/23/23 documented as of this encounter
--- OUTSIDE RECORDS SUMMARY | 2024-07-13 16:41 | XMS_ITS | Clinical Summary ---
Author Organization [facility] Address [address] [place] [address] Care Team Providers Care Guest Relations Receptionist Name Role Phone Elsewhere, Pcp Primary Care Provider Unavailabl e Source Comments Patient records contain information from all sites at [facility]. For routine questions regarding patient records, call [phone] during business hours, M-F 8:00 AM - 5:00 PM Central Time. Record requests for emergency care only can be directed to [phone] at any time.[facility] Allergies Active Allergy Reactions Criticality Noted Date Comments Ari Inhibitors Angioedema High 04/05/2023 Lisinopril Other (see comments) High 06/07/2023 likely angioedema, normal formal testing Pioglitazone Other (see comments) 06/07/2023 Medications [address] tablet Take 81 [...] mg by mouth daily. Active blood-glucose sensor ([employer] G7 Sensor) deviceIndications :Diabetes Mellitus Type 2 [...] levothyroxine 25 mcg tablet 04/13/20 24 Active semaglutide (Ozempic) 1 mg/dose (4 mg/3 mL) injection Inject 1 mg under the skin every 7 (seven) days. Increase ONLY IF NO SYMPTOMS FOR 1 month; go back down one step if bad symptoms 3 mL 11 06/22/20 24 025 Active semaglutide (Ozempic) 2 mg/dose (8 mg/3 mL) injection Inject 2 mg under the skin every 7 (seven) days. Increase ONLY IF NO SYMPTOMS FOR 1 month; go back down one step if bad symptoms 3 mL 11 07/20/20 24 025 Active semaglutide (Ozempic) 0.25 mg or 0.5 mg (2 mg/3 mL) injectionIndicati ons:Diabetes Mellitus Type 2 Hyperglycemia (HCC) Inject 0.25 mg under the skin every 7 (seven) days for 28 days, THEN 0.5 mg every 7 (seven) days. Increase ONLY IF NO SYMPTOMS FOR 1 month; go back down one step if bad symptoms. 39.75 mL 04/30/20 24 025 Active Active Problems Problem Noted Date Diagnosed Date Angioneurotic (Angioedema Acquired) Edema Initia l 04/10/2023 Obesity Unspecified 03/05/2010 Diabetes Mellitus Type 2 02/20/2010 Overview (03/17/2020): Overview: a system change updated this record. This will not affect patient care or billing. This comment can be deleted. Hyperlipidemia 02/20/2010 Hypertension 02/20/2010 Hypothyroidism 02/20/2010 Encounters Date Type Department Care Team Description 04/30/2024 Refill Division of [facility] Internal Medicine, [facility] in [place], [place] [address] [place] [address] Lazarus Dasilva M.D. Med Refill 04/27/2024 Clinical Communication Division of [facility] Internal Medicine, [facility] in [place], [place] [address] [place] [address] Lazarus Dasilva M.D. Rx Denial (Mounjaro) 04/24/2024 Clinical Communication Division of Endocrinology in [place], [place] [address] [place] [address] Lazarus Dasilva M.D. [employer] - Outside Materials 04/17/2024 Orders Only Pharmacy Prior Auth [phone] Mel Segovia 04/16/2024 4:00 PM CDT Office Visit Division of Endocrinology in [place], [place] [address] [place] [address] Alexia Sanchez, ELAN, C.N.P., M.S. Lazarus Dasilva M.D. Diabetes Mellitus Type 2 (HCC) from Last 3 Months Immunizations Name Administration [...] e alcohol) Sometimes 0 times a week [facility] Utilities Answer Date Recorded In the past 12 months has [employer], gas, oil, or water [employer] threatened to shut off services in your [...] your living situation today? I have a [facility] place to live 08/23/2023 Sex and Gender Information Value Date Recorded Sex Assigned at Male 08/18/2023 9:22 AM RESOLUTION REP Legal Sex Male 10:28 AM RESOLUTION REP Gender Identity Male 08/18/2023 9:22 AM RESOLUTION REP Sexual Orientation Straight 08/18/2023 9: 22 AM RESOLUTION REP Last Filed Vital Signs Vital Sign Reading Time Taken Comments Blood Pressure 132/78 04/16/2024 4:07 PM CDT Pulse 84 04/16/2024 4:07 PM CDT Temperature 36.3 C (97.3 F) 04/23/2023 7:00 AM CDT Respiratory Rate 24 04/23/2023 7:00 AM CDT [...] (Latest Contact Info) Description 09/12/2024 1:00 PM RESOLUTION REP Clinical Communication Virtual Review in [place], [place] [address] [place] [address] 09/17/2024 2:00 PM RESOLUTION REP Office Visit Division of Endocrinology in [place], [place] [address] [place] [phone] Lazarus Dasilva M.D. [address] [place] [phone] Health Maintenance Due Date Last Done Comments Hemoglobin A1C 1968 Hepatitis C Screening 1968 Lipid (Cholesterol) Screening 1968 Urine Albumin 1968 Hepatitis B Vaccines (1 of 3 - 19+ 3-dose series) 1987 Pneumococcal vaccine (0-64 years) (2 of 2 - PCV) 05/20/2007 05/20/2006 Zoster Vaccines (1 of 2) 2018 Depression Screening (Annual PHQ-2) 08/08/2023 COVID-19 Vaccine ( - season) 2024 Creatinine Level (Kidney Function Test) 04/11/2024 04/11/2023, 04/10/2023, 10/07/2014 Potassium Level 04/11/2024 04/11/2023, 09/0 10/2022, 10/07/2014 Sodium Level 04/11/2024 04/11/2023, 09/0 10/2022, 10/07/2014 Influenza Vaccine (#1) 2024 9, 05/18/2012, 05/18/2012, Additional history exists Thyroid Stimulating Hormone (TSH) test for thyroid function 05/23/2024 05/23/2023, 04/10/2023, 10/07/2014 Dilated Eye Exam 07/30/2024 Postponed f rom 1968 (Insurance / Financial) Diabetic Office Visit with Foot Exam 04/16/2025 04/16/2024 Office Visit for Blood Pressure Check / Re-check 04/16/2025 04/16/2024 DTaP,Tdap,and Td Vaccines (2 - Td or Tdap) 05/14/2029 05/14/2019, 05/20/2006 Cologuard Discontinued 10/15/2021 Colorectal Cancer Screening Discontinued CT Colonography Discontinued Colonoscopy Discontinued FIT Discontinued IPV Vaccines Aged Out No longer eligi ble based on patient's age to complete this topic Procedures Procedure Name Priority Date/Time Associated Diagnosis Comments THYROID-STIMULATING HORMONE-SENSITIVE (S-TSH) Routine 10/07/2014 11:41 PM RESOLUTION REP COMPREHENSIVE METABOLIC PANEL, S/P Routine 10/07/2014 11:41 PM RESOLUTION REP from Last 3 Months or Most Recently Relevant to Health Maintenance Results * Thyroid-Stimulating Hormone-Sensitive (s-TSH) (10/07/2014 11:41 PM RESOLUTION REP) TSH (Thyrotropin) 1.79 0.27 - 4.20 MIUL POWERCHART Blood 10/07/2014 11:4 1 PM RESOLUTION REP us Amari Calvillo M.D. LAB BLOOD ADD-ON Final Re sult POWERCHART * (ABNORMAL) CMP (Comprehensive Metabolic Panel) (10/07/2014 11:41 PM RESOLUTION REP) Anion Gap 16 10 - 20 MMOLL [...] 5.0 GDL POWERCHART HXeGFR (MDRD) >60 >=60 [id number] 2 POWERCHART eGFR Black/ >60 >=60 [id number] 2 POWERCHART Blood 10/07/2014 11:4 1 PM RESOLUTION REP us Amari Calvillo M.D. LAB BLOOD ADD-ON Final Re sult POWERCHART from Last 3 Months or Most Recently Relevant to Health Maintenance Insurance [place] [id number] [facility] [address] [id number] Care Teams Guest Relations Receptionist Relationship Specialty Start Date End Date Elsewhere, Pcp PCP - General Internal Medicine 04/23/23
--- OUTSIDE RECORDS SUMMARY | 2024-07-13 16:41 | XMS_ITS | Encounter Summary ---
Author Organization [facility] Address [address] [place] [address] Care Team Providers Care Vice President & General Manager [employer] Name Role Phone Elsewhere, Pcp Primary Care Provider Unavailabl e Encounter Details Date Type Department Care Team (Late st Contact Info) Description 04/17/2024 Orders Only Pharmacy Prior Auth SIS [phone] Mel Segovia Social History Tobacco Use Types Packs/Day Years Used Date Smoking Tobacco: Never Smokeless Tobacco: Never Alcohol Use Standard Drinks/Week Comments Yes 2 (1 standard drink = 0.6 oz pur e alcohol) Sometimes 0 times a week [facility] Utilities Answer Date Recorded In the past 12 months has th e [employer], gas, oil, or water [employer] threatened to shut off services in your [...] your living situation today? I have a [facility] place to live 08/23/2023 Sex and Gender Information Value Date Recorded Sex Assigned at Male 08/18/2023 9:22 AM U.S. REPRESENTATIVE Legal Sex Male 10:28 AM U.S. REPRESENTATIVE Gender Identity Male 08/18/2023 9:22 AM U.S. REPRESENTATIVE Sexual Orientation Straight 08/18/2023 9: 22 AM U.S. REPRESENTATIVE documented as of this encounter Plan of Treatment Upcoming Encounters Date Type Department Care Team (Latest Contact Info) Description 09/12/2024 1:00 PM U.S. REPRESENTATIVE Clinical Communication Virtual Review in [place], [place] [address] [place] [address] 09/17/2024 2:00 PM U.S. REPRESENTATIVE Office Visit Division of Endocrinology in [place], [place] [address] [place] [phone] Lazarus Dasilva M.D. [address] [place] [phone] documented as of this encounter Visit Diagnoses Not on filedocumented in this encounter Care Teams Vice President & General Manager [employer] Relationship Specialty Start Date End Date Elsewhere, Pcp PCP - General Internal Medicine 04/23/23 documented as of this encounter
--- OUTSIDE RECORDS SUMMARY | 2024-07-13 16:41 | XMS_ITS | Encounter Summary ---
Author Organization [facility] Address [address] [place] [address] Care Team Providers Care Medical Sales Representative Name Role Phone Elsewhere, Pcp Primary Care Provider Unavailabl e Reason for Visit * Reason Onset Date Comments [employer] - Outside Materials 04/24/2024 Encounter Details Date Type Department Care Team (Latest Contact Info) Description 04/24/2024 Clinical Communication Division of Endocrinology in [place], [place] [address] [place] [address] Lazarus Dasilva M.D. [address] [place] [phone] [employer] - [employer] Social History Tobacco Use Types Packs/Day Years Used Date Smoking Tobacco: Never Smokeless Tobacco: Never Alcohol Use Standard Drinks/Week Comments Yes 2 (1 standard drink = 0.6 oz pur e alcohol) Sometimes 0 times a week [facility] Utilities Answer Date Recorded In the past 12 months has [employer], [employer], oil, or water [employer] threatened to shut off services in your [...] your living situation today? I have a [facility] place to live 08/23/2023 Sex and Gender Information Value Date Recorded Sex Assigned at Male 08/18/2023 9:22 AM SOLUTION PROFESSIONAL Legal Sex Male 10:28 AM SOLUTION PROFESSIONAL Gender Identity Male 08/18/2023 9:22 AM SOLUTION PROFESSIONAL Sexual Orientation Straight 08/18/2023 9: 22 AM SOLUTION PROFESSIONAL documented as of this encounter Plan of Treatment Upcoming Encounters Date Type Department Care Team (Latest Contact Info) Description 09/12/2024 1:00 PM SOLUTION PROFESSIONAL Clinical Communication Virtual Review in [place], [place] [address] [place] [address] 09/17/2024 2:00 PM SOLUTION PROFESSIONAL Office Visit Division of Endocrinology in [place], [place] [address] [place] [address] Lazarus Dasilva M.D. [address] [place] [address] documented as of this encounter Visit Diagnoses Not on filedocumented in this encounter Care Teams Medical Sales Representative Relationship Specialty Start Date End Date Elsewhere, Pcp PCP - General Internal Medicine 04/23/23 documented as of this encounter
--- OUTSIDE RECORDS SUMMARY | 2024-07-13 16:41 | XMS_ITS | Encounter Summary ---
Author Organization [facility] Address [address] [place] [address] Care Team Providers Care Communications Agent Name Role Phone Elsewhere, Pcp Primary Care Provider Unavailabl e Reason for Visit * Reason Onset Date Comments [employer] - Outside Materials 03/13/2024 Encounter Details Date Type Department Care Team (Latest Contact Info) Description 03/13/2024 Clinical Communication Division of Endocrinology in [place], [place] [address] [place] [phone] Alexia Sanchez APRN, C.N.P., M.S. [address] [place] [phone] [employer] Social History Tobacco Use Types Packs/Day Years Used Date Smoking Tobacco: Never Smokeless Tobacco: Never Alcohol Use Standard Drinks/Week Comments Yes 2 (1 standard drink = 0.6 oz pur e alcohol) Sometimes 0 times a week [facility] Utilities Answer Date Recorded In the past 12 months has [employer], gas, oil, or water [employer] threatened to shut off services in your [...] living situation today? I have a [facility] place to live 08/23/2023 Sex and Gender Information Value Date Recorded Sex Assigned at Male 08/18/2023 9:22 AM LINOLEUM MECHANIC Legal Sex Male 10:28 AM LINOLEUM MECHANIC Gender Identity Male 08/18/2023 9:22 AM LINOLEUM MECHANIC Sexual Orientation Straight 08/18/2023 9: 22 AM LINOLEUM MECHANIC documented as of this encounter Plan of Treatment Upcoming Encounters Date Type Department Care Team (Latest Contact Info) Description 09/12/2024 1:00 PM LINOLEUM MECHANIC Clinical Communication Virtual Review in [place], [place] [address] [place] [address] 09/17/2024 2:00 PM LINOLEUM MECHANIC Office Visit Division of Endocrinology in [place], [place] [address] [place] [phone] Lazarus Dasilva M.D. [address] [place] [address] documented as of this encounter Visit Diagnoses Not on filedocumented in this encounter Care Teams Communications Agent Relationship Specialty Start Date End Date Elsewhere, Pcp PCP - General Internal Medicine 04/23/23 documented as of this encounter
--- OUTSIDE RECORDS SUMMARY | 2024-07-13 16:41 | XMS_ITS ---
Author Organization [facility] Address [address] [place] [address] Care Team Providers Care Hat Lining Blocker Name Role Phone Unavailable Unavailable Unavailable Surgery Details Not on file Complications Check Surgery Details section. Procedure Estimated Blood Loss Check Surgery Details section. Procedure Findings Check Surgery Details section. Procedure Specimens Taken Check Surgery Details section.
--- OUTSIDE RECORDS SUMMARY | 2024-07-13 16:41 | XMS_ITS | Encounter Summary ---
Author Organization [facility] Address [address] [place] [address] Care Team Providers Care Endbander Name Role Phone Elsewhere, Pcp Primary Care Provider Unavailabl e Reason for Referral * Outpatient (Routine) - Closed Specialty Diagnoses / Procedures Referred By Contromeo t Referred To Contact Endocrinology Diagnoses Diabetes Mellitus Type 2 (HCC) Alexia Sanchez APRN, C.N.P., M.S. [address] [place] [phone] Phone: tel: fax: Lorenza Velazquez APRN, C.N.P., M.S. [address] [place] [phone] Phone: tel: fax: Referral ID Status Reason Start Date Expiration Date Visits Re quested Visits Authorized [id number] Closed 03/27/2024 09/26/2025 1 1 Scheduling Instructions Please schedule in DM2 provider slot - Lorenza or metabolic clinic - please call pt to schedule Encounter Details Date Type Department Care Team (Late st Contact Info) Description 03/27/2024 Orders Only Division of Endocrinology in [place], [place] [address] [place] [phone] Alexia Sanchez APRN, C.N.P., M.S. [address] [place] [phone] Diabetes Mellitus Type 2 (HCC) (Primary Dx) Social History Tobacco Use Types Packs/Day Years Used Date Smoking Tobacco: Never Smokeless Tobacco: Never Alcohol Use Standard Drinks/Week Comments Yes 2 (1 standard drink = 0.6 oz pur e alcohol) Sometimes 0 times a week [facility] Utilities Answer Date Recorded In the past 12 months has e [employer], gas, oil, or water [employer] threatened to shut off services in your [...] your living situation today? I have a [facility] place to live 08/23/2023 Sex and Gender Information Value Date Recorded Sex Assigned at Male 08/18/2023 9:22 AM PRE CODER Legal Sex Male 10:28 AM PRE CODER Gender Identity Male 08/18/2023 9:22 AM PRE CODER Sexual Orientation Straight 08/18/2023 9: 22 AM PRE CODER documented as of this encounter Plan of Treatment Upcoming Encounters Date Type Department Care Team (Latest Contact Info) Description 09/12/2024 1:00 PM PRE CODER Clinical Communication Virtual Review in [place], [place] [address] [place] [address] 09/17/2024 2:00 PM PRE CODER Office Visit Division of Endocrinology in [place], [place] [address] [place] [phone] Lazarus Dasilva M.D. [address] [place] [phone] Scheduled Referrals Name Type Priority Associated Diagnoses Order Schedule Endocrinology office visit (clinic) Outpatient Referral Routine Diabetes Mellitus Type 2 (HCC) Expected: 03/27/2024, Expires: 06/27/2025 documented as of this encounter Visit Diagnoses Diagnosis Diabetes Mellitus Type 2 (HCC)- Primary documented in this encounter Care Teams Endbander Relationship Specialty Start Date End Date Elsewhere, Pcp PCP - General Internal Medicine 04/23/23 documented as of this encounter
--- OUTSIDE RECORDS SUMMARY | 2024-07-13 16:41 | XMS_ITS | Encounter Summary ---
Author Organization [facility] Address [address] [place] [address] Care Team Providers Care Salesperson [employer] Name Role Phone Elsewhere, Pcp Primary Care Provider Unavailabl e Reason for Visit * Reason Comments Med Refill Omnipod 5 G6 Encounter Details Date Type Department Care Team (Late st Contact Info) Description 04/11/2024 Refill Division of Endocrinology in [place], [place] [address] [place] [phone] Alexia Sanchez, ELAN, C.N.P., M.S. [address] [place] [phone] Med Refill (Omnipod 5 G6) Social History Tobacco Use Types Packs/Day Years Used Date Smoking Tobacco: Never Smokeless Tobacco: Never Alcohol Use Standard Drinks/Week Comments Yes 2 (1 standard drink = 0.6 oz pur e alcohol) Sometimes 0 times a week [facility] Utilities Answer Date Recorded In the past 12 months has [employer], gas, oil, or water [employer] threatened to shut off services in your [...] your living situation today? I have a [facility] place to live 08/23/2023 Sex and Gender Information Value Date Recorded Sex Assigned at Male 08/18/2023 9:22 AM WORKDAY SENIOR ASSOCIATE Legal Sex Male 10:28 AM WORKDAY SENIOR ASSOCIATE Gender Identity Male 08/18/2023 9:22 AM WORKDAY SENIOR ASSOCIATE Sexual Orientation Straight 08/18/2023 9: 22 AM WORKDAY SENIOR ASSOCIATE documented as of this encounter Plan of Treatment Upcoming Encounters Date Type Department Care Team (Latest Contact Info) Description 09/12/2024 1:00 PM WORKDAY SENIOR ASSOCIATE Clinical Communication Virtual Review in [place], [place] [address] [place] [address] 09/17/2024 2:00 PM WORKDAY SENIOR ASSOCIATE Office Visit Division of Endocrinology in [place], [place] [address] [place] [phone] Lazarus Dasilva M.D. [address] [place] [phone] documented as of this encounter Visit Diagnoses Not on filedocumented in this encounter Care Teams Salesperson [employer] Relationship Specialty Start Date End Date Elsewhere, Pcp PCP - General Internal Medicine 04/23/23 documented as of this encounter
--- OUTSIDE RECORDS SUMMARY | 2024-07-13 16:41 | XMS_ITS | Clinical Summary ---
Author Organization [employer] [facility] Address [place], [place] [address] Care Team Providers Care Supervisor Process Testing Name Role Phone Gwen Jenkins FOSTER PARENT Primary Care Provider [phone] Allergies Active Allergy Reactions Criticality Noted Date [...] 76 05/23/2023 9:58 AM CDT Temperature 36.7 C (98 F) 05/23/2023 9:58 AM CDT Respiratory Rate 19 [...] 2018 COVID-19 vaccine series ( - season) 2024 Influenza for age 50-64 04/08/2024 05/17/20 11, [...] Code Status Discussion: Reviewed Preferences Care Teams Supervisor Process Testing Relationship Specialty Start Date End Date Gwen Jenkins FOSTER PARENT [address] [facility] CjMARCK [id number] [phone] PCP - General Emergency Medicine 04/21/22
--- OUTSIDE RECORDS SUMMARY | 2024-07-13 16:41 | XMS_ITS | Referral Summary ---
Author Organization [facility] Address [address] [place] [address] Care Team Providers Care Scalp Treatment Operator Name Role Phone Elsewhere, Pcp Primary Care Provider Unavailabl e Source Comments Patient records contain information from all sites at [facility]. For routine questions regarding patient records, call [phone] during business hours, M-F 8:00 AM - 5:00 PM Central Time. Record requests for emergency care only can be directed to [phone] at any time.[facility] Encounters Date Type Department Care Team Description 04/30/2024 Refill Division of [facility], [facility] in [place], [place] [address] [place] [address] Lazarus Dasilva M.D. Med Refill 04/27/2024 Clinical Communication Division of [facility], [facility], in [place], [place] [address] [place] [address] Lazarus Dasilva M.D. Rx Denial (Mounjaro) 04/24/2024 Clinical Communication Division of Endocrinology in [place], [place] [address] [place] [address] Lazarus Dasilva M.D. [facility] - Outside Materials 04/17/2024 Orders Only Pharmacy Prior Auth RO [phone] Mel Segovia 04/16/2024 4:00 PM CDT Office Visit Division of Endocrinology in [place], [place] [address] [place] [address] Alexia Sanchez APRN C.N.Jad., M.S. Lazarus Dasilva M.D. Diabetes Mellitus Type 2 (HCC) from Last 3 Months Allergies Active Allergy [...] 1 mL 31 gauge x /16 syringe 05/09/20 20 Active hydroCHLOROthiazi de (HYDRODIURIL) [...] the evening 84 mL 1 02/16/20 24 Active famotidine (Pepcid) 40 mg tablet Take [...] one step if bad symptoms 3 mL 07/20/20 24 025 Active semaglutide (Ozempic) 0.25 [...] Recorded In the past 12 months has [employer], or water [employer] threatened to shut off services in your [...] your living situation today? I have a [facility] place to live 08/23/2023 Sex and Gender Information Value Date Recorded Sex Assigned at Male 08/18/2023 9:22 AM RIVER CROSSING SUPERVISOR Legal Sex Male 10:28 AM RIVER CROSSING SUPERVISOR Gender Identity Male 08/18/2023 9:22 AM RIVER CROSSING SUPERVISOR Sexual Orientation Straight 08/18/2023 9: 22 AM RIVER CROSSING SUPERVISOR Last Filed Vital Signs Vital Sign Reading [...] (Latest Contact Info) Description 09/12/2024 1:00 PM RIVER CROSSING SUPERVISOR Clinical Communication Virtual Review in [place], [place] [address] [place] [address] 09/17/2024 2:00 PM RIVER CROSSING SUPERVISOR Office Visit Division of Endocrinology in [place], [place] [address] [place] [address] Lazarus Dasilva M.D. [address] [place] [address] Procedures Procedure Name Priority Date/Time Associated Diagnosis Comments THYROID-STIMULATING HORMONE-SENSITIVE (S-TSH) Routine 10/07/2014 11:41 PM RIVER CROSSING SUPERVISOR COMPREHENSIVE METABOLIC PANEL, S/P Routine 10/07/2014 11:41 PM RIVER CROSSING SUPERVISOR from Last 3 Months or Most Recently Relevant to Health Maintenance Results * Thyroid-Stimulating Hormone-Sensitive (s-TSH) (10/07/2014 11:41 PM RIVER CROSSING SUPERVISOR) TSH (Thyrotropin) 1.79 0.27 - 4.20 MIUL POWERCHART Blood 10/07/2014 11:4 1 PM RIVER CROSSING SUPERVISOR us Amari Calvillo M.D. LAB BLOOD ADD-ON Final Re sult POWERCHART * (ABNORMAL) CMP (Comprehensive Metabolic Panel) (10/07/2014 11:41 PM RIVER CROSSING SUPERVISOR) Anion Gap 16 10 - 20 MMOLL [...] 5.0 GDL POWERCHART HXeGFR (MDRD) >60 >=60 [id number] 2 POWERCHART eGFR Black/ >60 >=60 [id number] 2 POWERCHART Blood 10/07/2014 11:4 1 PM RIVER CROSSING SUPERVISOR us Amari Calvillo M.D. LAB BLOOD ADD-ON Final Re sult POWERCHART from Last 3 Months or Most Recently Relevant to Health Maintenance Insurance [place] [id number] [facility] Address: [address] [place] [address] [place] [address] [place] [id number] Care Teams Scalp Treatment Operator Relationship Specialty Start Date End Date Elsewhere, Pcp PCP - General Internal Medicine 04/23/23
--- OUTSIDE RECORDS SUMMARY | 2024-07-13 16:41 | XMS_ITS | Encounter Summary ---
Author Organization [facility] Address [address] [place] [address] Care Team Providers Care Director Social Name Role Phone Elsewhere, Pcp Primary Care Provider Unavailabl e Reason for Visit * Reason Comments Med Refill Encounter Details Date Type Department Care Team (Late st Contact Info) Description 04/02/2024 Refill Division of Endocrinology in [place], [place] [address] [place] [phone] Alexia Sanchez, ELAN, C.N.P., M.S. [address] [place] [phone] Med Refill Social History Tobacco Use Types Packs/Day Years Used Date Smoking Tobacco: Never Smokeless Tobacco: Never Alcohol Use Standard Drinks/Week Comments Yes 2 (1 standard drink = 0.6 oz pur e alcohol) Sometimes [address] [facility] Utilities Answer Date Recorded In the past 12 months has [employer], [employer], oil, or water [employer] threatened to shut off services in your [...] Sex Assigned at Male 08/18/2023 9:22 AM PROPOSAL WRITER Legal Sex Male 10:28 AM PROPOSAL WRITER Gender Identity Male 08/18/2023 9:22 AM PROPOSAL WRITER Sexual Orientation Straight 08/18/2023 9: 22 AM PROPOSAL WRITER documented as of this encounter Plan of Treatment Upcoming Encounters Date Type Department Care Team (Latest Contact Info) Description 09/12/2024 1:00 PM PROPOSAL WRITER Clinical Communication Virtual Review in [place], [place] [address] [place] [address] 09/17/2024 2:00 PM PROPOSAL WRITER Office Visit Division of Endocrinology in [place], [place] [address] [place] [address] Lazarus Dasilva M.D. [address] [place] [address] documented as of this encounter Visit Diagnoses Diagnosis Diabetes Mellitus Type 2 Hyperglycemia (HCC) documented in this encounter Care Teams Director Social Relationship Specialty Start Date End Date Elsewhere, Pcp PCP - General Internal Medicine 04/23/23 documented as of this encounter
--- OUTSIDE RECORDS SUMMARY | 2024-07-13 16:41 | XMS_ITS | Encounter Summary ---
Author Organization [facility] Address [address] [place] [address] Care Team Providers Care Coater Operator Name Role Phone Elsewhere, Pcp Primary Care Provider Unavailabl e Reason for Visit * Reason Onset Date Comments Rx Denial 04/27/2024 [place] Encounter Details Date Type Department Care Team (Latest Contact Info) Description 04/27/2024 Clinical Communication Division of [facility], [facility] in [place], [place] [address] [place] [address] Lazarus Dasilva M.D. [address] [place] [phone] Rx Denial (Callum) Social History Tobacco Use Types Packs/Day Years Used Date Smoking Tobacco: Never Smokeless Tobacco: Never Alcohol Use Standard Drinks/Week Comments Yes 2 (1 standard drink = 0.6 oz pur e alcohol) Sometimes 0 times a week [facility] Utilities Answer Date Recorded In the past 12 months has e [employer], [employer], oil, or water [employer] threatened to shut off services in your [...] living situation today? I have a [facility] place to live 08/23/2023 Sex and Gender Information Value Date Recorded Sex Assigned at Male 08/18/2023 9:22 AM PARA PROFESSIONAL Legal Sex Male 10:28 AM PARA PROFESSIONAL Gender Identity Male 08/18/2023 9:22 AM PARA PROFESSIONAL Sexual Orientation Straight 08/18/2023 9: 22 AM PARA PROFESSIONAL documented as of this encounter Plan of Treatment Upcoming Encounters Date Type Department Care Team (Latest Contact Info) Description 09/12/2024 1:00 PM PARA PROFESSIONAL Clinical Communication Virtual Review in [place], [place] [address] [place] [address] 09/17/2024 2:00 PM PARA PROFESSIONAL Office Visit Division of Endocrinology in [place], [place] [address] [place] [address] Lazarus Dasilva M.D. [address] [place] [address] documented as of this encounter Visit Diagnoses Not on filedocumented in this encounter Care Teams Coater Operator Relationship Specialty Start Date End Date Elsewhere, Pcp PCP - General Internal Medicine 04/23/23 documented as of this encounter
== END 2024-07-13 17:16 | disposition home or self-care (01) ==
LOC: ED 16:39
PROVIDERS: Emergency Provider Student in an Organized Health Care Education/Training Program; PCP Nurse Practitioner Family
DX: M25.561 Pain in right knee (principal)
CPT/HCPCS: 73562; 96372; 99283; 99284; J1885

== ENCOUNTER 2024-07-23 17:54 | Outpatient (CLI) | payer OTHER, SELFPAY ==
--- NOTE | 2024-07-23 18:00 | MR_ITS ---
[address] [address] Phone:?[phone] Fax:?[phone] Referring Physician Information: Rick Salgado M.D. [address] [facility] [address] Phone:?[phone] Fax:?[phone] Patient:Antony Long D.O.B:?1970 Sex:?Male Phone:?[phone] [facility] MRN:?[id number] Exam Date:?07/23/2024 EXAM: MRI of the RIGHT KNEE, without contrast CLINICAL: Right knee pain. Evaluate for medial meniscal tear. COMPARISONS: X-rays dated 07/13/2024. TECHNICAL: Multiplanar multisequence MRI of the right knee was obtained. SEDATION: None. CONTRAST: None. FINDINGS: Ligaments: ACL: Intact and unremarkable. PCL: There is increased signal/partial tearing involving the PCL. No evidence of complete ligament disruption. MCL: There is increased soft tissue edema about the MCL, which otherwise appears intact. LCL: Intact and unremarkable. Posterolateral corner: Popliteus, biceps femoris, iliotibial band, and the popliteofibular ligament appear intact. Posteromedial corner: Semimembranosus, pes anserine tendons and posterior oblique ligament appear intact. Extensor mechanism: Patellar tendon: Intact, without tendinopathy. Quadriceps tendon: Intact, without tendinopathy. Retinacula: Medial and lateral retinacula are intact. Patellofemoral joint: Patella: There is high-grade/full-thickness loss involving the peripheral medial patellar facet. Trochlea: There is high-grade/full-thickness chondral loss involving the medial trochlea with underlying subchondral reactive marrow edema. Grade 2-3 chondral loss with deep chondral fissuring and delamination involves the central trochlea with underlying subchondral marrow edema. Medial compartment: Medial meniscus: There is minimal focal increased signal/fraying involving the undersurface of the posterior horn on sagittal series 8 image 21. Medial meniscus is otherwise intact. No meniscal displacement. Medial cartilage: Small segment of high-grade/full-thickness chondral loss involves the lateral aspect of the weightbearing medial femoral condyle on coronal series 10 images 20-21 and sagittal series 8 image 19 with mild underlying subchondral marrow edema. Medial tibial plateau cartilage is maintained. Lateral compartment: Lateral meniscus: No evidence of discrete meniscal tear or meniscal displacement. Lateral cartilage: No significant chondromalacia. Knee joint: Effusion: Moderate sized partially visualized right knee effusion. Intra-articular bodies:?No convincing bodies identified. Popliteal cyst: None. Bones: Partially visualized mild irregularity of the distal femur is suggestive of sequelae of prior trauma/surgery as seen on prior radiographs. No evidence of acute fracture. There is mild reactive marrow edema involving the central distal femur and central tibial plateau. There is scattered degenerative peripheral marginal spurring involving the knee. IMPRESSION: 1. Minimal focal increased signal/fraying involving the undersurface of the posterior horn medial meniscus. Menisci otherwise appear intact. 2. Partial tearing of the PCL. Increased soft tissue edema noted about the MCL, which otherwise appears intact. 3. Chondral loss involving the patellofemoral compartment and lateral aspect of the weightbearing medial femoral condyle as above. 4. Moderate sized joint effusion. [facility] Electronically signed on 07/24/2024 7:58:00 AM by Edgar Ma D.O.
== END 2024-07-23 17:55 | disposition home or self-care (01) ==
PROVIDERS: PCP Nurse Practitioner Family; Visit Provider Orthopaedic Surgery
DX: M25.561 Pain in right knee (principal); S83.521A Sprain of posterior cruciate ligament of right knee, initial encounter; M25.461 Effusion, right knee
CPT/HCPCS: 73721

== ENCOUNTER 2024-08-15 09:02 | Outpatient (CLI) | payer OTHER, SELFPAY ==
--- NOTE | 2024-08-15 09:15 | CRLHL7_ITS ---
For Patients: As a result of the Century Cures Act, medical imaging exams and procedure reports are released immediately into your electronic medical record. You may view this report before your referring provider. If you have questions, please contact your health care provider. INDICATION: Low back pain. COMPARISON: 08/09/2024. TECHNIQUE: Sagittal T1, T2, and STIR sequences. Axial T1 and T2 weighted sequences. FINDINGS: Normal vertebral body alignment. No fractures. No vertebral body loss of height. No spondylolisthesis. No ligamentous injury. No suspicious osseous lesions. Congenitally short pedicles contributes to overall narrowed caliber of the spinal canal. Normal conus terminates at L1-2. T12-L1: Mild disc degeneration diffuse disc bulge eccentric to the left. No narrowing of the spinal canal. No neural foraminal narrowing. L1-2: Disc degeneration diffuse disc bulge eccentric to the left. Mild narrowing of spinal canal. Mild narrowing of the left neural foramen. No narrowing of the right neural foramen. L2-3: Disc degeneration diffuse disc bulge eccentric to the left. Mild narrowing of spinal canal. Mild right and moderate left neural foraminal narrowing. Mild os arthropathy. L3-4: No narrowing of spinal canal. Mild right and moderate left neural foraminal narrowing. Mild facet arthropathy. L4-5: Disc degeneration. Diffuse disc bulge. No narrowing of the spinal canal. No neural foraminal narrowing. L5-S1: No narrowing of the spinal canal. No impingement of the traversing S1 nerve roots. No neural foraminal narrowing. Normal visualized SI joints. Normal paraspinal soft tissues. IMPRESSION: 1. Normal alignment. No fractures 2. Congenitally short pedicles 3. Lumbar spondylosis 4. At L1-2, mild narrowing of the spinal canal and left neural foramina 5. At L2-3, mild narrowing of the spinal canal. Mild right and moderate left neural foraminal narrowing. 6. At L3-4, mild right and moderate left neural foraminal narrowing. Dictated by Deangelo Bazan MD @ 08/15/2024 11:41:42 AM (Electronically Signed)
== END 2024-08-15 09:03 | disposition home or self-care (01) ==
PROVIDERS: PCP Nurse Practitioner Family; Visit Provider Nurse Practitioner Family
DX: M54.50 Low back pain, unspecified (principal); M47.896 Other spondylosis, lumbar region; M51.26 Other intervertebral disc displacement, lumbar region; G89.29 Other chronic pain
CPT/HCPCS: 72148

== ENCOUNTER 2024-09-20 09:27 | Outpatient (CLI) | payer OTHER, SELFPAY | END 2024-09-20 09:28 | disposition home or self-care (01) | PROVIDERS: PCP Nurse Practitioner Family; Visit Provider Nurse Practitioner Family | DX: E11.65 Type 2 diabetes mellitus with hyperglycemia (principal); E03.9 Hypothyroidism, unspecified; Z79.4 Long term (current) use of insulin | CPT/HCPCS: 82043; 82570; 82947; 84443 ==

== ENCOUNTER 2024-11-26 13:10 | Outpatient (CLI) | payer OTHER, SELFPAY | END 2024-11-26 13:11 | disposition home or self-care (01) | PROVIDERS: PCP Nurse Practitioner Family; Visit Provider Nurse Practitioner Family | DX: E11.65 Type 2 diabetes mellitus with hyperglycemia (principal); L97.529 Non-pressure chronic ulcer of other part of left foot with unspecified severity; Z79.4 Long term (current) use of insulin | CPT/HCPCS: 85025; 86140 ==

== ENCOUNTER 2025-07-16 10:19 | Outpatient (CLI) | payer OTHER, SELFPAY | END 2025-07-16 10:20 | disposition home or self-care (01) | PROVIDERS: PCP Nurse Practitioner Family; Visit Provider Nurse Practitioner Family | DX: E11.69 Type 2 diabetes mellitus with other specified complication (principal); Z79.4 Long term (current) use of insulin; Z13.0 Encounter for screening for diseases of the blood and blood-forming organs and certain disorders involving the immune mechanism; Z00.00 Encounter for general adult medical examination without abnormal findings | CPT/HCPCS: 80053; 80061; 82043; 82570; 82607; 84443; 85025; G0103 ==